=== PATIENT | male | born 1960 | race Caucasian/White ===

== ENCOUNTER → 2016-11-20 | Outpatient (CLI) | payer OTHER ==
[~2016-11-20] MED LIST: ALDA50TA2 PO; BALS750C PO; CHOL1CAP34 PO; CIPR250T2 PO; COLA750C2 PO; DEXAMETHASONE IV PUSH; EMPA1TAB7 PO; FENT50DI T-DERMAL; FENT75DI T-DERMAL; FERR325T20 PO; FLUT50SP EACH NARE; FURO40TA PO; FURO80 PO; FURO80TA PO; GABA300C3 PO; GABA600T PO; HYDR-3535 PO; LACT10SO PO; LACT10SO5 PO; LACT20SO4 PO; LANTUS2P SQ; LEVEMIR SQ; LEVO500T8 PO; LORA-373 PO; LORA0.5T PO; Lactulose Liq PO; NADO1TAB16 PO; NADO20TA PO; NOVOLOGP2 SQ; NOVOLOGSS SQ; NYSTPOW TOPICAL; OMEP20CA2 PO; ONDA1TAB16 PO; OXYC-392 PO; PARO1TAB73 PO; PARO30TA PO; PAXI30TA7 PO; PHEN12.5 PO; PRIL20CA PO; PROM12.54 PO; RIFA550 PO; SPIR50 PO; TRAM50TA PO; TYLE325T PO; ULTR50TA PO; VITA1CAP7 PO; VITA500T2 PO; XIFA550T4 PO; ZINC220C3 PO; [UNRECOGNIZED DRUG - CODE] PO
== END ==
LOC: CLAB 07:16
PROVIDERS: ATTEND Internal Medicine Gastroenterology
DX: K74.60 Unspecified cirrhosis of liver (principal)
CPT/HCPCS: 36415; 82140

== ENCOUNTER 2017-01-04 09:43 | Day surgery (SDC) | payer OTHER ==
[~2017-01-04 09:43] MED LIST changes: -ALDA50TA2 PO; -BALS750C PO; -CHOL1CAP34 PO; -CIPR250T2 PO; -DEXAMETHASONE IV PUSH; -FENT50DI T-DERMAL; -FERR325T20 PO; -FLUT50SP EACH NARE; -FURO40TA PO; -FURO80TA PO; -GABA600T PO; -LACT10SO PO; -LACT10SO5 PO; -LANTUS2P SQ; -LEVO500T8 PO; -LORA-373 PO; -Lactulose Liq PO; -NADO1TAB16 PO; -NADO20TA PO; -NOVOLOGSS SQ; -NYSTPOW TOPICAL; -OMEP20CA2 PO; -ONDA1TAB16 PO; -OXYC-392 PO; -PARO1TAB73 PO; -PAXI30TA7 PO; -PROM12.54 PO; -TRAM50TA PO; -TYLE325T PO; -VITA1CAP7 PO; -VITA500T2 PO; -XIFA550T4 PO; -ZINC220C3 PO
--- NOTE | 2017-01-04 12:04 | RADRPT ---
EXAM DATE/TIME: 01/04/2017 10:30 [place] COMPARISON: US ABDOMEN - LOWER LIMITED, August 06, 2014, 9:41. EXTERNAL COMPARISON : [facility] [place], CT ABDOMEN & PELVIS W CONTRAST, March 25, 2010[place], [place] ABDOMEN & PEL VIS W & W/O CONTRAST, June 24, 2010. INDICATIONS : Abdominal distention, ascites. MEDICAL HISTORY : Myocardial infarction. Hypercholesterolemia. Gastroesophageal reflux disease. Hepatic encephalopathy. Seizures. Anticoagulant therapy. Atrial fibrillation. Diabetes. Renal failure. IBS. Hypertension. C irrhosis. SURGICAL HISTORY : Gastric bypass. Liver biopsy. Hernia repair. Orthopedic surgery: left elbow, left knee and left rotat or cuff. ENCOUNTER: Subsequent ACUITY: > 1 year PAIN SCORE: 0/10 LOCATION: Abdomen. AREA EVALUATED: Abdomen. FINDINGS: Imaging of the abdomen and pelvis was performed to evaluate for ascites for possible paracentesis. Th ere is only a minimal amount of ascites which is inadequate for paracentesis at this time. CONCLUSION: Minimal amount of ascites which is inadequate for paracentesis at this time. Mike Toro MD on January 04, 2017 at 12:01 Board Certified Radiologist. This report was verified electronically.
[2017-02-09] MEDS ORDERED: EMPA1TAB7 PO (14:12)
[2017-02-09] MEDS ORDERED: BALS750C PO ×2 (14:12→15:10)
[2017-02-09] MEDS ORDERED: LACT10SO PO (14:12)
[2017-02-09] MEDS ORDERED: XIFA550T4 PO (14:12)
[2017-02-09] MEDS ORDERED: LORA-373 PO (14:12)
[2017-02-09] MEDS ORDERED: PROM12.54 PO (14:12)
[2017-02-09] MEDS ORDERED: CHOL1CAP34 PO ×2 (14:12→15:10)
[2017-02-09] MEDS ORDERED: TRAM50TA PO (14:12)
[2017-02-09] MEDS ORDERED: ALDA50TA2 PO (14:12)
[2017-02-09] MEDS ORDERED: FENT75DI T-DERMAL (14:12)
[2017-02-09] MEDS ORDERED: FURO80TA PO (14:12)
[2017-02-09] MEDS ORDERED: LEVEMIR SQ (14:12)
[2017-02-09] MEDS ORDERED: GABA600T PO (14:12)
[2017-02-09] MEDS ORDERED: HYDR-3535 PO (14:12)
[2017-02-09] MEDS ORDERED: OMEP20CA2 PO (14:12)
[2017-02-09] MEDS ORDERED: PARO1TAB73 PO (14:12)
[2017-02-09] MEDS ORDERED: NOVOLOGSS SQ (14:12)
[2017-02-09] MEDS ORDERED: FENT50DI T-DERMAL (15:10)
[2017-02-09] MEDS ORDERED: FLUT50SP EACH NARE (15:10)
[2017-02-09] MEDS ORDERED: VITA1CAP7 PO (15:10)
[2017-02-09] MEDS ORDERED: NADO20TA PO (15:10)
[2017-02-09] MEDS ORDERED: ONDA1TAB16 PO ×2 (15:10→16:13)
[2017-02-09] MEDS ORDERED: FURO40TA PO (15:10)
[2017-02-09] MEDS ORDERED: LANTUS2P SQ (15:10)
[2017-02-09] MEDS ORDERED: TYLE325T PO (15:10)
[2017-02-09] MEDS ORDERED: CIPR250T2 PO (15:10)
[2017-02-09] MEDS ORDERED: LEVO500T8 PO (15:10)
[2017-02-09] MEDS ORDERED: LACT10SO5 PO (15:10)
[2017-02-09] MEDS ORDERED: NYSTPOW TOPICAL (15:10)
[2017-02-09] MEDS ORDERED: ZINC220C3 PO (15:10)
[2017-02-09] MEDS ORDERED: NOVOLOGP2 SQ (15:10)
[2017-02-09] MEDS ORDERED: PAXI30TA7 PO (15:10)
[2017-02-20] MEDS ORDERED: LANTUS2P SQ (09:43)
[2017-02-20] MEDS ORDERED: DEXAMETHASONE IV PUSH (09:43)
[2017-02-20] MEDS ORDERED: XIFA550T4 PO (09:43)
[2017-02-20] MEDS ORDERED: VITA1CAP7 PO (09:43)
[2017-02-20] MEDS ORDERED: VITA500T2 PO (09:43)
[2017-02-20] MEDS ORDERED: FENT50DI T-DERMAL (09:43)
[2017-02-20] MEDS ORDERED: OMEP20CA2 PO (09:43)
[2017-02-20] MEDS ORDERED: ZINC220C3 PO (09:43)
[2017-02-20] MEDS ORDERED: CIPR250T2 PO (09:43)
[2017-02-20] MEDS ORDERED: FURO40TA PO (09:43)
[2017-02-20] MEDS ORDERED: FERR325T20 PO (09:43)
[2017-02-20] MEDS ORDERED: CHOL1CAP34 PO (09:43)
[2017-02-20] MEDS ORDERED: TYLE325T PO (09:43)
[2017-02-20] MEDS ORDERED: PAXI30TA7 PO (09:43)
[2017-02-20] MEDS ORDERED: BALS750C PO (09:43)
[2017-02-20] MEDS ORDERED: NOVOLOGP2 SQ (09:43)
[2017-02-20] MEDS ORDERED: ONDA1TAB16 PO (09:43)
[2017-02-20] MEDS ORDERED: NADO1TAB16 PO (09:44)
[2017-02-20] MEDS ORDERED: ALDA50TA2 PO (09:44)
[2017-02-20] MEDS ORDERED: Lactulose Liq PO (09:44)
== END 2017-01-04 11:00 | disposition home or self-care (01) ==
LOC: HRAD 09:43 → HRIP 09:44 → HRAD 11:00
PROVIDERS: ATTEND Internal Medicine Gastroenterology
DX: R18.8 Other ascites (principal)
CPT/HCPCS: 76705

== ENCOUNTER 2017-02-20 10:51 | Inpatient (IN) | payer OTHER, MEDICARE ==
[~2017-02-20] VITALS: Ht 190.5 cm; Wt 164.1 kg
[~2017-02-20 10:51] MED LIST changes: +ALDA50TA2 PO; +BALS750C PO; +CHOL1CAP34 PO; +CIPR250T2 PO; -COLA750C2 PO; +DEXAMETHASONE IV PUSH; -EMPA1TAB7 PO; +FENT50DI T-DERMAL; -FENT75DI T-DERMAL; +FERR325T20 PO; +FLUT50SP EACH NARE; +FURO40TA PO; -FURO80 PO; -GABA300C3 PO; -HYDR-3535 PO; +LACT10SO5 PO; -LACT20SO4 PO; +LANTUS2P SQ; -LEVEMIR SQ; +LEVO500T8 PO; -LORA0.5T PO; +Lactulose Liq PO; +NADO1TAB16 PO; +NADO20TA PO; +NYSTPOW TOPICAL; +OMEP20CA2 PO; +ONDA1TAB16 PO; -PARO30TA PO; +PAXI30TA7 PO; -PHEN12.5 PO; -PRIL20CA PO; -RIFA550 PO; -SPIR50 PO; +TYLE325T PO; -ULTR50TA PO; +VITA1CAP7 PO; +VITA500T2 PO; +XIFA550T4 PO; +ZINC220C3 PO; -[UNRECOGNIZED DRUG - CODE] PO
[2017-02-20 16:00] VITALS: BP 128/58; PULSE 89; RESP 16; TEMP 96.9; O2SAT 98
[2017-02-20] MEDS ORDERED: BISACODYL 10 MG SUPP RECTAL PRN (16:15)
[2017-02-20] MEDS ORDERED: ONDANSETRON HCL 4 MG/2 ML VIAL IVP PRN (16:15)
[2017-02-20] MEDS ORDERED: MAGNESIUM HYDROXIDE SUSP 30 ML CUP PO PRN (16:15)
[2017-02-20] MEDS ORDERED: LACTULOSE SYRUP 20 GM/30 ML CUP PO PRN (16:15)
[2017-02-20] MEDS ORDERED: SENNOSIDES 8.6 MG TAB PO PRN (16:15)
[2017-02-20] MEDS ORDERED: SODIUM CHLORIDE 0.9% FLUSH 10 ML FLUSH IV FLUSH PRN (16:15)
[2017-02-20] MEDS ORDERED: NALOXONE HCL 0.4 MG/ML AMP IV PRN (16:15)
[2017-02-20] MEDS ORDERED: INSULIN ASPART 1,000 UNITS/10 ML VIAL SQ ONE (16:30)
[2017-02-20] MEDS ORDERED: DEXTROSE 50% IN WATER 50 ML VIAL(D50) IV PRN (16:30)
[2017-02-20] MEDS ORDERED: GLUCAGON 1 MG/ML VIAL OTHER PRN (16:30)
--- NOTE | 2017-02-20 16:37 | HHI.HP ---
HPI Service [facility] Primary Care Physician Kylie Ramos MD Admission Diagnosis Diagnoses: Chief Complaint: Subdural hematoma versus hygroma Travel History International Travel<30 Days: No Contact w/Intl Traveler <30 Da: No Traveled to Known Affected Are: No History of Present Illness Mr. Mancilla is a 56-year-old male with a history of diabetes mellitus, CAD, morbid obesity, nonalcoholic steatohepatitis (MCKEON), SBP with E. Coli who was transferred from [facility] to the medical surgical floor on 2016 due to subdural hematoma/hygroma with mass effect and significant clinical symptoms. On 02/19/2017, patient complained of right sided weakness. Subsequently a CT head showed large hygroma with mass effect. Patient was started on dexamethasone and neurosurgery was consulted. Neurosurgery recommended surgical intervention as well as hematology consult due to patient's thrombocytopenia. At the time of this interview, patient is doing well. His right sided weakness is improved. Denies any chest pain, shortness of breath, fever, chills. Review of Systems Except as stated in HPI: all other systems reviewed are Neg Past Family Social History Past Medical History Mckeon cirrhosis Bacterial peritonitis with E. Coli. Spheno-megaly Trauma cytopenia Ascites History of esophageal varices present EGD in 2014 Hepatic cephalopathy Hyperlipidemia Diabetes mellitus type 2 uncontrolled Chronic kidney disease History of cellulitis With infection the foot Tinea corporis Diabetic neuropathy Diabetic nephropathy Past Surgical History Cholecystitis Excision of malignant lesion on the trunk Foot surgery Left knee surgery Right knee arthroscopy Nerve block paravertebral facet joint lumbar level Gastric bypass surgery in 2009 Left shoulder surgery Left elbow surgery Left great toe amputation 2 Reported Medications Current Medications Medications (Trade) Dose Ordered Sig/Vielka Route Start Time Stop Time Status Last Admin (NS Flush) 2 ml UNSCH PRN IV FLUSH 02/20/17 16:15 (NS Flush) 2 ml BID IV FLUSH 02/20/17 21:00 02/21/17 08:39 (Tylenol) 500 mg Q6H PRN PO 02/20/17 16:15 (Zofran Inj) 4 mg Q6H PRN IVP 02/20/17 16:15 02/21/17 10:54 (Narcan Inj) 0.4 mg UNSCH PRN IV 02/20/17 16:15 (Gale-Colace) 1 tab BID PO 02/20/17 21:00 02/21/17 08:39 (Milk Of Magnesia Liq) 30 ml Q12H PRN PO 02/20/17 16:15 (Senokot) 17.2 mg Q12H PRN PO 02/20/17 16:15 (Dulcolax Supp) 10 mg DAILY PRN RECTAL 02/20/17 16:15 (Lactulose Liq) 30 ml DAILY PRN PO 02/20/17 16:15 (D50w (Vial) Inj) 50 ml UNSCH PRN IV 02/20/17 16:30 (Glucagon Inj) 1 mg UNSCH PRN OTHER 02/20/17 16:30 (NovoLOG INJ) 10 units TIDAC SQ 02/20/17 17:00 02/21/17 12:26 (Levemir Inj) 25 units HS SQ 02/20/17 21:00 02/20/17 20:35 (Decadron Inj) 4 mg Q8HR IV PUSH 02/20/17 22:00 02/21/17 12:21 (Ferrous Sulfate) 325 mg BID PO 02/20/17 21:00 02/21/17 08:39 (Aldactone) 50 mg DAILY PO 02/21/17 09:00 02/21/17 08:39 (Lactulose Liq) 30 ml QID PRN PO 02/20/17 16:30 02/21/17 05:57 (Vitamin C) 500 mg BID PO 02/20/17 21:00 02/21/17 08:39 (Cipro) 250 mg DAILY PO 02/21/17 09:00 02/21/17 08:39 (Lasix) 40 mg DAILY PO 02/21/17 09:00 02/21/17 08:39 (Paxil) 30 mg DAILY PO 02/21/17 09:00 02/21/17 08:39 (Protonix) 40 mg DAILY PO 02/21/17 09:00 02/21/17 08:39 (Duragesic 50 Mcg Patch.72 Hr) 1 patch Q3D T-DERMAL 02/20/17 18:00 02/20/17 17:02 Miscellaneous Information 1 Q3D T-DERMAL 02/23/17 18:00 (Pill Splitter) 1 ea UNSCH PRN OTHER 02/20/17 17:15 (Roxicodone) 10 mg Q6H PRN PO 02/21/17 10:15 02/21/17 10:50 Allergies: Coded Allergies: Sulfa (Verified Allergy, Intermediate, Nausea/Vomiting, 02/09/17) *MDRO Multi-Drug Resistant Organism (Verified Adverse Reaction, Unknown, ) MRSA (left foot) 2007 MRSA PCR Screen NEGATIVE - 04/22/2015, 09/26/2015 CLEARED BY INFECTION CONTROL Family History Mother of cancer unknown Father of pancreatic and liver cancer One sister last year, unknown medical history Social History Denies alcohol use Denies tobacco use Denies illicit drug use Physical Exam Vital Signs Temperature 96.9F, pulse 89 respirations 16 blood pressure 128/58 pulse oximetry 98% on room air. Physical Exam GENERAL: This is a well-nourished, well-developed patient, in no apparent distress. SKIN: No rashes, ecchymoses or lesions. Warm and dry. HEAD: Atraumatic. Normocephalic. No temporal or scalp tenderness. EYES: Pupils equal round and reactive. No injection or drainage. ENT: Nose without bleeding, purulent drainage or septal hematoma. Airway patent. NECK: Trachea midline. No lymphadenopathy. Supple, nontender, no meningeal signs. CARDIOVASCULAR: Regular rate and rhythm without murmurs, gallops, or rubs. No JVD. RESPIRATORY: Clear to auscultation. Breath sounds equal bilaterally. No wheezes , rales, or rhonchi. GASTROINTESTINAL: Abdomen soft, non-tender, nondistended. No guarding. MUSCULOSKELETAL: Extremities without clubbing, cyanosis, or edema. NEUROLOGICAL: Awake and alert. Cranial nerves II through XII intact. No focal neurological deficits. Normal speech. Imaging Last Impressions Head CT 02/19/17 0000 Signed Impressions: Service Date/Time: Sunday, February 19, 2017 15:40 - CONCLUSION: Bilateral hygromas much worse on the left than the right. Significant mass effect is evident. Board Certified Radiologist. This report was verified electronically. Abdomen Ultrasound 02/18/17 0000 Signed Impressions: Service Date/Time: Saturday, February 18, 2017 12:57 - CONCLUSION: Small amount of ascites. Tate Koehler MD Lower Extremity Ultrasound 02/13/17 0000 Signed Impressions: Service Date/Time: Monday, February 13, 2017 15:33 - CONCLUSION: No evidence of DVT. Gwyn Durham MD Chest X-Ray 02/10/17 09 Signed Impressions: Service Date/Time: Friday, February 10, 2017 14:10 - CONCLUSION: Mild congestive failure. Garret Hardwick MD FACR Abdomen X-Ray 02/10/17899 Signed Impressions: Service Date/Time: Friday, February 10, 2017 14:12 - CONCLUSION: Nonspecific bowel gas pattern without significant dilatation. There is no free air or obstruction. Garret Hardwick MD FACR Assessment and Plan Problem List: (1) SDH (subdural hematoma) ICD Code: I62.00 Status: Acute (2) MCKEON (nonalcoholic steatohepatitis) ICD Code: K75.81 Status: Acute (3) Cirrhosis ICD Code: K74.60 Status: Chronic (4) DM type 2 (diabetes mellitus, type 2) ICD Code: E11.9 Status: Chronic (5) CKD (chronic kidney disease) stage 3, GFR 30-59 ml/min ICD Code: N18.3 Status: Chronic Assessment and Plan Mr. Mancilla is a 56-year-old male with a history of diabetes mellitus, MCKEON, bacterial peritonitis who was transferred from [facility] to the Med-Surg floor due to large hematoma versus hygroma with mass effect in the brain and possible need for surgical intervention. Bilateral hygroma/subdural hematoma L > R. - Dexamethasone 4mg Q8hrs. Dr. Traore is following and plans to do surgery on or 02/22/2017 - Platelet was 41,000 on 02/20/2017. Patient received 1 unit of platelets on . More platelets may be needed prior to surgery. MCKEON, nonalcoholic steatohepatitis Hepatic encephalopathy - resolved. - Continue Lasix 40 mg daily as well as spirolactone 50mg Qday. - Fentanyl patch, oxycodone for pain - continue Lactulose to achieve 2-3 loose bowel movements. History of SBP with E. Coli. - s/p paracentesis 02/02/17 - Continue Cipro for prophylaxis. DM type 2 - Requiring more insulin due to steroid. - Continue Levemir 25 units QHS, Aspart 10 units TIDAC, sliding scale insulin. Esophageal varices - Continue pantoprazole. states he was not taking Nadolol. - Will discuss again in future about the need for some form of Beta ary with regards to variceal bleed. Thrombocytopenia - Platelet counts 41K. hematology on board to help with gale-surgical management of thrombocytopenia cytopenia. - Hematology consult pending. Full code. Ambulation. Physician Certification 2 Midnight Certification Type: Admission for Inpatient Services Order for Inpatient Services The services are ordered in accordance with Medicare regulations or non- Medicare payer requirements, as applicable. In the case of services not specified as inpatient-only, they are appropriately provided as inpatient services in accordance with the 2-midnight benchmark. Estimated LOS (days): 2 days is the estimated time the patient will need to remain in the hospital, assuming treatment plan goals are met and no additional complications. Post-Hospital Plan: Not yet determined Parmjit Patterson DO Feb 20, 2017 4:37 pm
[2017-02-20] MEDS ORDERED: INSULIN ASPART 1,000 UNITS/10 ML VIAL SQ SCH (17:00)
[2017-02-20] MEDS: fentaNYL 50 MCG/HR PATCH T-DERMAL SCH (17:02)
[2017-02-20] MEDS ORDERED: PILL SPLITTER OTHER PRN (17:15)
[2017-02-20 17:35] VITALS: O2SAT 98
[2017-02-20] MEDS: INSULIN ASPART 1,000 UNITS/10 ML VIAL SQ SCH (18:44)
--- NOTE | 2017-02-20 18:54 | PD.CONS ---
History of Present Illness Service Neurosurgery Consult Requested By Medicine service Reason for Consult Subdural hygroma versus hematoma Primary Care Physician Kylie Ramos MD Diagnoses: History of Present Illness 56-year-old male with history of cirrhosis. Recent admission to [facility] approximately a month ago for week due to ascites-peritonitis. Transferred to [facility] after discharge from [facility]. 3-4 day history of decreased mental status, increased gait deficit with right hemiparesis. CT scan had 02/19/17 revealed moderate left greater than right primarily frontoparietal convexity subdural fluid collection, hygroma versus chronic hematoma. Patient's exam 02/19/17 revealed significant right hemiparesis. His examination today has improved. Past Family Social History Allergies: Coded Allergies: Sulfa (Verified Allergy, Intermediate, Nausea/Vomiting, 02/09/17) *MDRO Multi-Drug Resistant Organism (Verified Adverse Reaction, Unknown, ) MRSA (left foot) 2007 MRSA PCR Screen NEGATIVE - 04/22/2015, 09/26/2015 CLEARED BY INFECTION CONTROL Past Medical History Cirrhosis Past Surgical History Multiple joint surgeries Physical Exam Vital Signs Vital Signs Date Time Temp Pulse Resp B/P Pulse Ox O2 Delivery O2 Flow Rate FiO2 02/20/17 17:35 98 21 02/20/17 16:00 96.9 89 16 128/58 98 Physical Exam General: Mildly obese male, no apparent distress GI: Significant abdominal distention. Nontender NEUROLOGICAL: Awake and alert. Speech a little more fluent with improved thought processes versus 02/19/17. Facial motor movement symmetric Strength is improved to mostly 4-5 left and 4/5 right upper and lower extremity major flexion and extension groups Assessment and Plan Assessment and Plan Impression: 1. Bilateral parietal convexity subdural fluid collection, chronic/subacute subdural hematoma versus hygroma. Significant mass effect. 2. Right hemiparesis improved today compared to 02/19/2017 3. Thrombocytopenia. Plan: Discussed with medicine service today. He was initially anticipated the patient would need to proceed to surgery today on a rather urgent basis due to his right hemiparesis. However due to his improvement in neurologic function today, further platelet transfusion will be held and hematology consultation obtained for further recommendations regarding management of thrombocytopenia and coagulopathy in the perioperative period. Discussed at length with the patient and his today in regards to findings and treatment plan and questions answered. Jan Traore MD Feb 20, 2017 18:54
[2017-02-20] MEDS: DOCUSATE SODIUM 50 MG/SENNA 8.6 MG TAB PO SCH (20:29)
[2017-02-20] MEDS: SODIUM CHLORIDE 0.9% FLUSH 10 ML FLUSH IV FLUSH SCH (20:29)
[2017-02-20] MEDS: FERROUS SULFATE 325 MG (65 MG ELEMENTAL IRON) TAB PO SCH (20:29)
[2017-02-20] MEDS: ASCORBIC ACID 500 MG TAB PO SCH (20:29)
[2017-02-20] MEDS: INSULIN ASPART SUPPLEMENTAL SCALE SQ SCH (20:30)
[2017-02-20] MEDS: DEXAMETHASONE SOD PHOS 4 MG/ML VIAL IV PUSH SCH (20:30)
[2017-02-20 20:34] VITALS: BP 131/58; PULSE 83; RESP 18; TEMP 97.2; O2SAT 98
[2017-02-20] MEDS: INSULIN DETEMIR 100 UNITS/ML VIAL SQ SCH (20:35)
[2017-02-20] MEDS ORDERED: INSULIN DETEMIR 100 UNITS/ML VIAL SQ SCH (21:00)
[2017-02-20] MEDS: LACTULOSE SYRUP 20 GM/30 ML CUP PO PRN (23:12)
--- NOTE | 2017-02-20 23:15 | MB ---
cc: MO BECKER M.D. DATE OF CONSULTATION 02/20/17 ROOM 1506 REASON FOR CONSULTATION Patient with pancytopenia who may require surgery for evacuation of subdural hematoma. I am asked to make recommendations regarding limiting risk of bleeding. PATIENT PROFILE The patient is a 56-year-old white male. He is a poor historian as he has chronic hepatic encephalopathy. His is present and she is an excellent historian. He has been once. He was born in [facility] and has lived in [place] for approximately 43 years. He has two daughters. He is on disability. 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 He does not smoke. Alcohol intake in the past has been minimal. HISTORY OF PRESENT ILLNESS The patient is a 56-year-old male who has a history of morbid obesity. At one point he weighed in excess of 500 pounds and lost approximately 300 pounds. He had gastric bypass surgery in 2009. 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 He has had an elevated serum ammonia levels with encephalopathy. He has had esophageal varices requiring banding. He had a CT scan of the abdomen and pelvis on 11/17/2015. I have reviewed the images and he has a small shrunken liver with a markedly enlarged spleen and varicosities. His current CBC and platelet count on 02/20/2002 hemoglobin 7.9, white count 1800 and platelet count is 41,000, 83% neutrophils. When one looks back at his previous blood counts he has had thrombocytopenia dating back to June 2010 when the platelet count was 55,000. The thrombocytopenia is not new. He has had a low white cell count likewise dating back to 2009 when the white count was 2100. He was recently at the [facility] and had the removal of five liters of ascites. At some point he was found to have an E-coli infection. Following the visit to the [facility] he was transferred to the [facility]. He was found to have right sided weakness. He underwent a CAT scan of the brain without contrast on 02/19 revealing bilateral hygromas much worse on the left than the right with significant mass effect noted. Surgery was contemplated to remove the hygromas and I am asked to see him because of the thrombocytopenia and coagulopathy. On 02/20/2017 he had a PT of 15, PTT of 34. He has had several falls but his does not remember him striking his head PAST SURGICAL HISTORY 1. Gastric bypass surgery in 2010 for morbid obesity. 2. Abdominal hernia repair. 3. Shoulder surgery. 4. Esophageal banding. 5. Surgery left elbow. PAST MEDICAL HISTORY 1. Morbid obesity with weight exceeding 500 pounds. 2. 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 3. Hepatic encephalopathy secondary to cirrhosis. 4. Mild renal failure with estimated GFR of 49 ml. 5. Diabetes mellitus. ALLERGIES None. FAMILY HISTORY Mother of lung cancer. Father of pancreatic cancer. The patient has a sister who is living and a sister of ovarian cancer. PHYSICAL EXAMINATION GENERAL: Physical exam reveals a gentleman who is lying supine in bed. He appears comfortable. He is a poor historian and has mild encephalopathy. He is obese. HEENT: Head is normocephalic. Sclerae and conjunctivae are normal. Oropharynx unremarkable. No adenopathy. HEART: Regular rhythm. LUNGS: Lungs were clear. ABDOMEN: Obese, liver not palpable. I cannot feel the spleen, although, I know that it is enlarged and extends below the left costal margin. EXTREMITIES: +1 edema with significant stasis changes. NEUROLOGIC EXAMINATION: The patient has a mild flap. He has right arm weakness. He has a slight tremor. ASSESSMENT The patient is a 56-year-old male. He has advanced cirrhosis with hepatic encephalopathy, varices, splenomegaly and pancytopenia. The pancytopenia I believe is due to the enlarged spleen. RECOMMENDATIONS If the patient goes to surgery I would recommend the followin. Transfuse 2 single unit donor platelet packs before surgery. 2. Transfuse 3 units of fresh frozen plasma before surgery. 3. Subsequent to this CBC and platelet count daily and if the platelets are less than 100,000, I would give him a single unit donor platelet pack until there is no further risk of bleeding. The platelet transfusions may not necessarily correct the platelet count as his thrombocytopenia is primarily due to his hypersplenism and transfused platelets will be sequestered in the spleen. Following surgery I would also recommend a unit of fresh frozen plasma every 8 hours for several days. I discussed this with the patient's . There is no way that this gentleman can go to surgery without having risks. He is encephalopathic. He has severe cirrhosis and his platelet counts may not significantly rise following platelet transfusions due to the enlarged spleen. Will check fibrinogen level in am. MD KT Gómez /10:21 PM /10:47 PM BRENDA
[2017-02-21] VITALS (7 sets, daily range): BP systolic 131–165; BP diastolic 58–70; PULSE 52–69; RESP 16–18; TEMP 96.1–97.6; O2SAT 98–100
[2017-02-21] MEDS: LACTULOSE SYRUP 20 GM/30 ML CUP PO PRN ×3 (05:57→22:09)
[2017-02-21] MEDS: DEXAMETHASONE SOD PHOS 4 MG/ML VIAL IV PUSH SCH ×3 (05:58→22:12)
[2017-02-21] MEDS: INSULIN ASPART SUPPLEMENTAL SCALE SQ SCH ×3 (06:01→19:24)
[2017-02-21] MEDS: INSULIN ASPART 1,000 UNITS/10 ML VIAL SQ SCH ×3 (08:00→17:00)
[2017-02-21 08:23] LABS: AUTOMATED NEUTROPHIL # 3.5 TH/MM3 (1.8-7.7); BASOPHIL % 0.1 % (0.0-2.0); EOSINOPHIL % 0.1 % (0.0-4.0); LYMPH % 10.8 % (9.0-44.0); LYMPHOCYTE # 0.4 TH/MM3 (1.0-4.8); MEAN CELL VOLUME 98.4 FL (80.0-100.0); MEAN CORPUSCULAR HEMOGLOBIN 32.4 PG (27.0-34.0); MEAN CORPUSCULAR HGB CONC 32.9 % (32.0-36.0); MONO % 3.6 % (0.0-8.0); NEUT % 85.4 % (16.0-70.0); PLATELET COUNT 45 TH/MM3 (150-450); RED BLOOD COUNT 2.54 MIL/MM3 (4.50-5.90); RED CELL DISTRIBUTION WIDTH 16.7 % (11.6-17.2); WHITE BLOOD COUNT 4.1 TH/MM3 (4.0-11.0)
[2017-02-21 08:32] LABS: HEMO FLAGS AUTO DIFF
[2017-02-21 08:37] LABS: INTERNATIONAL NORMALIZED RATIO 1.4 RATIO
[2017-02-21 08:39] LABS: BICARBONATE 18.1 MEQ/L (21.0-32.0); POTASSIUM 4.4 MEQ/L (3.5-5.1)
[2017-02-21] MEDS: FUROSEMIDE 40 MG TAB PO SCH (08:39)
[2017-02-21] MEDS: PARoxetine HCL 20 MG TAB PO SCH (08:39)
[2017-02-21] MEDS: SODIUM CHLORIDE 0.9% FLUSH 10 ML FLUSH IV FLUSH SCH ×2 (08:39→22:46)
[2017-02-21] MEDS: PANTOPRAZOLE SOD 40 MG DELAYED RELEASE TAB PO SCH (08:39)
[2017-02-21] MEDS: DOCUSATE SODIUM 50 MG/SENNA 8.6 MG TAB PO SCH ×2 (08:39→22:09)
[2017-02-21] MEDS: CIPROFLOXACIN 250 MG TAB PO SCH (08:39)
[2017-02-21] MEDS: FERROUS SULFATE 325 MG (65 MG ELEMENTAL IRON) TAB PO SCH ×2 (08:39→22:09)
[2017-02-21] MEDS: ASCORBIC ACID 500 MG TAB PO SCH ×2 (08:39→22:10)
[2017-02-21] MEDS: SPIRONOLACTONE 50 MG TAB PO SCH (08:39)
[2017-02-21] MEDS: NADOLOL 20 MG TAB PO SCH ×2 (08:42→09:00)
--- NOTE | 2017-02-21 09:22 | PD.ONC.PN ---
Subjective Subjective Remarks no complaints Objective Data Date Time Temp Pulse Resp B/P Pulse Ox O2 Delivery O2 Flow Rate FiO2 02/21/17 08:00 96.1 52 16 140/60 99 02/21/17 05:35 97.4 58 18 142/63 98 02/21/17 00:08 97.6 69 18 131/58 98 02/20/17 20:34 97.2 83 18 131/58 98 02/20/17 17:35 98 21 02/20/17 16:00 96.9 89 16 128/58 98 Result Diagram: 02/21/17 0737 02/21/17 0737 Laboratory Results Laboratory Tests Test 02/21/17 07:37 White Blood Count 4.1 TH/MM3 Red Blood Count 2.54 MIL/MM3 Hemoglobin 8.2 GM/DL Hematocrit 25.0 % Mean Corpuscular Volume 98.4 FL Mean Corpuscular Hemoglobin 32.4 PG Mean Corpuscular Hemoglobin 32.9 % Concent Red Cell Distribution Width 16.7 % Platelet Count 45 TH/MM3 Mean Platelet Volume 9.3 FL Neutrophils (%) (Auto) 85.4 % Lymphocytes (%) (Auto) 10.8 % Monocytes (%) (Auto) 3.6 % Eosinophils (%) (Auto) 0.1 % Basophils (%) (Auto) 0.1 % Neutrophils # (Auto) 3.5 TH/MM3 Lymphocytes # (Auto) 0.4 TH/MM3 Monocytes # (Auto) 0.1 TH/MM3 Eosinophils # (Auto) 0.0 TH/MM3 Basophils # (Auto) 0.0 TH/MM3 CBC Comment AUTO DIFF Prothrombin Time 16.0 SEC Prothromb Time International 1.4 RATIO Ratio Fibrinogen 166 mg/dL Sodium Level 141 MEQ/L Potassium Level 4.4 MEQ/L Chloride Level 114 MEQ/L Carbon Dioxide Level 18.1 MEQ/L Anion Gap 9 MEQ/L Blood Urea Nitrogen 30 MG/DL Creatinine 1.54 MG/DL Estimat Glomerular Filtration 47 ML/MIN Rate Random Glucose 314 MG/DL Calcium Level 8.8 MG/DL Administered Medications Medications (Trade) Dose Ordered Sig/Vielka Route PRN Reason Start Time Stop Time Status Last Admin Dose Admin Sodium Chloride (NS Flush) 2 ml BID IV FLUSH 02/20/17 21:00 02/21/17 08:39 Senna/Docusate Sodium (Gale-Colace) 1 tab BID PO 02/20/17 21:00 02/21/17 08:39 Insulin Aspart (NovoLOG INJ) 10 units TIDAC SQ 02/20/17 17:00 02/20/17 18:44 Insulin Detemir (Levemir Inj) 25 units HS SQ 02/20/17 21:00 02/20/17 20:35 Dexamethasone Sodium Phosphate (Decadron Inj) 4 mg Q8HR IV PUSH 02/20/17 22:00 02/21/17 05:58 Nadolol (Corgard) 10 mg DAILY PO 02/21/17 09:00 02/21/17 08:42 Ferrous Sulfate (Ferrous Sulfate) 325 mg BID PO 02/20/17 21:00 02/21/17 08:39 Spironolactone (Aldactone) 50 mg DAILY PO 02/21/17 09:00 02/21/17 08:39 Lactulose (Lactulose Liq) 30 ml QID PRN PO Encephalopathy 02/20/17 16:30 02/21/17 05:57 Ascorbic Acid (Vitamin C) 500 mg BID PO 02/20/17 21:00 02/21/17 08:39 Ciprofloxacin (Cipro) 250 mg DAILY PO 02/21/17 09:00 02/21/17 08:39 Furosemide (Lasix) 40 mg DAILY PO 02/21/17 09:00 02/21/17 08:39 Paroxetine HCl (Paxil) 30 mg DAILY PO 02/21/17 09:00 02/21/17 08:39 Pantoprazole Sodium (Protonix) 40 mg DAILY PO 02/21/17 09:00 02/21/17 08:39 Fentanyl (Duragesic 50 Mcg Patch.72 Hr) 1 patch Q3D T-DERMAL 02/20/17 18:00 02/20/17 17:02 Objective Remarks GENERAL: comfortable and communicative but still with mild encephalopathy SKIN: Warm and dry. HEAD: Normocephalic. EYES: No scleral icterus. No injection or drainage. NECK: Supple, trachea midline. No JVD or lymphadenopathy. LYMPHATIC: No adenopathy. CARDIOVASCULAR: Regular rate and rhythm without murmurs. RESPIRATORY: Breath sounds equal bilaterally. No accessory muscle use. GASTROINTESTINAL: Abdomen obese EXTREMITIES: +1 edema with stasis changes. MUSCULOSKELETAL: poor muscle tone NEUROLOGICAL: mild right sided weakness Assessment/Plan Assessment 1: patient received a platelet transfusion and the counts did not improve due to continued sequestration. Fibrinogen low and PT prolonged due to liver disease. I spoke with Dr. Traore this am and if patient goes to surgery tomorrow I recommend the following - first give 3 units of FFP -following the FFP give 1 Single donor platelet pack and then send to OR and begin the second single donor platelet pack on the way to OR. -following surgery give 1 unit of FFP every 8 hours for 3 days then reevaluate -daily cbc plat, pt and pttt and fibrinogen -would give 1 single donor plat pack daily following surgery for 3 days and hold if platelets> 100,000 (unlikely to happen) -met with and family and reviewed the fact that we can not fully resolve bleeding risk due to liver disease and enlarged spleen. They understand. Corby Arce MD Feb 21, 2017 09:22
[2017-02-21 09:24] LABS: OVALOCYTES 1+ (NORMAL); PLATELET ESTIMATE SMEAR LOW (NORMAL); PLATELET MORPHOLOGY NORMAL (NORMAL); SCAN/DIFF AUTO DIFF CONFIRMED
--- NOTE | 2017-02-21 13:38 | HHI.NSPN ---
(Joe Maurer) History Chief Complaint: Headache (Slade Maureraudelia REYES) Interval History 02/19: 56-year-old gentleman who according to his family was diagnosed with liver disease approximately 8-9 years ago. She was admitted to [facility] for approximately 1 week, approximately 1 month ago for workup of ascites. He underwent a paracentesis on 02/02/2017. The fluid grew Escherichia coli. The patient's states that he was referred to [facility] where he remained for approximately a week. She states that he was in bed most of the time at [facility]. He was then discharged to rehabilitation. She states that he has had quite a bit more difficulty with ambulation since his hospitalization and [facility]. She states that he fell a few weeks ago and apparently again in the past week without loss of consciousness. The patient's seems a little uncertain whether or not he has had any mental status or speech changes, however his nurse this evening feels that he is not quite as alert or fluent in his speech over the past 2 or 3 days than he was last week. The patient states that he has noted headaches for 2 or 3 days. He apparently normally does not have headaches. Due to his difficulty with ambulation, a CT scan of the head was obtained today which has revealed subdural hematoma on the left greater than right. 02/20: Patient asleep but awakens to verbal stimuli. He has difficulty getting words out and has to think on what he says. He does state he has pain to the head although he said "No" previously when asked if he had any headache. He also has pain to the legs with some pain to the arm with the right the worse. 02/21: The patient is asleep initially when seen with Dr Traore this morning. He did complain of a headache. He intermittently would drift off and close his eyes then open them. He transferred to a regular med/surg med yesterday from [facility]. (Joe Maurer) System Review Comments Respiratory: The patient denies any shortness of breath. Cardiovascular: The patient denies any chest pain. Gastrointestinal: The patient denies any abdominal pain. Musculoskeletal: The patient complains of leg and arm pain. Neurologic: The patient complains of headache. (Joe Maurer) Exam Results Vital Signs Date Time Temp Pulse Resp B/P Pulse Ox O2 Delivery O2 Flow Rate FiO2 02/21/17 12:00 96.1 59 16 135/63 100 02/21/17 10:55 21 (Joe Maurer) Physical Examination General: Asleep, awakens to voice, morbidly obese, NAD. HEENT: Normocephalic, atraumatic. Integumentary: Scattered areas of ecchymosis to extremities, age indeterminate. Vascular skin changes to bilateral lower legs and feet. Respiratory: CTAB w/o W/R/R, equal excursion, nonlaboured, on RA. Cardiavascular: S1S2 w/RRR w/o M/G/R, radial & pedal pulses 2+ bilaterally, cap refill < 2 sec, pedal edema 2+ bilaterally. Gastrointestinal: Moderately distended, abdomen TTP, positive bowel sounds. Extremities: Multiple ecchymotic areas noted to all extremities. Left foot with healed toe amputations. Neurologic: Speech and thought processes slowly, patient has to search for words Answers simple questions with difficulty with 1 and 2 word responses Follows simple commands with difficulty Sensation decreased to light touch BLE R>L Motor strength to major flexion & extensions groups 4/5 LLE & 2/5 RLE (Joe Maurer) Lab, Micro, Other Results Allergies Coded Allergies Type Severity Reaction Last Updated Verified Sulfa Allergy Intermediate Nausea/Vomiting 02/09/17 Yes *MDRO Multi-Drug Resistant Organism Adverse Reaction Unknown 02/09/17 Yes ///// 05:59 17:59 05:59 17:59 05:59 17:59 Intake Total 240 ml Balance 240 ml Intake Oral Supplement 240 ml # Voids 2 # Bowel Movements 0 1 Laboratory Tests Test 02/21/17 07:37 White Blood Count 4.1 TH/MM3 Red Blood Count 2.54 MIL/MM3 Hemoglobin 8.2 GM/DL Hematocrit 25.0 % Mean Corpuscular Volume 98.4 FL Mean Corpuscular Hemoglobin 32.4 PG Mean Corpuscular Hemoglobin 32.9 % Concent Red Cell Distribution Width 16.7 % Platelet Count 45 TH/MM3 Mean Platelet Volume 9.3 FL Neutrophils (%) (Auto) 85.4 % Lymphocytes (%) (Auto) 10.8 % Monocytes (%) (Auto) 3.6 % Eosinophils (%) (Auto) 0.1 % Basophils (%) (Auto) 0.1 % Neutrophils # (Auto) 3.5 TH/MM3 Lymphocytes # (Auto) 0.4 TH/MM3 Monocytes # (Auto) 0.1 TH/MM3 Eosinophils # (Auto) 0.0 TH/MM3 Basophils # (Auto) 0.0 TH/MM3 CBC Comment AUTO DIFF Differential Comment AUTO DIFF CONFIRMED Platelet Estimate LOW Platelet Morphology Comment NORMAL Ovalocytes 1+ Prothrombin Time 16.0 SEC Prothromb Time International 1.4 RATIO Ratio Fibrinogen 166 mg/dL Sodium Level 141 MEQ/L Potassium Level 4.4 MEQ/L Chloride Level 114 MEQ/L Carbon Dioxide Level 18.1 MEQ/L Anion Gap 9 MEQ/L Blood Urea Nitrogen 30 MG/DL Creatinine 1.54 MG/DL Estimat Glomerular Filtration 47 ML/MIN Rate Random Glucose 314 MG/DL Calcium Level 8.8 MG/DL Vital Signs Date Time Temp Pulse Resp B/P Pulse Ox O2 Delivery O2 Flow Rate FiO2 02/21/17 12:00 96.1 59 16 135/63 100 02/21/17 10:55 98 21 02/21/17 08:00 96.1 52 16 140/60 99 02/21/17 05:35 97.4 58 18 142/63 98 02/21/17 00:08 97.6 69 18 131/58 98 02/20/17 20:34 97.2 83 18 131/58 98 02/20/17 17:35 98 21 02/20/17 16:00 96.9 89 16 128/58 98 (Joe Maurer) Medical Decision Making Impression and Plan Impression: 1. Left greater than right subdural hygroma versus chronic hematoma. Patient has associated right hemiparesis. 2. Cirrhosis 3. Thrombocytopenia 4. Anaemia 5. History of chronic encephalopathy 6. History of chronic kidney disease Stable neurological status Plan: Plan for surgery tomorrow Platelet transfusion Monitor platelets & haemoglobin (Joe Maurer) Attending Statement I have personally seen and examined the patient on the date of this note. Pertinent documentation and study results have been reviewed by the undersigned. I have personally developed the treatment plan and performed medical decision making. Agree with findings, exam, and treatment plan as noted above. Discussed at length with the patient and his this morning. Left lower extremity seems weaker again today, mostly 2/5 strength. Advised option of observation versus surgical intervention. There is standard he is at significant increased risk for surgical intervention. If there is a chronic subdural hematoma, there is likely membrane formation. Even with a bur hole drainage of the fluid, there is a chance of recurrent hemorrhage either into the subdural space or possible parenchymal hemorrhage. The patient may require further craniotomy for removal of chronic subdural membranes, which can result in further recurrent hematoma and further surgery. Understand that in the presence of his coagulopathy, that the subdural fluid collection represents a life-threatening abnormality. With conservative treatment, particularly in the presence of chronic subdural hematoma, there is a significant chance of progression of the fluid collection and deficit. The patient and his wish to proceed with surgical intervention on 02/22/17. Patient was discussed with hematology today in regards to recommendations for perioperative administration of blood products. (Jan Traore MD) Joe Maurer Feb 21, 2017 13:38 Jan Traore MD Feb 21, 2017 17:56
--- NOTE | 2017-02-21 14:45 | HHI.PR ---
Subjective Remarks Follow-up for bilateral hygroma versus hematoma left greater than right, symptomatic. Patient is currently somewhat drowsy but wakes up on verbal commands. is at bedside. She reports slight worsening of right-sided weakness especially right approximately. No fever or chills. Objective Vitals Vital Signs Date Time Temp Pulse Resp B/P Pulse Ox O2 Delivery O2 Flow Rate FiO2 02/21/17 12:00 96.1 59 16 135/63 100 02/21/17 10:55 98 21 02/21/17 08:00 96.1 52 16 140/60 99 02/21/17 05:35 97.4 58 18 142/63 98 02/21/17 00:08 97.6 69 18 131/58 98 02/20/17 20:34 97.2 83 18 131/58 98 02/20/17 17:35 98 21 02/20/17 16:00 96.9 89 16 128/58 98 I/O 02/20/17 02/20/17 02/20/17 02/21/17 02/21/17 02/21/17 06:59 14:59 22:59 06:59 14:59 22:59 # Voids 2 # Bowel Movements 1 Result Diagram: 02/21/17 0737 02/21/17 0737 Objective Remarks GENERAL: Somewhat drowsy, wakes up on verbal commands. Follows commands appropriately. SKIN: Warm and dry. HEAD: Normocephalic. EYES: No scleral icterus. No injection or drainage. NECK: Supple, trachea midline. No JVD or lymphadenopathy. CARDIOVASCULAR: Regular rate and rhythm without murmurs, gallops, or rubs. RESPIRATORY: Breath sounds equal bilaterally. No accessory muscle use. GASTROINTESTINAL: Abdomen distended, non-tender to palpation. No rigidity or guarding. MUSCULOSKELETAL: No cyanosis, or edema. Right upper extremity strength 3 over 5 , right lower extremity strength 4 over 5. BACK: Nontender without obvious deformity. No CVA tenderness. Procedures None. A/P Problem List: (1) SDH (subdural hematoma) ICD Code: I62.00 Status: Acute (2) HO (nonalcoholic steatohepatitis) ICD Code: K75.81 Status: Acute (3) Cirrhosis ICD Code: K74.60 Status: Chronic (4) DM type 2 (diabetes mellitus, type 2) ICD Code: E11.9 Status: Chronic (5) CKD (chronic kidney disease) stage 3, GFR 30-59 ml/min ICD Code: N18.3 Status: Chronic Assessment and Plan Mr. Mancilla is a 56-year-old male with a history of diabetes mellitus, HO, bacterial peritonitis who was transferred from [facility] to the Med-Surg floor due to large hematoma versus hygroma with mass effect in the brain and possible need for surgical intervention. Bilateral hygroma/subdural hematoma L > R. 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 Dr. Traore is following. Surgical intervention on 02/22/2017 - Platelet count 45K today despite one unit of Platelets yesterday. Normal expected increase in platelet count about 20-30K per unit of Platelets. However , due to hypersplenism, platelet count did not increase much in this patient. - Greatly appreciate Dr. Arce's input on dick-surgical management to reduce risk of bleeding/complications. HO, nonalcoholic steatohepatitis Hepatic encephalopathy - resolved. - Continue Lasix 40 mg daily as well as spirolactone 50mg Qday. - Fentanyl patch, oxycodone for pain - continue Lactulose to achieve 2-3 loose bowel movements. History of SBP with E. Coli. - s/p paracentesis 02/02/17 - Continue Cipro for prophylaxis. DM type 2 - Requiring more insulin due to steroid. - Continue Levemir 25 units QHS, Aspart 10 units TIDAC, sliding scale insulin. Esophageal varices - Continue pantoprazole. states he was not taking Nadolol. - Patient would benefit from beta ary to reduce risk of variceal bleed. Full code. Ambulation. Parmjit Patterson DO Feb 21, 2017 2:45 pm
[2017-02-21] MEDS: INSULIN DETEMIR 100 UNITS/ML VIAL SQ SCH (22:15)
[2017-02-21] MEDS ORDERED: INSULIN ASPART SUPPLEMENTAL SCALE SQ SCH (22:45)
[2017-02-21 23:57] LABS: BICARBONATE 20.2 MEQ/L (21.0-32.0); POTASSIUM 4.8 MEQ/L (3.5-5.1)
[2017-02-22] VITALS (12 sets, daily range): BP systolic 120–175; BP diastolic 46–74; PULSE 54–70; RESP 12–20; TEMP 96.1–98.1; O2SAT 96–99
[2017-02-22] MEDS ORDERED: INSULIN HUMAN REGULAR 1,000 UNITS/10 ML VIAL IV PUSH ONE (00:15)
[2017-02-22] MEDS: ACETAMINOPHEN 325 MG TAB PO PRN (00:46)
[2017-02-22] MEDS: LACTULOSE SYRUP 20 GM/30 ML CUP PO PRN ×3 (00:50→22:21)
[2017-02-22] MEDS ORDERED: ENALAPRILAT 1.25 MG/ML VIAL IV PUSH PRN (02:00)
[2017-02-22] MEDS: DEXAMETHASONE SOD PHOS 4 MG/ML VIAL IV PUSH SCH ×4 (06:00→22:21)
[2017-02-22] MEDS: INSULIN ASPART SUPPLEMENTAL SCALE SQ SCH ×3 (06:37→21:00)
[2017-02-22 07:43] LABS: AUTOMATED NEUTROPHIL # 2.3 TH/MM3 (1.8-7.7); EOSINOPHIL % 0.1 % (0.0-4.0); HEMATOCRIT 23.1 % (39.0-51.0); LYMPH % 10.7 % (9.0-44.0); LYMPHOCYTE # 0.3 TH/MM3 (1.0-4.8); MEAN CELL VOLUME 97.8 FL (80.0-100.0); MEAN CORPUSCULAR HEMOGLOBIN 32.5 PG (27.0-34.0); MEAN CORPUSCULAR HGB CONC 33.3 % (32.0-36.0); MONO % 3.5 % (0.0-8.0); NEUT % 85.7 % (16.0-70.0); PLATELET COUNT 42 TH/MM3 (150-450); RED BLOOD COUNT 2.37 MIL/MM3 (4.50-5.90); WHITE BLOOD COUNT 2.7 TH/MM3 (4.0-11.0)
[2017-02-22 08:04] LABS: HEMO FLAGS AUTO DIFF
[2017-02-22] MEDS: CIPROFLOXACIN 250 MG TAB PO SCH (08:28)
[2017-02-22] MEDS: ASCORBIC ACID 500 MG TAB PO SCH ×2 (08:28→22:20)
[2017-02-22] MEDS: SPIRONOLACTONE 50 MG TAB PO SCH (08:28)
[2017-02-22] MEDS: PARoxetine HCL 20 MG TAB PO SCH (08:28)
[2017-02-22] MEDS: FERROUS SULFATE 325 MG (65 MG ELEMENTAL IRON) TAB PO SCH ×2 (08:28→22:20)
[2017-02-22] MEDS: PANTOPRAZOLE SOD 40 MG DELAYED RELEASE TAB PO SCH (08:28)
[2017-02-22] MEDS: FUROSEMIDE 40 MG TAB PO SCH (08:28)
[2017-02-22] MEDS: DOCUSATE SODIUM 50 MG/SENNA 8.6 MG TAB PO SCH ×2 (08:40→22:20)
[2017-02-22] MEDS: INSULIN ASPART 1,000 UNITS/10 ML VIAL SQ SCH ×2 (08:44→17:00)
[2017-02-22 08:46] LABS: OVALOCYTES 1+ (NORMAL); PLATELET ESTIMATE SMEAR LOW (NORMAL); PLATELET MORPHOLOGY NORMAL (NORMAL); SCAN/DIFF AUTO DIFF CONFIRMED
[2017-02-22] MEDS ORDERED: ONDANSETRON HCL 4 MG/2 ML VIAL IV PUSH ONE (09:00)
--- NOTE | 2017-02-22 09:18 | HHI.NSPN ---
(Joe Maurer) History Chief Complaint: Right side weakness (Joe Maurer) Interval History 02/19: 56-year-old gentleman who according to his family was diagnosed with liver disease approximately 8-9 years ago. She was admitted to [facility] for approximately 1 week, approximately 1 month ago for workup of ascites. He underwent a paracentesis on 02/02/2017. The fluid grew Escherichia coli. The patient's states that he was referred to [facility] where he remained for approximately a week. She states that he was in bed most of the time at [facility]. He was then discharged to rehabilitation. She states that he has had quite a bit more difficulty with ambulation since his hospitalization and [facility]. She states that he fell a few weeks ago and apparently again in the past week without loss of consciousness. The patient's seems a little uncertain whether or not he has had any mental status or speech changes, however his nurse this evening feels that he is not quite as alert or fluent in his speech over the past 2 or 3 days than he was last week. The patient states that he has noted headaches for 2 or 3 days. He apparently normally does not have headaches. Due to his difficulty with ambulation, a CT scan of the head was obtained today which has revealed subdural hematoma on the left greater than right. 02/20: Patient asleep but awakens to verbal stimuli. He has difficulty getting words out and has to think on what he says. He does state he has pain to the head although he said "No" previously when asked if he had any headache. He also has pain to the legs with some pain to the arm with the right the worse. 02/21: The patient is asleep initially when seen with Dr Traore this morning. He did complain of a headache. He intermittently would drift off and close his eyes then open them. He transferred to a regular med/surg med yesterday from [facility]. 02/22: The patient is awake and alert when seen this morning. He still has to search for what he says and at times is not able to complete his thoughts. He has no complaints other than continues right-sided weakness. (Joe Maurer) System Review Comments Respiratory: The patient denies any shortness of breath. Cardiovascular: The patient denies any chest pain. Gastrointestinal: The patient denies any abdominal pain. Musculoskeletal: The patient denies any leg and arm pain. Neurologic: The patient states he still has weakness to the right leg. He denies any headache. (Joe Maurer) Exam Results Vital Signs Date Time Temp Pulse Resp B/P Pulse Ox O2 Delivery O2 Flow Rate FiO2 02/22/17 08:00 97.5 61 16 175/74 98 02/21/17 10:55 21 Intake and Output 02/21/17 02/21/17 02/22/17 08:00 16:00 00:00 Intake Total 480 ml Output Total 300 ml Balance 480 ml -300 ml (Joe Maurer) Physical Examination General: Awake & alert, morbidly obese, NAD. HEENT: Normocephalic, atraumatic. Integumentary: Scattered areas of ecchymosis to extremities, age indeterminate. Vascular skin changes to bilateral lower legs and feet. Respiratory: CTAB w/o W/R/R, equal excursion, nonlaboured, on RA. Cardiavascular: S1S2 w/RRR w/o M/G/R, radial & pedal pulses 2+ bilaterally, cap refill < 2 sec, pedal edema 2+ bilaterally. Gastrointestinal: Moderately distended, abdomen NTTP, positive bowel sounds. Extremities: Multiple ecchymotic areas noted to all extremities. Left foot with healed toe amputations. Neurologic: Speech and thought processes slowly, patient has to search for words, unable to complete thoughts Answers simple questions with difficulty with 1 and 2 word responses Follows simple commands with difficulty Sensation decreased to light touch BLE R>L Motor strength to major flexion & extensions groups 4/5 LLE & 2/5 RLE (Joe Maurer) Lab, Micro, Other Results Allergies Coded Allergies Type Severity Reaction Last Updated Verified Sulfa Allergy Intermediate Nausea/Vomiting 02/09/17 Yes *MDRO Multi-Drug Resistant Organism Adverse Reaction Unknown 02/09/17 Yes 02/20////// 06:00 18:00 06:00 18:00 06:00 18:00 Intake Total 480 ml Output Total 200 ml 100 ml Balance 280 ml -100 ml Intake Oral 480 ml Output Urine Total 200 ml 100 ml # Voids 2 2 # Bowel Movements 1 0 Laboratory Tests Test 02/21/17 02/21/17 02/22/17 02/22/17 07:37 22:45 06:49 06:57 White Blood Count 4.1 TH/MM3 2.7 TH/MM3 Red Blood Count 2.54 MIL/MM3 2.37 MIL/MM3 Hemoglobin 8.2 GM/DL 7.7 GM/DL Hematocrit 25.0 % 23.1 % Mean Corpuscular Volume 98.4 FL 97.8 FL Mean Corpuscular Hemoglobin 32.4 PG 32.5 PG Mean Corpuscular Hemoglobin 32.9 % 33.3 % Concent Red Cell Distribution Width 16.7 % 16.0 % Platelet Count 45 TH/MM3 42 TH/MM3 Mean Platelet Volume 9.3 FL 9.8 FL Neutrophils (%) (Auto) 85.4 % 85.7 % Lymphocytes (%) (Auto) 10.8 % 10.7 % Monocytes (%) (Auto) 3.6 % 3.5 % Eosinophils (%) (Auto) 0.1 % 0.1 % Basophils (%) (Auto) 0.1 % 0.0 % Neutrophils # (Auto) 3.5 TH/MM3 2.3 TH/MM3 Lymphocytes # (Auto) 0.4 TH/MM3 0.3 TH/MM3 Monocytes # (Auto) 0.1 TH/MM3 0.1 TH/MM3 Eosinophils # (Auto) 0.0 TH/MM3 0.0 TH/MM3 Basophils # (Auto) 0.0 TH/MM3 0.0 TH/MM3 CBC Comment AUTO DIFF AUTO DIFF Differential Comment AUTO DIFF AUTO DIFF CONFIRMED CONFIRMED Platelet Estimate LOW LOW Platelet Morphology Comment NORMAL NORMAL Ovalocytes 1+ 1+ Prothrombin Time 16.0 SEC Prothromb Time International 1.4 RATIO Ratio Fibrinogen 166 mg/dL Sodium Level 141 MEQ/L 142 MEQ/L Potassium Level 4.4 MEQ/L 4.8 MEQ/L Chloride Level 114 MEQ/L 110 MEQ/L Carbon Dioxide Level 18.1 MEQ/L 20.2 MEQ/L Anion Gap 9 MEQ/L 12 MEQ/L Blood Urea Nitrogen 30 MG/DL 34 MG/DL Creatinine 1.54 MG/DL 1.58 MG/DL Estimat Glomerular Filtration 47 ML/MIN 46 ML/MIN Rate Random Glucose 314 MG/DL 408 MG/DL Calcium Level 8.8 MG/DL 8.0 MG/DL Blood Bank Comment Vital Signs Date Time Temp Pulse Resp B/P Pulse Ox O2 Delivery O2 Flow Rate FiO2 02/22/17 08:00 97.5 61 16 175/74 98 02/22/17 04:00 97.2 63 18 161/70 98 02/22/17 02:04 18 02/22/17 00:00 96.1 70 20 173/71 96 02/21/17 20:00 97.1 69 16 165/70 98 02/21/17 16:00 97.5 68 16 151/66 98 02/21/17 12:00 96.1 59 16 135/63 100 02/21/17 10:55 98 21 02/21/17 08:00 96.1 52 16 140/60 99 02/21/17 05:35 97.4 58 18 142/63 98 02/21/17 00:08 97.6 69 18 131/58 98 02/20/17 20:34 97.2 83 18 131/58 98 02/20/17 17:35 98 21 02/20/17 16:00 96.9 89 16 128/58 98 (Joe Maurer) Medical Decision Making Impression and Plan Impression: 1. Left greater than right subdural hygroma versus chronic hematoma. Patient has associated right hemiparesis. 2. Cirrhosis 3. Thrombocytopenia 4. Anaemia 5. History of chronic encephalopathy 6. History of chronic kidney disease Stable neurological status Patient with continued sequestration following platelet transfusion Fibrinogen is low and PT prolonged due to liver disease Plan: Discussed plan of care with patient and family Discussed plan of care with job superintendent this afternoon, plan is for 2 alber holes and if necessary convert to craniotomy Daily CBC w/platelets, PT, PTT & fibrinogen Will give 3 units of FFP now Will give 1 single donor platelet pack after FFP Will give 2nd single donor platelet pack on way to OR Will give Ondansetron 4 mg IV x1 dose on way to OR Post-operatively will give 1 unit FFP q8h x3 days, Hem/Onc will re-evaluate after that Post-operatively will give 1 single donor platelet pack QD x3 days, will hold if platelets > 100,000 Will give Ondansetron 4 mg IV q6h x2 doses due to history of severe nausea after surgery (Joe Maurer) Attending Statement I have personally seen and examined the patient on the date of this note. Pertinent documentation and study results have been reviewed by the undersigned. I have personally developed the treatment plan and performed medical decision making. Agree with findings, exam, and treatment plan as noted above. Findings and treatment options thoroughly discussed with family today. Hematology regarding limitations reviewed Patient to surgery today for bur hole, evacuation of bilateral chronic subdural hematoma versus effusion. Risks of the patient requiring further surgical intervention thoroughly discussed with the family. (Jan Traore MD) oJe Maurer Feb 22, 2017 09:18 Jan Traore MD Feb 22, 2017 17:55
--- NOTE | 2017-02-22 10:43 | HHI.PR ---
Subjective Remarks Follow-up for bilateral hygroma versus hematoma left greater than right, symptomatic. Patient is drowsy but wakes up and says a few words. Follows commands in a drowsy state. No fever, chills. , sister,brother in law at bedside. Patient is waiting for surgery today. Objective Vitals Vital Signs Date Time Temp Pulse Resp B/P Pulse Ox O2 Delivery O2 Flow Rate FiO2 02/22/17 08:00 97.5 61 16 175/74 98 02/22/17 04:00 97.2 63 18 161/70 98 02/22/17 02:04 18 02/22/17 00:00 96.1 70 20 173/71 96 02/21/17 20:00 97.1 69 16 165/70 98 02/21/17 16:00 97.5 68 16 151/66 98 02/21/17 12:00 96.1 59 16 135/63 100 02/21/17 10:55 98 21 I/O 02/21/17 02/21/17 02/21/17 02/22/17 02/22/17 02/22/17 07:00 15:00 23:00 07:00 15:00 23:00 Intake Total 480 ml Output Total 300 ml Balance 480 ml -300 ml Intake Oral 480 ml Output Urine Total 300 ml # Voids 2 2 # Bowel Movements 1 0 Result Diagram: 02/22/17 0649 02/21/17 2245 Objective Remarks GENERAL: Somewhat drowsy, wakes up on verbal commands. Follows commands appropriately. SKIN: Warm and dry. HEAD: Normocephalic. EYES: No scleral icterus. No injection or drainage. NECK: Supple, trachea midline. No JVD or lymphadenopathy. CARDIOVASCULAR: Regular rate and rhythm without murmurs, gallops, or rubs. RESPIRATORY: Breath sounds equal bilaterally. No accessory muscle use. GASTROINTESTINAL: Abdomen distended, non-tender to palpation. No rigidity or guarding. MUSCULOSKELETAL: No cyanosis, or edema. Right upper extremity strength 3 over 5 , right lower extremity strength 3 over 5. BACK: Nontender without obvious deformity. No CVA tenderness. Procedures None. A/P Problem List: (1) SDH (subdural hematoma) ICD Code: I62.00 Status: Acute (2) HO (nonalcoholic steatohepatitis) ICD Code: K75.81 Status: Acute (3) Cirrhosis ICD Code: K74.60 Status: Chronic (4) DM type 2 (diabetes mellitus, type 2) ICD Code: E11.9 Status: Chronic (5) CKD (chronic kidney disease) stage 3, GFR 30-59 ml/min ICD Code: N18.3 Status: Chronic Assessment and Plan Mr. Mancilla is a 56-year-old male with a history of diabetes mellitus, HO, bacterial peritonitis who was transferred from [facility] to the Med-Surg floor due to large hematoma versus hygroma with mass effect in the brain and possible need for surgical intervention. Bilateral hygroma/subdural hematoma L > R. 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 Dr. Traore is following. Surgical intervention on 02/22/2017 - Platelet count 42K today 02/22/2017. - Greatly appreciate Dr. Arce's input on dick-surgical management to reduce risk of bleeding/complications. - Discussed with Neurosurgery PA - they are following Dr. Arce's recommendations with regards to FFP and Platelet transfusions. HO, nonalcoholic steatohepatitis Hepatic encephalopathy - resolved. - Continue Lasix 40 mg daily as well as spirolactone 50mg Qday. - Fentanyl patch, oxycodone for pain - continue Lactulose to achieve 2-3 loose bowel movements. - Discussed with about palliative care consultation. She agrees to get Palliative care team's input. History of SBP with E. Coli. - s/p paracentesis 02/02/17 - Continue Cipro for prophylaxis. DM type 2 - Requiring more insulin due to steroid. - Increase Levemir to 30 units QHS, Aspart 10 units TIDAC, sliding scale insulin. Esophageal varices - Continue pantoprazole. states he was not taking Nadolol. - Patient would benefit from beta ary to reduce risk of variceal bleed. Full code. Ambulation. Pharmacological DVT prophylaxis when okay with Neurosurgery/Hematology. Parmjit Patterson DO Feb 22, 2017 10:43 am
--- NOTE | 2017-02-22 12:04 | PD.CONS ---
Consult Service Palliative Care Consult Requested By Dr. Patterson Primary Care Physician Kylie Ramos MD Reason for Consultation a. To assist with evaluation and management of symptoms including: b. To assist medical decision maker(s) with: better understanding of current medical conditions; weighing benefits/burdens of medical treatment options; making medical treatment decisions. HPI History of Present Illness This 56-year-old patient was admitted to [facility] from [facility] inpatient rehabilitation on 02/20/17. He was transferred due to a subdural hematoma/ hygroma with mass effect in significant clinical symptoms. The day prior, 02/19, patient complained of right-sided weakness. CT imaging indicated large hygroma with mass effect. Patient was started on dexamethasone and neurosurgery was consulted. Neurosurgery recommended surgical intervention as well as hematology consult due to patient's thrombocytopenia. At time of arrival patient felt right-sided weakness improved was denying chest pain shortness of breath fever or chills. Apparently had a 3-4 day history of decreased mental status, gait deficit and right hemiparesis which led to acute transfer and additional consultations. * This patient was recently admitted to [facility] about 1 month ago for ascites, peritonitis, portal hypertension, hepatic encephalopathy.Prior to that admission had outpatient paracentesis, and which fluid was positive for Escherichia coli in paracentesis fluid. During that admission he had multiple paracentesis reported totaling nearly 17.5 L. He is noted to be waiting liver transplant. Blood cultures were negative during hospitalization. He had elevated BUN and creatinine. He was treated with IV Zosyn, oral Levaquin, and lactulose. He was transferred to [facility] 02/09/17 for inpatient rehabilitation following discharge from [facility]. * During [facility] rehabilitation course patient was some ammonia elevation, followed by GI. Treated with lactulose, rifaximin. Podiatry also consulted for chronic Pre-ulcerative area right great toe; patient apparently with prior debridements to that region per outpatient podiatry. Possible debridement during course otherwise may be done when DC'd from rehabilitation. Ordered for surgical shoe during rehabilitation. Rehabilitation progress notes patient requiring moderate to maximal assistance with bathing, grooming and toileting. Requires diet modification and minimal assistance for swallowing/eating. Ambulatory with walker and assistance with balance. Some short-term memory deficits, poor safety awareness. * Neurosurgery: 02/20 given improvement in neurologic function day of presentation ;neurosurgery recommended hold off on emergent surgery pending further management of thrombocytopenia per hematology recommendations. * Hematology: 02/20 hematology notes looking back at prior blood counts patient noted to have thrombocytopenia dating back to June 2010 platelets 55, not new thrombocytopenia. (per emr followed with dr French in 1150-1044, s/p bone marrow BX which was normal, thrombocytopenia felt secondary to hypersplenism) Also has had low WBC dating back to 2009, was then 2100. Fibrinogen low and prolonged PT secondary to liver disease. Patient status post platelet transfusion without improvement in counts. Recommendations made for perioperative management/transfusions. Hematology further notes discussed with patient and family "that we cannot fully resolved bleeding risk due to liver disease and enlarged spleen they understand ". * Planned for surgery 02/22/17; ongoing transfusions as per hematology recommendations. on 02/21 patient again noted with left lower extremity weakness. Neurosurgery notes further discussion with patient and regarding observation/conservative treatment versus surgical intervention and associated risks/benefits. Patient, agreed to proceed with surgical intervention 02/22. * 02/22 patient noted to have continued right-sided hemiparesis. He has some difficulty communicating thoughts and finding words. Ongoing transfusions preoperatively as per hematology recommendation. Plan for surgery later in the afternoon. * Palliative care was consulted to assist patient and family with discussion/ clarification regarding long-term goals of treatment. Currently WBC 2.7, hemoglobin 7.7, hematocrit 23.1. Platelet 42. BUN 34/creatinine 1.58.GFR 46 Glucose 408. Recent labs per [facility] 02/20: Total bilirubin 1.5, AST 57, ALT 39, alkaline phosphatase 223, ammonia 60 on 02/18, total protein 6.5, albumin 2.8 GOALS TBD. At time of my arrival to unit to evaluate patient , he is off the unit for OR procedure. Will attempt to see him later. Function/Cognitive Trajectory Prior to recent hospitalization and [facility] admission patient needed some assistance with bathing dressing medications and meals. would attend to his needs before she went to work and he would attend to his needs and some mobility within the home during the day. He utilized a cane and wheeled walker as needed. During most recent [facility] rehabilitation stay he has had some mild cognitive impairments, as well as ongoing intermittent confusion likely secondary to hepatic encephalopathy. Ring [facility] rehabilitation course ambulatory approximately 55 feet with a walker, with assistance with balance. Requiring moderate to maximum assist with grooming, bathing, some with toileting. Requiring minimal assist with eating/meals. Case management notes discussion with team, patient and regarding discharge planning and patient possibly needing SNF placement due to increased care needs. . Past Family Social History Coded Allergies: Sulfa (Verified Allergy, Intermediate, Nausea/Vomiting, 02/09/17) *MDRO Multi-Drug Resistant Organism (Verified Adverse Reaction, Unknown, ) MRSA (left foot) 2007 MRSA PCR Screen NEGATIVE - 04/22/2015, 09/26/2015 CLEARED BY INFECTION CONTROL Past Medical History HO cirrhosis dx 2009 (awaiting liver transplant) Bacterial peritonitis with E. Coli. Splenomegaly Thrombocytopenia Ascites History of esophageal varices ,s/p banding EGD in 2014 Hepatic encephalopathy Hyperlipidemia Diabetes mellitus type 2 uncontrolled Chronic kidney disease History of cellulitis infection the foot Tinea corporis Diabetic neuropathy Diabetic nephropathy History of morbid obesity, > 500#, s/p 300# weight loss . Past Surgical History Banding of esophageal varices via EGD 2014 Cholecystitis Excision of malignant lesion on the trunk Foot surgery Left knee surgery Right knee arthroscopy Nerve block paravertebral facet joint lumbar level Gastric bypass surgery in 2009 Left shoulder surgery Left elbow surgery Left great toe amputation 2 . Reported Medications (NS Flush) IV FLUSH (Tylenol) 500 mg Q6H PRN (Zofran Inj) 4 mg Q6H PRN IVP 02/20/17 16:15 (Narcan Inj) 0.4 mg UNSCH PRN IV (Gale-Colace) 1 tab BID PO (Milk Of Magnesia Liq) 30 ml Q12H PRN PO (Senokot) 17.2 mg Q12H PRN PO (Dulcolax Supp) 10 mg DAILY PRN RECTAL (Lactulose Liq) 30 ml DAILY PRN PO (D50w (Vial) Inj) 50 ml UNSCH PRN IV (Glucagon Inj) 1 mg UNSCH PRN OTHER (NovoLOG INJ) 10 units TIDAC SQ (Levemir Inj) 25 units HS SQ (Decadron Inj) 4 mg Q8HR IV PUSH (Ferrous Sulfate) 325 mg BID PO (Aldactone) 50 mg DAILY PO (Lactulose Liq) 30 ml QID PRN PO (Vitamin C) 500 mg BID PO (Cipro) 250 mg DAILY PO (Lasix) 40 mg DAILY PO (Paxil) 30 mg DAILY PO (Protonix) 40 mg DAILY PO (Duragesic 50 Mcg Patch.72 Hr) 1 patch Q3D T-DERMAL (Roxicodone) 10 mg Q6H PRN PO . Current Medications Medications (Trade) Dose Ordered Sig/Vielka Route Start Time Stop Time Status Last Admin (NS Flush) 2 ml UNSCH PRN IV FLUSH 02/20/17 16:15 (NS Flush) 2 ml BID IV FLUSH 02/20/17 21:00 02/21/17 22:46 (Tylenol) 500 mg Q6H PRN PO 02/20/17 16:15 02/22/17 00:46 (Zofran Inj) 4 mg Q6H PRN IVP 02/20/17 16:15 02/21/17 10:54 (Narcan Inj) 0.4 mg UNSCH PRN IV 02/20/17 16:15 (Gale-Colace) 1 tab BID PO 02/20/17 21:00 02/22/17 08:40 (Milk Of Magnesia Liq) 30 ml Q12H PRN PO 02/20/17 16:15 (Senokot) 17.2 mg Q12H PRN PO 02/20/17 16:15 (Dulcolax Supp) 10 mg DAILY PRN RECTAL 02/20/17 16:15 (Lactulose Liq) 30 ml DAILY PRN PO 02/20/17 16:15 (D50w (Vial) Inj) 50 ml UNSCH PRN IV 02/20/17 16:30 (Glucagon Inj) 1 mg UNSCH PRN OTHER 02/20/17 16:30 (NovoLOG INJ) 10 units TIDAC SQ 02/20/17 17:00 02/22/17 08:44 (Levemir Inj) 25 units HS SQ 02/20/17 21:00 02/21/17 22:15 (Decadron Inj) 4 mg Q8HR IV PUSH 02/20/17 22:00 02/21/17 22:12 (Ferrous Sulfate) 325 mg BID PO 02/20/17 21:00 02/22/17 08:28 (Aldactone) 50 mg DAILY PO 02/21/17 09:00 02/22/17 08:28 (Lactulose Liq) 30 ml QID PRN PO 02/20/17 16:30 02/22/17 08:28 (Vitamin C) 500 mg BID PO 02/20/17 21:00 02/22/17 08:28 (Cipro) 250 mg DAILY PO 02/21/17 09:00 02/22/17 08:28 (Lasix) 40 mg DAILY PO 02/21/17 09:00 02/22/17 08:28 (Paxil) 30 mg DAILY PO 02/21/17 09:00 02/22/17 08:28 (Protonix) 40 mg DAILY PO 02/21/17 09:00 02/22/17 08:28 (Duragesic 50 Mcg Patch.72 Hr) 1 patch Q3D T-DERMAL 02/20/17 18:00 02/20/17 17:02 Miscellaneous Information 1 Q3D T-DERMAL 02/23/17 18:00 (Pill Splitter) 1 ea UNSCH PRN OTHER 02/20/17 17:15 (Roxicodone) 10 mg Q6H PRN PO 02/21/17 10:15 02/21/17 10:50 Family History Mother of lung cancer, father of pancreatic cancer. One sister still living. Another sister of ovarian cancer. . Substance Use Tobacco: nonsmoker Alcohol: None currently, previously minimal alcohol intake Prescription med abuse: None reported Illicits: None reported . 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 . Originally from [place], has lived in [place] for approximately 43 years. Also has 2 daughters. Spiritual/Cultural Factors Hinduism ayush Living Will: Copy in medical record Health Care Surrogate: Copy in medical record Date completed: 01/20/14 Health Care Surrogate(s): Rosa Mancilla . Documented care wishes: Living will is standard verbiage document noting that in the presence of a terminal condition, end-stage condition or vegetative state directs life prolonging procedures be withheld or withdrawn with administration of comfort care only. Designates healthcare surrogate as . Ethical and Legal Issues Patient mental status fluctuates secondary to hepatic encephalopathy. He is able to participate in decision-making at times. If he becomes incapacitated his is designated HCS, would be appropriate legal decision maker. , Physical Exam Vital Signs Date Time Temp Pulse Resp B/P Pulse Ox O2 Delivery O2 Flow Rate FiO2 02/22/17 08:00 97.5 61 16 175/74 98 02/22/17 04:00 97.2 63 18 161/70 98 02/22/17 02:04 18 02/22/17 00:00 96.1 70 20 173/71 96 02/21/17 20:00 97.1 69 16 165/70 98 02/21/17 16:00 97.5 68 16 151/66 98 02/21/17 12:00 96.1 59 16 135/63 100 02/21/17 10:55 98 21 02/21/17 02/22/17 19:00 07:00 Intake Total 480 ml Output Total 200 ml 100 ml Balance 280 ml -100 ml Intake Oral 480 ml Output Urine Total 200 ml 100 ml # Voids 2 # Bowel Movements 0 Exam Draft/pending/templateCONSTITUTIONAL/GENERAL: This is an adequately nourished patient, in no apparent distress. TUBES/LINES/DRAINS: SKIN: No jaundice, rashes, or lesions. Ecchymoses on upper extremities. No wounds seen anteriorly. Skin temperature appropriate. Not diaphoretic. HEAD: Atraumatic. Normocephalic. EYES: Pupils equal and round and reactive. Extraocular motions intact. No scleral icterus. No injection or drainage. Fundi not examined. ENT: Hearing grossly normal. Nose without bleeding or purulent drainage. Throat without visible erythema, exudates, masses, or lesions. NECK: Trachea midline. Supple, nontender. No palpable thyroid enlargement or nodularity. CARDIOVASCULAR: Regular rate and rhythm without murmurs, gallops, or rubs. No JVD. Peripheral pulses symmetric. RESPIRATORY/CHEST: Symmetric, unlabored respirations. Clear to auscultation. Breath sounds equal bilaterally. No wheezes, rales, or rhonchi. GASTROINTESTINAL: Abdomen soft, non-tender, nondistended. No hepato-splenomegaly , or palpable masses. No guarding. Bowel sounds present. GENITOURINARY: Without palpable bladder distension. Lopez catheter in place. MUSCULOSKELETAL: Extremities without clubbing, cyanosis, or edema. No joint tenderness or effusion noted. No calf tenderness. No mottling or clubbing. LYMPHATICS: No palpable cervical or supraclavicular adenopathy. NEUROLOGICAL: Awake and alert. Motor and sensory grossly within normal limits. Follows commands. Cognitively sharp. Moves all extremities. PSYCHIATRIC: No obvious anxiety/depression. no apparent hallucinations or other psychotic thought process. Diagnostic Tests Laboratory Laboratory Tests Test 02/21/17 02/21/17 02/22/17 02/22/17 07:37 22:45 06:49 06:57 White Blood Count 4.1 TH/MM3 2.7 TH/MM3 (4.0-11.0) (4.0-11.0) Red Blood Count 2.54 MIL/MM3 2.37 MIL/MM3 (4.50-5.90) (4.50-5.90) Hemoglobin 8.2 GM/DL 7.7 GM/DL (13.0-17.0) (13.0-17.0) Hematocrit 25.0 % 23.1 % (39.0-51.0) (39.0-51.0) Mean Corpuscular Volume 98.4 FL 97.8 FL (80.0-100.0) (80.0-100.0) Mean Corpuscular Hemoglobin 32.4 PG 32.5 PG (27.0-34.0) (27.0-34.0) Mean Corpuscular Hemoglobin 32.9 % 33.3 % Concent (32.0-36.0) (32.0-36.0) Red Cell Distribution Width 16.7 % 16.0 % (11.6-17.2) (11.6-17.2) Platelet Count 45 TH/MM3 42 TH/MM3 (150-450) (150-450) Mean Platelet Volume 9.3 FL 9.8 FL (7.0-11.0) (7.0-11.0) Neutrophils (%) (Auto) 85.4 % 85.7 % (16.0-70.0) (16.0-70.0) Lymphocytes (%) (Auto) 10.8 % 10.7 % (9.0-44.0) (9.0-44.0) Monocytes (%) (Auto) 3.6 % (0.0-8.0) 3.5 % (0.0-8.0) Eosinophils (%) (Auto) 0.1 % (0.0-4.0) 0.1 % (0.0-4.0) Basophils (%) (Auto) 0.1 % (0.0-2.0) 0.0 % (0.0-2.0) Neutrophils # (Auto) 3.5 TH/MM3 2.3 TH/MM3 (1.8-7.7) (1.8-7.7) Lymphocytes # (Auto) 0.4 TH/MM3 0.3 TH/MM3 (1.0-4.8) (1.0-4.8) Monocytes # (Auto) 0.1 TH/MM3 0.1 TH/MM3 (0-0.9) (0-0.9) Eosinophils # (Auto) 0.0 TH/MM3 0.0 TH/MM3 (0-0.4) (0-0.4) Basophils # (Auto) 0.0 TH/MM3 0.0 TH/MM3 (0-0.2) (0-0.2) CBC Comment AUTO DIFF AUTO DIFF Differential Comment AUTO DIFF AUTO DIFF CONFIRMED CONFIRMED Platelet Estimate LOW (NORMAL) LOW (NORMAL) Platelet Morphology Comment NORMAL NORMAL (NORMAL) (NORMAL) Ovalocytes 1+ (NORMAL) 1+ (NORMAL) Prothrombin Time 16.0 SEC (9.8-11.6) Prothromb Time International 1.4 RATIO Ratio Fibrinogen 166 mg/dL (227-377) Sodium Level 141 MEQ/L 142 MEQ/L (136-145) (136-145) Potassium Level 4.4 MEQ/L 4.8 MEQ/L (3.5-5.1) (3.5-5.1) Chloride Level 114 MEQ/L 110 MEQ/L (98-107) (98-107) Carbon Dioxide Level 18.1 MEQ/L 20.2 MEQ/L (21.0-32.0) (21.0-32.0) Anion Gap 9 MEQ/L (5-15) 12 MEQ/L (5-15) Blood Urea Nitrogen 30 MG/DL (7-18) 34 MG/DL (7-18) Creatinine 1.54 MG/DL 1.58 MG/DL (0.60-1.30) (0.60-1.30) Estimat Glomerular Filtration 47 ML/MIN (>89) 46 ML/MIN (>89) Rate Random Glucose 314 MG/DL 408 MG/DL (74-106) (74-106) Calcium Level 8.8 MG/DL 8.0 MG/DL (8.5-10.1) (8.5-10.1) Blood Bank Comment Result Diagram: 02/22/17 0649 02/21/17 2245 Imaging (*From [facility]) 02/19/17brain CTbilateral hygromas much worse on the left than on the right significant mass effect evident. 02/18/17bdomen ultrasoundsmall amount of ascites 02/13/17lower extremity ultrasoundno evidence of DVT 02/10/17CXRmild congestive failure . Patient/Family Conference Issues Discussed: Draft/pending/template At time of my arrival to unit to evaluate patient he is off the unit for OR procedure. * Palliative care role, purpose, approach * Additional medical, psychosocial, and spiritual history * Patients general health, functional status, and cognitive changes in the months leading up to the current hospitalization * Patient/family understanding of the current medical problems * Patient/family understanding of prognosis * Patients goals of care as best understood from advance directives and/or conversations and/or values * Current medical treatment options and benefits/burdens of those options * Likely scenarios comparing ongoing aggressive care with a transition to comfort measures only * Questions answered to the best of my ability * Palliative care contact information provided Assessment and Plan Disease Oriented Problem List: (1) HO (nonalcoholic steatohepatitis) (2) SDH (subdural hematoma) Comment: Bilateral hygromas/subdural hematoma L > R (3) Thrombocytopenia (4) Diabetic foot ulcers (5) Escherichia coli infection Comment: Per paracentesis 02/02/17 (6) CKD (chronic kidney disease) stage 3, GFR 30-59 ml/min (7) Depression (8) HTN (hypertension) (9) DM type 2 (diabetes mellitus, type 2) (10) Esophageal varices (11) Moderate protein malnutrition Symptom Scale: Pertinent Non-Medical Issues Psychosocial: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 . Originally from [place], has lived in [place] for approximately 43 years. Also has 2 daughters. Spiritual: Hinduism ayush Legal:Patient mental status fluctuates secondary to hepatic encephalopathy. He is able to participate in decision-making at times. If he becomes incapacitated his is designated HCS, would be appropriate legal decision maker. Ethical issues impacting care: . Important Contacts Rosa Mancilla [phone] Prognosis This patient was admitted to the hospital for acute mental status changes and weakness from rehabilitation. CT Head with findings of large hygroma with mass effect. Patient also with chronic thrombocytopenia, hematology is following. Plan for neurosurgical intervention 02/22. Patient with multiple chronic medical conditions, most significantlyNASH, he has had ongoing hepatic encephalopathy , paracentesis, and associated conditions/complications/hospitalizations from underlying liver disease. He is apparently on the waiting list for liver transplant. Per neurosurgery remains at risk for ongoing/recurrent hemorrhage post surgical intervention however without surgical intervention subdural fluid collection could become life threatening. Remains at ongoing risk for further complications and setbacks related to underlying liver disease and new or surgical issues. . Plan Draft/pending/template * Legal decision maker: Patient mental status fluctuates secondary to hepatic encephalopathy. He is able to participate in decision-making at times. If he becomes incapacitated his is designated HCS, would be appropriate legal decision maker. * Goals: TBD. At time of my arrival to unit to evaluate patient he is off the unit for OR procedure. * CODE STATUS: * SYMPTOMS: --Encephalopathy- 2/2 hepatic dysfunction, fluctuates. On lactulose. Has been on rifaximin. Last ammonia level 60 on 02/18per [facility] rehabilitation labs. --Pain-reported with chronic neuropathic pain; on fentanyl patch 50 mics every 72 hour, as well as prn oxycodone. Last dose 10 mg on 02/21/17. * Palliative care will continue to follow during hospital course as condition evolves, to assist patient/decision-maker with understanding of medical conditions, weighing benefits/burdens of treatment options, for clarification of goals of treatment. Additionally will assist with any symptoms of palliative concern Thank you for the opportunity to participate in the care of Mr. Mancilla. Attestation To help prompt me to consider important information that might be impacting today's encounter and assessment, information from prior notes written by myself or my colleagues may have been "brought forward" into today's note. My signature on this note, however, is an attestation that I personally performed the exam, history, and/or decision-making noted today, and, unless otherwise indicated, the interactions with patient, family, and staff as well as the review of records all occurred today. I also attest that the listed assessment and stated plan reflect my best clinical judgment today based on the combination of historical information, prior notes, and today's exam/ interactions. When time spent is documented, it refers only to time spent today by the signer, or if indicated, combined time spent today by collaborating physician/nurse practitioner. Melissa Damon Feb 22, 2017 11:55
[2017-02-22] MEDS ORDERED: INSULIN ASPART SUPPLEMENTAL SCALE SQ ONE (12:07)
[2017-02-22 12:15] LABS: AUTOMATED NEUTROPHIL # 2.5 TH/MM3 (1.8-7.7); BASOPHIL % 0.1 % (0.0-2.0); EOSINOPHIL % 0.1 % (0.0-4.0); LYMPH % 12.1 % (9.0-44.0); LYMPHOCYTE # 0.4 TH/MM3 (1.0-4.8); MEAN CELL VOLUME 97.9 FL (80.0-100.0); MEAN CORPUSCULAR HEMOGLOBIN 32.4 PG (27.0-34.0); MEAN CORPUSCULAR HGB CONC 33.1 % (32.0-36.0); MONO % 5.4 % (0.0-8.0); NEUT % 82.3 % (16.0-70.0); PLATELET COUNT 42 TH/MM3 (150-450); RED BLOOD COUNT 2.34 MIL/MM3 (4.50-5.90); RED CELL DISTRIBUTION WIDTH 16.3 % (11.6-17.2)
[2017-02-22 12:17] LABS: HEMO FLAGS AUTO DIFF
[2017-02-22] MEDS ORDERED: GENTAMICIN SULFATE 80 MG/2 ML VIAL ONE (12:36)
[2017-02-22] MEDS ORDERED: GELFOAM SIZE 100 ONE (12:36)
[2017-02-22] MEDS ORDERED: LIDOCAINE 2%/EPINEPHrine 1:100,000 30ML MDV ONE (12:36)
[2017-02-22] MEDS ORDERED: THROMBIN (TOPICAL) 5,000 UNIT VIAL ONE (12:36)
[2017-02-22 12:42] LABS: BICARBONATE 18.7 MEQ/L (21.0-32.0); POTASSIUM 4.2 MEQ/L (3.5-5.1)
[2017-02-22 12:47] LABS: PLATELET ESTIMATE SMEAR LOW (NORMAL); PLATELET MORPHOLOGY NORMAL (NORMAL); SCAN/DIFF AUTO DIFF CONFIRMED
[2017-02-22] MEDS ORDERED: ceFAZolin 2 GM PREMIX 50 ML ONE (13:39)
[2017-02-22] MEDS ORDERED: PROPOFOL 200 MG/20 ML AMP IV ONE (14:46)
[2017-02-22] MEDS ORDERED: SODIUM CHLORID 0.9% 500 ML INJ 500 ML IV ONE (14:46)
[2017-02-22] MEDS ORDERED: VECURONIUM BROMIDE 10 MG VIAL IV ONE (14:46)
[2017-02-22] MEDS ORDERED: hydrALAZINE HCL 20 MG/ML VIAL IV ONE (14:46)
[2017-02-22] MEDS ORDERED: LACTATED RINGER'S 1000 ML INJ 1,000 ML IV ONE (14:46)
[2017-02-22] MEDS ORDERED: niCARdipine 25 MG/NS 250 ML Vial2Bag or IV room IV SCH ×2 (15:30)
[2017-02-22 15:36] LABS: AUTOMATED NEUTROPHIL # 9.3 TH/MM3 (1.8-7.7); BASOPHIL # 0.1 TH/MM3 (0-0.2); BASOPHIL % 0.5 % (0.0-2.0); EOSINOPHIL % 0.1 % (0.0-4.0); HEMATOCRIT 25.8 % (39.0-51.0); HEMO FLAGS DIFF FINAL; LYMPH % 10.6 % (9.0-44.0); LYMPHOCYTE # 1.2 TH/MM3 (1.0-4.8); MEAN CELL VOLUME 97.2 FL (80.0-100.0); MEAN CORPUSCULAR HEMOGLOBIN 32.4 PG (27.0-34.0); MEAN CORPUSCULAR HGB CONC 33.3 % (32.0-36.0); MONO % 6.7 % (0.0-8.0); NEUT % 82.1 % (16.0-70.0); PLATELET COUNT 118 TH/MM3 (150-450); RED BLOOD COUNT 2.65 MIL/MM3 (4.50-5.90); RED CELL DISTRIBUTION WIDTH 16.2 % (11.6-17.2); WHITE BLOOD COUNT 11.4 TH/MM3 (4.0-11.0)
[2017-02-22] MEDS ORDERED: SODIUM CHLORIDE 0.9% FLUSH 5 ML FLUSH IVF PRN (16:15)
[2017-02-22] MEDS ORDERED: DO NOT ADM ANY ANTICOAGULANT DRUGS PRN (16:18)
[2017-02-22] MEDS ORDERED: MIDAZOLAM HCL 2 MG/2 ML VIAL ONE (16:36)
--- NOTE | 2017-02-22 16:41 | PD.OP ---
Operative Report Date of Surgery: Feb 22, 2017 Preoperative Diagnosis: (1) SDH (subdural hematoma) Bilateral chronic subdural hematoma Chronic cirrhosis Thrombocytopenia Postoperative Diagnosis: (1) SDH (subdural hematoma) Bilateral chronic subdural hematoma Chronic cirrhosis Thrombocytopenia Procedure: Bilateral parietal bur hole evacuation of chronic subdural hematoma Anesthesia: Gen. Surgeon: Jan Traore Sheet Sorter(s): Opal Caballero Operation and Findings: Indications: Large left greater than right chronic appearing subdural hematoma with significant mass effect. Patient is developing right hemiparesis and mental status changes. Findings: Large amount of chronic appearing subdural hematoma at the bilateral frontoparietal convexity. Thin subdural membrane on each side Procedure in detail: The patient was brought into the operating room and general endotracheal anesthesia introduced without difficulty. The patient was placed in supine position on the 3080 table with the head and neck in neutral position on the horseshoe headrest. All extremities were appropriately padded. The head was shaved with clippers and sterilely prepped and draped. Appropriate timeout procedure was performed with all personnel present and in agreement. 1% Xylocaine with epinephrine was used for local infiltration over the incision site which was made near the convexity at the bilateral anterior parietal region and carried sharply down to the cranium. The self-retaining retractor was placed at each incision site The senior grant writer was used to place a single bur hole at each incision site and the dura was incised in a cruciate fashion and the edges coagulated with the bipolar forceps. A thin underlying subdural membrane was encountered. A significant amount of subacute appearing subdural hematoma was evacuated from the subdural space with gentle suction and irrigation until clear. The 10 [place] drain was left in place in the subdural space and guided into place with the [place] 3 dissector. The drain was brought out on each side through an incision in the posterior frontal parietal region and secured to the skin with nylon suture and attached to sterile suction. Bleeding was carefully controlled with the bipolar forceps prior to closure The incision was closed on each side with 3-0 Vicryl for the galea and 3-0 nylon running for the scalp closure. A dressing of sterile Primapore was placed. The patient was taken to recovery room in stable condition All counts were correct at the end of the case Estimated blood loss was 50 cc No specimen was sent to pathology Jan Traore MD Feb 22, 2017 16:41
[2017-02-22] MEDS ORDERED: *morphine SULFATE 8 MG/ML PERIprocedure ONLY ONE ×3 (16:48→17:57)
--- NOTE | 2017-02-22 17:17 | RADRPT ---
EXAM DATE/TIME: 02/22/2017 17:03 [facility] COMPARISON: No previous studies available for comparison. INDICATIONS : Central line placement. MEDICAL HISTORY : None. SURGICAL HISTORY : None. ENCOUNTER: Initial ACUITY: 1 day PAIN SCORE: 0/10 LOCATION: Bilateral chest FINDINGS: Right IJ central line with tip in the proximal SVC. Lungs are hypoaerated which accentuates the centr al markings. No pneumothorax. Cardiomediastinal contours are within normal limits given portable tech nique. Bony thorax is intact. CONCLUSION: 1. Right IJ central line in proximal SVC. 2. No pneumothorax. Dagoberto Bond MD on February 22, 2017 at 17:14 Board Certified Radiologist. This report was verified electronically.
[2017-02-22] MEDS: 1/2 NS + KCL 20 MEQ INJ 1,000 ML IV SCH (17:30)
[2017-02-22] MEDS: SODIUM CHLORIDE 0.9% FLUSH 10 ML FLUSH IV FLUSH SCH ×2 (19:48→22:19)
[2017-02-22] MEDS ORDERED: INSULIN DETEMIR 100 UNITS/ML VIAL SQ SCH ×2 (21:00→22:30)
--- NOTE | 2017-02-22 21:21 | PD.ONC.PN ---
Subjective Subjective Remarks patient awake post operation and able to communicate and lift both arms up Objective Data Date Time Temp Pulse Resp B/P Pulse Ox O2 Delivery O2 Flow Rate FiO2 02/22/17 18:45 75 20 134/63 97 Room Air 131/44 02/22/17 18:30 74 20 138/61 97 Room Air 131/44 02/22/17 17:30 79 20 143/65 97 Room Air 138/45 02/22/17 17:15 79 20 137/62 97 Room Air 139/44 02/22/17 17:00 79 20 131/60 97 Room Air 135/44 02/22/17 16:45 81 20 134/59 98 Room Air 135/45 02/22/17 16:30 83 20 155/68 99 Nasal Cannula 2 155/54 02/22/17 16:19 98.1 83 20 154/66 99 Nasal Cannula 2 166/46 02/22/17 12:30 98.0 54 20 163/69 98 02/22/17 12:00 97.2 57 16 151/67 99 02/22/17 09:25 65 17 160/70 96 02/22/17 09:07 61 18 150/66 98 02/22/17 08:40 96.8 58 18 167/70 97 02/22/17 08:00 97.5 61 16 175/74 98 02/22/17 04:00 97.2 63 18 161/70 98 02/22/17 02:04 18 02/22/17 00:00 96.1 70 20 173/71 96 02/22/17 02/22/17 02/22/17 06:59 14:59 22:59 Intake Total 1880 ml Output Total 300 ml 970 ml Balance -300 ml 910 ml Result Diagram: 02/22/17 1516 02/22/17 1159 Laboratory Results Laboratory Tests Test 02/21/17 02/22/17 02/22/17 02/22/17 22:45 06:49 06:57 11:59 Sodium Level 142 MEQ/L 141 MEQ/L Potassium Level 4.8 MEQ/L 4.2 MEQ/L Chloride Level 110 MEQ/L 110 MEQ/L Carbon Dioxide Level 20.2 MEQ/L 18.7 MEQ/L Anion Gap 12 MEQ/L 12 MEQ/L Blood Urea Nitrogen 34 MG/DL 30 MG/DL Creatinine 1.58 MG/DL 1.46 MG/DL Estimat Glomerular Filtration 46 ML/MIN 50 ML/MIN Rate Random Glucose 408 MG/DL 262 MG/DL Calcium Level 8.0 MG/DL 8.3 MG/DL White Blood Count 2.7 TH/MM3 3.0 TH/MM3 Red Blood Count 2.37 MIL/MM3 2.34 MIL/MM3 Hemoglobin 7.7 GM/DL 7.6 GM/DL Hematocrit 23.1 % 23.0 % Mean Corpuscular Volume 97.8 FL 97.9 FL Mean Corpuscular Hemoglobin 32.5 PG 32.4 PG Mean Corpuscular Hemoglobin 33.3 % 33.1 % Concent Red Cell Distribution Width 16.0 % 16.3 % Platelet Count 42 TH/MM3 42 TH/MM3 Mean Platelet Volume 9.8 FL 9.1 FL Neutrophils (%) (Auto) 85.7 % 82.3 % Lymphocytes (%) (Auto) 10.7 % 12.1 % Monocytes (%) (Auto) 3.5 % 5.4 % Eosinophils (%) (Auto) 0.1 % 0.1 % Basophils (%) (Auto) 0.0 % 0.1 % Neutrophils # (Auto) 2.3 TH/MM3 2.5 TH/MM3 Lymphocytes # (Auto) 0.3 TH/MM3 0.4 TH/MM3 Monocytes # (Auto) 0.1 TH/MM3 0.2 TH/MM3 Eosinophils # (Auto) 0.0 TH/MM3 0.0 TH/MM3 Basophils # (Auto) 0.0 TH/MM3 0.0 TH/MM3 CBC Comment AUTO DIFF AUTO DIFF Differential Comment AUTO DIFF AUTO DIFF CONFIRMED CONFIRMED Platelet Estimate LOW LOW Platelet Morphology Comment NORMAL NORMAL Ovalocytes 1+ Blood Bank Comment Test 02/22/17 02/22/17 15:15 15:16 Blood Type O POSITIVE Crossmatch Leukocyte-Reduced Red Blood Cells Blood Bank Comment White Blood Count 11.4 TH/MM3 Red Blood Count 2.65 MIL/MM3 Hemoglobin 8.6 GM/DL Hematocrit 25.8 % Mean Corpuscular Volume 97.2 FL Mean Corpuscular Hemoglobin 32.4 PG Mean Corpuscular Hemoglobin 33.3 % Concent Red Cell Distribution Width 16.2 % Platelet Count 118 TH/MM3 Mean Platelet Volume 8.8 FL Neutrophils (%) (Auto) 82.1 % Lymphocytes (%) (Auto) 10.6 % Monocytes (%) (Auto) 6.7 % Eosinophils (%) (Auto) 0.1 % Basophils (%) (Auto) 0.5 % Neutrophils # (Auto) 9.3 TH/MM3 Lymphocytes # (Auto) 1.2 TH/MM3 Monocytes # (Auto) 0.8 TH/MM3 Eosinophils # (Auto) 0.0 TH/MM3 Basophils # (Auto) 0.1 TH/MM3 CBC Comment DIFF FINAL Differential Comment Imaging Studies Last 24 hours Impressions Chest X-Ray 02/22/17 0000 Signed Impressions: Service Date/Time: February 17:03 - CONCLUSION: 1. Right IJ central line in proximal SVC. 2. No pneumothorax. Dagoberto Bond MD Administered Medications Medications (Trade) Dose Ordered Sig/Vielka Route PRN Reason Start Time Stop Time Status Last Admin Dose Admin Sodium Chloride (NS Flush) 2 ml BID IV FLUSH 02/20/17 21:00 02/21/17 22:46 Acetaminophen (Tylenol) 500 mg Q6H PRN PO Fever, headache, pain 1-4 02/20/17 16:15 02/22/17 00:46 Ondansetron HCl (Zofran Inj) 4 mg Q6H PRN IVP NAUSEA OR VOMITING 02/20/17 16:15 02/21/17 10:54 Senna/Docusate Sodium (Gale-Colace) 1 tab BID PO 02/20/17 21:00 02/22/17 08:40 Insulin Aspart (NovoLOG INJ) 10 units TIDAC SQ 02/20/17 17:00 02/22/17 08:44 Dexamethasone Sodium Phosphate (Decadron Inj) 4 mg Q8HR IV PUSH 02/20/17 22:00 02/21/17 22:12 Ferrous Sulfate (Ferrous Sulfate) 325 mg BID PO 02/20/17 21:00 02/22/17 08:28 Spironolactone (Aldactone) 50 mg DAILY PO 02/21/17 09:00 02/22/17 08:28 Ascorbic Acid (Vitamin C) 500 mg BID PO 02/20/17 21:00 02/22/17 08:28 Ciprofloxacin (Cipro) 250 mg DAILY PO 02/21/17 09:00 02/22/17 08:28 Furosemide (Lasix) 40 mg DAILY PO 02/21/17 09:00 02/22/17 08:28 Paroxetine HCl (Paxil) 30 mg DAILY PO 02/21/17 09:00 02/22/17 08:28 Pantoprazole Sodium (Protonix) 40 mg DAILY PO 02/21/17 09:00 02/22/17 08:28 Fentanyl (Duragesic 50 Mcg Patch.72 Hr) 1 patch Q3D T-DERMAL 02/20/17 18:00 02/20/17 17:02 Oxycodone HCl 10 mg 10 mg Q6H PRN PO PAIN SCALE 5 TO 10 02/21/17 10:15 02/21/17 10:50 Potassium Chloride/Sodium Chloride (1/2 NS + KCl 20 Meq Inj) 1,000 ml @ 100 mls/hr Q10H IV 02/22/17 16:07 02/22/17 17:30 Objective Remarks GENERAL: awake post op SKIN: Warm and dry. HEAD: bandaged. EYES: ? slight icterus NECK: Supple, trachea midline. No JVD or lymphadenopathy. LYMPHATIC: No adenopathy. CARDIOVASCULAR: Regular rate and rhythm without murmurs. RESPIRATORY: Breath sounds equal bilaterally. No accessory muscle use. GASTROINTESTINAL: Abdomen soft, non-tender, nondistended. EXTREMITIES: +1 edema a stasis changes. MUSCULOSKELETAL: poor muscle tone. NEUROLOGICAL: awake and can lift both arms up. PSYCHIATRIC: Appropriate mood and affect; insight and judgment normal. Assessment/Plan Assessment 1: PATIENT DID WELL WITH SURGERY AND PLATELET COUNT ABOVE 100,000 -following surgery give 1 unit of FFP every 8 hours for 3 days then reevaluate -daily cbc plat, pt, pttt and fibrinogen -would give 1 single donor plat pack daily following surgery for 3 days if platelets <100,000. - Corby Arce MD Feb 22, 2017 21:21
[2017-02-22] MEDS: SODIUM CHLORIDE 0.9% FLUSH 5 ML FLUSH IVF SCH (22:19)
--- NOTE | 2017-02-22 22:42 | HHI.PR ---
Blank section for building received call from RN and charge that patient is on clear liquid diet with minimal PO intake, blood glucose at this time is 213, patient on IV steroids also. Nurses uncomfortable giving Levemir 30 units as scheduled. Will Levemir 15 Units SubQ now and recheck at 0100- then call with results. High dose SSI placed on hold. Sherine Patten Feb 22, 2017 22:42
[2017-02-23] VITALS (15 sets, daily range): BP systolic 126–152; BP diastolic 46–61; PULSE 60–79; RESP 12–34; TEMP 98.1–98.7; O2SAT 97–98
[2017-02-23] MEDS: 1/2 NS + KCL 20 MEQ INJ 1,000 ML IV SCH ×3 (02:26→20:39)
[2017-02-23] MEDS: ACETAMINOPHEN 325 MG TAB PO PRN ×2 (02:41→14:52)
[2017-02-23] MEDS: niCARdipine INJ 25 MG in SODIUM CHLOR 0.9% 250 ML INJ 250 ML IV PRN ×4 (02:41→23:41)
[2017-02-23 04:57] LABS: AUTOMATED NEUTROPHIL # 1.8 TH/MM3 (1.8-7.7); BASOPHIL % 0.1 % (0.0-2.0); LYMPH % 11.8 % (9.0-44.0); LYMPHOCYTE # 0.3 TH/MM3 (1.0-4.8); MEAN CELL VOLUME 97.3 FL (80.0-100.0); MEAN CORPUSCULAR HEMOGLOBIN 33.8 PG (27.0-34.0); MEAN CORPUSCULAR HGB CONC 34.8 % (32.0-36.0); MONO % 4.9 % (0.0-8.0); NEUT % 83.2 % (16.0-70.0); PLATELET COUNT 55 TH/MM3 (150-450); RED BLOOD COUNT 2.12 MIL/MM3 (4.50-5.90); RED CELL DISTRIBUTION WIDTH 16.2 % (11.6-17.2); WHITE BLOOD COUNT 2.2 TH/MM3 (4.0-11.0)
[2017-02-23 05:02] LABS: APTT (PATIENT) 31.7 SEC (24.3-30.1); INTERNATIONAL NORMALIZED RATIO 1.5 RATIO; PROTHROMBIN TIME - PATIENT 16.5 SEC (9.8-11.6)
[2017-02-23 05:16] LABS: BICARBONATE 20.4 MEQ/L (21.0-32.0); POTASSIUM 4.8 MEQ/L (3.5-5.1)
[2017-02-23 05:17] LABS: HEMO FLAGS AUTO DIFF
[2017-02-23 05:19] LABS: HEMATOCRIT 20.6 % (39.0-51.0)
[2017-02-23] MEDS: DEXAMETHASONE SOD PHOS 4 MG/ML VIAL IV PUSH SCH (05:42)
--- NOTE | 2017-02-23 06:05 | RADRPT ---
EXAM DATE/TIME: 02/23/2017 04:58 [facility] COMPARISON: No previous studies available for comparison. INDICATIONS : Post op craniotomy. RADIATION DOSE: 67.26 CTDIvol (mGy) MEDICAL HISTORY : Cardiovascular disease. Hypertension. Diabetes mellitus type 2.Cirrhosis Renal failure SURGICAL HISTORY : Craniotomy. ENCOUNTER: Initial ACUITY: 1 day PAIN SCALE: 5/10 LOCATION: cranial TECHNIQUE: Multiple contiguous axial images were obtained of the head. Using automated exposure control and adj ustment of the mA and/or kV according to patient size, radiation dose was kept as low as reasonably a chievable to obtain optimal diagnostic quality images. FINDINGS: Bilateral subdural hematomas are present with subdural blood and air noted, measuring 21 mm in olivia l thickness on the left and 19 mm in maximal thickness on the right. There is approximately 5 mm of r ightward midline shift. No mass lesion. No evidence of an acute ischemic event. CONCLUSION: Bilateral subdural drains. Air and subacute appearing blood seen in the subdural spaces along both co nvexities, left slightly larger than right and with about 5 mm of rightward midline shift. Kostas Lua MD on February 23, 2017 at 6:01 Board Certified Radiologist. This report was verified electronically.
[2017-02-23 07:00] LABS: OVALOCYTES 1+ (NORMAL); PLATELET ESTIMATE SMEAR LOW (NORMAL); PLATELET MORPHOLOGY NORMAL (NORMAL); SCAN/DIFF AUTO DIFF CONFIRMED
[2017-02-23] MEDS: INSULIN ASPART SUPPLEMENTAL SCALE SQ SCH ×4 (07:00→20:47)
[2017-02-23] MEDS: SODIUM CHLORIDE 0.9% FLUSH 5 ML FLUSH IVF SCH ×2 (07:21→20:40)
[2017-02-23] MEDS: SODIUM CHLORIDE 0.9% FLUSH 10 ML FLUSH IV FLUSH SCH (07:21)
[2017-02-23] MEDS: INSULIN ASPART 1,000 UNITS/10 ML VIAL SQ SCH ×3 (08:00→16:41)
[2017-02-23] MEDS: PARoxetine HCL 20 MG TAB PO SCH (08:53)
[2017-02-23] MEDS: FUROSEMIDE 40 MG TAB PO SCH (08:53)
[2017-02-23] MEDS: SPIRONOLACTONE 50 MG TAB PO SCH (08:53)
[2017-02-23] MEDS: ASCORBIC ACID 500 MG TAB PO SCH ×2 (08:53→20:39)
[2017-02-23] MEDS: FERROUS SULFATE 325 MG (65 MG ELEMENTAL IRON) TAB PO SCH ×2 (08:53→20:39)
[2017-02-23] MEDS: DOCUSATE SODIUM 50 MG/SENNA 8.6 MG TAB PO SCH ×2 (08:53→20:39)
[2017-02-23] MEDS: PANTOPRAZOLE SOD 40 MG DELAYED RELEASE TAB PO SCH (08:53)
[2017-02-23] MEDS: CIPROFLOXACIN 250 MG TAB PO SCH (08:57)
[2017-02-23] MEDS ORDERED: SODIUM CHLOR 0.9% 250 ML INJ 250 ML IV ONE (10:00)
--- NOTE | 2017-02-23 10:22 | HHI.PR ---
Subjective Remarks Follow-up for bilateral hygroma versus hematoma left greater than right, symptomatic, s/p bur hole evacuation of chronic SDH. Patient is currently doing very well. He is alert and more conversant. He is able to move his right extremities well. Denies any chest pain, shortness of breath, fever or chills. His tolerating diet well. He has not had any bowel movement since 2016 Objective Vitals Vital Signs Date Time Temp Pulse Resp B/P Pulse Ox O2 Delivery O2 Flow Rate FiO2 02/23/17 09:07 98 21 02/23/17 08:00 98.2 68 15 150/60 98 02/23/17 08:00 68 02/23/17 07:00 98 Room Air 02/23/17 06:00 60 02/23/17 04:00 98.7 60 19 126/48 98 02/23/17 04:00 60 02/23/17 03:41 12 02/23/17 02:00 64 02/23/17 00:00 60 02/23/17 00:00 98.1 60 12 130/61 98 02/22/17 22:45 98.1 66 12 124/52 98 02/22/17 22:00 68 02/22/17 21:25 98 21 02/22/17 20:00 70 02/22/17 20:00 97.9 70 12 120/46 99 02/22/17 19:30 98 Room Air 02/22/17 18:45 75 20 134/63 97 Room Air 131/44 02/22/17 18:30 74 20 138/61 97 Room Air 131/44 02/22/17 17:30 79 20 143/65 97 Room Air 138/45 02/22/17 17:15 79 20 137/62 97 Room Air 139/44 02/22/17 17:00 79 20 131/60 97 Room Air 135/44 02/22/17 16:45 81 20 134/59 98 Room Air 135/45 02/22/17 16:30 83 20 155/68 99 Nasal Cannula 2 155/54 02/22/17 16:19 98.1 83 20 154/66 99 Nasal Cannula 2 166/46 02/22/17 12:30 98.0 54 20 163/69 98 02/22/17 12:00 97.2 57 16 151/67 99 I/O 02/22/17 02/22/17 02/22/17 02/23/17 02/23/17 02/23/17 07:00 15:00 23:00 07:00 15:00 23:00 Intake Total 2657 ml 828 ml Output Total 300 ml 1850 ml 625 ml Balance -300 ml 807 ml 203 ml Intake Oral 60 ml 120 ml IV Total 1097 ml 708 ml Other 1500 ml Output Urine Total 300 ml 1625 ml 600 ml Drainage Total 175 ml 25 ml Estimated Blood Loss 50 ml # Voids 2 # Bowel Movements 0 0 0 Result Diagram: 02/23/17 0430 02/23/17 0430 Imaging Last Impressions Head CT 02/23/17 0600 Signed Impressions: Service Date/Time: Thursday, February 23, 2017 04:58 - CONCLUSION: Bilateral subdural drains. Air and subacute appearing blood seen in the subdural spaces along both convexities, left slightly larger than right and with about 5 mm of rightward midline shift. Kostas Lua MD Chest X-Ray 02/22/17 0000 Signed Impressions: Service Date/Time: February 17:03 - CONCLUSION: 1. Right IJ central line in proximal SVC. 2. No pneumothorax. Dagoberto Bond MD Objective Remarks GENERAL: More alert, coherent conversation. SKIN: Warm and dry. HEAD: Normocephalic. EYES: No scleral icterus. No injection or drainage. NECK: Supple, trachea midline. No JVD or lymphadenopathy. CARDIOVASCULAR: Regular rate and rhythm without murmurs, gallops, or rubs. RESPIRATORY: Breath sounds equal bilaterally. No accessory muscle use. GASTROINTESTINAL: Abdomen distended, non-tender to palpation. No rigidity or guarding. MUSCULOSKELETAL: No cyanosis, or edema. Right upper and lower extremities strength pretty much equal to the left side. BACK: Nontender without obvious deformity. No CVA tenderness. Procedures 02/22/2017 Bilateral parietal bur hole evacuation of chronic subdural hematoma A/P Problem List: (1) SDH (subdural hematoma) ICD Code: I62.00 Status: Acute (2) HO (nonalcoholic steatohepatitis) ICD Code: K75.81 Status: Acute (3) Cirrhosis ICD Code: K74.60 Status: Chronic (4) DM type 2 (diabetes mellitus, type 2) ICD Code: E11.9 Status: Chronic (5) CKD (chronic kidney disease) stage 3, GFR 30-59 ml/min ICD Code: N18.3 Status: Chronic Assessment and Plan Mr. Mancilla is a 56-year-old male with a history of diabetes mellitus, HO, bacterial peritonitis who was transferred from [facility] to the Med-Surg floor due to large hematoma versus hygroma with mass effect in the brain and possible need for surgical intervention. Bilateral hygroma/subdural hematoma L > R. 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 Traore is following. Surgically subdural hematoma was evacuated on 2016 - Platelet count 55K on 02/23/2017 - Greatly appreciate Dr. Arce's input on dick-operative management to reduce risk of bleeding/complications. HO, nonalcoholic steatohepatitis Hepatic encephalopathy - resolved. - Continue Lasix 40 mg daily as well as spirolactone 50mg Qday. - Fentanyl patch, oxycodone for pain - continue Lactulose to achieve 2-3 loose bowel movements. History of SBP with E. Coli. - s/p paracentesis 02/02/17 - Continue Cipro for prophylaxis. DM type 2 - Requiring more insulin due to steroid. - Levemir reduced from 30 units to 15 units QHS, Aspart 10 units TIDAC, sliding scale insulin. Esophageal varices - Continue pantoprazole. states he was not taking Nadolol. - Patient would benefit from beta ary to reduce risk of variceal bleed. Full code. Ambulation. Pharmacological DVT prophylaxis when okay with Neurosurgery/Hematology. Parmjit Patterson DO Feb 23, 2017 10:22
--- NOTE | 2017-02-23 13:46 | PD.CONS ---
Consult Service Palliative Care Consult Requested By Dr. Patterson . Primary Care Physician Kylie Ramos MD Reason for Consultation a. To assist with evaluation and management of symptoms including: encephalopathy b. To assist medical decision maker(s) with: better understanding of current medical conditions; weighing benefits/burdens of medical treatment options; making medical treatment decisions. HPI History of Present Illness This 56-year-old patient was admitted to [facility] from [facility] inpatient rehabilitation on 02/20/17. He was transferred due to a subdural hematoma/ hygroma with mass effect in significant clinical symptoms. The day prior, 02/19, patient complained of right-sided weakness. CT imaging indicated large hygroma with mass effect. Patient was started on dexamethasone and neurosurgery was consulted. Neurosurgery recommended surgical intervention as well as hematology consult due to patient's thrombocytopenia. At time of arrival patient felt right-sided weakness improved was denying chest pain shortness of breath fever or chills. Apparently had a 3-4 day history of decreased mental status, gait deficit and right hemiparesis which led to acute transfer and additional consultations. * This patient was recently admitted to [facility] about 1 month ago for ascites, peritonitis, portal hypertension, hepatic encephalopathy.Prior to that admission had outpatient paracentesis, and which fluid was positive for Escherichia coli in paracentesis fluid. During that admission he had multiple paracentesis reported totaling nearly 17.5 L. He is noted to be waiting liver transplant. Blood cultures were negative during hospitalization. He had elevated BUN and creatinine. He was treated with IV Zosyn, oral Levaquin, and lactulose. He was transferred to [facility] 02/09/17 for inpatient rehabilitation following discharge from [facility]. * During [facility] rehabilitation course patient was some ammonia elevation, followed by GI. Treated with lactulose, rifaximin. Podiatry also consulted for chronic Pre-ulcerative area right great toe; patient apparently with prior debridements to that region per outpatient podiatry. Possible debridement during course otherwise may be done when DC'd from rehabilitation. Ordered for surgical shoe during rehabilitation. Rehabilitation progress notes patient requiring moderate to maximal assistance with bathing, grooming and toileting. Requires diet modification and minimal assistance for swallowing/eating. Ambulatory with walker and assistance with balance. Some short-term memory deficits, poor safety awareness. * Neurosurgery: 02/20 given improvement in neurologic function day of presentation ;neurosurgery recommended hold off on emergent surgery pending further management of thrombocytopenia per hematology recommendations. * Hematology: 02/20 hematology notes looking back at prior blood counts patient noted to have thrombocytopenia dating back to June 2010 platelets 55, not new thrombocytopenia. 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 Fibrinogen low and prolonged PT secondary to liver disease. Patient status post platelet transfusion without improvement in counts. Recommendations made for perioperative management/transfusions. Hematology further notes discussed with patient and family "that we cannot fully resolved bleeding risk due to liver disease and enlarged spleen they understand ". * Planned for surgery 02/22/17; ongoing transfusions as per hematology recommendations. on 02/21 patient again noted with left lower extremity weakness. Neurosurgery notes further discussion with patient and regarding observation/conservative treatment versus surgical intervention and associated risks/benefits. Patient, agreed to proceed with surgical intervention 02/22. * 02/22 patient noted to have continued right-sided hemiparesis. He has some difficulty communicating thoughts and finding words. Ongoing transfusions preoperatively as per hematology recommendation. Plan for surgery later in the afternoon. * Palliative care was consulted 02/22 to assist patient and family with discussion/clarification regarding long-term goals of treatment. Currently WBC 2.7, hemoglobin 7.7, hematocrit 23.1. Platelet 42. BUN 34/creatinine 1.58.GFR 46 Glucose 408. Recent labs per [facility] 02/20: Total bilirubin 1.5 , AST 57, ALT 39, alkaline phosphatase 223, ammonia 60 on 02/18, total protein 6.5 , albumin 2.8. Attempted to see pt 02/22 on day of consultation, at time of arrival on unit he has just left for OR procedure per neurosurgery. Patient seen on 02/23/17. Met with patient and at bedside. Patient is oriented and for the most part appropriate; though he does easily confuse details, at times is forgetful, and at times must search for words, or states the wrong words such as when he was trying to describe his neuropathy pain on his lower extremities he referring to it as is "Coello". Fairly reasonable insight into medical conditions overall though again often confuses details and does not necessarily have full insight into most recent rehabilitation course. He is pleasant, cooperative. He endorses a headache. He endorses chronic back pain which is no better or worse than he is used to. He endorses some neuropathic pain to LE which is also no better or worse than usual. No nausea, no GI complaints. + BM today. No visual changes. No dizziness. + GILL. Function/Cognitive Trajectory Prior to recent hospitalization and [facility] admission patient needed some assistance with bathing dressing medications and meals. would attend to his needs before she went to work and he would attend to his needs and some mobility within the home during the day. He utilized a cane and wheeled walker as needed. During most recent [facility] rehabilitation stay he has had some mild cognitive impairments, as well as ongoing intermittent confusion likely secondary to hepatic encephalopathy. Ring [facility] rehabilitation course ambulatory approximately 55 feet with a walker, with assistance with balance. Requiring moderate to maximum assist with grooming, bathing, some with toileting. Requiring minimal assist with eating/meals. Case management notes discussion with team, patient and regarding discharge planning and patient possibly needing SNF placement due to increased care needs. . Review of Systems ROS Limitations: Poor Historian (forgetful at times) Constitutional: COMPLAINS OF: Weight gain (some weight gain over past few mos) , Pain (GILL, back pain ), Generalized weakness, DENIES: Dizziness Eyes: DENIES: Vision loss, Double Vision Ears, nose, mouth, throat: DENIES: Oral lesions, Throat pain, Hoarseness Respiratory: DENIES: Cough, Wheezing, Sputum production, Shortness of breath Cardiovascular: DENIES: Chest pain Musculoskeletal: COMPLAINS OF: Back pain (chronic x years ) Neurologic: COMPLAINS OF: Headache (x few days ), Localized weakness ( report Lt side weakness pre-surgery x few days), Speech Problems (difficulty speaking x few days pre surgery ) Psychiatric: COMPLAINS OF: Confusion (more so that usual x few days pre surgery ), DENIES: Hallucinations, Agitation Past Family Social History Coded Allergies: Sulfa (Verified Allergy, Intermediate, Nausea/Vomiting, 02/09/17) *MDRO Multi-Drug Resistant Organism (Verified Adverse Reaction, Unknown, ) MRSA (left foot) 2007 MRSA PCR Screen NEGATIVE - 04/22/2015, 09/26/2015 CLEARED BY INFECTION CONTROL Past Medical History HO cirrhosis dx 2009 (awaiting liver transplant) Bacterial peritonitis with E. Coli. Splenomegaly Thrombocytopenia Ascites History of esophageal varices ,s/p banding EGD in 2014 Hepatic encephalopathy Hyperlipidemia Diabetes mellitus type 2 uncontrolled Chronic kidney disease History of cellulitis infection the foot Tinea corporis Diabetic neuropathy Diabetic nephropathy History of morbid obesity, > 500#, s/p 300# weight loss . Past Surgical History Banding of esophageal varices via EGD 2014 Cholecystitis Excision of malignant lesion on the trunk Foot surgery Left knee surgery Right knee arthroscopy Nerve block paravertebral facet joint lumbar level Gastric bypass surgery in 2009 Left shoulder surgery Left elbow surgery Left great toe amputation 2 . Reported Medications (NS Flush) IV FLUSH (Tylenol) 500 mg Q6H PRN (Zofran Inj) 4 mg Q6H PRN IVP 02/20/17 16:15 (Narcan Inj) 0.4 mg UNSCH PRN IV (Gale-Colace) 1 tab BID PO (Milk Of Magnesia Liq) 30 ml Q12H PRN PO (Senokot) 17.2 mg Q12H PRN PO (Dulcolax Supp) 10 mg DAILY PRN RECTAL (Lactulose Liq) 30 ml DAILY PRN PO (D50w (Vial) Inj) 50 ml UNSCH PRN IV (Glucagon Inj) 1 mg UNSCH PRN OTHER (NovoLOG INJ) 10 units TIDAC SQ (Levemir Inj) 25 units HS SQ (Decadron Inj) 4 mg Q8HR IV PUSH (Ferrous Sulfate) 325 mg BID PO (Aldactone) 50 mg DAILY PO (Lactulose Liq) 30 ml QID PRN PO (Vitamin C) 500 mg BID PO (Cipro) 250 mg DAILY PO (Lasix) 40 mg DAILY PO (Paxil) 30 mg DAILY PO (Protonix) 40 mg DAILY PO (Duragesic 50 Mcg Patch.72 Hr) 1 patch Q3D T-DERMAL (Roxicodone) 10 mg Q6H PRN PO . Current Medications Medications (Trade) Dose Ordered Sig/Vielka Route Start Time Stop Time Status Last Admin (Tylenol) 500 mg Q6H PRN PO 02/20/17 16:15 02/23/17 02:41 (Zofran Inj) 4 mg Q6H PRN IVP 02/20/17 16:15 02/21/17 10:54 (Narcan Inj) 0.4 mg UNSCH PRN IV 02/20/17 16:15 (Gale-Colace) 1 tab BID PO 02/20/17 21:00 02/23/17 08:53 (Milk Of Magnesia Liq) 30 ml Q12H PRN PO 02/20/17 16:15 (Senokot) 17.2 mg Q12H PRN PO 02/20/17 16:15 (Dulcolax Supp) 10 mg DAILY PRN RECTAL 02/20/17 16:15 (Lactulose Liq) 30 ml DAILY PRN PO 02/20/17 16:15 (D50w (Vial) Inj) 50 ml UNSCH PRN IV 02/20/17 16:30 (Glucagon Inj) 1 mg UNSCH PRN OTHER 02/20/17 16:30 (NovoLOG INJ) 10 units TIDAC SQ 02/20/17 17:00 02/22/17 08:44 (Ferrous Sulfate) 325 mg BID PO 02/20/17 21:00 02/23/17 08:53 (Aldactone) 50 mg DAILY PO 02/21/17 09:00 02/23/17 08:53 (Vitamin C) 500 mg BID PO 02/20/17 21:00 02/23/17 08:53 (Cipro) 250 mg DAILY PO 02/21/17 09:00 02/23/17 08:57 (Lasix) 40 mg DAILY PO 02/21/17 09:00 02/23/17 08:53 (Paxil) 30 mg DAILY PO 02/21/17 09:00 02/23/17 08:53 (Protonix) 40 mg DAILY PO 02/21/17 09:00 02/23/17 08:53 (Duragesic 50 Mcg Patch.72 Hr) 1 patch Q3D T-DERMAL 02/20/17 18:00 02/20/17 17:02 Miscellaneous Information 1 Q3D T-DERMAL 02/23/17 18:00 (Pill Splitter) 1 ea UNSCH PRN OTHER 02/20/17 17:15 (Roxicodone) 10 mg Q6H PRN PO 02/21/17 10:15 02/23/17 12:16 (Lactulose Liq) 30 ml Q4H PRN PO 02/22/17 17:00 02/22/17 22:21 (NS Flush) 2 ml UNSCH PRN IVF 02/22/17 16:15 IV Flush 2 ml 2 ml BID IVF 02/22/17 21:00 02/23/17 07:21 Potassium Chloride/Sodium Chloride 1,000 ml @ 100 mls/hr Q10H IV 02/22/17 16:07 02/23/17 12:16 (Cardene Inj/NS 250 ml Inj) 260 ml @ 0 mls/hr TITRATE PRN IV 02/22/17 16:30 02/23/17 02:41 Miscellaneous Information ALL NURSING DEPARTME... UNSCH PRN .XX 02/22/17 16:18 02/23/17 16:17 Insulin Detemir 15 units 15 units HS SQ 02/23/17 21:00 (NS 250 ml Inj) 250 ml @ 15 mls/hr ONCE ONCE IV 02/23/17 10:00 02/24/17 02:39 02/23/17 10:00 Family History Mother of lung cancer, father of pancreatic cancer. One sister still living. Another sister of ovarian cancer. . Substance Use Tobacco:nonsmoker Alcohol:None currently, previously minimal alcohol intake Prescription med abuse:None reported Illicits:None reported . 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 . Originally from [place], has lived in [place] for approximately 43 years. Also has 2 daughters. Spiritual/Cultural Factors Taoist ayush- no particular affiliation. open to plate conditioner visits. Living Will: Copy in medical record Health Care Surrogate: Copy in medical record Date completed: 01/20/14 Health Care Surrogate(s): Rosa Mancilla . Documented care wishes: Living will is standard verbiage document noting that in the presence of a terminal condition, end-stage condition or vegetative state directs life prolonging procedures be withheld or withdrawn with administration of comfort care only. Designates healthcare surrogate as . Ethical and Legal Issues Patient mental status fluctuates secondary to hepatic encephalopathy. He is able to participate in decision-making at times. If he becomes incapacitated his is designated HCS, would be appropriate legal decision maker. . Physical Exam Vital Signs Date Time Temp Pulse Resp B/P Pulse Ox O2 Delivery O2 Flow Rate FiO2 02/23/17 12:00 73 02/23/17 12:00 98.4 73 26 152/51 97 02/23/17 10:00 73 02/23/17 09:07 98 21 02/23/17 08:00 98.2 68 15 150/60 98 02/23/17 08:00 68 02/23/17 07:00 98 Room Air 02/23/17 06:00 60 02/23/17 04:00 98.7 60 19 126/48 98 02/23/17 04:00 60 02/23/17 03:41 12 02/23/17 02:00 64 02/23/17 00:00 60 02/23/17 00:00 98.1 60 12 130/61 98 02/22/17 22:45 98.1 66 12 124/52 98 02/22/17 22:00 68 02/22/17 21:25 98 21 02/22/17 20:00 70 02/22/17 20:00 97.9 70 12 120/46 99 02/22/17 19:30 98 Room Air 02/22/17 18:45 75 20 134/63 97 Room Air 131/44 02/22/17 18:30 74 20 138/61 97 Room Air 131/44 02/22/17 17:30 79 20 143/65 97 Room Air 138/45 02/22/17 17:15 79 20 137/62 97 Room Air 139/44 02/22/17 17:00 79 20 131/60 97 Room Air 135/44 02/22/17 16:45 81 20 134/59 98 Room Air 135/45 02/22/17 16:30 83 20 155/68 99 Nasal Cannula 2 155/54 02/22/17 16:19 98.1 83 20 154/66 99 Nasal Cannula 2 166/46 02/22/17 02/23/17 19:00 07:00 Intake Total 1880 ml 1605 ml Output Total 1270 ml 1505 ml Balance 610 ml 100 ml Intake Oral 180 ml IV Total 380 ml 1425 ml Other 1500 ml Output Urine Total 1100 ml 1425 ml Drainage Total 120 ml 80 ml Estimated Blood Loss 50 ml # Voids 2 # Bowel Movements 0 0 Exam CONSTITUTIONAL/GENERAL: This is an obese male, in no apparent distress. TUBES/LINES/DRAINS:left radial art line, rt IJ central line, SCDs, park catheter SKIN: No jaundice, rashes, or lesions. Several Ecchymoses on upper extremities. 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 Chronic vascular changes bilateral lower legs. Skin warm. HEAD: Atraumatic. + large stockingnette dressing clean/dry, +JASON exit from left, right. EYES: Pupils equal and round and reactive. Amblyopia -left eye outward. Extraocular motions intact. No scleral icterus. No injection or drainage. Fundi not examined. ENT: Hearing grossly normal. Nose without bleeding or purulent drainage. Throat without visible erythema, exudates, masses, or lesions. NECK: Trachea midline. Supple, nontender. No palpable thyroid enlargement or nodularity. CARDIOVASCULAR: Regular rate and rhythm no murmur. Peripheral pulses symmetric. RESPIRATORY/CHEST: Symmetric, unlabored respirations on room air. Clear to auscultation. Breath sounds equal bilaterally. GASTROINTESTINAL: Abdomen obese, soft, non-tender, nondistended. No palpable masses. No guarding. Bowel sounds present. GENITOURINARY: Without palpable bladder distension. Park catheter in place clear yellow urine present. MUSCULOSKELETAL: Extremities without clubbing, cyanosis, or edema. No joint tenderness or effusion noted. No mottling or clubbing. NEUROLOGICAL: Awake and alert. No facial droop. mostly oriented x2-3, forgetful at times. Searches for words at times. speech is clear. moves all 4 extremities- - covered button maker strong/equal bilaterally. LE strength equal. PSYCHIATRIC: No obvious anxiety/depression. . Diagnostic Tests Laboratory Laboratory Tests Test 02/21/17 02/21/17 02/22/17 02/22/17 07:37 22:45 06:49 06:57 White Blood Count 4.1 TH/MM3 2.7 TH/MM3 (4.0-11.0) (4.0-11.0) Red Blood Count 2.54 MIL/MM3 2.37 MIL/MM3 (4.50-5.90) (4.50-5.90) Hemoglobin 8.2 GM/DL 7.7 GM/DL (13.0-17.0) (13.0-17.0) Hematocrit 25.0 % 23.1 % (39.0-51.0) (39.0-51.0) Mean Corpuscular Volume 98.4 FL 97.8 FL (80.0-100.0) (80.0-100.0) Mean Corpuscular Hemoglobin 32.4 PG 32.5 PG (27.0-34.0) (27.0-34.0) Mean Corpuscular Hemoglobin 32.9 % 33.3 % Concent (32.0-36.0) (32.0-36.0) Red Cell Distribution Width 16.7 % 16.0 % (11.6-17.2) (11.6-17.2) Platelet Count 45 TH/MM3 42 TH/MM3 (150-450) (150-450) Mean Platelet Volume 9.3 FL 9.8 FL (7.0-11.0) (7.0-11.0) Neutrophils (%) (Auto) 85.4 % 85.7 % (16.0-70.0) (16.0-70.0) Lymphocytes (%) (Auto) 10.8 % 10.7 % (9.0-44.0) (9.0-44.0) Monocytes (%) (Auto) 3.6 % (0.0-8.0) 3.5 % (0.0-8.0) Eosinophils (%) (Auto) 0.1 % (0.0-4.0) 0.1 % (0.0-4.0) Basophils (%) (Auto) 0.1 % (0.0-2.0) 0.0 % (0.0-2.0) Neutrophils # (Auto) 3.5 TH/MM3 2.3 TH/MM3 (1.8-7.7) (1.8-7.7) Lymphocytes # (Auto) 0.4 TH/MM3 0.3 TH/MM3 (1.0-4.8) (1.0-4.8) Monocytes # (Auto) 0.1 TH/MM3 0.1 TH/MM3 (0-0.9) (0-0.9) Eosinophils # (Auto) 0.0 TH/MM3 0.0 TH/MM3 (0-0.4) (0-0.4) Basophils # (Auto) 0.0 TH/MM3 0.0 TH/MM3 (0-0.2) (0-0.2) CBC Comment AUTO DIFF AUTO DIFF Differential Comment AUTO DIFF AUTO DIFF CONFIRMED CONFIRMED Platelet Estimate LOW (NORMAL) LOW (NORMAL) Platelet Morphology Comment NORMAL NORMAL (NORMAL) (NORMAL) Ovalocytes 1+ (NORMAL) 1+ (NORMAL) Prothrombin Time 16.0 SEC (9.8-11.6) Prothromb Time International 1.4 RATIO Ratio Fibrinogen 166 mg/dL (227-377) Sodium Level 141 MEQ/L 142 MEQ/L (136-145) (136-145) Potassium Level 4.4 MEQ/L 4.8 MEQ/L (3.5-5.1) (3.5-5.1) Chloride Level 114 MEQ/L 110 MEQ/L (98-107) (98-107) Carbon Dioxide Level 18.1 MEQ/L 20.2 MEQ/L (21.0-32.0) (21.0-32.0) Anion Gap 9 MEQ/L (5-15) 12 MEQ/L (5-15) Blood Urea Nitrogen 30 MG/DL (7-18) 34 MG/DL (7-18) Creatinine 1.54 MG/DL 1.58 MG/DL (0.60-1.30) (0.60-1.30) Estimat Glomerular Filtration 47 ML/MIN (>89) 46 ML/MIN (>89) Rate Random Glucose 314 MG/DL 408 MG/DL (74-106) (74-106) Calcium Level 8.8 MG/DL 8.0 MG/DL (8.5-10.1) (8.5-10.1) Blood Bank Comment Test 02/22/17 02/22/17 02/22/17 02/23/17 11:59 15:15 15:16 02:49 White Blood Count 3.0 TH/MM3 11.4 TH/MM3 (4.0-11.0) (4.0-11.0) Red Blood Count 2.34 MIL/MM3 2.65 MIL/MM3 (4.50-5.90) (4.50-5.90) Hemoglobin 7.6 GM/DL 8.6 GM/DL (13.0-17.0) (13.0-17.0) Hematocrit 23.0 % 25.8 % (39.0-51.0) (39.0-51.0) Mean Corpuscular Volume 97.9 FL 97.2 FL (80.0-100.0) (80.0-100.0) Mean Corpuscular Hemoglobin 32.4 PG 32.4 PG (27.0-34.0) (27.0-34.0) Mean Corpuscular Hemoglobin 33.1 % 33.3 % Concent (32.0-36.0) (32.0-36.0) Red Cell Distribution Width 16.3 % 16.2 % (11.6-17.2) (11.6-17.2) Platelet Count 42 TH/MM3 118 TH/MM3 (150-450) (150-450) Mean Platelet Volume 9.1 FL 8.8 FL (7.0-11.0) (7.0-11.0) Neutrophils (%) (Auto) 82.3 % 82.1 % (16.0-70.0) (16.0-70.0) Lymphocytes (%) (Auto) 12.1 % 10.6 % (9.0-44.0) (9.0-44.0) Monocytes (%) (Auto) 5.4 % (0.0-8.0) 6.7 % (0.0-8.0) Eosinophils (%) (Auto) 0.1 % (0.0-4.0) 0.1 % (0.0-4.0) Basophils (%) (Auto) 0.1 % (0.0-2.0) 0.5 % (0.0-2.0) Neutrophils # (Auto) 2.5 TH/MM3 9.3 TH/MM3 (1.8-7.7) (1.8-7.7) Lymphocytes # (Auto) 0.4 TH/MM3 1.2 TH/MM3 (1.0-4.8) (1.0-4.8) Monocytes # (Auto) 0.2 TH/MM3 0.8 TH/MM3 (0-0.9) (0-0.9) Eosinophils # (Auto) 0.0 TH/MM3 0.0 TH/MM3 (0-0.4) (0-0.4) Basophils # (Auto) 0.0 TH/MM3 0.1 TH/MM3 (0-0.2) (0-0.2) CBC Comment AUTO DIFF DIFF FINAL Differential Comment AUTO DIFF CONFIRMED Platelet Estimate LOW (NORMAL) Platelet Morphology Comment NORMAL (NORMAL) Sodium Level 141 MEQ/L (136-145) Potassium Level 4.2 MEQ/L (3.5-5.1) Chloride Level 110 MEQ/L (98-107) Carbon Dioxide Level 18.7 MEQ/L (21.0-32.0) Anion Gap 12 MEQ/L (5-15) Blood Urea Nitrogen 30 MG/DL (7-18) Creatinine 1.46 MG/DL (0.60-1.30) Estimat Glomerular Filtration 50 ML/MIN (>89) Rate Random Glucose 262 MG/DL (74-106) Calcium Level 8.3 MG/DL (8.5-10.1) Blood Type O POSITIVE Crossmatch Leukocyte-Reduced Red Blood Cells Blood Bank Comment Test 02/23/17 02/23/17 02/23/17 04:30 09:52 10:24 White Blood Count 2.2 TH/MM3 (4.0-11.0) Red Blood Count 2.12 MIL/MM3 (4.50-5.90) Hemoglobin 7.2 GM/DL (13.0-17.0) Hematocrit 20.6 % (39.0-51.0) Mean Corpuscular Volume 97.3 FL (80.0-100.0) Mean Corpuscular Hemoglobin 33.8 PG (27.0-34.0) Mean Corpuscular Hemoglobin 34.8 % Concent (32.0-36.0) Red Cell Distribution Width 16.2 % (11.6-17.2) Platelet Count 55 TH/MM3 (150-450) Mean Platelet Volume 9.5 FL (7.0-11.0) Neutrophils (%) (Auto) 83.2 % (16.0-70.0) Lymphocytes (%) (Auto) 11.8 % (9.0-44.0) Monocytes (%) (Auto) 4.9 % (0.0-8.0) Eosinophils (%) (Auto) 0.0 % (0.0-4.0) Basophils (%) (Auto) 0.1 % (0.0-2.0) Neutrophils # (Auto) 1.8 TH/MM3 (1.8-7.7) Lymphocytes # (Auto) 0.3 TH/MM3 (1.0-4.8) Monocytes # (Auto) 0.1 TH/MM3 (0-0.9) Eosinophils # (Auto) 0.0 TH/MM3 (0-0.4) Basophils # (Auto) 0.0 TH/MM3 (0-0.2) CBC Comment AUTO DIFF Differential Comment AUTO DIFF CONFIRMED Platelet Estimate LOW (NORMAL) Platelet Morphology Comment NORMAL (NORMAL) Ovalocytes 1+ (NORMAL) Prothrombin Time 16.5 SEC (9.8-11.6) Prothromb Time International 1.5 RATIO Ratio Activated Partial 31.7 SEC Thromboplast Time (24.3-30.1) Fibrinogen 144 mg/dL (227-377) Sodium Level 142 MEQ/L (136-145) Potassium Level 4.8 MEQ/L (3.5-5.1) Chloride Level 111 MEQ/L (98-107) Carbon Dioxide Level 20.4 MEQ/L (21.0-32.0) Anion Gap 11 MEQ/L (5-15) Blood Urea Nitrogen 33 MG/DL (7-18) Creatinine 1.46 MG/DL (0.60-1.30) Estimat Glomerular Filtration 50 ML/MIN (>89) Rate Random Glucose 214 MG/DL (74-106) Calcium Level 7.8 MG/DL (8.5-10.1) Blood Bank Comment Nasal Screen MRSA (PCR) MRSA NOT DETECTED (NOT DETECT) Blood Type O POSITIVE Antibody Screen NEGATIVE Crossmatch Leukocyte-Reduced Red Blood Cells Result Diagram: 02/23/1742902/23/17 043 Imaging (*From [facility] course) 02/19/17brain CTbilateral hygromas much worse on the left than on the right significant mass effect evident. 02/18/17bdomen ultrasoundsmall amount of ascites 02/13/17lower extremity ultrasoundno evidence of DVT 02/10/17CXRmild congestive failure . Patient/Family Conference Present at Family Conference: , pt . Family Conference Time (mins): 40 Family Conference Location: Bedside Issues Discussed: Met with , patient length at bedside approximally 40 minutes. Discussion included the following: * Palliative care role, purpose, approach * Additional medical, psychosocial, and spiritual history * Patients general health, functional status, and cognitive changes in the months leading up to the current hospitalization * Patient/family understanding of the current medical problems; review of recent rehabilitation course as well as recent hospitalization at [facility] just before the rehab course. * Patient/family understanding of prognosis; much review of underlying disease processes specifically renal, diabetes, and liver disease--that they all effect one another, pt remains very high risk for complications and setbacks and decline despite maximized medical treatments, and that it is possible the patient may never become well enough to receive transplantation, and at some point his liver process may not be correctable, his liver condition can be life limiting. Additionally, the new neurological findings of SDH, s/p surgical intervention poses additional ongoing risks which may further complicate his condition and impact prognosis. * Patients goals of care as best understood from advance directives and/or conversations and/or values * Current medical treatment options and benefits/burdens of those options * Likely scenarios comparing ongoing aggressive care with a transition to comfort measures only- very briefly and gently explore that if maximized treatments fail, or patient continues to decline or experience ongoing complications he does have the option of comfort oriented treatments only; foregoing further aggressive or invasive measures that may not survive to cure his underlying conditions or improve his quality of life * Questions answered to the best of my ability * Palliative care contact information provided endorse that he has followed locally with Dr. Herrera for many years following his HO since around 2009, he was referred to [facility] as there was little else locally that Dr. Herrera could do additionally for patient. He was reviewed for transplantation at [facility] however did not meet criteria to be placed on list due to poorly controlled diabetes as well as some kidney dysfunction, and weight gain (this per the ) they indicated they could consider him for transplantation if those things were corrected. She understands that pt has complicated illness, and advanced liver disease, pt remains very high risk for complications and setbacks and decline despite maximized medical treatments, and that it is possible the patient may never become well enough to receive transplantation, and at some point his liver process may not be correctable, his liver condition can be life limiting without transplant. Goals currently aggressive, wish to cont to maximize available treatments for liver condition, SDH. They are hopeful pt medical conditions can improve enough that he can be put on liver transplant list. They understand he is high risk for ongoing complications/setbacks, and further decline. They are open to ongoing conversations as condition evolves. Assessment and Plan Disease Oriented Problem List: (1) HO (nonalcoholic steatohepatitis) (2) SDH (subdural hematoma) Comment: Bilateral hygromas/subdural hematoma L > R (3) Thrombocytopenia (4) Diabetic foot ulcers (5) Escherichia coli infection Comment: Per paracentesis 02/02/17 (6) CKD (chronic kidney disease) stage 3, GFR 30-59 ml/min (7) Depression (8) HTN (hypertension) (9) DM type 2 (diabetes mellitus, type 2) (10) Esophageal varices (11) Moderate protein malnutrition Symptom Scale: (1) Encephalopathy 0-10 Scale: Unable to quantify (2) Pain 0-10 Scale: Unable to quantify Pertinent Non-Medical Issues Psychosocial: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 . Originally from [place], has lived in [place] for approximately 43 years. Also has 2 daughters. Spiritual: Taoist ayush Legal:Patient mental status fluctuates secondary to hepatic encephalopathy. He is able to participate in decision-making at times. If he becomes incapacitated his is designated HCS, would be appropriate legal decision maker. Ethical issues impacting care: . Important Contacts Rosa Mancilla [phone] Prognosis This patient was admitted to the hospital for acute mental status changes and weakness from rehabilitation. CT Head with findings of large hygroma with mass effect. Patient also with chronic thrombocytopenia, hematology is following. Plan for neurosurgical intervention 02/22. Patient with multiple chronic medical conditions, most significantlyNASH, he has had ongoing hepatic encephalopathy , paracentesis, and associated conditions/complications/hospitalizations from underlying liver disease. He is apparently on the waiting list for liver transplant. Per neurosurgery remains at risk for ongoing/recurrent hemorrhage post surgical intervention however without surgical intervention subdural fluid collection could become life threatening. Remains at ongoing risk for further complications and setbacks related to underlying liver disease and new or surgical issues. . Code Status: Full Code Plan * Legal decision maker: Patient mental status fluctuates secondary to hepatic encephalopathy. He is able to participate in decision-making at times. If he becomes incapacitated his is designated HCS, would be appropriate legal decision maker. * Goals: met w pt, today. Goals currently aggressive, wish to cont to maximize available treatments for liver condition, SDH. They are hopeful pt medical conditions can improve enough that he can be put on liver transplant list. They understand he is high risk for ongoing complications/setbacks, and further decline. They are open to ongoing conversations as condition evolves. would like for treatments here to follow as closely as possible to what Fernandez recommended in order to improve his chances to get on transplantation list. She would like the providers here to review his treatment records/ recommendations from [facility]. ( *I d/w medical attending, it will provide some comfort knowing that his records from there have been reviewed, even if all of the treatments are not able to be implemented , recommend request records from [facility] 01/2017) * CODE STATUS: full by default at this time, pt & to continue to discuss * SYMPTOMS: --Encephalopathy- 2/2 hepatic dysfunction,+ new SDH, fluctuates. On lactulose. Has been on rifaximin. Last ammonia level 60 on 02/18per [facility] labs. +alber hole evacuation SDH yesterday 02/22; per and staff patient with significant improvement in neurological status today. We'll continue to evaluate. This may continue to wax and wane. --Pain-reported with chronic neuropathic pain; chronic long-standing back pain for many years, + new headache ?2/2 SDH. On fentanyl patch 50 mics every 72 hour, as well as prn oxycodone. Last dose oxy 10 mg on 02/21/17. Today during my consultation he complains of a headache 03/26 and requests PRN, other pain "the same", I did notify nurse, she will offer PRN. * Palliative care will continue to follow during hospital course as condition evolves, to assist patient/decision-maker with understanding of medical conditions, weighing benefits/burdens of treatment options, for clarification of goals of treatment. Additionally will assist with any symptoms of palliative concern Time Spent Total Floor Time (mins): 65 Face to Face Time (mins): 40 Thank you for the opportunity to participate in the care of Mr. Mancilla. Attestation To help prompt me to consider important information that might be impacting today's encounter and assessment, information from prior notes written by myself or my colleagues may have been "brought forward" into today's note. My signature on this note, however, is an attestation that I personally performed the exam, history, and/or decision-making noted today, and, unless otherwise indicated, the interactions with patient, family, and staff as well as the review of records all occurred today. I also attest that the listed assessment and stated plan reflect my best clinical judgment today based on the combination of historical information, prior notes, and today's exam/ interactions. When time spent is documented, it refers only to time spent today by the signer, or if indicated, combined time spent today by collaborating physician/nurse practitioner. Melissa Damon Feb 23, 2017 13:46
--- NOTE | 2017-02-23 14:11 | PD.ONC.PN ---
Subjective Subjective Remarks Afebrile overnight. Patient seen at 9AM this morning. 150cc sero-sanguinous output from JASON drains. Otherwise no bleeding per nurse. Objective Data Date Time Temp Pulse Resp B/P Pulse Ox O2 Delivery O2 Flow Rate FiO2 02/23/17 12:00 73 02/23/17 12:00 98.4 73 26 152/51 97 02/23/17 10:00 73 02/23/17 09:07 98 21 02/23/17 08:00 98.2 68 15 150/60 98 02/23/17 08:00 68 02/23/17 07:00 98 Room Air 02/23/17 06:00 60 02/23/17 04:00 98.7 60 19 126/48 98 02/23/17 04:00 60 02/23/17 03:41 12 02/23/17 02:00 64 02/23/17 00:00 60 02/23/17 00:00 98.1 60 12 130/61 98 02/22/17 22:45 98.1 66 12 124/52 98 02/22/17 22:00 68 02/22/17 21:25 98 21 02/22/17 20:00 70 02/22/17 20:00 97.9 70 12 120/46 99 02/22/17 19:30 98 Room Air 02/22/17 18:45 75 20 134/63 97 Room Air 131/44 02/22/17 18:30 74 20 138/61 97 Room Air 131/44 02/22/17 17:30 79 20 143/65 97 Room Air 138/45 02/22/17 17:15 79 20 137/62 97 Room Air 139/44 02/22/17 17:00 79 20 131/60 97 Room Air 135/44 02/22/17 16:45 81 20 134/59 98 Room Air 135/45 02/22/17 16:30 83 20 155/68 99 Nasal Cannula 2 155/54 02/22/17 16:19 98.1 83 20 154/66 99 Nasal Cannula 2 166/46 02/23/17 02/23/17 02/23/17 06:59 14:59 22:59 Intake Total 828 ml 760 ml Output Total 625 ml 1275 ml Balance 203 ml -515 ml Result Diagram: 02/23/17 0430 02/23/17 0430 Laboratory Results Laboratory Tests Test 02/22/17 02/22/17 02/23/17 02/23/17 15:15 15:16 02:49 04:30 Blood Type O POSITIVE Crossmatch Leukocyte-Reduced Red Blood Cells Blood Bank Comment White Blood Count 11.4 TH/MM3 2.2 TH/MM3 Red Blood Count 2.65 MIL/MM3 2.12 MIL/MM3 Hemoglobin 8.6 GM/DL 7.2 GM/DL Hematocrit 25.8 % 20.6 % Mean Corpuscular Volume 97.2 FL 97.3 FL Mean Corpuscular Hemoglobin 32.4 PG 33.8 PG Mean Corpuscular Hemoglobin 33.3 % 34.8 % Concent Red Cell Distribution Width 16.2 % 16.2 % Platelet Count 118 TH/MM3 55 TH/MM3 Mean Platelet Volume 8.8 FL 9.5 FL Neutrophils (%) (Auto) 82.1 % 83.2 % Lymphocytes (%) (Auto) 10.6 % 11.8 % Monocytes (%) (Auto) 6.7 % 4.9 % Eosinophils (%) (Auto) 0.1 % 0.0 % Basophils (%) (Auto) 0.5 % 0.1 % Neutrophils # (Auto) 9.3 TH/MM3 1.8 TH/MM3 Lymphocytes # (Auto) 1.2 TH/MM3 0.3 TH/MM3 Monocytes # (Auto) 0.8 TH/MM3 0.1 TH/MM3 Eosinophils # (Auto) 0.0 TH/MM3 0.0 TH/MM3 Basophils # (Auto) 0.1 TH/MM3 0.0 TH/MM3 CBC Comment DIFF FINAL AUTO DIFF Differential Comment AUTO DIFF CONFIRMED Platelet Estimate LOW Platelet Morphology Comment NORMAL Ovalocytes 1+ Prothrombin Time 16.5 SEC Prothromb Time International 1.5 RATIO Ratio Activated Partial 31.7 SEC Thromboplast Time Fibrinogen 144 mg/dL Sodium Level 142 MEQ/L Potassium Level 4.8 MEQ/L Chloride Level 111 MEQ/L Carbon Dioxide Level 20.4 MEQ/L Anion Gap 11 MEQ/L Blood Urea Nitrogen 33 MG/DL Creatinine 1.46 MG/DL Estimat Glomerular Filtration 50 ML/MIN Rate Random Glucose 214 MG/DL Calcium Level 7.8 MG/DL Test 02/23/17 02/23/17 09:52 10:24 Nasal Screen MRSA (PCR) MRSA NOT DETECTED Blood Type O POSITIVE Antibody Screen NEGATIVE Crossmatch Leukocyte-Reduced Red Blood Cells Blood Bank Comment Imaging Studies Last [address] 02/23/17 0600 Signed Impressions: Service Date/Time: Thursday, February 23, 2017 04:58 - CONCLUSION: Bilateral subdural drains. Air and subacute appearing blood seen in the subdural spaces along both convexities, left slightly larger than right and with about 5 mm of rightward midline shift. Kostas Lua MD Administered Medications Medications (Trade) Dose Ordered Sig/Vielka Route PRN Reason Start Time Stop Time Status Last Admin Dose Admin Acetaminophen (Tylenol) 500 mg Q6H PRN PO Fever, headache, pain 1-4 02/20/17 16:15 02/23/17 02:41 Ondansetron HCl (Zofran Inj) 4 mg Q6H PRN IVP NAUSEA OR VOMITING 02/20/17 16:15 02/21/17 10:54 Senna/Docusate Sodium (Gale-Colace) 1 tab BID PO 02/20/17 21:00 02/23/17 08:53 Insulin Aspart (NovoLOG INJ) 10 units TIDAC SQ 02/20/17 17:00 02/22/17 08:44 Ferrous Sulfate (Ferrous Sulfate) 325 mg BID PO 02/20/17 21:00 02/23/17 08:53 Spironolactone (Aldactone) 50 mg DAILY PO 02/21/17 09:00 02/23/17 08:53 Ascorbic Acid (Vitamin C) 500 mg BID PO 02/20/17 21:00 02/23/17 08:53 Ciprofloxacin (Cipro) 250 mg DAILY PO 02/21/17 09:00 02/23/17 08:57 Furosemide (Lasix) 40 mg DAILY PO 02/21/17 09:00 02/23/17 08:53 Paroxetine HCl (Paxil) 30 mg DAILY PO 02/21/17 09:00 02/23/17 08:53 Pantoprazole Sodium (Protonix) 40 mg DAILY PO 02/21/17 09:00 02/23/17 08:53 Fentanyl (Duragesic 50 Mcg Patch.72 Hr) 1 patch Q3D T-DERMAL 02/20/17 18:00 02/20/17 17:02 Oxycodone HCl (Roxicodone) 10 mg Q6H PRN PO PAIN SCALE 5 TO 10 02/21/17 10:15 02/23/17 12:16 Lactulose (Lactulose Liq) 30 ml Q4H PRN PO Encephalopathy, Constipation 02/22/17 17:00 02/22/17 22:21 IV Flush 2 ml 2 ml BID IVF 02/22/17 21:00 02/23/17 07:21 Potassium Chloride/Sodium Chloride 1,000 ml @ 100 mls/hr Q10H IV 02/22/17 16:07 02/23/17 12:16 Nicardipine HCl 25 mg/Sodium Chloride 260 ml @ 0 mls/hr TITRATE PRN IV SBP>150, DBP>90 02/22/17 16:30 02/23/17 02:41 Sodium Chloride (NS 250 ml Inj) 250 ml @ 15 mls/hr ONCE ONCE IV 02/23/17 10:00 02/24/17 02:39 02/23/17 10:00 Objective Remarks GENERAL: Middle aged male, sitting up in bed in nad. SKIN: Warm and dry. bandages along scalp are c/d/i HEAD: Normocephalic. EYES: No injection or drainage. NECK: Supple, trachea midline. CARDIOVASCULAR: +S1/S2 RESPIRATORY: Breath sounds equal bilaterally. No accessory muscle use. GASTROINTESTINAL: Abdomen soft, non-tender, nondistended. EXTREMITIES: No cyanosis NEUROLOGICAL: awake and alert, normal speech Assessment/Plan Assessment 56y/o male with bilateral SDH s/p evacuation complicated by liver cirrhosis induced coagulopathy and thrombocytopenia. Plan 1. continue FFP q 8 hours 2. give 1 unit platelets today, (platelets <100,000) 3. monitor CBC, coags and fibrinogen 4. if patient bleeding, will need to increase frequency of FFP and platelet transfusions. 5. give 1 unit pRBC today Attending Statement The exam, history, and the medical decision-making described in the above note were completed with the assistance of the mid-level provider. I reviewed and agree with the findings presented. I attest that I had a [id number] encounter with the patient on the same day, and personally performed and documented my assessment and findings in the medical record. patient doing well post op and bleeding decreasing from drains. will continue support for 3 days and beyond this if bleeding persistent. orders in place. Aysha Daugherty Feb 23, 2017 14:11 Corby Arce MD Feb 23, 2017 20:17
[2017-02-23] MEDS: REMOVE OLD DURAGESIC (FENTANYL) PATCH T-DERMAL SCH (16:41)
[2017-02-23] MEDS: fentaNYL 50 MCG/HR PATCH T-DERMAL SCH (16:41)
[2017-02-23] MEDS ORDERED: INSULIN DETEMIR 100 UNITS/ML VIAL SQ SCH (21:00)
[2017-02-24] VITALS (14 sets, daily range): BP systolic 135–152; BP diastolic 46–52; PULSE 60–104; RESP 10–24; TEMP 98.1–98.5; O2SAT 95–98
[2017-02-24 04:10] LABS: AUTOMATED NEUTROPHIL # 5.8 TH/MM3 (1.8-7.7); BASOPHIL % 0.2 % (0.0-2.0); EOSINOPHIL % 0.4 % (0.0-4.0); HEMATOCRIT 24.3 % (39.0-51.0); LYMPHOCYTE # 0.7 TH/MM3 (1.0-4.8); MEAN CELL VOLUME 95.8 FL (80.0-100.0); MEAN CORPUSCULAR HGB CONC 34.5 % (32.0-36.0); MONO % 8.4 % (0.0-8.0); PLATELET COUNT 76 TH/MM3 (150-450); RED BLOOD COUNT 2.53 MIL/MM3 (4.50-5.90); RED CELL DISTRIBUTION WIDTH 16.2 % (11.6-17.2); WHITE BLOOD COUNT 7.1 TH/MM3 (4.0-11.0)
[2017-02-24 04:19] LABS: HEMO FLAGS AUTO DIFF
[2017-02-24 04:31] LABS: APTT (PATIENT) 30.1 SEC (24.3-30.1); INTERNATIONAL NORMALIZED RATIO 1.4 RATIO; PROTHROMBIN TIME - PATIENT 15.3 SEC (9.8-11.6)
[2017-02-24] MEDS: niCARdipine INJ 25 MG in SODIUM CHLOR 0.9% 250 ML INJ 250 ML IV PRN ×4 (06:07→23:06)
[2017-02-24] MEDS: INSULIN ASPART SUPPLEMENTAL SCALE SQ SCH ×4 (06:55→20:31)
[2017-02-24] MEDS: SODIUM CHLORIDE 0.9% FLUSH 5 ML FLUSH IVF SCH ×2 (07:39→19:58)
[2017-02-24 07:57] LABS: OVALOCYTES 1+ (NORMAL); PLATELET ESTIMATE SMEAR LOW (NORMAL); PLATELET MORPHOLOGY NORMAL (NORMAL)
[2017-02-24 07:58] LABS: SCAN/DIFF AUTO DIFF CONFIRMED
[2017-02-24] MEDS: INSULIN ASPART 1,000 UNITS/10 ML VIAL SQ SCH ×3 (08:01→16:19)
[2017-02-24] MEDS: ASCORBIC ACID 500 MG TAB PO SCH ×2 (08:01→19:57)
[2017-02-24] MEDS: 1/2 NS + KCL 20 MEQ INJ 1,000 ML IV SCH ×2 (08:01→16:19)
[2017-02-24] MEDS: LACTULOSE SYRUP 20 GM/30 ML CUP PO PRN (08:01)
[2017-02-24] MEDS: CIPROFLOXACIN 250 MG TAB PO SCH (08:02)
[2017-02-24] MEDS: DOCUSATE SODIUM 50 MG/SENNA 8.6 MG TAB PO SCH ×2 (08:02→19:57)
[2017-02-24] MEDS: FUROSEMIDE 40 MG TAB PO SCH (08:02)
[2017-02-24] MEDS: PARoxetine HCL 20 MG TAB PO SCH (08:02)
[2017-02-24] MEDS: PANTOPRAZOLE SOD 40 MG DELAYED RELEASE TAB PO SCH (08:02)
--- NOTE | 2017-02-24 08:04 | HHI.NSPN ---
(Deny Alfaro) History Chief Complaint: subdural hemorrhage (Deny Alfaro) Interval History 02/19: 56-year-old gentleman who according to his family was diagnosed with liver disease approximately 8-9 years ago. She was admitted to [facility] for approximately 1 week, approximately 1 month ago for workup of ascites. He underwent a paracentesis on 02/02/2017. The fluid grew Escherichia coli. The patient's states that he was referred to [facility] where he remained for approximately a week. She states that he was in bed most of the time at [facility]. He was then discharged to rehabilitation. She states that he has had quite a bit more difficulty with ambulation since his hospitalization and [facility]. She states that he fell a few weeks ago and apparently again in the past week without loss of consciousness. The patient's seems a little uncertain whether or not he has had any mental status or speech changes, however his nurse this evening feels that he is not quite as alert or fluent in his speech over the past 2 or 3 days than he was last week. The patient states that he has noted headaches for 2 or 3 days. He apparently normally does not have headaches. Due to his difficulty with ambulation, a CT scan of the head was obtained today which has revealed subdural hematoma on the left greater than right. 02/20: Patient asleep but awakens to verbal stimuli. He has difficulty getting words out and has to think on what he says. He does state he has pain to the head although he said "No" previously when asked if he had any headache. He also has pain to the legs with some pain to the arm with the right the worse. 02/21: The patient is asleep initially when seen with Dr Traore this morning. He did complain of a headache. He intermittently would drift off and close his eyes then open them. He transferred to a regular med/surg med yesterday from [facility]. 02/22: The patient is awake and alert when seen this morning. He still has to search for what he says and at times is not able to complete his thoughts. He has no complaints other than continues right-sided weakness. 02/24: Patient awake and alert. Denies much headaches. Some periods of nausea. No paresthesias in face. No difficulty with speech. (Deny Alfaro) Review of Systems General: Negative for: fever, chills, insomnia Respiratory: Negative for: shortness of breath, cough, sputum Cardiovascular: Negative for: chest pain Gastrointestinal: Positive for: nausea (controled with medications.), Negative for: vomitting, diarrhea, constipation (Deny Alfaro) Exam Results Vital Signs Date Time Temp Pulse Resp B/P Pulse Ox O2 Delivery O2 Flow Rate FiO2 02/24/17 07:00 98 Room Air 02/24/17 06:00 62 02/24/17 04:00 98.2 13 138/47 02/23/17 09:07 21 02/22/17 16:30 2 Intake and Output 02/23/17 02/23/17 02/24/17 08:00 16:00 00:00 Intake Total 828 ml 1201 ml 725 ml Output Total 625 ml 120 ml 715 ml Balance 203 ml 1081 ml 10 ml (Deny Alfaro) Physical Examination General: Awake & alert, morbidly obese, NAD. HEENT: Bilateral alber hole incisions with JASON drains in place. Integumentary: Incisions clean and dry no signs of infection. JASON drains in place. Vascular skin changes to bilateral lower legs and feet. Respiratory: Clear to auscultation bilaterally. Cardiovascular: Normal sinus rhythm no murmurs. Gastrointestinal: Obese. Positive bowel sounds. Non-tenderness to palpation Extremities: Multiple ecchymotic areas noted to all extremities. Left foot with healed toe amputations. Neurologic: Patient awake and alert. Follows commands well. Answers questions appropriately. (Deny Alfaro) Lab, Micro, Other Results Last Impressions Head CT 02/23/17 0600 Signed Impressions: Service Date/Time: Thursday, February 23, 2017 04:58 - CONCLUSION: Bilateral subdural drains. Air and subacute appearing blood seen in the subdural spaces along both convexities, left slightly larger than right and with about 5 mm of rightward midline shift. Kostas Lua MD Chest X-Ray 02/22/17 0000 Signed Impressions: Service Date/Time: February 17:03 - CONCLUSION: 1. Right IJ central line in proximal SVC. 2. No pneumothorax. Dagoberto Bond MD Laboratory Tests Test 02/23/17 02/23/17 02/23/17 02/24/17 09:52 10:24 18:46 03:31 Nasal Screen MRSA (PCR) MRSA NOT DETECTED Blood Type O POSITIVE Antibody Screen NEGATIVE Crossmatch Leukocyte-Reduced Red Blood Cells Blood Bank Comment Test 02/24/17 03:50 White Blood Count 7.1 TH/MM3 Red Blood Count 2.53 MIL/MM3 Hemoglobin 8.4 GM/DL Hematocrit 24.3 % Mean Corpuscular Volume 95.8 FL Mean Corpuscular Hemoglobin 33.0 PG Mean Corpuscular Hemoglobin 34.5 % Concent Red Cell Distribution Width 16.2 % Platelet Count 76 TH/MM3 Mean Platelet Volume 9.3 FL Neutrophils (%) (Auto) 81.0 % Lymphocytes (%) (Auto) 10.0 % Monocytes (%) (Auto) 8.4 % Eosinophils (%) (Auto) 0.4 % Basophils (%) (Auto) 0.2 % Neutrophils # (Auto) 5.8 TH/MM3 Lymphocytes # (Auto) 0.7 TH/MM3 Monocytes # (Auto) 0.6 TH/MM3 Eosinophils # (Auto) 0.0 TH/MM3 Basophils # (Auto) 0.0 TH/MM3 CBC Comment AUTO DIFF Prothrombin Time 15.3 SEC Prothromb Time International 1.4 RATIO Ratio Activated Partial 30.1 SEC Thromboplast Time Fibrinogen 142 mg/dL 02/23/17 02/23/17 02/24/17 15:00 23:00 07:00 Intake Total 1201 ml 725 ml 2295 ml Output Total 120 ml 715 ml 265 ml Balance 1081 ml 10 ml 2030 ml Intake Oral 120 ml 360 ml IV Total 1317 ml Packed Cells 250 ml FFP 663 ml 605 ml 329 ml Platelets 288 ml 289 ml Output Urine Total 100 ml 700 ml 250 ml Drainage Total 20 ml 15 ml 15 ml # Bowel Movements 1 1 1 (Deny Alfaro) Medical Decision Making Impression and Plan Impression: 1. Left greater than right subdural hygroma versus chronic hematoma. s/p alber hole evacuation 2. Cirrhosis 3. Thrombocytopenia 4. Anaemia 5. History of chronic encephalopathy 6. History of chronic kidney disease Plan: Continue to monitor neuro exam Continue with medical care patient getting frequent transfusions (Deny Alfaro) Attending Statement The exam, history, and the medical decision-making described in the above note were completed with the assistance of the mid-level provider. I reviewed and agree with the findings presented. I attest that I had a [id number] encounter with the patient on the same day, and personally performed and documented my assessment and findings in the medical record. Sitting up in chair and interactive and follows commands. Follow-up CT scan with the bilateral extensive pneumocephalus and drains in place. Continue with the platelet and coagulopathy corrected measures as per hematology. Updated the sister and at bedside. (José Antonio Vanegas MD) Deny Alfaro Feb 24, 2017 08:04 José Antonio Vanegas MD Feb 24, 2017 11:08
[2017-02-24] MEDS: FERROUS SULFATE 325 MG (65 MG ELEMENTAL IRON) TAB PO SCH ×2 (08:06→19:57)
[2017-02-24] MEDS: SPIRONOLACTONE 50 MG TAB PO SCH (08:06)
--- NOTE | 2017-02-24 10:30 | PD.ONC.PN ---
Subjective Subjective Remarks Afebrile overnight. Patient resting in bed in nad. About to work with therapy. Per nursing, no overnight events. Received 1 unit platelets this morning. No obvious bleeding. Objective Data Date Time Temp Pulse Resp B/P Pulse Ox O2 Delivery O2 Flow Rate FiO2 02/24/17 09:09 97 21 02/24/17 07:00 98 Room Air 02/24/17 06:00 62 02/24/17 04:00 60 02/24/17 04:00 98.2 60 13 138/47 95 02/24/17 02:00 62 02/24/17 00:00 98.5 64 12 145/49 98 02/24/17 00:00 64 02/23/17 22:00 62 02/23/17 21:54 98.4 64 17 146/46 98 02/23/17 21:14 98 02/23/17 20:06 12 02/23/17 20:00 70 02/23/17 20:00 98.2 70 15 140/52 98 02/23/17 19:00 98 Room Air 02/23/17 18:00 72 02/23/17 17:41 22 02/23/17 16:00 98.1 79 34 141/47 97 02/23/17 16:00 79 02/23/17 14:00 78 02/23/17 12:00 73 02/23/17 12:00 98.4 73 26 152/51 97 02/24/17 02/24/17 02/24/17 07:00 15:00 23:00 Intake Total 2295 ml Output Total 265 ml Balance 2030 ml Result Diagram: 02/24/17 0350 02/23/17 0430 Laboratory Results Laboratory Tests Test 02/23/17 02/24/17 02/24/17 18:46 03:31 03:50 Blood Bank Comment White Blood Count 7.1 TH/MM3 Red Blood Count 2.53 MIL/MM3 Hemoglobin 8.4 GM/DL Hematocrit 24.3 % Mean Corpuscular Volume 95.8 FL Mean Corpuscular Hemoglobin 33.0 PG Mean Corpuscular Hemoglobin 34.5 % Concent Red Cell Distribution Width 16.2 % Platelet Count 76 TH/MM3 Mean Platelet Volume 9.3 FL Neutrophils (%) (Auto) 81.0 % Lymphocytes (%) (Auto) 10.0 % Monocytes (%) (Auto) 8.4 % Eosinophils (%) (Auto) 0.4 % Basophils (%) (Auto) 0.2 % Neutrophils # (Auto) 5.8 TH/MM3 Lymphocytes # (Auto) 0.7 TH/MM3 Monocytes # (Auto) 0.6 TH/MM3 Eosinophils # (Auto) 0.0 TH/MM3 Basophils # (Auto) 0.0 TH/MM3 CBC Comment AUTO DIFF Differential Comment AUTO DIFF CONFIRMED Platelet Estimate LOW Platelet Morphology Comment NORMAL Ovalocytes 1+ Prothrombin Time 15.3 SEC Prothromb Time International 1.4 RATIO Ratio Activated Partial 30.1 SEC Thromboplast Time Fibrinogen 142 mg/dL Administered Medications Medications (Trade) Dose Ordered Sig/Vielka Route PRN Reason Start Time Stop Time Status Last Admin Dose Admin Acetaminophen (Tylenol) 500 mg Q6H PRN PO Fever, headache, pain 1-4 02/20/17 16:15 02/23/17 14:52 Ondansetron HCl (Zofran Inj) 4 mg Q6H PRN IVP NAUSEA OR VOMITING 02/20/17 16:15 02/21/17 10:54 Senna/Docusate Sodium (Gale-Colace) 1 tab BID PO 02/20/17 21:00 02/24/17 08:02 Insulin Aspart (NovoLOG INJ) 10 units TIDAC SQ 02/20/17 17:00 02/24/17 08:01 Ferrous Sulfate (Ferrous Sulfate) 325 mg BID PO 02/20/17 21:00 02/24/17 08:06 Spironolactone (Aldactone) 50 mg DAILY PO 02/21/17 09:00 02/24/17 08:06 Ascorbic Acid (Vitamin C) 500 mg BID PO 02/20/17 21:00 02/24/17 08:01 Ciprofloxacin (Cipro) 250 mg DAILY PO 02/21/17 09:00 02/24/17 08:02 Furosemide (Lasix) 40 mg DAILY PO 02/21/17 09:00 02/24/17 08:02 Paroxetine HCl (Paxil) 30 mg DAILY PO 02/21/17 09:00 02/24/17 08:02 Pantoprazole Sodium (Protonix) 40 mg DAILY PO 02/21/17 09:00 02/24/17 08:02 Fentanyl (Duragesic 50 Mcg Patch.72 Hr) 1 patch Q3D T-DERMAL 02/20/17 18:00 02/23/17 16:41 Miscellaneous Information 1 Q3D T-DERMAL 02/23/17 18:00 02/23/17 16:41 Oxycodone HCl (Roxicodone) 10 mg Q6H PRN PO PAIN SCALE 5 TO 10 02/21/17 10:15 02/24/17 08:01 Lactulose (Lactulose Liq) 30 ml Q4H PRN PO Encephalopathy, Constipation 02/22/17 17:00 02/24/17 08:01 IV Flush 2 ml 2 ml BID IVF 02/22/17 21:00 02/24/17 07:39 Potassium Chloride/Sodium Chloride 1,000 ml @ 100 mls/hr Q10H IV 02/22/17 16:07 02/24/17 08:01 Nicardipine HCl/ Sodium Chloride (Cardene Inj/NS 250 ml Inj) 260 ml @ 0 mls/hr TITRATE PRN IV SBP>150, DBP>90 02/22/17 16:30 02/24/17 06:07 Objective Remarks GENERAL: Middle aged male, upright in bed. SKIN: Warm and dry. incision site on superior scalp with JASON drains with sero- sanguinous drainage but no oozing/bleeding from incision site. HEAD: Normocephalic. EYES: No injection or drainage. NECK: Supple, trachea midline. CARDIOVASCULAR: +S1/S2 RESPIRATORY: Breath sounds equal bilaterally. No accessory muscle use. GASTROINTESTINAL: Abdomen soft, non-tender, nondistended. EXTREMITIES: No cyanosis NEUROLOGICAL: awake and alert, normal speech Assessment/Plan Problem List: (1) SDH (subdural hematoma) Status: Acute Plan: 02/24/17: continue FFP q 8 hours. monitor CBC, coags and fibrinogen. monitor for bleeding. --FFP q 8 hours for three days post-surgery --platelets <100,000, give 1 unit platelets, for three days post-surgery --on 02/22 in the evening underwent bilateral parietal bur hole evacuation of chronic subdural hematoma Assessment 56y/o male with bilateral SDH s/p evacuation complicated by liver cirrhosis induced coagulopathy and thrombocytopenia. Attending Statement Patient denies any bleeding subdural drainage tube are in tact and draining serosanguineous fluid Continue FFP every eight hours Monitor coags. will follow The exam, history, and the medical decision-making described in the above note were completed with the assistance of the mid-level provider. I reviewed and agree with the findings presented. I attest that I had a [id number] encounter with the patient on the same day, and personally performed and documented my assessment and findings in the medical record. Aysha Daugherty Feb 24, 2017 10:30 Steph Tran MD Feb 25, 2017 01:53
--- NOTE | 2017-02-24 10:57 | HHI.PR ---
Subjective Remarks Follow-up for bilateral hygroma versus hematoma left greater than right, symptomatic, s/p bur hole evacuation of chronic SDH. Patient is doing well. No acute concerns. Had some nausea earlier but tolerable. No fever, chills. Objective Vitals Vital Signs Date Time Temp Pulse Resp B/P Pulse Ox O2 Delivery O2 Flow Rate FiO2 02/24/17 10:00 91 02/24/17 09:09 97 21 02/24/17 08:00 60 02/24/17 08:00 98.2 60 13 138/47 95 02/24/17 07:00 98 Room Air 02/24/17 06:00 62 02/24/17 04:00 60 02/24/17 04:00 98.2 60 13 138/47 95 02/24/17 02:00 62 02/24/17 00:00 98.5 64 12 145/49 98 02/24/17 00:00 64 02/23/17 22:00 62 02/23/17 21:54 98.4 64 17 146/46 98 02/23/17 21:14 98 02/23/17 20:06 12 02/23/17 20:00 70 02/23/17 20:00 98.2 70 15 140/52 98 02/23/17 19:00 98 Room Air 02/23/17 18:00 72 02/23/17 17:41 22 02/23/17 16:00 98.1 79 34 141/47 97 02/23/17 16:00 79 02/23/17 14:00 78 02/23/17 12:00 73 02/23/17 12:00 98.4 73 26 152/51 97 I/O 02/23/17 02/23/17 02/23/17 02/24/17 02/24/17 02/24/17 07:00 15:00 23:00 07:00 15:00 23:00 Intake Total 828 ml 1201 ml 725 ml 2295 ml Output Total 625 ml 120 ml 715 ml 265 ml Balance 203 ml 1081 ml 10 ml 2030 ml Intake Oral 120 ml 120 ml 360 ml IV Total 708 ml 1317 ml Packed Cells 250 ml FFP 663 ml 605 ml 329 ml Platelets 288 ml 289 ml Output Urine Total 600 ml 100 ml 700 ml 250 ml Drainage Total 25 ml 20 ml 15 ml 15 ml # Bowel Movements 0 1 1 1 Result Diagram: 02/24/17 0350 02/23/17 0430 Imaging Last Impressions Head CT 02/23/17 0600 Signed Impressions: Service Date/Time: Thursday, February 23, 2017 04:58 - CONCLUSION: Bilateral subdural drains. Air and subacute appearing blood seen in the subdural spaces along both convexities, left slightly larger than right and with about 5 mm of rightward midline shift. Kostas Lua MD Chest X-Ray 02/22/17 0000 Signed Impressions: Service Date/Time: February 17:03 - CONCLUSION: 1. Right IJ central line in proximal SVC. 2. No pneumothorax. Dagoberto Bond MD Objective Remarks GENERAL: Alert, oriented x 3, NAD. SKIN: Warm and dry. HEAD: Bilateral drain in place s/p evacuation of subdural hematoma. EYES: No scleral icterus. No injection or drainage. NECK: Supple, trachea midline. No JVD or lymphadenopathy. CARDIOVASCULAR: Regular rate and rhythm without murmurs, gallops, or rubs. RESPIRATORY: Breath sounds equal bilaterally. No accessory muscle use. GASTROINTESTINAL: Abdomen distended, non-tender to palpation. No rigidity or guarding. MUSCULOSKELETAL: No cyanosis, or edema. Right upper and lower extremities strength pretty much equal to the left side. BACK: Nontender without obvious deformity. No CVA tenderness. Procedures 02/22/2017 Bilateral parietal bur hole evacuation of chronic subdural hematoma A/P Problem List: (1) SDH (subdural hematoma) ICD Code: I62.00 Status: Acute (2) HO (nonalcoholic steatohepatitis) ICD Code: K75.81 Status: Acute (3) Cirrhosis ICD Code: K74.60 Status: Chronic (4) DM type 2 (diabetes mellitus, type 2) ICD Code: E11.9 Status: Chronic (5) CKD (chronic kidney disease) stage 3, GFR 30-59 ml/min ICD Code: N18.3 Status: Chronic Assessment and Plan Mr. Mancilla is a 56-year-old male with a history of diabetes mellitus, HO, bacterial peritonitis who was transferred from [facility] to the Med-Surg floor due to large hematoma versus hygroma with mass effect in the brain and possible need for surgical intervention. Bilateral hygroma/subdural hematoma L > R. 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 Traore is following. Surgically subdural hematoma was evacuated on 2016. Bilateral drains in place. - Platelet count 76K on 02/24/2017 - Greatly appreciate Dr. Arce's input on dick-operative management to reduce risk of bleeding/complications. - PT consulted. HO, nonalcoholic steatohepatitis Hepatic encephalopathy - resolved. - Continue Lasix 40 mg daily as well as spirolactone 50mg Qday. - Fentanyl patch, oxycodone for pain - continue Lactulose to achieve 2-3 loose bowel movements. History of SBP with E. Coli. - s/p paracentesis 02/02/17 - Continue Cipro for prophylaxis. DM type 2 - Requiring more insulin due to steroid. - Increase Levemir from 15 units to 20 units QHS, Aspart 10 units TIDAC, sliding scale insulin. Esophageal varices - Continue pantoprazole. states he was not taking Nadolol. - Patient would benefit from beta ary to reduce risk of variceal bleed. Full code. Ambulation. Pharmacological DVT prophylaxis when okay with Neurosurgery/Hematology. Parmjit Patterson DO Feb 24, 2017 10:57 am
[2017-02-24] MEDS: ACETAMINOPHEN 325 MG TAB PO PRN (19:58)
[2017-02-24] MEDS: INSULIN DETEMIR 100 UNITS/ML VIAL SQ SCH (20:31)
[2017-02-25] VITALS (17 sets, daily range): BP systolic 127–158; BP diastolic 44–67; PULSE 62–82; RESP 10–23; TEMP 98.2–98.7; O2SAT 91–99
[2017-02-25] MEDS: 1/2 NS + KCL 20 MEQ INJ 1,000 ML IV SCH ×3 (02:30→23:20)
[2017-02-25] MEDS: niCARdipine INJ 25 MG in SODIUM CHLOR 0.9% 250 ML INJ 250 ML IV PRN ×2 (02:31→10:22)
[2017-02-25 04:54] LABS: AUTOMATED NEUTROPHIL # 4.4 TH/MM3 (1.8-7.7); BASOPHIL % 0.2 % (0.0-2.0); EOSINOPHIL # 0.1 TH/MM3 (0-0.4); EOSINOPHIL % 1.7 % (0.0-4.0); HEMATOCRIT 23.4 % (39.0-51.0); LYMPH % 10.7 % (9.0-44.0); LYMPHOCYTE # 0.6 TH/MM3 (1.0-4.8); MEAN CELL VOLUME 96.1 FL (80.0-100.0); MEAN CORPUSCULAR HGB CONC 34.3 % (32.0-36.0); NEUT % 77.4 % (16.0-70.0); PLATELET COUNT 56 TH/MM3 (150-450); RED BLOOD COUNT 2.43 MIL/MM3 (4.50-5.90); WHITE BLOOD COUNT 5.7 TH/MM3 (4.0-11.0)
[2017-02-25 04:59] LABS: HEMO FLAGS AUTO DIFF
[2017-02-25 05:04] LABS: APTT (PATIENT) 31.9 SEC (24.3-30.1); INTERNATIONAL NORMALIZED RATIO 1.4 RATIO; PROTHROMBIN TIME - PATIENT 15.2 SEC (9.8-11.6)
[2017-02-25] MEDS: INSULIN ASPART SUPPLEMENTAL SCALE SQ SCH ×4 (06:16→20:44)
--- NOTE | 2017-02-25 06:26 | RADRPT ---
EXAM DATE/TIME: 02/25/2017 05:11 [place] COMPARISON: CT BRAIN W/O CONTRAST, February 23, 2017, 4:58. INDICATIONS : Follow up trauma; post craniotomy. RADIATION DOSE: 71.24 CTDIvol (mGy) MEDICAL HISTORY : Hypertension. Diabetes mellitus type 2. Cardiovascular disease Cirrhosis. Renal failure. SURGICAL HISTORY : Craniotomy. ENCOUNTER: Subsequent ACUITY: 2 days PAIN SCALE: Non-responsive LOCATION: cranial TECHNIQUE: Multiple contiguous axial images were obtained of the head. Using automated exposure control and adj ustment of the mA and/or kV according to patient size, radiation dose was kept as low as reasonably a chievable to obtain optimal diagnostic quality images. FINDINGS: Post surgical changes are again noted with bilateral subdural drainage catheters remaining in place. Gas and low-density fluid is again noted along the lateral convexities. This has decreased slightly i n size and now measures approximately 1.4 x 1.9 cm in greatest diameter on the right and left compare d to 1.9 and 2.1 cm on the prior study. There is no new hemorrhage or mass effect. The posterior khadar a and brainstem remain stable. The ventricular system remains within normal limits. Mild mass effect and midline shift to the right remain approximately 5 mm. CONCLUSION: Slight interval decrease in the bilateral subdural collections. No new hemorrhage. Juan David Hidalgo MD on February 25, 2017 at 6:20 Board Certified Radiologist. This report was verified electronically.
--- NOTE | 2017-02-25 08:27 | HHI.NSPN ---
(Deny Alfaro) History Chief Complaint: subdural hemorrhage (Deny Alfaro) Interval History 02/19: 56-year-old gentleman who according to his family was diagnosed with liver disease approximately 8-9 years ago. She was admitted to [facility] for approximately 1 week, approximately 1 month ago for workup of ascites. He underwent a paracentesis on 02/02/2017. The fluid grew Escherichia coli. The patient's states that he was referred to [facility] where he remained for approximately a week. She states that he was in bed most of the time at [facility]. He was then discharged to rehabilitation. She states that he has had quite a bit more difficulty with ambulation since his hospitalization and [facility]. She states that he fell a few weeks ago and apparently again in the past week without loss of consciousness. The patient's seems a little uncertain whether or not he has had any mental status or speech changes, however his nurse this evening feels that he is not quite as alert or fluent in his speech over the past 2 or 3 days than he was last week. The patient states that he has noted headaches for 2 or 3 days. He apparently normally does not have headaches. Due to his difficulty with ambulation, a CT scan of the head was obtained today which has revealed subdural hematoma on the left greater than right. 02/20: Patient asleep but awakens to verbal stimuli. He has difficulty getting words out and has to think on what he says. He does state he has pain to the head although he said "No" previously when asked if he had any headache. He also has pain to the legs with some pain to the arm with the right the worse. 02/21: The patient is asleep initially when seen with Dr Traore this morning. He did complain of a headache. He intermittently would drift off and close his eyes then open them. He transferred to a regular med/surg med yesterday from [facility]. 02/22: The patient is awake and alert when seen this morning. He still has to search for what he says and at times is not able to complete his thoughts. He has no complaints other than continues right-sided weakness. 02/24: Patient awake and alert. Denies much headaches. Some periods of nausea. No paresthesias in face. No difficulty with speech. 02/25: Patient awake and alert. Complains of headache. Some nausea. No new numbness or tingling. Speech is clear (Deny Alfaro) Review of Systems General: Negative for: fever, chills, insomnia Respiratory: Negative for: shortness of breath, cough, sputum Cardiovascular: Negative for: chest pain Gastrointestinal: Negative for: nausea, vomitting, diarrhea, constipation ( Deny Alfaro) Exam Results Vital Signs Date Time Temp Pulse Resp B/P Pulse Ox O2 Delivery O2 Flow Rate FiO2 02/25/17 07:22 98.5 65 14 142/63 92 138/52 02/25/17 02:00 Nasal Cannula 2.00 02/24/17 09:09 21 Intake and Output 02/24/17 02/24/17 02/25/17 08:00 16:00 00:00 Intake Total 2295 ml 1908 ml 1691 ml Output Total 265 ml 360 ml 350 ml Balance 2030 ml 1548 ml 1341 ml (Deny Alfaro) Physical Examination General: Awake & alert, morbidly obese, NAD. HEENT: Bilateral alber hole incisions with JASON drains in place. Integumentary: Incisions clean and dry no signs of infection. JASON drains in place. Vascular skin changes to bilateral lower legs and feet. Respiratory: Clear to auscultation bilaterally. Cardiovascular: Normal sinus rhythm no murmurs. Gastrointestinal: Obese. Positive bowel sounds. Non-tenderness to palpation Extremities: Multiple ecchymotic areas noted to all extremities. Left foot with healed toe amputations. Neurologic: Patient awake and alert. Follows commands well. Answers questions appropriately. (Deny Alfaro) Lab, Micro, Other Results Laboratory Tests Test 02/24/17 02/24/17 02/25/17 02/25/17 14:00 22:00 00:19 00:20 Blood Bank Comment Test 02/25/17 04:35 White Blood Count 5.7 TH/MM3 Red Blood Count 2.43 MIL/MM3 Hemoglobin 8.0 GM/DL Hematocrit 23.4 % Mean Corpuscular Volume 96.1 FL Mean Corpuscular Hemoglobin 33.0 PG Mean Corpuscular Hemoglobin 34.3 % Concent Red Cell Distribution Width 16.0 % Platelet Count 56 TH/MM3 Mean Platelet Volume 8.8 FL Neutrophils (%) (Auto) 77.4 % Lymphocytes (%) (Auto) 10.7 % Monocytes (%) (Auto) 10.0 % Eosinophils (%) (Auto) 1.7 % Basophils (%) (Auto) 0.2 % Neutrophils # (Auto) 4.4 TH/MM3 Lymphocytes # (Auto) 0.6 TH/MM3 Monocytes # (Auto) 0.6 TH/MM3 Eosinophils # (Auto) 0.1 TH/MM3 Basophils # (Auto) 0.0 TH/MM3 CBC Comment AUTO DIFF Prothrombin Time 15.2 SEC Prothromb Time International 1.4 RATIO Ratio Activated Partial 31.9 SEC Thromboplast Time Fibrinogen 175 mg/dL 02/24/17 02/24/17 02/25/17 15:00 23:00 07:00 Intake Total 1908 ml 1691 ml 1678 ml Output Total 360 ml 350 ml 279 ml Balance 1548 ml 1341 ml 1399 ml Intake Oral 720 ml 480 ml 360 ml IV Total 1188 ml 1211 ml 967 ml FFP 351 ml Output Urine Total 350 ml 350 ml 275 ml Drainage Total 10 ml 0 ml 4 ml # Bowel Movements 1 0 0 (Deny Alfaro) Medical Decision Making Impression and Plan Impression: 1. Left greater than right subdural hygroma versus chronic hematoma. s/p alber hole evacuation 2. Cirrhosis 3. Thrombocytopenia 4. Anaemia 5. History of chronic encephalopathy 6. History of chronic kidney disease Plan: Continue to monitor neuro exam Continue with medical care patient getting frequent transfusions (Deny Alfaro) Attending Statement The exam, history, and the medical decision-making described in the above note were completed with the assistance of the mid-level provider. I reviewed and agree with the findings presented. I attest that I had a [id number] encounter with the patient on the same day, and personally performed and documented my assessment and findings in the medical record. Stable neurologically with bilateral drains in place decreased output. Follow-up CT scan the head this morning with decrease subdural fluid collections although still has moderate pneumocephalus bilaterally. His platelet count also decreased in the 50s. We will continue with the subdural drains for another day and transfuse platelets. (José Antonio Vanegas MD) Deny Alfaro Feb 25, 2017 08:27 José Antonio Vanegas MD Feb 25, 2017 11:58
[2017-02-25] MEDS: SODIUM CHLORIDE 0.9% FLUSH 5 ML FLUSH IVF SCH ×2 (09:00→20:12)
[2017-02-25 09:59] LABS: OVALOCYTES 1+ (NORMAL); PLATELET ESTIMATE SMEAR LOW (NORMAL); PLATELET MORPHOLOGY NORMAL (NORMAL); SCAN/DIFF AUTO DIFF CONFIRMED
[2017-02-25] MEDS ORDERED: SODIUM CHLOR 0.9% 250 ML INJ 250 ML IV ONE (10:15)
--- NOTE | 2017-02-25 10:17 | PD.ONC.PN ---
Subjective Subjective Remarks Afebrile overnight. Slept well overnight. Last bag FFP scheduled for 2PM today. No obvious bleeding. patient eager to start walking. Objective Data Date Time Temp Pulse Resp B/P Pulse Ox O2 Delivery O2 Flow Rate FiO2 02/25/17 07:22 98.5 65 14 142/63 92 138/52 02/25/17 06:38 12 02/25/17 06:20 98.4 63 12 145/67 94 158/57 02/25/17 06:20 98.4 63 12 145/66 94 157/55 02/25/17 06:00 63 02/25/17 04:00 64 02/25/17 04:00 98.4 64 14 137/61 92 144/52 02/25/17 02:00 64 02/25/17 02:00 94 Nasal Cannula 2.00 02/25/17 00:00 72 02/25/17 00:00 98.4 72 10 142/52 94 02/25/17 00:00 98.4 72 10 142/52 94 02/24/17 22:55 98.3 76 17 152/51 96 02/24/17 22:00 66 02/24/17 20:58 14 02/24/17 20:00 98.1 70 10 144/50 95 02/24/17 20:00 65 02/24/17 19:00 98 Room Air 02/24/17 18:00 72 02/24/17 16:00 98.2 64 24 143/52 95 02/24/17 16:00 65 02/24/17 14:00 75 02/24/17 12:00 98.4 104 12 135/46 96 02/24/17 12:00 62 02/25/17 02/25/17 02/25/17 07:00 15:00 23:00 Intake Total 1678 ml Output Total 279 ml Balance 1399 ml Result Diagram: 02/25/17 0435 02/23/17 0430 Laboratory Results Laboratory Tests Test 02/24/17 02/24/17 02/25/17 02/25/17 14:00 22:00 00:19 00:20 Blood Bank Comment Test 02/25/17 04:35 White Blood Count 5.7 TH/MM3 Red Blood Count 2.43 MIL/MM3 Hemoglobin 8.0 GM/DL Hematocrit 23.4 % Mean Corpuscular Volume 96.1 FL Mean Corpuscular Hemoglobin 33.0 PG Mean Corpuscular Hemoglobin 34.3 % Concent Red Cell Distribution Width 16.0 % Platelet Count 56 TH/MM3 Mean Platelet Volume 8.8 FL Neutrophils (%) (Auto) 77.4 % Lymphocytes (%) (Auto) 10.7 % Monocytes (%) (Auto) 10.0 % Eosinophils (%) (Auto) 1.7 % Basophils (%) (Auto) 0.2 % Neutrophils # (Auto) 4.4 TH/MM3 Lymphocytes # (Auto) 0.6 TH/MM3 Monocytes # (Auto) 0.6 TH/MM3 Eosinophils # (Auto) 0.1 TH/MM3 Basophils # (Auto) 0.0 TH/MM3 CBC Comment AUTO DIFF Differential Comment AUTO DIFF CONFIRMED Platelet Estimate LOW Platelet Morphology Comment NORMAL Ovalocytes 1+ Prothrombin Time 15.2 SEC Prothromb Time International 1.4 RATIO Ratio Activated Partial 31.9 SEC Thromboplast Time Fibrinogen 175 mg/dL Imaging Studies Last [address] 02/25/17 0600 Signed Impressions: Service Date/Time: Saturday, February 25, 2017 05:11 - CONCLUSION: Slight interval decrease in the bilateral subdural collections. No new hemorrhage. Juan David Hidalgo MD Administered Medications Medications (Trade) Dose Ordered Sig/Vielka Route PRN Reason Start Time Stop Time Status Last Admin Dose Admin Acetaminophen (Tylenol) 500 mg Q6H PRN PO Fever, headache, pain 1-4 02/20/17 16:15 02/24/17 19:58 Ondansetron HCl (Zofran Inj) 4 mg Q6H PRN IVP NAUSEA OR VOMITING 02/20/17 16:15 02/21/17 10:54 Senna/Docusate Sodium (Gale-Colace) 1 tab BID PO 02/20/17 21:00 02/24/17 19:57 Insulin Aspart (NovoLOG INJ) 10 units TIDAC SQ 02/20/17 17:00 02/24/17 16:19 Ferrous Sulfate (Ferrous Sulfate) 325 mg BID PO 02/20/17 21:00 02/24/17 19:57 Spironolactone (Aldactone) 50 mg DAILY PO 02/21/17 09:00 02/24/17 08:06 Ascorbic Acid (Vitamin C) 500 mg BID PO 02/20/17 21:00 02/24/17 19:57 Ciprofloxacin (Cipro) 250 mg DAILY PO 02/21/17 09:00 02/24/17 08:02 Furosemide (Lasix) 40 mg DAILY PO 02/21/17 09:00 02/24/17 08:02 Paroxetine HCl (Paxil) 30 mg DAILY PO 02/21/17 09:00 02/24/17 08:02 Pantoprazole Sodium (Protonix) 40 mg DAILY PO 02/21/17 09:00 02/24/17 08:02 Fentanyl (Duragesic 50 Mcg Patch.72 Hr) 1 patch Q3D T-DERMAL 02/20/17 18:00 02/23/17 16:41 Miscellaneous Information 1 Q3D T-DERMAL 02/23/17 18:00 02/23/17 16:41 Oxycodone HCl (Roxicodone) 10 mg Q6H PRN PO PAIN SCALE 5 TO 10 02/21/17 10:15 02/25/17 05:38 Lactulose (Lactulose Liq) 30 ml Q4H PRN PO Encephalopathy, Constipation 02/22/17 17:00 02/24/17 08:01 IV Flush 2 ml 2 ml BID IVF 02/22/17 21:00 02/24/17 19:58 Potassium Chloride/Sodium Chloride 1,000 ml @ 100 mls/hr Q10H IV 02/22/17 16:07 02/25/17 02:30 Nicardipine HCl/ Sodium Chloride (Cardene Inj/NS 250 ml Inj) 260 ml @ 0 mls/hr TITRATE PRN IV SBP>150, DBP>90 02/22/17 16:30 02/25/17 02:31 Insulin Detemir (Levemir Inj) 20 units HS SQ 02/24/17 21:00 02/24/17 20:31 Objective Remarks GENERAL: Middle aged male, sitting up in bed in [facility]. SKIN: Warm and dry. incision site without bleeding. JASON drains with sero- sanguinous drainage HEAD: Normocephalic. EYES: No injection or drainage. NECK: Supple, trachea midline. CARDIOVASCULAR: +S1/S2 RESPIRATORY: Breath sounds equal bilaterally. No accessory muscle use. GASTROINTESTINAL: Abdomen soft, non-tender, nondistended. EXTREMITIES: No cyanosis NEUROLOGICAL: awake and alert, normal speech Assessment/Plan Problem List: (1) SDH (subdural hematoma) Status: Acute Plan: 02/25/17: last FFP scheduled for 2PM today. will order four additional units FFP (1unit FFP q 8 hours) and reassess tomorrow. monitor CBC, coags and fibrinogen. monitor for bleeding. --FFP q 8 hours for three days post-surgery --platelets <100,000, give 1 unit platelets, for three days post-surgery --on 02/22 in the evening underwent bilateral parietal bur hole evacuation of chronic subdural hematoma Assessment 56y/o male with bilateral SDH s/p evacuation complicated by liver cirrhosis induced coagulopathy and thrombocytopenia. Attending Statement No new complaints No bleeding noted Continue FFP every [address] Arce to follow in the morning The exam, history, and the medical decision-making described in the above note were completed with the assistance of the mid-level provider. I reviewed and agree with the findings presented. I attest that I had a [id number] encounter with the patient on the same day, and personally performed and documented my assessment and findings in the medical record. Aysha Daugherty Feb 25, 2017 10:17 Steph Tran MD Feb 26, 2017 00:44
[2017-02-25] MEDS: INSULIN ASPART 1,000 UNITS/10 ML VIAL SQ SCH ×3 (10:24→17:13)
[2017-02-25] MEDS: ASCORBIC ACID 500 MG TAB PO SCH ×2 (10:24→20:11)
[2017-02-25] MEDS: DOCUSATE SODIUM 50 MG/SENNA 8.6 MG TAB PO SCH ×2 (10:24→20:11)
[2017-02-25] MEDS: PARoxetine HCL 20 MG TAB PO SCH (10:24)
[2017-02-25] MEDS: FERROUS SULFATE 325 MG (65 MG ELEMENTAL IRON) TAB PO SCH ×2 (10:24→20:12)
[2017-02-25] MEDS: CIPROFLOXACIN 250 MG TAB PO SCH (10:25)
[2017-02-25] MEDS: PANTOPRAZOLE SOD 40 MG DELAYED RELEASE TAB PO SCH (10:25)
[2017-02-25] MEDS: FUROSEMIDE 40 MG TAB PO SCH (10:25)
[2017-02-25] MEDS: SPIRONOLACTONE 50 MG TAB PO SCH (10:25)
--- NOTE | 2017-02-25 12:57 | HHI.PR ---
Subjective Remarks Follow-up for bilateral hematoma left greater than right, symptomatic, s/p bur hole evacuation of chronic SDH. Mr. Mancilla is doing well. He is having his popsicle. Denies any acute concerns. No fever, chills. Objective Vitals Vital Signs Date Time Temp Pulse Resp B/P Pulse Ox O2 Delivery O2 Flow Rate FiO2 02/25/17 10:45 96 Nasal Cannula 2.00 02/25/17 07:22 98.5 65 14 142/63 92 138/52 02/25/17 06:38 12 02/25/17 06:20 98.4 63 12 145/67 94 158/57 02/25/17 06:20 98.4 63 12 145/66 94 157/55 02/25/17 06:00 63 02/25/17 04:00 64 02/25/17 04:00 98.4 64 14 137/61 92 144/52 02/25/17 02:00 64 02/25/17 02:00 94 Nasal Cannula 2.00 02/25/17 00:00 72 02/25/17 00:00 98.4 72 10 142/52 94 02/25/17 00:00 98.4 72 10 142/52 94 02/24/17 22:55 98.3 76 17 152/51 96 02/24/17 22:00 66 02/24/17 20:58 14 02/24/17 20:00 98.1 70 10 144/50 95 02/24/17 20:00 65 02/24/17 19:00 98 Room Air 02/24/17 18:00 72 02/24/17 16:00 98.2 64 24 143/52 95 02/24/17 16:00 65 02/24/17 14:00 75 I/O 02/24/17 02/24/17 02/24/17 02/25/17 02/25/17 02/25/17 07:00 15:00 23:00 07:00 15:00 23:00 Intake Total 2295 ml 1908 ml 1691 ml 1678 ml Output Total 265 ml 360 ml 350 ml 279 ml Balance 2030 ml 1548 ml 1341 ml 1399 ml Intake Oral 360 ml 720 ml 480 ml 360 ml IV Total 1317 ml 1188 ml 1211 ml 967 ml FFP 329 ml 351 ml Platelets 289 ml Output Urine Total 250 ml 350 ml 350 ml 275 ml Drainage Total 15 ml 10 ml 0 ml 4 ml # Bowel Movements 1 1 0 0 Result Diagram: 02/25/17 0435 02/23/17 0430 Imaging Last Impressions Head CT 02/25/17 0600 Signed Impressions: Service Date/Time: Saturday, February 25, 2017 05:11 - CONCLUSION: Slight interval decrease in the bilateral subdural collections. No new hemorrhage. Juan David Hidalgo MD Chest X-Ray 02/25/17 0000 Signed Impressions: Service Date/Time: Saturday, February 25, 2017 20:10 - CONCLUSION: Interval development of bilateral mid and lower lung consolidative infiltrates. Jorge Renteria MD Objective Remarks GENERAL: Alert, oriented x 3, NAD. SKIN: Warm and dry. HEAD: Bilateral drain in place s/p evacuation of subdural hematoma. EYES: No scleral icterus. No injection or drainage. NECK: Supple, trachea midline. No JVD or lymphadenopathy. CARDIOVASCULAR: Regular rate and rhythm without murmurs, gallops, or rubs. RESPIRATORY: Breath sounds equal bilaterally. No accessory muscle use. GASTROINTESTINAL: Abdomen distended, non-tender to palpation. No rigidity or guarding. MUSCULOSKELETAL: No cyanosis, or edema. Right upper and lower extremities strength pretty much equal to the left side. BACK: Nontender without obvious deformity. No CVA tenderness. Procedures 02/22/2017 Bilateral parietal bur hole evacuation of chronic subdural hematoma A/P Problem List: (1) SDH (subdural hematoma) ICD Code: I62.00 Status: Acute (2) HO (nonalcoholic steatohepatitis) ICD Code: K75.81 Status: Acute (3) Cirrhosis ICD Code: K74.60 Status: Chronic (4) DM type 2 (diabetes mellitus, type 2) ICD Code: E11.9 Status: Chronic (5) CKD (chronic kidney disease) stage 3, GFR 30-59 ml/min ICD Code: N18.3 Status: Chronic Assessment and Plan Mr. Mancilla is a 56-year-old male with a history of diabetes mellitus, HO, bacterial peritonitis who was transferred from [facility] to the Med-Surg floor due to large hematoma versus hygroma with mass effect in the brain and possible need for surgical intervention. Bilateral hygroma/subdural hematoma L > R. 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 Traore is following. Surgically subdural hematoma was evacuated on 2016. Bilateral drains in place. - Platelet count 66K on 02/25/2017 - Greatly appreciate Dr. Arce's input on dick-operative management to reduce risk of bleeding/complications. - CT head today shows no hemorrhage or acute worsening. - PT consulted. - Acute on Chronic kidney disease - Creatinine 1.46 --> 1.76. Possibly due to use of diuretics and volume depletion. - IF creatinine continues to rise, we may reduce diuretics and consider nephrology consult. HO, nonalcoholic steatohepatitis Hepatic encephalopathy - resolved. - Continue Lasix 40 mg daily as well as spirolactone 50mg Qday. - Fentanyl patch, oxycodone for pain - continue Lactulose to achieve 2-3 loose bowel movements. History of SBP with E. Coli. - s/p paracentesis 02/02/17 - Continue Cipro for prophylaxis. DM type 2 - Requiring more insulin due to steroid. - Continue Levemir 20 units QHS, sliding scale insulin. - Will increase Aspart from 10 units to 12 units TIDAC. Esophageal varices - Continue pantoprazole. states he was not taking Nadolol. - Patient would benefit from beta ary to reduce risk of variceal bleed. Full code. Ambulation. Pharmacological DVT prophylaxis when okay with Neurosurgery/Hematology. Parmjit Patterson DO Feb 25, 2017 12:57
[2017-02-25] MEDS ORDERED: FUROSEMIDE 40 MG/4 ML VIAL IV PUSH ONE (20:15)
--- NOTE | 2017-02-25 20:43 | RADRPT ---
EXAM DATE/TIME: 02/25/2017 20:10 [place] COMPARISON: CHEST SINGLE AP, February 22, 2017, 17:03. INDICATIONS : Shortness of breath. MEDICAL HISTORY : None. SURGICAL HISTORY : None. ENCOUNTER: Initial ACUITY: 1 day PAIN SCORE: 0/10 LOCATION: Bilateral chest FINDINGS: One consolidative infiltrates in the central and lower lungs bilaterally with loss of delineation the medial left hemidiaphragm and portions of right heart border. The heart is mildly enlarged. Right internal jugular catheter tip projects over the mid superior vena cava. CONCLUSION: Interval development of bilateral mid and lower lung consolidative infiltrates. Jorge Renteria MD on February 25, 2017 at 20:40 Board Certified Radiologist. This report was verified electronically.
[2017-02-25] MEDS: INSULIN DETEMIR 100 UNITS/ML VIAL SQ SCH (20:44)
[2017-02-25 21:16] LABS: BICARBONATE 17.3 MEQ/L (21.0-32.0)
[2017-02-26] VITALS (17 sets, daily range): BP systolic 125–178; BP diastolic 45–77; PULSE 63–80; RESP 10–22; TEMP 98.1–98.6; O2SAT 93–99
[2017-02-26 04:22] LABS: AUTOMATED NEUTROPHIL # 4.3 TH/MM3 (1.8-7.7); EOSINOPHIL # 0.1 TH/MM3 (0-0.4); EOSINOPHIL % 2.2 % (0.0-4.0); LYMPH % 7.5 % (9.0-44.0); LYMPHOCYTE # 0.4 TH/MM3 (1.0-4.8); MEAN CELL VOLUME 95.8 FL (80.0-100.0); MEAN CORPUSCULAR HEMOGLOBIN 33.2 PG (27.0-34.0); MEAN CORPUSCULAR HGB CONC 34.7 % (32.0-36.0); MONO % 8.1 % (0.0-8.0); NEUT % 82.2 % (16.0-70.0); PLATELET COUNT 45 TH/MM3 (150-450); RED CELL DISTRIBUTION WIDTH 16.3 % (11.6-17.2); WHITE BLOOD COUNT 5.3 TH/MM3 (4.0-11.0)
[2017-02-26 04:31] LABS: APTT (PATIENT) 35.2 SEC (24.3-30.1); INTERNATIONAL NORMALIZED RATIO 1.4 RATIO; PROTHROMBIN TIME - PATIENT 15.6 SEC (9.8-11.6)
[2017-02-26 04:34] LABS: HEMO FLAGS AUTO DIFF
[2017-02-26 04:46] LABS: BICARBONATE 19.2 MEQ/L (21.0-32.0); POTASSIUM 4.1 MEQ/L (3.5-5.1)
[2017-02-26 05:17] LABS: OVALOCYTES 1+ (NORMAL); PLATELET ESTIMATE SMEAR LOW (NORMAL); PLATELET MORPHOLOGY NORMAL (NORMAL); SCAN/DIFF AUTO DIFF CONFIRMED
[2017-02-26] MEDS: INSULIN ASPART SUPPLEMENTAL SCALE SQ SCH ×4 (06:36→19:59)
[2017-02-26] MEDS: PANTOPRAZOLE SOD 40 MG DELAYED RELEASE TAB PO SCH (08:38)
[2017-02-26] MEDS: FERROUS SULFATE 325 MG (65 MG ELEMENTAL IRON) TAB PO SCH ×2 (08:38→19:44)
[2017-02-26] MEDS: DOCUSATE SODIUM 50 MG/SENNA 8.6 MG TAB PO SCH ×2 (08:39→19:44)
[2017-02-26] MEDS: PARoxetine HCL 20 MG TAB PO SCH (08:39)
[2017-02-26] MEDS: SPIRONOLACTONE 50 MG TAB PO SCH (08:39)
[2017-02-26] MEDS: ASCORBIC ACID 500 MG TAB PO SCH ×2 (08:39→19:44)
[2017-02-26] MEDS: CIPROFLOXACIN 250 MG TAB PO SCH (08:39)
[2017-02-26] MEDS: SODIUM CHLORIDE 0.9% FLUSH 5 ML FLUSH IVF SCH ×2 (08:41→19:44)
[2017-02-26] MEDS: INSULIN ASPART 1,000 UNITS/10 ML VIAL SQ SCH ×3 (08:53→16:02)
[2017-02-26] MEDS: FUROSEMIDE 40 MG TAB PO SCH (08:54)
[2017-02-26] MEDS ORDERED: SODIUM CHLOR 0.9% 250 ML INJ 250 ML IV ONE ×2 (09:00→12:00)
--- NOTE | 2017-02-26 11:49 | PD.ONC.PN ---
Subjective Subjective Remarks Afebrile overnight. Patient with at bedside. No bleeding. JASON drains remain in place with minimal sero-sanguinous output. Objective Data Date Time Temp Pulse Resp B/P Pulse Ox O2 Delivery O2 Flow Rate FiO2 02/26/17 11:20 15 02/26/17 10:47 98.1 73 19 163/54 99 02/26/17 10:00 77 02/26/17 08:00 98.3 66 17 144/60 96 139/67 02/26/17 08:00 66 02/26/17 07:00 98 Nasal Cannula 3.00 02/26/17 06:49 98.6 63 20 142/65 97 142/45 02/26/17 06:00 63 02/26/17 04:00 98.4 72 10 125/60 93 140/46 02/26/17 04:00 72 02/26/17 02:00 66 02/26/17 00:00 66 02/26/17 00:00 98.3 66 20 133/63 95 148/45 02/25/17 23:26 98.3 72 19 127/60 94 149/44 02/25/17 22:25 98.3 82 23 144/66 97 147/46 02/25/17 22:00 82 02/25/17 20:00 98.6 76 17 133/61 99 136/48 02/25/17 20:00 65 02/25/17 19:00 98 Nasal Cannula 6.00 02/25/17 18:00 70 02/25/17 16:00 98.7 66 14 134/63 92 134/46 02/25/17 16:00 66 02/25/17 14:00 74 02/25/17 12:00 98.2 62 13 132/60 91 144/46 02/25/17 12:00 62 02/26/17 02/26/17 02/26/17 07:00 15:00 23:00 Intake Total 1105 ml Output Total 680 ml Balance 425 ml Result Diagram: 02/26/17 0345 02/26/17 0345 Laboratory Results Laboratory Tests Test 02/25/17 02/25/17 02/26/17 02/26/17 20:10 20:54 03:45 08:19 Sodium Level 136 MEQ/L 137 MEQ/L Potassium Level 4.0 MEQ/L 4.1 MEQ/L Chloride Level 106 MEQ/L 106 MEQ/L Carbon Dioxide Level 17.3 MEQ/L 19.2 MEQ/L Anion Gap 13 MEQ/L 12 MEQ/L Blood Urea Nitrogen 46 MG/DL 45 MG/DL Creatinine 1.75 MG/DL 1.69 MG/DL Estimat Glomerular Filtration 41 ML/MIN 42 ML/MIN Rate Random Glucose 178 MG/DL 139 MG/DL Calcium Level 8.2 MG/DL 8.2 MG/DL B-Type Natriuretic Peptide 228 PG/ML White Blood Count 5.3 TH/MM3 Red Blood Count 2.40 MIL/MM3 Hemoglobin 8.0 GM/DL Hematocrit 23.0 % Mean Corpuscular Volume 95.8 FL Mean Corpuscular Hemoglobin 33.2 PG Mean Corpuscular Hemoglobin 34.7 % Concent Red Cell Distribution Width 16.3 % Platelet Count 45 TH/MM3 Mean Platelet Volume 9.5 FL Neutrophils (%) (Auto) 82.2 % Lymphocytes (%) (Auto) 7.5 % Monocytes (%) (Auto) 8.1 % Eosinophils (%) (Auto) 2.2 % Basophils (%) (Auto) 0.0 % Neutrophils # (Auto) 4.3 TH/MM3 Lymphocytes # (Auto) 0.4 TH/MM3 Monocytes # (Auto) 0.4 TH/MM3 Eosinophils # (Auto) 0.1 TH/MM3 Basophils # (Auto) 0.0 TH/MM3 CBC Comment AUTO DIFF Differential Comment AUTO DIFF CONFIRMED Platelet Estimate LOW Platelet Morphology Comment NORMAL Ovalocytes 1+ Prothrombin Time 15.6 SEC Prothromb Time International 1.4 RATIO Ratio Activated Partial 35.2 SEC Thromboplast Time Fibrinogen 226 mg/dL Blood Bank Comment Administered Medications Medications (Trade) Dose Ordered Sig/Vielka Route PRN Reason Start Time Stop Time Status Last Admin Dose Admin Acetaminophen (Tylenol) 500 mg Q6H PRN PO Fever, headache, pain 1-4 02/20/17 16:15 02/24/17 19:58 Ondansetron HCl (Zofran Inj) 4 mg Q6H PRN IVP NAUSEA OR VOMITING 02/20/17 16:15 02/21/17 10:54 Senna/Docusate Sodium (Gale-Colace) 1 tab BID PO 02/20/17 21:00 02/26/17 08:39 Ferrous Sulfate (Ferrous Sulfate) 325 mg BID PO 02/20/17 21:00 02/26/17 08:38 Spironolactone (Aldactone) 50 mg DAILY PO 02/21/17 09:00 02/26/17 08:39 Ascorbic Acid (Vitamin C) 500 mg BID PO 02/20/17 21:00 02/26/17 08:39 Ciprofloxacin (Cipro) 250 mg DAILY PO 02/21/17 09:00 02/26/17 08:39 Furosemide (Lasix) 40 mg DAILY PO 02/21/17 09:00 02/26/17 08:54 Paroxetine HCl (Paxil) 30 mg DAILY PO 02/21/17 09:00 02/26/17 08:39 Pantoprazole Sodium (Protonix) 40 mg DAILY PO 02/21/17 09:00 02/26/17 08:38 Fentanyl (Duragesic 50 Mcg Patch.72 Hr) 1 patch Q3D T-DERMAL 02/20/17 18:00 02/23/17 16:41 Miscellaneous Information 1 Q3D T-DERMAL 02/23/17 18:00 02/23/17 16:41 Oxycodone HCl (Roxicodone) 10 mg Q6H PRN PO PAIN SCALE 5 TO 10 02/21/17 10:15 02/26/17 10:20 Lactulose (Lactulose Liq) 30 ml Q4H PRN PO Encephalopathy, Constipation 02/22/17 17:00 02/24/17 08:01 IV Flush 2 ml 2 ml BID IVF 02/22/17 21:00 02/26/17 08:41 Potassium Chloride/Sodium Chloride 1,000 ml @ 50 mls/hr Q20H IV 02/22/17 16:07 02/25/17 23:20 Nicardipine HCl/ Sodium Chloride (Cardene Inj/NS 250 ml Inj) 260 ml @ 0 mls/hr TITRATE PRN IV SBP>150, DBP>90 02/22/17 16:30 02/25/17 10:22 Insulin Detemir (Levemir Inj) 20 units HS SQ 02/24/17 21:00 02/25/17 20:44 Insulin Aspart 12 units 12 units TIDAC SQ 02/26/17 08:00 02/26/17 11:33 Sodium Chloride (NS 250 ml Inj) 250 ml @ 15 mls/hr ONCE ONCE IV 02/26/17 09:00 02/27/17 01:39 02/26/17 08:40 Objective Remarks GENERAL: Middle aged male, supine in bed with at bedside. SKIN: Warm and dry. JASON drains remain in place but are empty. incision site clean without bleeding. HEAD: Normocephalic. EYES: No injection or drainage. NECK: Supple, trachea midline. CARDIOVASCULAR: +S1/S2 RESPIRATORY: Breath sounds equal bilaterally. No accessory muscle use. GASTROINTESTINAL: Abdomen soft, non-tender, nondistended. EXTREMITIES: No cyanosis NEUROLOGICAL: awake and alert, normal speech Assessment/Plan Assessment 56y/o male with bilateral SDH s/p evacuation h/o liver cirrhosis coagulopathy thrombocytopenia. Plan 1. would continue 1 unit FFP every 8 hours until JASON drains are removed 2. continue 1 unit platelets daily as long as platelets less than 100K, until JASON drains removed 3. monitor CBC, coags, fibrinogen d/w nurse, patient, patient's and Dr. Arce. Aysha Daguherty Feb 26, 2017 11:48
--- NOTE | 2017-02-26 11:57 | HHI.PR ---
Subjective Remarks Follow-up for bilateral hematoma left greater than right, symptomatic, s/p bur hole evacuation of chronic SDH. Patient is currently doing well. Denies any acute concerns. No fever or chills. Objective Vitals Vital Signs Date Time Temp Pulse Resp B/P Pulse Ox O2 Delivery O2 Flow Rate FiO2 02/26/17 11:20 15 02/26/17 10:47 98.1 73 19 163/54 99 02/26/17 10:00 77 02/26/17 08:00 98.3 66 17 144/60 96 139/67 02/26/17 08:00 66 02/26/17 07:00 98 Nasal Cannula 3.00 02/26/17 06:49 98.6 63 20 142/65 97 142/45 02/26/17 06:00 63 02/26/17 04:00 98.4 72 10 125/60 93 140/46 02/26/17 04:00 72 02/26/17 02:00 66 02/26/17 00:00 66 02/26/17 00:00 98.3 66 20 133/63 95 148/45 02/25/17 23:26 98.3 72 19 127/60 94 149/44 02/25/17 22:25 98.3 82 23 144/66 97 147/46 02/25/17 22:00 82 02/25/17 20:00 98.6 76 17 133/61 99 136/48 02/25/17 20:00 65 02/25/17 19:00 98 Nasal Cannula 6.00 02/25/17 18:00 70 02/25/17 16:00 98.7 66 14 134/63 92 134/46 02/25/17 16:00 66 02/25/17 14:00 74 02/25/17 12:00 98.2 62 13 132/60 91 144/46 02/25/17 12:00 62 I/O 02/25/17 02/25/17 02/25/17 02/26/17 02/26/17 02/26/17 07:00 15:00 23:00 07:00 15:00 23:00 Intake Total 1678 ml 4026 ml 1255 ml 1105 ml Output Total 279 ml 405 ml 575 ml 680 ml Balance 1399 ml 3621 ml 680 ml 425 ml Intake Oral 360 ml 1370 ml 480 ml 360 ml IV Total 967 ml 1397 ml 775 ml 745 ml FFP 351 ml 559 ml Platelets 300 ml Other 400 ml Output Urine Total 275 ml 400 ml 575 ml 675 ml Drainage Total 4 ml 5 ml 0 ml 5 ml # Bowel Movements 0 0 0 Result Diagram: 02/26/17 0345 02/26/17 0345 Imaging Last Impressions Head CT 02/25/17 0600 Signed Impressions: Service Date/Time: Saturday, February 25, 2017 05:11 - CONCLUSION: Slight interval decrease in the bilateral subdural collections. No new hemorrhage. Juan David Hidalgo MD Chest X-Ray 02/25/17 0000 Signed Impressions: Service Date/Time: Saturday, February 25, 2017 20:10 - CONCLUSION: Interval development of bilateral mid and lower lung consolidative infiltrates. Jorge Renteria MD Objective Remarks GENERAL: Alert, oriented x 3, NAD. SKIN: Warm and dry. HEAD: Bilateral drain in place s/p evacuation of subdural hematoma. EYES: No scleral icterus. No injection or drainage. NECK: Supple, trachea midline. No JVD or lymphadenopathy. CARDIOVASCULAR: Regular rate and rhythm without murmurs, gallops, or rubs. RESPIRATORY: Breath sounds equal bilaterally. No accessory muscle use. GASTROINTESTINAL: Abdomen distended, non-tender to palpation. No rigidity or guarding. MUSCULOSKELETAL: No cyanosis, or edema. Upper and lower ext strength symmetric and equal. BACK: Nontender without obvious deformity. No CVA tenderness. Procedures 02/22/2017 Bilateral parietal bur hole evacuation of chronic subdural hematoma A/P Problem List: (1) SDH (subdural hematoma) ICD Code: I62.00 Status: Acute (2) HO (nonalcoholic steatohepatitis) ICD Code: K75.81 Status: Acute (3) Cirrhosis ICD Code: K74.60 Status: Chronic (4) DM type 2 (diabetes mellitus, type 2) ICD Code: E11.9 Status: Chronic (5) CKD (chronic kidney disease) stage 3, GFR 30-59 ml/min ICD Code: N18.3 Status: Chronic Assessment and Plan Mr. Mancilla is a 56-year-old male with a history of diabetes mellitus, HO, bacterial peritonitis who was transferred from [facility] to the Med-Surg floor due to large hematoma versus hygroma with mass effect in the brain and possible need for surgical intervention. Bilateral hygroma/subdural hematoma L > R. 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 Traore is following. Surgically subdural hematoma was evacuated on 2016. Bilateral drains in place. - Platelet count 45K on 02/26/2017. Hematolog is following. - CT head on 02/25/2017 shows no hemorrhage. Shows hematoma decrease. - Acute on Chronic kidney disease - Creatinine 1.46 --> 1.75 --> 1.69. Possibly due to use of diuretics and volume depletion. - Will continue to monitor periodically. HO, nonalcoholic steatohepatitis Hepatic encephalopathy - resolved. - Continue Lasix 40 mg daily as well as spirolactone 50mg Qday. - Fentanyl patch, oxycodone for pain - continue Lactulose to achieve 2-3 loose bowel movements. History of SBP with E. Coli. - s/p paracentesis 02/02/17 - Continue Cipro for prophylaxis. DM type 2 - Continue Levemir 20 units QHS, sliding scale insulin. - Continue Aspart 12 units TIDAC. Esophageal varices - Continue pantoprazole. states he was not taking Nadolol. - Patient would benefit from beta ary to reduce risk of variceal bleed. Full code. Pharmacological DVT prophylaxis when okay with Neurosurgery/ Hematology. Parmjit Patterson DO Feb 26, 2017 11:57 am
--- NOTE | 2017-02-26 14:43 | HHI.HCPN ---
Reason for visit a. To assist with evaluation and management of symptoms including: encephalopathy b. To assist medical decision maker(s) with: better understanding of current medical conditions; weighing benefits/burdens of medical treatment options; making medical treatment decisions. (Melissa Damon) Subjective/Interval History Patient seen today to follow-up on, goals. Status post alber holes 02/22. Remains in ICU. Vital signs have been stable, off of nicardipine drip since yesterday afternoon. H&H 8.0/23.0 stable. Platelets decreased again, 45 today. Hematology following. Patient completed last scheduled dose of every 8 hour platelet transfusion yesterday afternoon. Today hematology order to continue 1 unit FFP every 8 hours until JPs DC'd. Continue 1 unit of platelets daily for platelets less than 100. Possible JPs may be DC' d today. Patient seen in room no visitors present. He is initially sleeping though arouses easily to my verbal greeting. He is oriented to self and hospital. Easily confuses hospital details, forgetful. At times pauses to search for words. Remembers me from last week but does not remember my name. Follows commands, moves all 4 extremities strength seems equal bilaterally. Indicates he is feeling better overall. Still endorses an intermittent mild headache. He also endorses some mild back pain which she relates is chronic. Denies nausea currently says he had an episode earlier today. Discussed with nursing, neurosurgery [employer]. Following exam call to patient to provide an update. . Family/friend interactions Call to patient to provide update. Review of current conditions, recent diagnostics, treatments in place. She has questions regarding lactulose, she requests to be scheduled TID and not prn due to concerns about worsening hepatic encephalopathy. She indicates that regimen has worked best for him in the past. She requests medical update/communication from other providers/Kashif. Advise I will notify other providers. (d/w [facility] neuro, Dr Patterson) . She is tearful at times expresses frustration with patient's acute illnesses and potential for decline. Supportive listening provided. She would like ongoing updates regarding patient condition. . (Melissa Damon) Advance Directives Living Will: Copy in medical record Health Care Surrogate: Copy in medical record (Melissa Damon) Advance Directive Specifics Date completed: 01/20/14 Health Care Surrogate(s): Rosa Mancilla . Documented care wishes: Living will is standard verbiage document noting that in the presence of a terminal condition, end-stage condition or vegetative state directs life prolonging procedures be withheld or withdrawn with administration of comfort care only. Designates healthcare surrogate as . (MarisolMelissa ERIC) Objective Vital Signs Date Time Temp Pulse Resp B/P Pulse Ox O2 Delivery O2 Flow Rate FiO2 02/26/17 12:42 97 Nasal Cannula 3.00 02/26/17 12:00 98.2 71 18 148/54 98 153/52 02/26/17 12:00 71 02/26/17 11:20 15 02/26/17 10:47 98.1 73 19 163/54 99 02/26/17 10:00 77 02/26/17 08:00 98.3 66 17 144/60 96 139/67 02/26/17 08:00 66 02/26/17 07:00 98 Nasal Cannula 3.00 02/26/17 06:49 98.6 63 20 142/65 97 142/45 02/26/17 06:00 63 02/26/17 04:00 98.4 72 10 125/60 93 140/46 02/26/17 04:00 72 02/26/17 02:00 66 02/26/17 00:00 66 02/26/17 00:00 98.3 66 20 133/63 95 148/45 02/25/17 23:26 98.3 72 19 127/60 94 149/44 02/25/17 22:25 98.3 82 23 144/66 97 147/46 02/25/17 22:00 82 02/25/17 20:00 98.6 76 17 133/61 99 136/48 02/25/17 20:00 65 02/25/17 19:00 98 Nasal Cannula 6.00 02/25/17 18:00 70 02/25/17 16:00 98.7 66 14 134/63 92 134/46 02/25/17 16:00 66 Intake & Output 02/26/17 02/26/17 07:00 19:00 Intake Total 2360 ml Output Total 1255 ml Balance 1105 ml Intake Oral 840 ml IV Total 1520 ml Output Urine Total 1250 ml Drainage Total 5 ml # Bowel Movements 0 Physical Exam CONSTITUTIONAL/GENERAL: This is an obese male, in no apparent distress. TUBES/LINES/DRAINS:left radial art line, rt IJ central line, SCDs, park catheter SKIN: No jaundice, rashes, or lesions. Several Ecchymoses on upper extremities. 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 Chronic vascular changes bilateral lower legs. Skin warm. HEAD: Atraumatic. + large stockingnette dressing clean/dry, +JASON exit from left, right. EYES: Pupils equal and round and reactive. Amblyopia -left eye outward. Extraocular motions intact. No scleral icterus. No injection or drainage. Fundi not examined. ENT: Hearing grossly normal. Nose without bleeding or purulent drainage. Throat without visible erythema, exudates, masses, or lesions. NECK: Trachea midline. Supple, nontender. No palpable thyroid enlargement or nodularity. CARDIOVASCULAR: Regular rate and rhythm no murmur. Peripheral pulses symmetric. RESPIRATORY/CHEST: Symmetric, unlabored respirations on room air. Clear to auscultation. Breath sounds equal bilaterally. GASTROINTESTINAL: Abdomen obese, soft, non-tender, nondistended. No palpable masses. No guarding. Bowel sounds present. GENITOURINARY: Without palpable bladder distension. Park catheter in place clear yellow urine present. MUSCULOSKELETAL: Extremities without clubbing, cyanosis, or edema. No joint tenderness or effusion noted. No mottling or clubbing. NEUROLOGICAL: Awake and alert. No facial droop. mostly oriented x2-3, forgetful at times. Searches for words at times. speech is clear. 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 LE strength equal. PSYCHIATRIC: No obvious anxiety/depression. . (Melissa Damon) Diagnostic Tests Laboratory Laboratory Tests Test 02/23/17 02/24/17 02/24/17 02/24/17 18:46 03:31 03:50 14:00 Blood Bank Comment White Blood Count 7.1 TH/MM3 (4.0-11.0) Red Blood Count 2.53 MIL/MM3 (4.50-5.90) Hemoglobin 8.4 GM/DL (13.0-17.0) Hematocrit 24.3 % (39.0-51.0) Mean Corpuscular Volume 95.8 FL (80.0-100.0) Mean Corpuscular Hemoglobin 33.0 PG (27.0-34.0) Mean Corpuscular Hemoglobin 34.5 % Concent (32.0-36.0) Red Cell Distribution Width 16.2 % (11.6-17.2) Platelet Count 76 TH/MM3 (150-450) Mean Platelet Volume 9.3 FL (7.0-11.0) Neutrophils (%) (Auto) 81.0 % (16.0-70.0) Lymphocytes (%) (Auto) 10.0 % (9.0-44.0) Monocytes (%) (Auto) 8.4 % (0.0-8.0) Eosinophils (%) (Auto) 0.4 % (0.0-4.0) Basophils (%) (Auto) 0.2 % (0.0-2.0) Neutrophils # (Auto) 5.8 TH/MM3 (1.8-7.7) Lymphocytes # (Auto) 0.7 TH/MM3 (1.0-4.8) Monocytes # (Auto) 0.6 TH/MM3 (0-0.9) Eosinophils # (Auto) 0.0 TH/MM3 (0-0.4) Basophils # (Auto) 0.0 TH/MM3 (0-0.2) CBC Comment AUTO DIFF Differential Comment AUTO DIFF CONFIRMED Platelet Estimate LOW (NORMAL) Platelet Morphology Comment NORMAL (NORMAL) Ovalocytes 1+ (NORMAL) Prothrombin Time 15.3 SEC (9.8-11.6) Prothromb Time International 1.4 RATIO Ratio Activated Partial 30.1 SEC Thromboplast Time (24.3-30.1) Fibrinogen 142 mg/dL (227-377) Test 02/24/17 02/25/17 02/25/17 02/25/17 22:00 00:19 00:20 04:35 Blood Bank Comment White Blood Count 5.7 TH/MM3 (4.0-11.0) Red Blood Count 2.43 MIL/MM3 (4.50-5.90) Hemoglobin 8.0 GM/DL (13.0-17.0) Hematocrit 23.4 % (39.0-51.0) Mean Corpuscular Volume 96.1 FL (80.0-100.0) Mean Corpuscular Hemoglobin 33.0 PG (27.0-34.0) Mean Corpuscular Hemoglobin 34.3 % Concent (32.0-36.0) Red Cell Distribution Width 16.0 % (11.6-17.2) Platelet Count 56 TH/MM3 (150-450) Mean Platelet Volume 8.8 FL (7.0-11.0) Neutrophils (%) (Auto) 77.4 % (16.0-70.0) Lymphocytes (%) (Auto) 10.7 % (9.0-44.0) Monocytes (%) (Auto) 10.0 % (0.0-8.0) Eosinophils (%) (Auto) 1.7 % (0.0-4.0) Basophils (%) (Auto) 0.2 % (0.0-2.0) Neutrophils # (Auto) 4.4 TH/MM3 (1.8-7.7) Lymphocytes # (Auto) 0.6 TH/MM3 (1.0-4.8) Monocytes # (Auto) 0.6 TH/MM3 (0-0.9) Eosinophils # (Auto) 0.1 TH/MM3 (0-0.4) Basophils # (Auto) 0.0 TH/MM3 (0-0.2) CBC Comment AUTO DIFF Differential Comment AUTO DIFF CONFIRMED Platelet Estimate LOW (NORMAL) Platelet Morphology Comment NORMAL (NORMAL) Ovalocytes 1+ (NORMAL) Prothrombin Time 15.2 SEC (9.8-11.6) Prothromb Time International 1.4 RATIO Ratio Activated Partial 31.9 SEC Thromboplast Time (24.3-30.1) Fibrinogen 175 mg/dL (227-377) Test 02/25/17 02/25/17 02/25/17 02/26/17 10:51 20:10 20:54 03:45 Blood Bank Comment Sodium Level 136 MEQ/L 137 MEQ/L (136-145) (136-145) Potassium Level 4.0 MEQ/L 4.1 MEQ/L (3.5-5.1) (3.5-5.1) Chloride Level 106 MEQ/L 106 MEQ/L (98-107) (98-107) Carbon Dioxide Level 17.3 MEQ/L 19.2 MEQ/L (21.0-32.0) (21.0-32.0) Anion Gap 13 MEQ/L (5-15) 12 MEQ/L (5-15) Blood Urea Nitrogen 46 MG/DL (7-18) 45 MG/DL (7-18) Creatinine 1.75 MG/DL 1.69 MG/DL (0.60-1.30) (0.60-1.30) Estimat Glomerular Filtration 41 ML/MIN (>89) 42 ML/MIN (>89) Rate Random Glucose 178 MG/DL 139 MG/DL (74-106) (74-106) Calcium Level 8.2 MG/DL 8.2 MG/DL (8.5-10.1) (8.5-10.1) B-Type Natriuretic Peptide 228 PG/ML (0-100) White Blood Count 5.3 TH/MM3 (4.0-11.0) Red Blood Count 2.40 MIL/MM3 (4.50-5.90) Hemoglobin 8.0 GM/DL (13.0-17.0) Hematocrit 23.0 % (39.0-51.0) Mean Corpuscular Volume 95.8 FL (80.0-100.0) Mean Corpuscular Hemoglobin 33.2 PG (27.0-34.0) Mean Corpuscular Hemoglobin 34.7 % Concent (32.0-36.0) Red Cell Distribution Width 16.3 % (11.6-17.2) Platelet Count 45 TH/MM3 (150-450) Mean Platelet Volume 9.5 FL (7.0-11.0) Neutrophils (%) (Auto) 82.2 % (16.0-70.0) Lymphocytes (%) (Auto) 7.5 % (9.0-44.0) Monocytes (%) (Auto) 8.1 % (0.0-8.0) Eosinophils (%) (Auto) 2.2 % (0.0-4.0) Basophils (%) (Auto) 0.0 % (0.0-2.0) Neutrophils # (Auto) 4.3 TH/MM3 (1.8-7.7) Lymphocytes # (Auto) 0.4 TH/MM3 (1.0-4.8) Monocytes # (Auto) 0.4 TH/MM3 (0-0.9) Eosinophils # (Auto) 0.1 TH/MM3 (0-0.4) Basophils # (Auto) 0.0 TH/MM3 (0-0.2) CBC Comment AUTO DIFF Differential Comment AUTO DIFF CONFIRMED Platelet Estimate LOW (NORMAL) Platelet Morphology Comment NORMAL (NORMAL) Ovalocytes 1+ (NORMAL) Prothrombin Time 15.6 SEC (9.8-11.6) Prothromb Time International 1.4 RATIO Ratio Activated Partial 35.2 SEC Thromboplast Time (24.3-30.1) Fibrinogen 226 mg/dL (227-377) Test 02/26/17 08:19 Blood Bank Comment (Melissa Damon) Result Diagram: 02/26/17 0345 02/26/17 0345 Assessment and Plan Disease Oriented Problem List: (1) HO (nonalcoholic steatohepatitis) (2) SDH (subdural hematoma) Comment: Bilateral hygromas/subdural hematoma L > R (3) Thrombocytopenia (4) Diabetic foot ulcers (5) Escherichia coli infection Comment: Per paracentesis 02/02/17 (6) CKD (chronic kidney disease) stage 3, GFR 30-59 ml/min (7) Depression (8) HTN (hypertension) (9) DM type 2 (diabetes mellitus, type 2) (10) Esophageal varices (11) Moderate protein malnutrition Symptom Scale: (1) Encephalopathy 0-10 Scale: Unable to quantify (2) Pain 0-10 Scale: Unable to quantify Pertinent Non-Medical Issues Psychosocial: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 . Originally from [place], has lived in [place] for approximately 43 years. Also has 2 daughters. Spiritual: Pentecostal ayush Legal:Patient mental status fluctuates secondary to hepatic encephalopathy. He is able to participate in decision-making at times. If he becomes incapacitated his is designated HCS, would be appropriate legal decision maker. Ethical issues impacting care: . Important Contacts Rosa Mancilla [phone] Prognosis This patient was admitted to the hospital for acute mental status changes and weakness from rehabilitation. CT Head with findings of large hygroma with mass effect. Patient also with chronic thrombocytopenia, hematology is following. Plan for neurosurgical intervention 02/22. Patient with multiple chronic medical conditions, most significantlyNASH, he has had ongoing hepatic encephalopathy , paracentesis, and associated conditions/complications/hospitalizations from underlying liver disease. He is apparently on the waiting list for liver transplant. Per neurosurgery remains at risk for ongoing/recurrent hemorrhage post surgical intervention however without surgical intervention subdural fluid collection could become life threatening. Remains at ongoing risk for further complications and setbacks related to underlying liver disease and new or surgical issues. . Code Status: Full Code Plan * Legal decision maker: Patient mental status fluctuates secondary to hepatic encephalopathy. He is able to participate in decision-making at times. If he becomes incapacitated his is designated HCS, would be appropriate legal decision maker. * Goals: met w pt, upon initial consultation 02/23 goals currently aggressive , wish to cont to maximize available treatments for liver condition, SDH. They are hopeful pt medical conditions can improve enough that he can be put on liver transplant list. They understand he is high risk for ongoing complications /setbacks, and further decline. They are open to ongoing conversations as condition evolves. would like for treatments here to follow as closely as possible to what [facility] recommended in order to improve his chances to get on transplantation list. She would like the providers here to review his treatment records/recommendations from [facility]. ( *I d/w medical attending, it will provide some comfort knowing that his records from there have been reviewed, even if all of the treatments are not able to be implemented , recommend request records from [facility] 01/2017) 02/26/17-medical update provided to . She requests patient to receive lactulose scheduled versus prn, she is concerned about worsening hepatic encephalopathy. Goals remain aggressive. She would like updates from neuro and medical attending as well. * CODE STATUS: full by default at this time, pt & to continue to discuss * SYMPTOMS: --Encephalopathy- 2/2 hepatic dysfunction,+ new SDH, fluctuates. On lactulose PRN. Has been on rifaximin in the past. Last ammonia level 60 on 02/18 per [facility] labs. +alber hole evacuation SDH 02/22; probable chronic component, which could provide some ongoing residual deficit per neuro. This may continue to wax and wane. requests scheduled LACTULOSE daily ( TID), NOT PRN. --Pain-reported with chronic neuropathic pain; chronic long-standing back pain for many years, + new headache 2/2 SDH. On fentanyl patch 50 mics every 72 hour, as well as prn oxycodone. sparing prn oxycodone 10mg requirements--> 1 -2 doses per day; effective. We'll continue to evaluate. Cautious adjustments given risk for altered mental status * Palliative care will continue to follow during hospital course as condition evolves, to assist patient/decision-maker with understanding of medical conditions, weighing benefits/burdens of treatment options, for clarification of goals of treatment. Additionally will assist with any symptoms of palliative concern (Melissa Damon) Collaborating MD Comments Discussed with ERIC, agree with assessment and plan (Surjit Smith MD) Melissa Damon Feb 26, 2017 14:43 Surjit Smith MD Feb 28, 2017 13:49
--- NOTE | 2017-02-26 14:47 | HHI.NSPN ---
(Joe Maurer) History Chief Complaint: Body pain (Joe Maurer) Interval History 02/19: 56-year-old gentleman who according to his family was diagnosed with liver disease approximately 8-9 years ago. She was admitted to [facility] for approximately 1 week, approximately 1 month ago for workup of ascites. He underwent a paracentesis on 02/02/2017. The fluid grew Escherichia coli. The patient's states that he was referred to [facility] where he remained for approximately a week. She states that he was in bed most of the time at [facility]. He was then discharged to rehabilitation. She states that he has had quite a bit more difficulty with ambulation since his hospitalization and [facility]. She states that he fell a few weeks ago and apparently again in the past week without loss of consciousness. The patient's seems a little uncertain whether or not he has had any mental status or speech changes, however his nurse this evening feels that he is not quite as alert or fluent in his speech over the past 2 or 3 days than he was last week. The patient states that he has noted headaches for 2 or 3 days. He apparently normally does not have headaches. Due to his difficulty with ambulation, a CT scan of the head was obtained today which has revealed subdural hematoma on the left greater than right. 02/20: Patient asleep but awakens to verbal stimuli. He has difficulty getting words out and has to think on what he says. He does state he has pain to the head although he said "No" previously when asked if he had any headache. He also has pain to the legs with some pain to the arm with the right the worse. 02/21: The patient is asleep initially when seen with Dr Traore this morning. He did complain of a headache. He intermittently would drift off and close his eyes then open them. He transferred to a regular med/surg med yesterday from [facility]. 02/22: The patient is awake and alert when seen this morning. He still has to search for what he says and at times is not able to complete his thoughts. He has no complaints other than continues right-sided weakness. 02/24: Patient awake and alert. Denies much headaches. Some periods of nausea. No paresthesias in face. No difficulty with speech. 02/25: Patient awake and alert. Complains of headache. Some nausea. No new numbness or tingling. Speech is clear 02/26: The patient is awake and alert, taking in a clear liquid diet. He states that he feels the best that he has in years since the surgery. He does have a slight headache which is improving and some low back pain, which are related to a 6 inch drop yesterday when he went for CT. (Joe Maurer) System Review Comments Respiratory: The patient denies any shortness of breath or productive cough. Cardiovascular: The patient denies any chest pain, palpitation or irregular heartbeat. Gastrointestinal: The patient did have some nausea earlier but none at present. He denies any abdominal pain, vomiting or stool incontinence. Musculoskeletal: The patient denies any leg and arm pain. Neurologic: The patient states he still has numbness and weakness to the legs that is the same. He does have a slight headache that is better. He denies any dizziness. (Joe Maurer) Exam Results Vital Signs Date Time Temp Pulse Resp B/P Pulse Ox O2 Delivery O2 Flow Rate FiO2 02/26/17 12:42 97 Nasal Cannula 3.00 02/26/17 12:00 98.2 71 18 148/54 153/52 02/24/17 09:09 21 Intake and Output 02/25/17 02/25/17 02/26/17 08:00 16:00 00:00 Intake Total 1678 ml 4026 ml 1255 ml Output Total 279 ml 405 ml 575 ml Balance 1399 ml 3621 ml 680 ml (Joe Maurer) Physical Examination General: Awake & alert, morbidly obese, NAD. HEENT: Bilateral alber hole incisions well-approximated with musa and bilateral JASON drains to bulb suction w/scant serosanguinous drainage noted. Integumentary: Surgical incisions & JASON insertion sites w/o any evident drainage , erythema or streaking. Vascular skin changes to bilateral lower legs and feet. Respiratory: CTAB w/o W/R/R, equal excursion, nonlaboured, on 3L NC. Cardiovascular: S1S2 w/RRR w/o M/G/R, radial & pedal pulses 2+ bilaterally, cap refill < 2 sec. Monitor is sinus rhythm w/o any ectopy noted. Gastrointestinal: Obese, distended, non-tender, positive bowel sounds. Musculoskeletal: Multiple ecchymotic areas noted to all extremities. Left foot with healed toe amputations. Neurologic: AAOx3 Speech essentially clear & appropriate Though process slightly slow but improved Decreased sensation to BLE but grossly intact to BUE to light touch Motor strength 5/5 BUE & LLE and 4 to 4+/5 RLE to all major flexion & extension muscle groups (Joe Maurer) Lab, Micro, Other Results Allergies Coded Allergies Type Severity Reaction Last Updated Verified Sulfa Allergy Intermediate Nausea/Vomiting 02/09/17 Yes *MDRO Multi-Drug Resistant Organism Adverse Reaction Unknown 02/09/17 Yes Recent Impressions Head CT 02/25/17 0600 Signed Impressions: Service Date/Time: Saturday, February 25, 2017 05:11 - CONCLUSION: Slight interval decrease in the bilateral subdural collections. No new hemorrhage. Juan David Hidalgo MD Chest X-Ray 02/25/17 0000 Signed Impressions: Service Date/Time: Saturday, February 25, 2017 20:10 - CONCLUSION: Interval development of bilateral mid and lower lung consolidative infiltrates. Jorge Renteria MD ///// 06:00 18:00 06:00 18:00 06:00 18:00 Intake Total 3020 ml 1908 ml 3369 ml 4026 ml 2360 ml Output Total 980 ml 360 ml 629 ml 405 ml 1255 ml Balance 2040 ml 1548 ml 2740 ml 3621 ml 1105 ml Intake Oral 480 ml 720 ml 840 ml 1370 ml 840 ml IV Total 1317 ml 1188 ml 2178 ml 1397 ml 1520 ml FFP 934 ml 351 ml 559 ml Platelets 289 ml 300 ml Other 400 ml Output Urine Total 950 ml 350 ml 625 ml 400 ml 1250 ml Drainage Total 30 ml 10 ml 4 ml 5 ml 5 ml # Bowel Movements 2 1 0 0 Laboratory Tests Test 02/23/17 02/24/17 02/24/1702/24/17 18:46 03:31 03:50 14:00 Blood Bank Comment White Blood Count 7.1 TH/MM3 Red Blood Count 2.53 MIL/MM3 Hemoglobin 8.4 GM/DL Hematocrit 24.3 % Mean Corpuscular Volume 95.8 FL Mean Corpuscular Hemoglobin 33.0 PG Mean Corpuscular Hemoglobin 34.5 % Concent Red Cell Distribution Width 16.2 % Platelet Count 76 TH/MM3 Mean Platelet Volume 9.3 FL Neutrophils (%) (Auto) 81.0 % Lymphocytes (%) (Auto) 10.0 % Monocytes (%) (Auto) 8.4 % Eosinophils (%) (Auto) 0.4 % Basophils (%) (Auto) 0.2 % Neutrophils # (Auto) 5.8 TH/MM3 Lymphocytes # (Auto) 0.7 TH/MM3 Monocytes # (Auto) 0.6 TH/MM3 Eosinophils # (Auto) 0.0 TH/MM3 Basophils # (Auto) 0.0 TH/MM3 CBC Comment AUTO DIFF Differential Comment AUTO DIFF CONFIRMED Platelet Estimate LOW Platelet Morphology Comment NORMAL Ovalocytes 1+ Prothrombin Time 15.3 SEC Prothromb Time International 1.4 RATIO Ratio Activated Partial 30.1 SEC Thromboplast Time Fibrinogen 142 mg/dL Test 02/24/17 02/25/17 02/25/17 02/25/17 22:00 00:19 00:20 04:35 Blood Bank Comment White Blood Count 5.7 TH/MM3 Red Blood Count 2.43 MIL/MM3 Hemoglobin 8.0 GM/DL Hematocrit 23.4 % Mean Corpuscular Volume 96.1 FL Mean Corpuscular Hemoglobin 33.0 PG Mean Corpuscular Hemoglobin 34.3 % Concent Red Cell Distribution Width 16.0 % Platelet Count 56 TH/MM3 Mean Platelet Volume 8.8 FL Neutrophils (%) (Auto) 77.4 % Lymphocytes (%) (Auto) 10.7 % Monocytes (%) (Auto) 10.0 % Eosinophils (%) (Auto) 1.7 % Basophils (%) (Auto) 0.2 % Neutrophils # (Auto) 4.4 TH/MM3 Lymphocytes # (Auto) 0.6 TH/MM3 Monocytes # (Auto) 0.6 TH/MM3 Eosinophils # (Auto) 0.1 TH/MM3 Basophils # (Auto) 0.0 TH/MM3 CBC Comment AUTO DIFF Differential Comment AUTO DIFF CONFIRMED Platelet Estimate LOW Platelet Morphology Comment NORMAL Ovalocytes 1+ Prothrombin Time 15.2 SEC Prothromb Time International 1.4 RATIO Ratio Activated Partial 31.9 SEC Thromboplast Time Fibrinogen 175 mg/dL Test 02/25/17 02/25/17 02/25/17 02/26/17 10:51 20:10 20:54 03:45 Blood Bank Comment Sodium Level 136 MEQ/L 137 MEQ/L Potassium Level 4.0 MEQ/L 4.1 MEQ/L Chloride Level 106 MEQ/L 106 MEQ/L Carbon Dioxide Level 17.3 MEQ/L 19.2 MEQ/L Anion Gap 13 MEQ/L 12 MEQ/L Blood Urea Nitrogen 46 MG/DL 45 MG/DL Creatinine 1.75 MG/DL 1.69 MG/DL Estimat Glomerular Filtration 41 ML/MIN 42 ML/MIN Rate Random Glucose 178 MG/DL 139 MG/DL Calcium Level 8.2 MG/DL 8.2 MG/DL B-Type Natriuretic Peptide 228 PG/ML White Blood Count 5.3 TH/MM3 Red Blood Count 2.40 MIL/MM3 Hemoglobin 8.0 GM/DL Hematocrit 23.0 % Mean Corpuscular Volume 95.8 FL Mean Corpuscular Hemoglobin 33.2 PG Mean Corpuscular Hemoglobin 34.7 % Concent Red Cell Distribution Width 16.3 % Platelet Count 45 TH/MM3 Mean Platelet Volume 9.5 FL Neutrophils (%) (Auto) 82.2 % Lymphocytes (%) (Auto) 7.5 % Monocytes (%) (Auto) 8.1 % Eosinophils (%) (Auto) 2.2 % Basophils (%) (Auto) 0.0 % Neutrophils # (Auto) 4.3 TH/MM3 Lymphocytes # (Auto) 0.4 TH/MM3 Monocytes # (Auto) 0.4 TH/MM3 Eosinophils # (Auto) 0.1 TH/MM3 Basophils # (Auto) 0.0 TH/MM3 CBC Comment AUTO DIFF Differential Comment AUTO DIFF CONFIRMED Platelet Estimate LOW Platelet Morphology Comment NORMAL Ovalocytes 1+ Prothrombin Time 15.6 SEC Prothromb Time International 1.4 RATIO Ratio Activated Partial 35.2 SEC Thromboplast Time Fibrinogen 226 mg/dL Test 02/26/17 08:19 Blood Bank Comment Vital Signs Date Time Temp Pulse Resp B/P Pulse Ox O2 Delivery O2 Flow Rate FiO2 02/26/17 12:42 97 Nasal Cannula 3.00 02/26/17 12:00 98.2 71 18 148/54 98 153/52 02/26/17 12:00 71 02/26/17 11:20 15 02/26/17 10:47 98.1 73 19 163/54 99 02/26/17 10:00 77 02/26/17 08:00 98.3 66 17 144/60 96 139/67 02/26/17 08:00 66 02/26/17 07:00 98 Nasal Cannula 3.00 02/26/17 06:49 98.6 63 20 142/65 97 142/45 02/26/17 06:00 63 02/26/17 04:00 98.4 72 10 125/60 93 140/46 02/26/17 04:00 72 02/26/17 02:00 66 02/26/17 00:00 66 02/26/17 00:00 98.3 66 20 133/63 95 148/45 02/25/17 23:26 98.3 72 19 127/60 94 149/44 02/25/17 22:25 98.3 82 23 144/66 97 147/46 02/25/17 22:00 82 02/25/17 20:00 98.6 76 17 133/61 99 136/48 02/25/17 20:00 65 02/25/17 19:00 98 Nasal Cannula 6.00 02/25/17 18:00 70 02/25/17 16:00 98.7 66 14 134/63 92 134/46 02/25/17 16:00 66 02/25/17 14:00 74 02/25/17 12:00 98.2 62 13 132/60 91 144/46 02/25/17 12:00 62 02/25/17 10:45 96 Nasal Cannula 2.00 02/25/17 10:00 68 02/25/17 08:00 70 02/25/17 08:00 98.6 70 12 129/60 92 136/50 02/25/17 07:22 98.5 65 14 142/63 92 138/52 02/25/17 07:00 92 Nasal Cannula 2.00 02/25/17 06:20 98.4 63 12 145/67 94 158/57 02/25/17 06:20 98.4 63 12 145/66 94 157/55 02/25/17 06:00 63 02/25/17 04:00 64 02/25/17 04:00 98.4 64 14 137/61 92 144/52 02/25/17 02:00 64 02/25/17 02:00 94 Nasal Cannula 2.00 02/25/17 00:00 72 02/25/17 00:00 98.4 72 10 142/52 94 02/25/17 00:00 98.4 72 10 142/52 94 02/24/17 22:55 98.3 76 17 152/51 96 02/24/17 22:00 66 02/24/17 20:58 14 02/24/17 20:00 98.1 70 10 144/50 95 02/24/17 20:00 65 02/24/17 19:00 98 Room Air 02/24/17 18:00 72 02/24/17 16:00 98.2 64 24 143/52 95 02/24/17 16:00 65 02/24/17 14:00 75 02/24/17 12:00 98.4 104 12 135/46 96 02/24/17 12:00 62 02/24/17 10:00 91 02/24/17 09:09 97 21 02/24/17 08:00 60 02/24/17 08:00 98.2 60 13 138/47 95 02/24/17 07:00 98 Room Air 02/24/17 06:00 62 02/24/17 04:00 60 02/24/17 04:00 98.2 60 13 138/47 95 02/24/17 02:00 62 02/24/17 00:00 98.5 64 12 145/49 98 02/24/17 00:00 64 02/23/17 22:00 62 02/23/17 21:54 98.4 64 17 146/46 98 02/23/17 21:14 98 02/23/17 20:00 70 02/23/17 20:00 98.2 70 15 140/52 98 02/23/17 19:00 98 Room Air 02/23/17 18:00 72 02/23/17 17:41 22 02/23/17 16:00 98.1 79 34 141/47 97 02/23/17 16:00 79 (Joe Maurer) Medical Decision Making Impression and Plan Impression: 1. Left greater than right subdural hygroma versus chronic hematoma. Patient has associated right hemiparesis. 2. Cirrhosis 3. Thrombocytopenia 4. Anaemia 5. History of chronic encephalopathy 6. History of chronic kidney disease CT brain demonstrated interval decrease in bilateral subdural collections Improving neurological status Right JASON drain output: 8 mL Left JASON drain output: 2 mL Plan: Daily CBC w/platelets, PT, PTT & fibrinogen Continue 1 unit of FFP q8h & 1 single donor platelet pack QD till JASON drains removed Continue frequent neuro checks Stat CT brain for any neuro worsening Thrombocytopenia management per Hematology/Oncology Critical care management per [employer] Anticipate that JASON drains will come be able to come out today (Joe Maurer) Attending Statement I have personally seen and examined the patient on the date of this note. Pertinent documentation and study results have been reviewed by the undersigned. I have personally developed the treatment plan and performed medical decision making. Agree with findings, exam, and treatment plan as noted above. 02/25/17 CT scan head images reviewed. Persistent significant frontal pneumocephalus. Discussed with nursing staff. Continue to try to place in lateral or semi- prone position for the next day. Plan removal of drains on 02/27/17 (Jan Traore MD) Joe Maurer Feb 26, 2017 14:47 Jan Traore MD Feb 26, 2017 18:50
[2017-02-26] MEDS: ACETAMINOPHEN 325 MG TAB PO PRN (14:55)
[2017-02-26] MEDS: fentaNYL 50 MCG/HR PATCH T-DERMAL SCH (17:21)
[2017-02-26] MEDS: REMOVE OLD DURAGESIC (FENTANYL) PATCH T-DERMAL SCH (17:21)
[2017-02-26] MEDS: cloNIDine HCL 0.1 MG TAB PO PRN (18:20)
[2017-02-26] MEDS: INSULIN DETEMIR 100 UNITS/ML VIAL SQ SCH (19:59)
[2017-02-27] VITALS (18 sets, daily range): BP systolic 114–178; BP diastolic 49–84; PULSE 62–85; RESP 12–24; TEMP 97.8–98.2; O2SAT 93–99
[2017-02-27] MEDS: 1/2 NS + KCL 20 MEQ INJ 1,000 ML IV SCH (01:08)
[2017-02-27 04:57] LABS: AUTOMATED NEUTROPHIL # 2.5 TH/MM3 (1.8-7.7); EOSINOPHIL # 0.1 TH/MM3 (0-0.4); EOSINOPHIL % 3.7 % (0.0-4.0); HEMATOCRIT 21.8 % (39.0-51.0); LYMPH % 8.9 % (9.0-44.0); LYMPHOCYTE # 0.3 TH/MM3 (1.0-4.8); MEAN CELL VOLUME 97.2 FL (80.0-100.0); MEAN CORPUSCULAR HEMOGLOBIN 32.2 PG (27.0-34.0); MEAN CORPUSCULAR HGB CONC 33.1 % (32.0-36.0); MONO % 9.9 % (0.0-8.0); NEUT % 77.5 % (16.0-70.0); PLATELET COUNT 34 TH/MM3 (150-450); RED BLOOD COUNT 2.24 MIL/MM3 (4.50-5.90); RED CELL DISTRIBUTION WIDTH 16.4 % (11.6-17.2); WHITE BLOOD COUNT 3.2 TH/MM3 (4.0-11.0)
[2017-02-27] MEDS: cloNIDine HCL 0.1 MG TAB PO PRN (05:02)
[2017-02-27 05:04] LABS: HEMO FLAGS DIFF FINAL
[2017-02-27] MEDS: INSULIN ASPART SUPPLEMENTAL SCALE SQ SCH ×4 (07:00→21:50)
[2017-02-27] MEDS: CIPROFLOXACIN 250 MG TAB PO SCH (07:47)
[2017-02-27] MEDS: ASCORBIC ACID 500 MG TAB PO SCH ×2 (07:47→19:23)
[2017-02-27] MEDS: DOCUSATE SODIUM 50 MG/SENNA 8.6 MG TAB PO SCH ×2 (07:48→19:24)
[2017-02-27] MEDS: FUROSEMIDE 40 MG TAB PO SCH (07:48)
[2017-02-27] MEDS: PANTOPRAZOLE SOD 40 MG DELAYED RELEASE TAB PO SCH (07:48)
[2017-02-27] MEDS: SPIRONOLACTONE 50 MG TAB PO SCH (07:48)
[2017-02-27] MEDS: FERROUS SULFATE 325 MG (65 MG ELEMENTAL IRON) TAB PO SCH ×2 (07:48→19:23)
[2017-02-27] MEDS: PARoxetine HCL 20 MG TAB PO SCH (07:48)
[2017-02-27] MEDS: SODIUM CHLORIDE 0.9% FLUSH 5 ML FLUSH IVF SCH ×2 (07:49→19:23)
[2017-02-27] MEDS: INSULIN ASPART 1,000 UNITS/10 ML VIAL SQ SCH (08:00)
[2017-02-27] MEDS ORDERED: SODIUM CHLOR 0.9% 250 ML INJ 250 ML IV ONE (08:00)
[2017-02-27] MEDS: LACTULOSE SYRUP 20 GM/30 ML CUP PO SCH ×2 (12:19→18:00)
--- NOTE | 2017-02-27 12:34 | HHI.PR ---
Subjective Remarks Patient see with his at bedside and two RNs. His is concerned that he is not receiving enough Lactulose. He is still somewhat encephalopathic. Very sleepy. He wants diet advanced. Wants a tuna sandwich. He cannot tell if abdominal distention is worse. He reports some occasional nausea but no vomiting. Last bowel movement was yesterday. Objective Vitals Vital Signs Date Time Temp Pulse Resp B/P Pulse Ox O2 Delivery O2 Flow Rate FiO2 02/27/17 10:00 85 02/27/17 09:04 18 02/27/17 08:52 98.2 65 14 121/59 94 148/57 02/27/17 08:00 98.1 70 20 166/58 96 166/58 02/27/17 08:00 70 02/27/17 07:45 02/27/17 07:00 96 Nasal Cannula 3.00 02/27/17 06:22 98.0 62 12 114/55 93 149/49 02/27/17 06:00 62 02/27/17 04:00 98.0 62 18 127/59 93 150/50 02/27/17 04:00 62 02/27/17 02:00 66 02/27/17 00:13 17 02/27/17 00:00 98.0 68 20 130/58 94 160/54 02/27/17 00:00 98.0 68 20 130/58 94 162/54 02/27/17 00:00 68 02/26/17 22:00 98.4 72 14 137/63 96 178/60 02/26/17 22:00 70 02/26/17 21:08 99 Nasal Cannula 2.00 02/26/17 20:00 98.1 63 22 134/77 98 140/50 02/26/17 20:00 63 02/26/17 19:00 97 Nasal Cannula 3.00 02/26/17 18:20 18 02/26/17 18:00 67 02/26/17 16:00 98.1 76 21 146/55 97 144/56 02/26/17 16:00 76 02/26/17 15:55 17 02/26/17 14:46 98.2 78 18 142/62 99 02/26/17 14:00 80 02/26/17 12:42 97 Nasal Cannula 3.00 I/O 602/26/17 02/26/17 02/27/17 02/27/17 02/27/17 07:00 15:00 23:00 07:00 15:00 23:00 Intake Total 1105 ml 1950 ml 2089 ml 1217 ml Output Total 680 ml 1000 ml 755 ml 625 ml Balance 425 ml 950 ml 1334 ml 592 ml Intake Oral 360 ml 600 ml 480 ml 480 ml IV Total 745 ml 800 ml 1609 ml 737 ml FFP 300 ml Platelets 250 ml Output Urine Total 675 ml 1000 ml 750 ml 625 ml Drainage Total 5 ml 0 ml 5 ml 0 ml # Bowel Movements 0 0 0 0 Result Diagram: 02/27/17 0425 02/26/17 0345 Imaging Last Impressions Head CT 02/25/17 0600 Signed Impressions: Service Date/Time: Saturday, February 25, 2017 05:11 - CONCLUSION: Slight interval decrease in the bilateral subdural collections. No new hemorrhage. Juan David Hidalgo MD Chest X-Ray 02/25/17 0000 Signed Impressions: Service Date/Time: Saturday, February 25, 2017 20:10 - CONCLUSION: Interval development of bilateral mid and lower lung consolidative infiltrates. Jorge Renteria MD Objective Remarks GENERAL: Obese male in the ICU. HEENT: Patient has bilateral JASON drains. minimal serous sanguinous fluid. CARDIOVASCULAR: Normal rate and regular rhythm without murmurs, gallops, or rubs. RESPIRATORY: Respiratory effort is fair. Clear to auscultation bilaterally anteriorly. GASTROINTESTINAL: Abdomen is markedly distended. There is evidence of anasarca and ascites. Normal active bowel sounds. Nontender to palpation. MUSCULOSKELETAL: 2+ bilateral lower extremity edema NEURO: Alert & Oriented. Normal speech. Falls asleep mid conversation. PSYCH: Calm Procedures 02/22/2017 Bilateral parietal bur hole evacuation of chronic subdural hematoma A/P Problem List: (1) SDH (subdural hematoma) ICD Code: I62.00 Status: Acute (2) HO (nonalcoholic steatohepatitis) ICD Code: K75.81 Status: Acute (3) Cirrhosis ICD Code: K74.60 Status: Chronic (4) DM type 2 (diabetes mellitus, type 2) ICD Code: E11.9 Status: Chronic (5) CKD (chronic kidney disease) stage 3, GFR 30-59 ml/min ICD Code: N18.3 Status: Chronic Assessment and Plan 56-year-old male with a history of diabetes mellitus, HO, bacterial peritonitis who was transferred from [facility] to the Med-Surg floor due to large hematoma versus hygroma with mass effect in the brain and possible need for surgical intervention. Patient is status post bilateral bur hole and subdural hematoma evacuation. Bilateral hygroma/subdural hematoma L > R. 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 Traore is following. Surgically subdural hematoma was evacuated on 2016. Bilateral drains in place. - Platelets still trending down to 34k today. Hematology is following. Continue to transfuse FFP every 8 hours until drain is discontinued. - CT head on 02/25/2017 shows no hemorrhage. Shows hematoma decrease. HO, nonalcoholic steatohepatitis Liver cirrhosis with ascites Hepatic encephalopathy: Still encephalopathic. Not as baseline yet per his . - Continue Lasix 40 mg daily as well as spirolactone 50mg Qday. - Fentanyl patch, oxycodone for pain - Schedule Lactulose TID for 1-2 soft BM daily - Resume Rifaximin - Consult Nephrology to optimize diuresis. Otherwise he will need paracentesis soon. Would not be ideal given his persistent thrombocytopenia and anemia. -Chronic kidney disease: - Creatinine 1.46 --> 1.75 --> 1.69. Possibly due to use of diuretics and volume depletion. - Has been positive fluid balance - Nephrology consulted as above to assist with optimizing diuretics. History of SBP with E. Coli. - s/p paracentesis 02/02/17 - Continue Cipro for prophylaxis. DM type 2: Oral intake is marginal - Continue Levemir 20 units QHS, sliding scale insulin. -Discontinue scheduled NovoLog Esophageal varices - Continue pantoprazole. states he was not taking Nadolol. - Patient would benefit from beta ary to reduce risk of variceal bleed. Full code. Pharmacological DVT prophylaxis when okay with Neurosurgery/ Hematology. Kameron Roberson MD Feb 27, 2017 12:34
--- NOTE | 2017-02-27 13:23 | HHI.NSPN ---
(Joe Maurer) History Chief Complaint: Head and back pain (Joe Maurer) Interval History 02/19: 56-year-old gentleman who according to his family was diagnosed with liver disease approximately 8-9 years ago. She was admitted to [facility] for approximately 1 week, approximately 1 month ago for workup of ascites. He underwent a paracentesis on 02/02/2017. The fluid grew Escherichia coli. The patient's states that he was referred to [facility] where he remained for approximately a week. She states that he was in bed most of the time at [facility]. He was then discharged to rehabilitation. She states that he has had quite a bit more difficulty with ambulation since his hospitalization and [facility]. She states that he fell a few weeks ago and apparently again in the past week without loss of consciousness. The patient's seems a little uncertain whether or not he has had any mental status or speech changes, however his nurse this evening feels that he is not quite as alert or fluent in his speech over the past 2 or 3 days than he was last week. The patient states that he has noted headaches for 2 or 3 days. He apparently normally does not have headaches. Due to his difficulty with ambulation, a CT scan of the head was obtained today which has revealed subdural hematoma on the left greater than right. 02/20: Patient asleep but awakens to verbal stimuli. He has difficulty getting words out and has to think on what he says. He does state he has pain to the head although he said "No" previously when asked if he had any headache. He also has pain to the legs with some pain to the arm with the right the worse. 02/21: The patient is asleep initially when seen with Dr Traore this morning. He did complain of a headache. He intermittently would drift off and close his eyes then open them. He transferred to a regular med/surg med yesterday from [facility]. 02/22: The patient is awake and alert when seen this morning. He still has to search for what he says and at times is not able to complete his thoughts. He has no complaints other than continues right-sided weakness. 02/24: Patient awake and alert. Denies much headaches. Some periods of nausea. No paresthesias in face. No difficulty with speech. 02/25: Patient awake and alert. Complains of headache. Some nausea. No new numbness or tingling. Speech is clear 02/26: The patient is awake and alert, taking in a clear liquid diet. He states that he feels the best that he has in years since the surgery. He does have a slight headache which is improving and some low back pain, which are related to a 6 inch drop yesterday when he went for CT. 02/27: The patient is awake & alert. He does state he has some pain to the head and the back which is better now than before surgery. He reports having sat up on the side of the bed for 15 to 20 minutes. He did endorse some shortness of breath which is improved when he puts his arms down and "chills out." (Joe Maurer) System Review Comments Respiratory: The patient states he has some shortness of breath but denies any productive cough. Cardiovascular: The patient denies any chest pain, palpitation or irregular heartbeat. Gastrointestinal: The patient has had intermittent nausea. He denies any abdominal pain, vomiting or stool incontinence. Musculoskeletal: The patient states that he has back pain but denies any leg and arm pain. Neurologic: The patient states he still has numbness and weakness to the legs that is the same. He does have some pain to the head. He denies any dizziness. Psychiatric: The patient states he has some anxiety. (Joe Maurer) Exam Results Vital Signs Date Time Temp Pulse Resp B/P Pulse Ox O2 Delivery O2 Flow Rate FiO2 02/27/17 10:00 85 02/27/17 09:04 18 02/27/17 08:52 98.2 121/59 94 148/57 02/27/17 07:00 Nasal Cannula 3.00 02/24/17 09:09 21 Intake and Output 02/26/17 02/26/17 02/27/17 08:00 16:00 00:00 Intake Total 1105 ml 1950 ml 2089 ml Output Total 680 ml 1000 ml 755 ml Balance 425 ml 950 ml 1334 ml (Joe Maurer) Physical Examination General: Awake & alert, morbidly obese, NAD. HEENT: Bilateral alber hole incisions well-approximated with umsa and bilateral JASON drains to bulb suction w/scant serosanguinous drainage noted. Integumentary: Surgical incisions & JASON insertion sites w/o any evident drainage , erythema or streaking. Vascular skin changes to bilateral lower legs and feet. Respiratory: CTAB w/o W/R/R, equal excursion, nonlaboured, on 3L NC. Cardiovascular: S1S2 w/RRR w/o M/G/R, radial & pedal pulses 2+ bilaterally, cap refill < 2 sec. Monitor is sinus rhythm w/o any ectopy noted. Gastrointestinal: Obese, distended, non-tender, positive bowel sounds. Musculoskeletal: Multiple ecchymotic areas noted to all extremities. Left foot with healed toe amputations. Neurologic: AAOx3 Speech essentially clear & appropriate Though process slightly slow but improved Decreased sensation to BLE but grossly intact to BUE to light touch Motor strength 5/5 BUE & LLE and 4 to 4+/5 RLE to all major flexion & extension muscle groups (Joe Maurer) Lab, Micro, Other Results Allergies Coded Allergies Type Severity Reaction Last Updated Verified Sulfa Allergy Intermediate Nausea/Vomiting 02/09/17 Yes *MDRO Multi-Drug Resistant Organism Adverse Reaction Unknown 02/09/17 Yes Recent Impressions Head CT 02/25/17 0600 Signed Impressions: Service Date/Time: Saturday, February 25, 2017 05:11 - CONCLUSION: Slight interval decrease in the bilateral subdural collections. No new hemorrhage. Juan David Hidalgo MD Chest X-Ray 02/25/17 0000 Signed Impressions: Service Date/Time: Saturday, February 25, 2017 20:10 - CONCLUSION: Interval development of bilateral mid and lower lung consolidative infiltrates. Jorge Renteria MD ///// 06:00 18:00 06:00 18:00 06:00 18:00 Intake Total 3369 ml 4026 ml 2360 ml 1950 ml 3306 ml Output Total 629 ml 405 ml 1255 ml 1000 ml 1380 ml Balance 2740 ml 3621 ml 1105 ml 950 ml 1926 ml Intake Oral 840 ml 1370 ml 840 ml 600 ml 960 ml IV Total 2178 ml 1397 ml 1520 ml 800 ml 2346 ml FFP 351 ml 559 ml 300 ml Platelets 300 ml 250 ml Other 400 ml Output Urine Total 625 ml 400 ml 1250 ml 1000 ml 1375 ml Drainage Total 4 ml 5 ml 5 ml 0 ml 5 ml # Bowel Movements 0 0 0 0 Laboratory Tests Test 02/24/17 02/24/17 02/25/17 02/25/17 14:00 22:00 00:19 00:20 Blood Bank Comment Test 02/25/17 02/25/17 02/25/17 02/25/17 04:35 10:51 20:10 20:54 White Blood Count 5.7 TH/MM3 Red Blood Count 2.43 MIL/MM3 Hemoglobin 8.0 GM/DL Hematocrit 23.4 % Mean Corpuscular Volume 96.1 FL Mean Corpuscular Hemoglobin 33.0 PG Mean Corpuscular Hemoglobin 34.3 % Concent Red Cell Distribution Width 16.0 % Platelet Count 56 TH/MM3 Mean Platelet Volume 8.8 FL Neutrophils (%) (Auto) 77.4 % Lymphocytes (%) (Auto) 10.7 % Monocytes (%) (Auto) 10.0 % Eosinophils (%) (Auto) 1.7 % Basophils (%) (Auto) 0.2 % Neutrophils # (Auto) 4.4 TH/MM3 Lymphocytes # (Auto) 0.6 TH/MM3 Monocytes # (Auto) 0.6 TH/MM3 Eosinophils # (Auto) 0.1 TH/MM3 Basophils # (Auto) 0.0 TH/MM3 CBC Comment AUTO DIFF Differential Comment AUTO DIFF CONFIRMED Platelet Estimate LOW Platelet Morphology Comment NORMAL Ovalocytes 1+ Prothrombin Time 15.2 SEC Prothromb Time International 1.4 RATIO Ratio Activated Partial 31.9 SEC Thromboplast Time Fibrinogen 175 mg/dL Blood Bank Comment Sodium Level 136 MEQ/L Potassium Level 4.0 MEQ/L Chloride Level 106 MEQ/L Carbon Dioxide Level 17.3 MEQ/L Anion Gap 13 MEQ/L Blood Urea Nitrogen 46 MG/DL Creatinine 1.75 MG/DL Estimat Glomerular Filtration 41 ML/MIN Rate Random Glucose 178 MG/DL Calcium Level 8.2 MG/DL B-Type Natriuretic Peptide 228 PG/ML Test 6/12/17 02/26/17 02/27/17 02/27/17 03:45 08:19 04:25 07:31 White Blood Count 5.3 TH/MM3 3.2 TH/MM3 Red Blood Count 2.40 MIL/MM3 2.24 MIL/MM3 Hemoglobin 8.0 GM/DL 7.2 GM/DL Hematocrit 23.0 % 21.8 % Mean Corpuscular Volume 95.8 FL 97.2 FL Mean Corpuscular Hemoglobin 33.2 PG 32.2 PG Mean Corpuscular Hemoglobin 34.7 % 33.1 % Concent Red Cell Distribution Width 16.3 % 16.4 % Platelet Count 45 TH/MM3 34 TH/MM3 Mean Platelet Volume 9.5 FL 9.5 FL Neutrophils (%) (Auto) 82.2 % 77.5 % Lymphocytes (%) (Auto) 7.5 % 8.9 % Monocytes (%) (Auto) 8.1 % 9.9 % Eosinophils (%) (Auto) 2.2 % 3.7 % Basophils (%) (Auto) 0.0 % 0.0 % Neutrophils # (Auto) 4.3 TH/MM3 2.5 TH/MM3 Lymphocytes # (Auto) 0.4 TH/MM3 0.3 TH/MM3 Monocytes # (Auto) 0.4 TH/MM3 0.3 TH/MM3 Eosinophils # (Auto) 0.1 TH/MM3 0.1 TH/MM3 Basophils # (Auto) 0.0 TH/MM3 0.0 TH/MM3 CBC Comment AUTO DIFF DIFF FINAL Differential Comment AUTO DIFF CONFIRMED Platelet Estimate LOW Platelet Morphology Comment NORMAL Ovalocytes 1+ Prothrombin Time 15.6 SEC Prothromb Time International 1.4 RATIO Ratio Activated Partial 35.2 SEC Thromboplast Time Fibrinogen 226 mg/dL Sodium Level 137 MEQ/L Potassium Level 4.1 MEQ/L Chloride Level 106 MEQ/L Carbon Dioxide Level 19.2 MEQ/L Anion Gap 12 MEQ/L Blood Urea Nitrogen 45 MG/DL Creatinine 1.69 MG/DL Estimat Glomerular Filtration 42 ML/MIN Rate Random Glucose 139 MG/DL Calcium Level 8.2 MG/DL Blood Bank Comment Vital Signs Date Time Temp Pulse Resp B/P Pulse Ox O2 Delivery O2 Flow Rate FiO2 02/27/17 10:00 85 02/27/17 09:04 18 02/27/17 08:52 98.2 65 14 121/59 94 148/57 02/27/17 08:00 98.1 70 20 166/58 96 166/58 02/27/17 08:00 70 02/27/17 07:45 02/27/17 07:00 96 Nasal Cannula 3.00 02/27/17 06:22 98.0 62 12 114/55 93 149/49 02/27/17 06:00 62 02/27/17 04:00 98.0 62 18 127/59 93 150/50 02/27/17 04:00 62 02/27/17 02:00 66 02/27/17 00:13 17 02/27/17 00:00 98.0 68 20 130/58 94 160/54 02/27/17 00:00 98.0 68 20 130/58 94 162/54 02/27/17 00:00 68 02/26/17 22:00 98.4 72 14 137/63 96 178/60 02/26/17 22:00 70 02/26/17 21:08 99 Nasal Cannula 2.00 02/26/17 20:00 98.1 63 22 134/77 98 140/50 02/26/17 20:00 63 02/26/17 19:00 97 Nasal Cannula 3.00 02/26/17 18:20 18 02/26/17 18:00 67 02/26/17 16:00 98.1 76 21 146/55 97 144/56 02/26/17 16:00 76 02/26/17 15:55 17 02/26/17 14:46 98.2 78 18 142/62 99 02/26/17 14:00 80 02/26/17 12:42 97 Nasal Cannula 3.00 02/26/17 12:00 98.2 71 18 148/54 98 153/52 02/26/17 12:00 71 02/26/17 10:47 98.1 73 19 163/54 99 02/26/17 10:00 77 02/26/17 08:00 98.3 66 17 144/60 96 139/67 02/26/17 08:00 66 02/26/17 07:00 98 Nasal Cannula 3.00 02/26/17 06:49 98.6 63 20 142/65 97 142/45 02/26/17 06:00 63 02/26/17 04:00 98.4 72 10 125/60 93 140/46 02/26/17 04:00 72 02/26/17 02:00 66 02/26/17 00:00 66 02/26/17 00:00 98.3 66 20 133/63 95 148/45 02/25/17 23:26 98.3 72 19 127/60 94 149/44 02/25/17 22:25 98.3 82 23 144/66 97 147/46 02/25/17 22:00 82 02/25/17 20:00 98.6 76 17 133/61 99 136/48 02/25/17 20:00 65 02/25/17 19:00 98 Nasal Cannula 6.00 02/25/17 18:00 70 02/25/17 16:00 98.7 66 14 134/63 92 134/46 02/25/17 16:00 66 02/25/17 14:00 74 02/25/17 12:00 98.2 62 13 132/60 91 144/46 02/25/17 12:00 62 02/25/17 10:45 96 Nasal Cannula 2.00 02/25/17 10:00 68 02/25/17 08:00 70 02/25/17 08:00 98.6 70 12 129/60 92 136/50 02/25/17 07:22 98.5 65 14 142/63 92 138/52 02/25/17 07:00 92 Nasal Cannula 2.00 02/25/17 06:20 98.4 63 12 145/67 94 158/57 02/25/17 06:20 98.4 63 12 145/66 94 157/55 02/25/17 06:00 63 02/25/17 04:00 64 02/25/17 04:00 98.4 64 14 137/61 92 144/52 02/25/17 02:00 64 02/25/17 02:00 94 Nasal Cannula 2.00 02/25/17 00:00 72 02/25/17 00:00 98.4 72 10 142/52 94 02/25/17 00:00 98.4 72 10 142/52 94 02/24/17 22:55 98.3 76 17 152/51 96 02/24/17 22:00 66 02/24/17 20:00 98.1 70 10 144/50 95 02/24/17 20:00 65 02/24/17 19:00 98 Room Air 02/24/17 18:00 72 02/24/17 16:00 98.2 64 24 143/52 95 02/24/17 16:00 65 02/24/17 14:00 75 (Joe Maurer) Medical Decision Making Impression and Plan Impression: 1. Left greater than right subdural hygroma versus chronic hematoma. Patient has associated right hemiparesis. 2. Cirrhosis 3. Thrombocytopenia 4. Anaemia 5. History of chronic encephalopathy 6. History of chronic kidney disease CT brain demonstrated interval decrease in bilateral subdural collections Improving neurological status Right JASON drain output: 3 mL Left JASON drain output: 2 mL Plan: Turn patient to lateral decubitus/semi prone to aid in resolution of pneumocephalus Daily CBC w/platelets, PT, PTT & fibrinogen Continue 1 unit of FFP q8h & 1 single donor platelet pack QD till JASON drains removed Continue frequent neuro checks Stat CT brain for any neuro worsening Thrombocytopenia management per Hematology/Oncology Critical care management per [place] Possible JASON drain removal today (Joe Maurer) Attending Statement I have personally seen and examined the patient on 02/27/17. Pertinent documentation and study results have been reviewed by the undersigned. I have personally developed the treatment plan and performed medical decision making. Agree with findings, exam, and treatment plan as noted above. Plan discontinue drains 02/28/17 (Jan Traore MD) Joe Maurer Feb 27, 2017 13:23 Jan Traore MD Feb 28, 2017 23:08
--- NOTE | 2017-02-27 14:05 | PD.CONS ---
HPI Service Nephrology Consult Requested By Dr. Roberson Reason for Consult Renal insufficiency Primary Care Physician Kylie Ramos MD History of Present Illness 56-year-old male with history of diabetes, obesity, cirrhosis of the liver due to fatty infiltration, who was in rehabilitation when he developed right sided weakness , he was discovered to have subdural hematomas and he was transferred in the intensive care unit he underwent evacuation of the hematoma he has 2 drains placed he is stable he is placed on Lasix and Aldactone and making more than 2 L of urine, I was consulted due to his creatinine varying between 1.4- 1.7 range, this has been baseline for the past 2 years. Review of Systems Constitutional: COMPLAINS OF: Fatigue Neurologic: COMPLAINS OF: Abnormal gait Past Family Social History Allergies: Coded Allergies: Sulfa (Verified Allergy, Intermediate, Nausea/Vomiting, 02/09/17) *MDRO Multi-Drug Resistant Organism (Verified Adverse Reaction, Unknown, ) MRSA (left foot) 2007 MRSA PCR Screen NEGATIVE - 04/22/2015, 09/26/2015 CLEARED BY INFECTION CONTROL Past Medical History Mckeon cirrhosis Bacterial peritonitis with E. Coli. Spheno-megaly Trauma cytopenia Ascites History of esophageal varices present EGD in 2014 Hepatic cephalopathy Hyperlipidemia Diabetes mellitus type 2 uncontrolled Chronic kidney disease History of cellulitis With infection the foot Tinea corporis Diabetic neuropathy Diabetic nephropathy Past Surgical History Cholecystitis Excision of malignant lesion on the trunk Foot surgery Left knee surgery Right knee arthroscopy Nerve block paravertebral facet joint lumbar level Gastric bypass surgery in 2009 Left shoulder surgery Left elbow surgery Left great toe amputation 2 Reported Medications Reported Meds & Active Scripts Active Aldactone (Spironolactone) 50 Mg Tab 50 Mg PO DAILY 1 Days Corgard (Nadolol) 20 Mg Tab 10 Mg PO DAILY 1 Days [Lactulose Liq] 30 ML Syrp 30 Ml PO QID PRN 1 Days Novolog Inj (Insulin Aspart) 1,000 Unit/10 Ml Vial 5 Units SQ TIDPC 1 Days Ferosul (Ferrous Sulfate) 325 Mg Tablet 325 Mg PO BID 1 Days [Dexamethasone Inj] 4 MG/ML Inj 4 Mg IV PUSH Q6HR 1 Days C 500/Keyla Hips (Ascorbic Acid) 500 Mg Tab 500 Mg PO BID 1 Days Ondansetron (Ondansetron HCl) 4 Mg Tab 4 Mg PO Q6HR PRN 1 Days Zinc Sulfate 220 Mg Cap 220 Mg PO DAILY 1 Days Vitamin A (Vitamin A Palmitate) 10,000 Unit Capsule 1 Cap PO DAILY 1 Days Lantus Inj (Insulin Glargine) 1,000 Unit/10 Ml Vial 15 Units SQ HS 1 Days Furosemide 40 Mg Tab 40 Mg PO DAILY 1 Days Fentanyl Patch 72 HR (Fentanyl) 50 Mcg/Hr Patch 50 Mcg T-DERMAL Q72H 1 Days Remove old patch when new one placed. Ciprofloxacin (Ciprofloxacin HCl) 250 Mg Tab 250 Mg PO DAILY 1 Days Vitamin D3 (Cholecalciferol) 50,000 Unit Cap 50,000 Units PO 2XWEEK Balsalazide 750 Mg Cap 750 Mg PO DAILY 1 Days Tylenol (Acetaminophen) 325 Mg Tab 650 Mg PO Q4H PRN 1 Days Paxil (Paroxetine HCl) 30 Mg Tab 30 Mg PO DAILY 1 Days Xifaxan (Rifaximin) 550 Mg Tab 550 Mg PO Q12HR 1 Days Omeprazole 20 Mg Cap 20 Mg PO DAILY 1 Days Reported Nystatin Topical (Nystatin) 1 Powd 1 Appl TOPICAL BID Novolog Inj (Insulin Aspart) 1,000 Unit/10 Ml Vial 0 SQ DIRECTED Sliding Scale as directed. Fluticasone Nasal Tyler 50 Mcg/Act Naspr 1 Tyler EACH NARE BID 50 mcg/spray Active Ordered Medications Current Medications Medications (Trade) Dose Ordered Sig/Vielka Route Start Time Stop Time Status Last Admin (Tylenol) 500 mg Q6H PRN PO 02/20/17 16:15 02/26/17 14:55 (Zofran Inj) 4 mg Q6H PRN IVP 02/20/17 16:15 02/21/17 10:54 (Narcan Inj) 0.4 mg UNSCH PRN IV 02/20/17 16:15 (Gale-Colace) 1 tab BID PO 02/20/17 21:00 02/27/17 07:48 (Milk Of Magnesia Liq) 30 ml Q12H PRN PO 02/20/17 16:15 (Senokot) 17.2 mg Q12H PRN PO 02/20/17 16:15 (Dulcolax Supp) 10 mg DAILY PRN RECTAL 02/20/17 16:15 (Lactulose Liq) 30 ml DAILY PRN PO 02/20/17 16:15 (D50w (Vial) Inj) 50 ml UNSCH PRN IV 02/20/17 16:30 (Glucagon Inj) 1 mg UNSCH PRN OTHER 02/20/17 16:30 (Ferrous Sulfate) 325 mg BID PO 02/20/17 21:00 02/27/17 07:48 (Aldactone) 50 mg DAILY PO 02/21/17 09:00 02/27/17 07:48 (Vitamin C) 500 mg BID PO 02/20/17 21:00 02/27/17 07:47 (Cipro) 250 mg DAILY PO 02/21/17 09:00 02/27/17 07:47 (Lasix) 40 mg DAILY PO 02/21/17 09:00 02/27/17 07:48 (Paxil) 30 mg DAILY PO 02/21/17 09:00 02/27/17 07:48 (Protonix) 40 mg DAILY PO 02/21/17 09:00 02/27/17 07:48 (Duragesic 50 Mcg Patch.72 Hr) 1 patch Q3D T-DERMAL 02/20/17 18:00 02/26/17 17:21 Miscellaneous Information 1 Q3D T-DERMAL 02/23/17 18:00 02/26/17 17:21 (Pill Splitter) 1 ea UNSCH PRN OTHER 02/20/17 17:15 (NS Flush) 2 ml UNSCH PRN IVF 02/22/17 16:15 IV Flush 2 ml 2 ml BID IVF 02/22/17 21:00 02/27/17 07:49 (Cardene Inj/NS 250 ml Inj) 260 ml @ 0 mls/hr TITRATE PRN IV 02/22/17 16:30 02/25/17 10:22 (Levemir Inj) 20 units HS SQ 02/24/17 21:00 02/26/17 19:59 (Catapres) 0.1 mg Q6H PRN PO 02/26/17 12:00 02/27/17 05:02 Oxycodone HCl 10 mg 10 mg Q4HR PRN PO 02/27/17 08:00 02/27/17 12:19 (NS 250 ml Inj) 250 ml @ 15 mls/hr ONCE ONCE IV 02/27/17 08:00 02/28/17 00:39 02/27/17 08:00 (Lactulose Liq) 30 ml TID PO 02/27/17 13:00 02/27/17 12:19 (Xifaxan) 550 mg Q12HR PO 02/27/17 21:00 Family History Noncontributory Social History Denies alcohol use or smoking Physical Exam Vital Signs Vital Signs Date Time Temp Pulse Resp B/P Pulse Ox O2 Delivery O2 Flow Rate FiO2 02/27/17 13:19 14 02/27/17 12:00 97.9 73 22 97 156/55 02/27/17 12:00 73 02/27/17 10:00 85 02/27/17 08:52 98.2 65 14 121/59 94 148/57 02/27/17 08:00 98.1 70 20 166/58 96 166/58 02/27/17 08:00 70 02/27/17 07:45 02/27/17 07:00 96 Nasal Cannula 3.00 02/27/17 06:22 98.0 62 12 114/55 93 149/49 02/27/17 06:00 62 02/27/17 04:00 98.0 62 18 127/59 93 150/50 02/27/17 04:00 62 02/27/17 02:00 66 02/27/17 00:13 17 02/27/17 00:00 98.0 68 20 130/58 94 160/54 02/27/17 00:00 98.0 68 20 130/58 94 162/54 02/27/17 00:00 68 02/26/17 22:00 98.4 72 14 137/63 96 178/60 02/26/17 22:00 70 02/26/17 21:08 99 Nasal Cannula 2.00 02/26/17 20:00 98.1 63 22 134/77 98 140/50 02/26/17 20:00 63 02/26/17 19:00 97 Nasal Cannula 3.00 02/26/17 18:20 18 02/26/17 18:00 67 02/26/17 16:00 98.1 76 21 146/55 97 144/56 02/26/17 16:00 76 02/26/17 15:55 17 02/26/17 14:46 98.2 78 18 142/62 99 Physical Exam GENERAL: Well-nourished, well-developed patient. SKIN: Warm and dry. HEAD: For surgical and has drain EYES: No scleral icterus. No injection or drainage. NECK: Supple, trachea midline. No JVD or lymphadenopathy. CARDIOVASCULAR: Regular rate and rhythm without murmurs, gallops, or rubs. RESPIRATORY: Breath sounds equal bilaterally. No accessory muscle use. GASTROINTESTINAL: Abdomen soft, non-tender, distended. EXTREMITIES: No cyanosis, or edema. NEUROLOGICAL: Awake, alert, and drain in place Laboratory Laboratory Tests Test 02/27/17 02/27/17 04:25 07:31 White Blood Count 3.2 Red Blood Count 2.24 Hemoglobin 7.2 Hematocrit 21.8 Mean Corpuscular Volume 97.2 Mean Corpuscular Hemoglobin 32.2 Mean Corpuscular Hemoglobin 33.1 Concent Red Cell Distribution Width 16.4 Platelet Count 34 Mean Platelet Volume 9.5 Neutrophils (%) (Auto) 77.5 Lymphocytes (%) (Auto) 8.9 Monocytes (%) (Auto) 9.9 Eosinophils (%) (Auto) 3.7 Basophils (%) (Auto) 0.0 Neutrophils # (Auto) 2.5 Lymphocytes # (Auto) 0.3 Monocytes # (Auto) 0.3 Eosinophils # (Auto) 0.1 Basophils # (Auto) 0.0 CBC Comment DIFF FINAL Differential Comment Blood Bank Comment Result Diagram: 02/27/17 0425 02/26/17 0345 Imaging Last Impressions Head CT 02/25/17 0600 Signed Impressions: Service Date/Time: Saturday, February 25, 2017 05:11 - CONCLUSION: Slight interval decrease in the bilateral subdural collections. No new hemorrhage. Juan David Hidalgo MD Chest X-Ray 02/25/17 0000 Signed Impressions: Service Date/Time: Saturday, February 25, 2017 20:10 - CONCLUSION: Interval development of bilateral mid and lower lung consolidative infiltrates. Jorge Renteria MD Assessment and Plan Problem List: (1) Acute renal failure superimposed on stage 3 chronic kidney disease Plan: Patient is on diuretic and responding well and he is in positive fluid balance, however his urine output has picked up on Lasix 40 mg and Aldactone 50 mg and he is passing more than 2 L of urine His electrolytes are stable at this point the I will continue with her current diuretic regimen Observed during this hospitalization I discussed with Dr. Roberson to be re consult Nephrology if need further assistance however I feel that he is on adequate diuretics with stable renal functions although the creatinine does fluctuate but that is expected With the use of diuretics He states that he follows with his primary care as an outpatient I will follow him as needed and once he recovers, he can be followed as outpatient by his primary care and if needed further evaluation can be made as outpatient on his kidney disease (2) Cirrhosis Plan: Patient is treated with diuretics, Xifaxan and lactulose (3) DM type 2 (diabetes mellitus, type 2) Plan: Continue to monitor (4) Encephalopathy Plan: Improved (5) SDH (subdural hematoma) Plan: Neurosurgery following (6) MCKEON (nonalcoholic steatohepatitis) Plan: Continue to follow with Ramona Chinchilla MD Feb 27, 2017 14:05
--- NOTE | 2017-02-27 18:52 | PD.ONC.PN ---
Subjective Subjective Remarks voices no complaints. Objective Data Date Time Temp Pulse Resp B/P Pulse Ox O2 Delivery O2 Flow Rate FiO2 02/27/17 18:00 74 02/27/17 16:00 68 02/27/17 16:00 98.2 68 13 123/60 98 02/27/17 15:15 98.1 62 22 99 150/54 02/27/17 14:00 67 02/27/17 13:19 14 02/27/17 12:00 97.9 73 22 97 156/55 02/27/17 12:00 73 02/27/17 10:00 85 02/27/17 08:52 98.2 65 14 121/59 94 148/57 02/27/17 08:00 98.1 70 20 166/58 96 166/58 02/27/17 08:00 70 02/27/17 07:45 02/27/17 07:00 96 Nasal Cannula 3.00 02/27/17 06:22 98.0 62 12 114/55 93 149/49 02/27/17 06:00 62 02/27/17 04:00 98.0 62 18 127/59 93 150/50 02/27/17 04:00 62 02/27/17 02:00 66 02/27/17 00:13 17 02/27/17 00:00 98.0 68 20 130/58 94 160/54 02/27/17 00:00 98.0 68 20 130/58 94 162/54 02/27/17 00:00 68 02/26/17 22:00 98.4 72 14 137/63 96 178/60 02/26/17 22:00 70 02/26/17 21:08 99 Nasal Cannula 2.00 02/26/17 20:00 98.1 63 22 134/77 98 140/50 02/26/17 20:00 63 02/26/17 19:00 97 Nasal Cannula 3.00 02/27/17 02/27/17 02/27/17 07:00 15:00 23:00 Intake Total 1217 ml 1836 ml Output Total 625 ml 1100 ml Balance 592 ml 736 ml Result Diagram: 02/27/17 0425 02/26/17 0345 Laboratory Results Laboratory Tests Test 02/27/17 02/27/17 04:25 07:31 White Blood Count 3.2 TH/MM3 Red Blood Count 2.24 MIL/MM3 Hemoglobin 7.2 GM/DL Hematocrit 21.8 % Mean Corpuscular Volume 97.2 FL Mean Corpuscular Hemoglobin 32.2 PG Mean Corpuscular Hemoglobin 33.1 % Concent Red Cell Distribution Width 16.4 % Platelet Count 34 TH/MM3 Mean Platelet Volume 9.5 FL Neutrophils (%) (Auto) 77.5 % Lymphocytes (%) (Auto) 8.9 % Monocytes (%) (Auto) 9.9 % Eosinophils (%) (Auto) 3.7 % Basophils (%) (Auto) 0.0 % Neutrophils # (Auto) 2.5 TH/MM3 Lymphocytes # (Auto) 0.3 TH/MM3 Monocytes # (Auto) 0.3 TH/MM3 Eosinophils # (Auto) 0.1 TH/MM3 Basophils # (Auto) 0.0 TH/MM3 CBC Comment DIFF FINAL Differential Comment Blood Bank Comment Administered Medications Medications (Trade) Dose Ordered Sig/Vielka Route PRN Reason Start Time Stop Time Status Last Admin Dose Admin Acetaminophen (Tylenol) 500 mg Q6H PRN PO Fever, headache, pain 1-4 02/20/17 16:15 02/26/17 14:55 Ondansetron HCl (Zofran Inj) 4 mg Q6H PRN IVP NAUSEA OR VOMITING 02/20/17 16:15 02/21/17 10:54 Senna/Docusate Sodium (Gale-Colace) 1 tab BID PO 02/20/17 21:00 02/27/17 07:48 Ferrous Sulfate (Ferrous Sulfate) 325 mg BID PO 02/20/17 21:00 02/27/17 07:48 Spironolactone (Aldactone) 50 mg DAILY PO 02/21/17 09:00 02/27/17 07:48 Ascorbic Acid (Vitamin C) 500 mg BID PO 02/20/17 21:00 02/27/17 07:47 Ciprofloxacin (Cipro) 250 mg DAILY PO 02/21/17 09:00 02/27/17 07:47 Furosemide (Lasix) 40 mg DAILY PO 02/21/17 09:00 02/27/17 07:48 Paroxetine HCl (Paxil) 30 mg DAILY PO 02/21/17 09:00 02/27/17 07:48 Pantoprazole Sodium (Protonix) 40 mg DAILY PO 02/21/17 09:00 02/27/17 07:48 Fentanyl (Duragesic 50 Mcg Patch.72 Hr) 1 patch Q3D T-DERMAL 02/20/17 18:00 02/26/17 17:21 Miscellaneous Information 1 Q3D T-DERMAL 02/23/17 18:00 02/26/17 17:21 IV Flush 2 ml 2 ml BID IVF 02/22/17 21:00 02/27/17 07:49 Nicardipine HCl/ Sodium Chloride (Cardene Inj/NS 250 ml Inj) 260 ml @ 0 mls/hr TITRATE PRN IV SBP>150, DBP>90 02/22/17 16:30 02/25/17 10:22 Insulin Detemir (Levemir Inj) 20 units HS SQ 02/24/17 21:00 02/26/17 19:59 Clonidine (Catapres) 0.1 mg Q6H PRN PO SBP>160, DBP>90 02/26/17 12:00 02/27/17 05:02 Oxycodone HCl 10 mg 10 mg Q4HR PRN PO PAIN SCALE 5 TO 10 02/27/17 08:00 02/27/17 12:19 Sodium Chloride (NS 250 ml Inj) 250 ml @ 15 mls/hr ONCE ONCE IV 02/27/17 08:00 02/28/17 00:39 02/27/17 08:00 Lactulose (Lactulose Liq) 30 ml TID PO 02/27/17 13:00 02/27/17 12:19 Objective Remarks GENERAL: overweight and appears chronically ill SKIN: Warm and dry. HEAD: Normocephalic. EYES: dysconjugate gaze which is old. NECK: Supple, trachea midline. No JVD or lymphadenopathy. LYMPHATIC: No adenopathy. CARDIOVASCULAR: Regular rate and rhythm without murmurs. RESPIRATORY: Breath sounds equal bilaterally. No accessory muscle use. GASTROINTESTINAL: Abdomen soft, mild distention EXTREMITIES: No cyanosis, or edema. MUSCULOSKELETAL: poor muscle tone. NEUROLOGICAL: generalized weakness. Awake, alert, and oriented x3. Assessment/Plan Plan 1. continue 1 unit FFP every 8 hours until JASON drains are removed 2. continue 1 unit platelets daily as long as platelets less than 100K and JASON drains remain in place 3. monitor CBC PLATELETS, coags, fibrinogen . Corby Arce MD Feb 27, 2017 18:52
[2017-02-27] MEDS: RIFAXIMIN 550 MG TAB PO SCH (19:25)
[2017-02-27] MEDS: INSULIN DETEMIR 100 UNITS/ML VIAL SQ SCH (21:51)
[2017-02-27] MEDS: RESP: ALBUTEROL 2.5 MG/IPRATROPIUM 0.5 MG NEB (PRN) NEB (23:25)
[2017-02-28] VITALS (15 sets, daily range): BP systolic 116–164; BP diastolic 52–69; PULSE 60–82; RESP 12–22; TEMP 98–98.6; O2SAT 95–99
[2017-02-28] MEDS: cloNIDine HCL 0.1 MG TAB PO PRN (00:16)
[2017-02-28 05:21] LABS: HEMATOCRIT 22.7 % (39.0-51.0); MEAN CELL VOLUME 97.4 FL (80.0-100.0); MEAN CORPUSCULAR HEMOGLOBIN 31.9 PG (27.0-34.0); MEAN CORPUSCULAR HGB CONC 32.7 % (32.0-36.0); PLATELET COUNT 39 TH/MM3 (150-450); RED BLOOD COUNT 2.33 MIL/MM3 (4.50-5.90); RED CELL DISTRIBUTION WIDTH 16.7 % (11.6-17.2)
[2017-02-28 05:24] LABS: REVIEW FLAG FINAL
[2017-02-28 05:35] LABS: BICARBONATE 23.4 MEQ/L (21.0-32.0); POTASSIUM 4.3 MEQ/L (3.5-5.1)
[2017-02-28 05:57] LABS: INTERNATIONAL NORMALIZED RATIO 1.3 RATIO; PROTHROMBIN TIME - PATIENT 14.4 SEC (9.8-11.6)
[2017-02-28] MEDS: INSULIN ASPART SUPPLEMENTAL SCALE SQ SCH ×4 (07:07→21:00)
[2017-02-28] MEDS: SODIUM CHLORIDE 0.9% FLUSH 5 ML FLUSH IVF SCH ×2 (09:00→21:00)
[2017-02-28] MEDS ORDERED: SODIUM CHLOR 0.9% 250 ML INJ 250 ML IV ONE ×2 (09:15)
[2017-02-28] MEDS ORDERED: diphenhydrAMINE HCL 25 MG CAP PO PRN ×2 (09:15→14:00)
[2017-02-28] MEDS ORDERED: ACETAMINOPHEN 325 MG TAB PO PRN (09:15)
[2017-02-28] MEDS: DOCUSATE SODIUM 50 MG/SENNA 8.6 MG TAB PO SCH ×2 (09:21→21:00)
[2017-02-28] MEDS: ASCORBIC ACID 500 MG TAB PO SCH ×2 (09:21→21:35)
[2017-02-28] MEDS: FERROUS SULFATE 325 MG (65 MG ELEMENTAL IRON) TAB PO SCH ×2 (09:21→21:35)
[2017-02-28] MEDS: FUROSEMIDE 40 MG TAB PO SCH (09:21)
[2017-02-28] MEDS: RIFAXIMIN 550 MG TAB PO SCH ×2 (09:21→21:35)
[2017-02-28] MEDS: PANTOPRAZOLE SOD 40 MG DELAYED RELEASE TAB PO SCH (09:21)
[2017-02-28] MEDS: CIPROFLOXACIN 250 MG TAB PO SCH (09:21)
[2017-02-28] MEDS: PARoxetine HCL 20 MG TAB PO SCH (09:21)
--- NOTE | 2017-02-28 09:21 | PD.ONC.PN ---
Subjective Subjective Remarks Afebrile overnight. Patient still has headache, which is unchanged he states. JASON drains remain in place. No overnight events. Objective Data Date Time Temp Pulse Resp B/P Pulse Ox O2 Delivery O2 Flow Rate FiO2 02/28/17 08:00 65 16 155/64 98 02/28/17 07:37 98.4 60 12 145/54 99 152/53 02/28/17 06:36 14 02/28/17 06:00 60 02/28/17 05:59 98.4 61 12 150/69 99 151/55 02/28/17 04:00 60 02/28/17 04:00 98.3 60 16 127/60 96 142/52 02/28/17 02:00 68 02/28/17 00:00 82 02/28/17 00:00 98.2 82 12 116/53 96 151/56 02/27/17 23:29 98.2 81 24 151/84 95 178/58 02/27/17 23:28 98.1 72 20 139/64 96 176/56 02/27/17 23:27 95 Nasal Cannula 3.00 02/27/17 22:00 70 02/27/17 20:00 97.8 71 16 139/53 99 152/56 02/27/17 20:00 71 02/27/17 19:00 99 Nasal Cannula 3.00 02/27/17 18:00 74 02/27/17 16:00 68 02/27/17 16:00 98.2 68 13 123/60 98 02/27/17 15:15 98.1 62 22 99 150/54 02/27/17 14:00 67 02/27/17 12:00 97.9 73 22 97 156/55 02/27/17 12:00 73 02/27/17 10:00 85 02/28/17 02/28/17 02/28/17 07:00 15:00 23:00 Intake Total 552 ml Output Total 1000 ml Balance -448 ml Result Diagram: 02/28/17 0505 02/28/17 0505 Laboratory Results Laboratory Tests Test 02/28/17 05:05 White Blood Count 3.0 TH/MM3 Red Blood Count 2.33 MIL/MM3 Hemoglobin 7.4 GM/DL Hematocrit 22.7 % Mean Corpuscular Volume 97.4 FL Mean Corpuscular Hemoglobin 31.9 PG Mean Corpuscular Hemoglobin 32.7 % Concent Red Cell Distribution Width 16.7 % Platelet Count 39 TH/MM3 Mean Platelet Volume 9.5 FL Prothrombin Time 14.4 SEC Prothromb Time International 1.3 RATIO Ratio Fibrinogen 284 mg/dL Sodium Level 140 MEQ/L Potassium Level 4.3 MEQ/L Chloride Level 109 MEQ/L Carbon Dioxide Level 23.4 MEQ/L Anion Gap 8 MEQ/L Blood Urea Nitrogen 42 MG/DL Creatinine 1.54 MG/DL Estimat Glomerular Filtration 47 ML/MIN Rate Random Glucose 144 MG/DL Calcium Level 8.2 MG/DL Administered Medications Medications (Trade) Dose Ordered Sig/Vielka Route PRN Reason Start Time Stop Time Status Last Admin Dose Admin Acetaminophen (Tylenol) 500 mg Q6H PRN PO Fever, headache, pain 1-4 02/20/17 16:15 02/26/17 14:55 Ondansetron HCl (Zofran Inj) 4 mg Q6H PRN IVP NAUSEA OR VOMITING 02/20/17 16:15 02/21/17 10:54 Senna/Docusate Sodium (Gale-Colace) 1 tab BID PO 02/20/17 21:00 02/27/17 19:24 Ferrous Sulfate (Ferrous Sulfate) 325 mg BID PO 02/20/17 21:00 02/27/17 19:23 Spironolactone (Aldactone) 50 mg DAILY PO 02/21/17 09:00 02/27/17 07:48 Ascorbic Acid (Vitamin C) 500 mg BID PO 02/20/17 21:00 02/27/17 19:23 Ciprofloxacin (Cipro) 250 mg DAILY PO 02/21/17 09:00 02/27/17 07:47 Furosemide (Lasix) 40 mg DAILY PO 02/21/17 09:00 02/27/17 07:48 Paroxetine HCl (Paxil) 30 mg DAILY PO 02/21/17 09:00 02/27/17 07:48 Pantoprazole Sodium (Protonix) 40 mg DAILY PO 02/21/17 09:00 02/27/17 07:48 Fentanyl (Duragesic 50 Mcg Patch.72 Hr) 1 patch Q3D T-DERMAL 02/20/17 18:00 02/26/17 17:21 Miscellaneous Information 1 Q3D T-DERMAL 02/23/17 18:00 02/26/17 17:21 IV Flush 2 ml 2 ml BID IVF 02/22/17 21:00 02/27/17 19:23 Nicardipine HCl/ Sodium Chloride (Cardene Inj/NS 250 ml Inj) 260 ml @ 0 mls/hr TITRATE PRN IV SBP>150, DBP>90 02/22/17 16:30 02/25/17 10:22 Insulin Detemir (Levemir Inj) 20 units HS SQ 02/24/17 21:00 02/27/17 21:51 Clonidine (Catapres) 0.1 mg Q6H PRN PO SBP>160, DBP>90 02/26/17 12:00 02/28/17 00:16 Oxycodone HCl (Roxicodone) 10 mg Q4HR PRN PO PAIN SCALE 5 TO 10 02/27/17 08:00 02/28/17 05:36 Lactulose (Lactulose Liq) 30 ml TID PO 02/27/17 13:00 02/27/17 18:00 Rifaximin (Xifaxan) 550 mg Q12HR PO 02/27/17 21:00 02/27/17 19:25 Objective Remarks GENERAL: Pleasant male, lying supine in bed in nad. JASON drains in place. SKIN: Warm and dry. HEAD: Normocephalic. EYES: No injection or drainage. NECK: Supple, trachea midline. CARDIOVASCULAR: +S1/S2 RESPIRATORY: Breath sounds equal bilaterally. No accessory muscle use. GASTROINTESTINAL: Abdomen soft, non-tender, nondistended. EXTREMITIES: No cyanosis NEUROLOGICAL: awake and alert, normal speech. able to move extremities. Assessment/Plan Assessment 56y/o male with liver cirrhosis induced coagulopathy and thrombocytopenia. s/p alber drainage of SDH Plan 1. give 1 units pRBC and 1 unit platelets today 2. continue 1 unit FFP every 8 hours (6a, 2p, 10p) until JASON drains removed + [address] Arce d/w Dr. Traore, JASON drains to be removed today. so last day of FFP should be tomorrow. 4. monitor daily CBC, coags, fibrinogen Attending Statement The exam, history, and the medical decision-making described in the above note were completed with the assistance of the mid-level provider. I reviewed and agree with the findings presented. I attest that I had a [id number] encounter with the patient on the same day, and personally performed and documented my assessment and findings in the medical record. no bleeding but with persist and explained thrombocytopenia. I spoke with Dr. Traore and drains will be removed today and will plan on stopping platelet and FFP infusions in the next 48 hours if no bleeding. Clinically patient unchanged with mild confusion. Aysha Daugherty Feb 28, 2017 09:21 Corby Arce MD Feb 28, 2017 18:34
[2017-02-28] MEDS: LACTULOSE SYRUP 20 GM/30 ML CUP PO SCH ×3 (09:22→17:30)
[2017-02-28] MEDS: SPIRONOLACTONE 50 MG TAB PO SCH (09:26)
[2017-02-28] MEDS: RESP: ALBUTEROL 2.5 MG/IPRATROPIUM 0.5 MG NEB (PRN) NEB (09:29)
--- NOTE | 2017-02-28 13:30 | HHI.NSPN ---
(Joe Maurer) History Chief Complaint: Head and back pain (Joe Maurer) Interval History 02/19: 56-year-old gentleman who according to his family was diagnosed with liver disease approximately 8-9 years ago. She was admitted to [facility] for approximately 1 week, approximately 1 month ago for workup of ascites. He underwent a paracentesis on 02/02/2017. The fluid grew Escherichia coli. The patient's states that he was referred to [facility] where he remained for approximately a week. She states that he was in bed most of the time at [facility]. He was then discharged to rehabilitation. She states that he has had quite a bit more difficulty with ambulation since his hospitalization and [facility]. She states that he fell a few weeks ago and apparently again in the past week without loss of consciousness. The patient's seems a little uncertain whether or not he has had any mental status or speech changes, however his nurse this evening feels that he is not quite as alert or fluent in his speech over the past 2 or 3 days than he was last week. The patient states that he has noted headaches for 2 or 3 days. He apparently normally does not have headaches. Due to his difficulty with ambulation, a CT scan of the head was obtained today which has revealed subdural hematoma on the left greater than right. 02/20: Patient asleep but awakens to verbal stimuli. He has difficulty getting words out and has to think on what he says. He does state he has pain to the head although he said "No" previously when asked if he had any headache. He also has pain to the legs with some pain to the arm with the right the worse. 02/21: The patient is asleep initially when seen with Dr Traore this morning. He did complain of a headache. He intermittently would drift off and close his eyes then open them. He transferred to a regular med/surg med yesterday from [facility]. 02/22: The patient is awake and alert when seen this morning. He still has to search for what he says and at times is not able to complete his thoughts. He has no complaints other than continues right-sided weakness. 02/24: Patient awake and alert. Denies much headaches. Some periods of nausea. No paresthesias in face. No difficulty with speech. 02/25: Patient awake and alert. Complains of headache. Some nausea. No new numbness or tingling. Speech is clear 02/26: The patient is awake and alert, taking in a clear liquid diet. He states that he feels the best that he has in years since the surgery. He does have a slight headache which is improving and some low back pain, which are related to a 6 inch drop yesterday when he went for CT. 02/27: The patient is awake & alert. He does state he has some pain to the head and the back which is better now than before surgery. He reports having sat up on the side of the bed for 15 to 20 minutes. He did endorse some shortness of breath which is improved when he puts his arms down and "chills out." 02/28: The patient states that he is doing good this afternoon when seen. He has some shortness of breath and anxiety today. (Joe Maurer) System Review Comments Respiratory: The patient does have some shortness of breath but denies any productive cough. Cardiovascular: The patient denies any chest pain, palpitation or irregular heartbeat. Gastrointestinal: The patient denies any abdominal pain, nausea, vomiting or stool incontinence. Musculoskeletal: The patient states that he has back pain but denies any leg and arm pain. Neurologic: The patient states he still has numbness and weakness to the legs that is the same. He denies any headache or dizziness. Psychiatric: The patient has intermittent anxiety. (Joe Maurer) Exam Results Vital Signs Date Time Temp Pulse Resp B/P Pulse Ox O2 Delivery O2 Flow Rate FiO2 02/28/17 12:21 98.0 74 18 139/61 95 02/28/17 11:11 Nasal Cannula 3.00 02/24/17 09:09 21 Intake and Output 02/27/17 02/27/17 02/28/17 08:00 16:00 00:00 Intake Total 1217 ml 1836 ml 935 ml Output Total 625 ml 1100 ml 1040 ml Balance 592 ml 736 ml -105 ml (Joe Maurer) Physical Examination General: Awake & alert, NAD. HEENT: Bilateral alber hole incisions well-approximated with musa and bilateral JASON drains to bulb suction w/scant serosanguinous drainage noted. Integumentary: Surgical incisions & JASON insertion sites w/o any evident drainage , erythema or streaking. Vascular skin changes to bilateral lower legs and feet. Respiratory: CTAB w/o W/R/R, equal excursion, nonlaboured, on RA at present, NC on side of face hanging from ear. Cardiovascular: S1S2 w/RRR w/o M/G/R, radial & pedal pulses 2+ bilaterally, cap refill < 2 sec. Monitor is sinus rhythm w/o any ectopy noted. Gastrointestinal: Obese, distended, non-tender, positive high pitched bowel sounds. Musculoskeletal: Multiple ecchymotic areas noted to all extremities. Left foot with healed toe amputations. Neurologic: AAOx3 Speech essentially clear & appropriate Though process slightly slow but improved Decreased sensation to BLE but grossly intact to BUE to light touch Motor strength 5/5 BUE & LLE and 4+/5 RLE to all major flexion & extension muscle groups except for right great toe 3+/5 (Joe Maurer) Lab, Micro, Other Results Allergies Coded Allergies Type Severity Reaction Last Updated Verified Sulfa Allergy Intermediate Nausea/Vomiting 02/09/17 Yes *MDRO Multi-Drug Resistant Organism Adverse Reaction Unknown 02/09/17 Yes 02/26//12/176/13/176/13/176/14/176/14/17 06:00 18:00 06:00 18:00 06:00 18:00 Intake Total 2360 ml 1950 ml 3306 ml 1836 ml 1487 ml Output Total 1255 ml 1000 ml 1380 ml 1100 ml 2040 ml 2400 ml Balance 1105 ml 950 ml 1926 ml 736 ml -553 ml -2400 ml Intake Oral 840 ml 600 ml 960 ml 600 ml 860 ml IV Total 1520 ml 800 ml 2346 ml 656 ml FFP 300 ml 292 ml 627 ml Platelets 250 ml 288 ml Output Urine Total 1250 ml 1000 ml 1375 ml 1100 ml 2025 ml 2400 ml Drainage Total 5 ml 0 ml 5 ml 0 ml 15 ml # Bowel Movements 0 0 0 0 2 Laboratory Tests Test 6/11/17 6/11/17 6/12/17 6/12/17 20:10 20:54 03:45 08:19 Sodium Level 136 MEQ/L 137 MEQ/L Potassium Level 4.0 MEQ/L 4.1 MEQ/L Chloride Level 106 MEQ/L 106 MEQ/L Carbon Dioxide Level 17.3 MEQ/L 19.2 MEQ/L Anion Gap 13 MEQ/L 12 MEQ/L Blood Urea Nitrogen 46 MG/DL 45 MG/DL Creatinine 1.75 MG/DL 1.69 MG/DL Estimat Glomerular Filtration 41 ML/MIN 42 ML/MIN Rate Random Glucose 178 MG/DL 139 MG/DL Calcium Level 8.2 MG/DL 8.2 MG/DL B-Type Natriuretic Peptide 228 PG/ML White Blood Count 5.3 TH/MM3 Red Blood Count 2.40 MIL/MM3 Hemoglobin 8.0 GM/DL Hematocrit 23.0 % Mean Corpuscular Volume 95.8 FL Mean Corpuscular Hemoglobin 33.2 PG Mean Corpuscular Hemoglobin 34.7 % Concent Red Cell Distribution Width 16.3 % Platelet Count 45 TH/MM3 Mean Platelet Volume 9.5 FL Neutrophils (%) (Auto) 82.2 % Lymphocytes (%) (Auto) 7.5 % Monocytes (%) (Auto) 8.1 % Eosinophils (%) (Auto) 2.2 % Basophils (%) (Auto) 0.0 % Neutrophils # (Auto) 4.3 TH/MM3 Lymphocytes # (Auto) 0.4 TH/MM3 Monocytes # (Auto) 0.4 TH/MM3 Eosinophils # (Auto) 0.1 TH/MM3 Basophils # (Auto) 0.0 TH/MM3 CBC Comment AUTO DIFF Differential Comment AUTO DIFF CONFIRMED Platelet Estimate LOW Platelet Morphology Comment NORMAL Ovalocytes 1+ Prothrombin Time 15.6 SEC Prothromb Time International 1.4 RATIO Ratio Activated Partial 35.2 SEC Thromboplast Time Fibrinogen 226 mg/dL Blood Bank Comment Test 02/26/17 02/27/17 02/27/17 02/28/17 12:41 04:25 07:31 05:05 Blood Bank Comment White Blood Count 3.2 TH/MM3 3.0 TH/MM3 Red Blood Count 2.24 MIL/MM3 2.33 MIL/MM3 Hemoglobin 7.2 GM/DL 7.4 GM/DL Hematocrit 21.8 % 22.7 % Mean Corpuscular Volume 97.2 FL 97.4 FL Mean Corpuscular Hemoglobin 32.2 PG 31.9 PG Mean Corpuscular Hemoglobin 33.1 % 32.7 % Concent Red Cell Distribution Width 16.4 % 16.7 % Platelet Count 34 TH/MM3 39 TH/MM3 Mean Platelet Volume 9.5 FL 9.5 FL Neutrophils (%) (Auto) 77.5 % Lymphocytes (%) (Auto) 8.9 % Monocytes (%) (Auto) 9.9 % Eosinophils (%) (Auto) 3.7 % Basophils (%) (Auto) 0.0 % Neutrophils # (Auto) 2.5 TH/MM3 Lymphocytes # (Auto) 0.3 TH/MM3 Monocytes # (Auto) 0.3 TH/MM3 Eosinophils # (Auto) 0.1 TH/MM3 Basophils # (Auto) 0.0 TH/MM3 CBC Comment DIFF FINAL Differential Comment Prothrombin Time 14.4 SEC Prothromb Time International 1.3 RATIO Ratio Fibrinogen 284 mg/dL Sodium Level 140 MEQ/L Potassium Level 4.3 MEQ/L Chloride Level 109 MEQ/L Carbon Dioxide Level 23.4 MEQ/L Anion Gap 8 MEQ/L Blood Urea Nitrogen 42 MG/DL Creatinine 1.54 MG/DL Estimat Glomerular Filtration 47 ML/MIN Rate Random Glucose 144 MG/DL Calcium Level 8.2 MG/DL Test 02/28/17 02/28/17 09:04 11:20 Blood Bank Comment Blood Type O POSITIVE Antibody Screen NEGATIVE Crossmatch Leukocyte-Reduced Red Blood Cells Vital Signs Date Time Temp Pulse Resp B/P Pulse Ox O2 Delivery O2 Flow Rate FiO2 02/28/17 14:10 18 02/28/17 12:21 98.0 74 18 139/61 95 02/28/17 12:00 60 02/28/17 11:11 98 Nasal Cannula 3.00 02/28/17 10:00 60 02/28/17 09:30 98 Nasal Cannula 3.00 02/28/17 08:00 65 16 155/64 98 02/28/17 07:37 98.4 60 12 145/54 99 152/53 02/28/17 06:00 60 02/28/17 05:59 98.4 61 12 150/69 99 151/55 02/28/17 04:00 60 02/28/17 04:00 98.3 60 16 127/60 96 142/52 02/28/17 02:00 68 02/28/17 00:00 82 02/28/17 00:00 98.2 82 12 116/53 96 151/56 02/27/17 23:29 98.2 81 24 151/84 95 178/58 02/27/17 23:28 98.1 72 20 139/64 96 176/56 02/27/17 23:27 95 Nasal Cannula 3.00 02/27/17 22:00 70 02/27/17 20:00 97.8 71 16 139/53 99 152/56 02/27/17 20:00 71 02/27/17 19:00 99 Nasal Cannula 3.00 02/27/17 18:00 74 02/27/17 16:00 68 02/27/17 16:00 98.2 68 13 123/60 98 02/27/17 15:15 98.1 62 22 99 150/54 02/27/17 14:00 67 02/27/17 12:00 97.9 73 22 97 156/55 02/27/17 12:00 73 02/27/17 10:00 85 02/27/17 08:52 98.2 65 14 121/59 94 148/57 02/27/17 08:00 98.1 70 20 166/58 96 166/58 02/27/17 08:00 70 02/27/17 07:45 02/27/17 07:00 96 Nasal Cannula 3.00 02/27/17 06:22 98.0 62 12 114/55 93 149/49 02/27/17 06:00 62 02/27/17 04:00 98.0 62 18 127/59 93 150/50 02/27/17 04:00 62 02/27/17 02:00 66 02/27/17 00:13 17 02/27/17 00:00 98.0 68 20 130/58 94 160/54 02/27/17 00:00 98.0 68 20 130/58 94 162/54 02/27/17 00:00 68 02/26/17 22:00 98.4 72 14 137/63 96 178/60 02/26/17 22:00 70 02/26/17 21:08 99 Nasal Cannula 2.00 02/26/17 20:00 98.1 63 22 134/77 98 140/50 6/12/17 20:00 63 02/26/17 19:00 97 Nasal Cannula 3.00 02/26/17 18:20 18 02/26/17 18:00 67 02/26/17 16:00 98.1 76 21 146/55 97 144/56 02/26/17 16:00 76 02/26/17 15:55 17 02/26/17 14:46 98.2 78 18 142/62 99 02/26/17 14:00 80 02/26/17 12:42 97 Nasal Cannula 3.00 02/26/17 12:00 98.2 71 18 148/54 98 153/52 02/26/17 12:00 71 02/26/17 10:47 98.1 73 19 163/54 99 02/26/17 10:00 77 02/26/17 08:00 98.3 66 17 144/60 96 139/67 02/26/17 08:00 66 02/26/17 07:00 98 Nasal Cannula 3.00 02/26/17 06:49 98.6 63 20 142/65 97 142/45 02/26/17 06:00 63 02/26/17 04:00 98.4 72 10 125/60 93 140/46 02/26/17 04:00 72 02/26/17 02:00 66 02/26/17 00:00 66 02/26/17 00:00 98.3 66 20 133/63 95 148/45 02/25/17 23:26 98.3 72 19 127/60 94 149/44 02/25/17 22:25 98.3 82 23 144/66 97 147/46 02/25/17 22:00 82 02/25/17 20:00 98.6 76 17 133/61 99 136/48 02/25/17 20:00 65 02/25/17 19:00 98 Nasal Cannula 6.00 02/25/17 18:00 70 02/25/17 16:00 98.7 66 14 134/63 92 134/46 02/25/17 16:00 66 (Joe Maurer) Medical Decision Making Impression and Plan Impression: 1. Left greater than right subdural hygroma versus chronic hematoma. Patient has associated right hemiparesis. 2. Cirrhosis 3. Thrombocytopenia 4. Anaemia 5. History of chronic encephalopathy 6. History of chronic kidney disease CT brain demonstrated interval decrease in bilateral subdural collections Improved neurological status Right JASON drain output: 5 mL Left JASON drain output: 10 mL POD #6 () s/p: Bilateral parietal bur hole evacuation of chronic subdural hematoma Plan: Turn patient to lateral decubitus/semi prone to aid in resolution of pneumocephalus Blood products per Hematology/Oncology Continue frequent neuro checks Stat CT brain for any neuro worsening Critical care management per Action Fin[facility] Consider JASON drain removal today (Joe Maurer) Attending Statement I have personally seen and examined the patient on the date of this note. Pertinent documentation and study results have been reviewed by the undersigned. I have personally developed the treatment plan and performed medical decision making. Agree with findings, exam, and treatment plan as noted above. Discussed with hematology this a.m. Stable clinical exam. Discontinue drains (Jan Traore MD) Joe Maurer Feb 28, 2017 13:30 Jan Traore MD Feb 28, 2017 23:09
--- NOTE | 2017-02-28 13:52 | HHI.PR ---
Subjective Remarks Patient reports is feeling okay. Still having a headache. Pain is controlled with medication. He denies increasing shortness of breath. No nausea or vomiting. He is eating some. Objective Vitals Vital Signs Date Time Temp Pulse Resp B/P Pulse Ox O2 Delivery O2 Flow Rate FiO2 02/28/17 12:21 98.0 74 18 139/61 95 02/28/17 11:11 98 Nasal Cannula 3.00 02/28/17 10:30 16 02/28/17 10:00 60 02/28/17 09:30 98 Nasal Cannula 3.00 02/28/17 08:00 65 16 155/64 98 02/28/17 07:37 98.4 60 12 145/54 99 152/53 02/28/17 06:00 60 02/28/17 05:59 98.4 61 12 150/69 99 151/55 02/28/17 04:00 60 02/28/17 04:00 98.3 60 16 127/60 96 142/52 02/28/17 02:00 68 02/28/17 00:00 82 02/28/17 00:00 98.2 82 12 116/53 96 151/56 02/27/17 23:29 98.2 81 24 151/84 95 178/58 02/27/17 23:28 98.1 72 20 139/64 96 176/56 02/27/17 23:27 95 Nasal Cannula 3.00 02/27/17 22:00 70 02/27/17 20:00 97.8 71 16 139/53 99 152/56 02/27/17 20:00 71 02/27/17 19:00 99 Nasal Cannula 3.00 02/27/17 18:00 74 02/27/17 16:00 68 02/27/17 16:00 98.2 68 13 123/60 98 02/27/17 15:15 98.1 62 22 99 150/54 02/27/17 14:00 67 I/O 02/27/17 02/27/17 02/27/17 02/28/17 02/28/17 02/28/17 07:00 15:00 23:00 07:00 15:00 23:00 Intake Total 1217 ml 1836 ml 935 ml 552 ml Output Total 625 ml 1100 ml 1040 ml 1000 ml Balance 592 ml 736 ml -105 ml -448 ml Intake Oral 480 ml 600 ml 620 ml 240 ml IV Total 737 ml 656 ml FFP 292 ml 315 ml 312 ml Platelets 288 ml Output Urine Total 625 ml 1100 ml 1025 ml 1000 ml Drainage Total 0 ml 0 ml 15 ml 0 ml # Bowel Movements 0 0 1 1 Result Diagram: 02/28/17 0505 02/28/17 0505 Objective Remarks GENERAL: Obese male in the ICU. HEENT: Patient has bilateral JASON drains. minimal serous sanguinous fluid. CARDIOVASCULAR: Normal rate and regular rhythm without murmurs, gallops, or rubs. RESPIRATORY: Respiratory effort is fair. Clear to auscultation bilaterally anteriorly. GASTROINTESTINAL: Abdomen is markedly distended. There is evidence of anasarca and ascites. Normal active bowel sounds. Nontender to palpation. MUSCULOSKELETAL: 2+ bilateral lower extremity edema NEURO: Alert & Oriented. Normal speech. Falls asleep mid conversation. PSYCH: Calm Procedures 02/22/2017 Bilateral parietal bur hole evacuation of chronic subdural hematoma A/P Problem List: (1) SDH (subdural hematoma) ICD Code: I62.00 Status: Acute (2) HO (nonalcoholic steatohepatitis) ICD Code: K75.81 Status: Acute (3) Cirrhosis ICD Code: K74.60 Status: Chronic (4) DM type 2 (diabetes mellitus, type 2) ICD Code: E11.9 Status: Chronic (5) CKD (chronic kidney disease) stage 3, GFR 30-59 ml/min ICD Code: N18.3 Status: Chronic Assessment and Plan 56-year-old male with a history of diabetes mellitus, HO, bacterial peritonitis who was transferred from [facility] to the Med-Surg floor due to large hematoma versus hygroma with mass effect in the brain and possible need for surgical intervention. Patient is status post bilateral bur hole and subdural hematoma evacuation. Bilateral hygroma/subdural hematoma L > R. 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 Traore is following. Surgically subdural hematoma was evacuated on 2016. Bilateral drains in place. - Platelets stable at 39K today. Hematology is following. Continue to transfuse FFP every 8 hours until drain is discontinued. - CT head on 02/25/2017 shows no hemorrhage. Shows hematoma decrease. HO, nonalcoholic steatohepatitis Liver cirrhosis with ascites Hepatic encephalopathy: Still encephalopathic. Not as baseline yet per his . - Continue Lasix 40 mg daily as well as spirolactone 50mg Qday. - Fentanyl patch, oxycodone for pain - Schedule Lactulose TID for 1-2 soft BM daily - Resume Rifaximin -Appreciate nephrology consult. Discussed with Dr. Park. Urine output is improving on current dose of Lasix and Aldactone. Continue the same and monitor. Fluctuation of renal functions expected. -Chronic kidney disease: -Stable. Monitor with diuretics. Good urine output. Patient was seen by nephrology, Dr. Park. Recommendation is to continue Lasix and Aldactone. History of SBP with E. Coli. - s/p paracentesis 02/02/17 - Continue Cipro for prophylaxis. DM type 2: Oral intake is marginal - Continue Levemir 20 units QHS, sliding scale insulin. -Discontinue scheduled NovoLog Esophageal varices - Continue pantoprazole. states he was not taking Nadolol. - Patient would benefit from beta ary to reduce risk of variceal bleed. Full code. Pharmacological DVT prophylaxis contraindicated Kameron Roberson MD Feb 28, 2017 13:52
[2017-02-28] MEDS: INSULIN DETEMIR 100 UNITS/ML VIAL SQ SCH (21:38)
[2017-03-01] VITALS (12 sets, daily range): BP systolic 135–180; BP diastolic 50–75; PULSE 66–82; RESP 16–22; TEMP 97.6–98.7; O2SAT 95–99
[2017-03-01 06:13] LABS: AUTOMATED NEUTROPHIL # 1.7 TH/MM3 (1.8-7.7); BASOPHIL % 0.3 % (0.0-2.0); EOSINOPHIL # 0.1 TH/MM3 (0-0.4); EOSINOPHIL % 3.8 % (0.0-4.0); HEMATOCRIT 21.9 % (39.0-51.0); LYMPHOCYTE # 0.3 TH/MM3 (1.0-4.8); MEAN CELL VOLUME 96.2 FL (80.0-100.0); MEAN CORPUSCULAR HEMOGLOBIN 32.3 PG (27.0-34.0); MEAN CORPUSCULAR HGB CONC 33.6 % (32.0-36.0); MONO % 12.2 % (0.0-8.0); NEUT % 72.7 % (16.0-70.0); PLATELET COUNT 46 TH/MM3 (150-450); RED BLOOD COUNT 2.28 MIL/MM3 (4.50-5.90); RED CELL DISTRIBUTION WIDTH 16.1 % (11.6-17.2); WHITE BLOOD COUNT 2.3 TH/MM3 (4.0-11.0)
[2017-03-01 06:17] LABS: APTT (PATIENT) 34.5 SEC (24.3-30.1); INTERNATIONAL NORMALIZED RATIO 1.3 RATIO; PROTHROMBIN TIME - PATIENT 14.5 SEC (9.8-11.6)
[2017-03-01 06:32] LABS: BICARBONATE 22.2 MEQ/L (21.0-32.0); POTASSIUM 4.5 MEQ/L (3.5-5.1)
[2017-03-01 06:40] LABS: HEMO FLAGS AUTO DIFF
[2017-03-01] MEDS: INSULIN ASPART SUPPLEMENTAL SCALE SQ SCH ×4 (07:00→21:30)
[2017-03-01 08:32] LABS: OVALOCYTES 1+ (NORMAL); SCAN/DIFF AUTO DIFF CONFIRMED
[2017-03-01] MEDS: DOCUSATE SODIUM 50 MG/SENNA 8.6 MG TAB PO SCH ×2 (09:00→21:00)
[2017-03-01] MEDS ORDERED: SODIUM CHLOR 0.9% 250 ML INJ 250 ML IV ONE (09:00)
[2017-03-01] MEDS: LACTULOSE SYRUP 20 GM/30 ML CUP PO SCH ×3 (09:00→18:00)
[2017-03-01] MEDS: FUROSEMIDE 40 MG TAB PO SCH (09:03)
[2017-03-01] MEDS: PANTOPRAZOLE SOD 40 MG DELAYED RELEASE TAB PO SCH (09:03)
[2017-03-01] MEDS: ASCORBIC ACID 500 MG TAB PO SCH ×2 (09:03→21:35)
[2017-03-01] MEDS: SPIRONOLACTONE 50 MG TAB PO SCH (09:03)
[2017-03-01] MEDS: RIFAXIMIN 550 MG TAB PO SCH ×2 (09:03→21:26)
[2017-03-01] MEDS: CIPROFLOXACIN 250 MG TAB PO SCH (09:03)
[2017-03-01] MEDS: FERROUS SULFATE 325 MG (65 MG ELEMENTAL IRON) TAB PO SCH ×2 (09:03→21:25)
[2017-03-01] MEDS: PARoxetine HCL 20 MG TAB PO SCH (09:03)
[2017-03-01 09:51] LABS: REVIEW FLAG FINAL
[2017-03-01 11:23] LABS: INDIRECT BILIRUBIN 1.9 MG/DL (0.0-0.8); TOTAL BILIRUBIN ADULT 3.8 MG/DL (0.2-1.0)
--- NOTE | 2017-03-01 11:40 | PD.ONC.PN ---
Subjective Subjective Remarks Afebrile overnight. patient resting in bed in nad. JASON drains removed yesterday. Objective Data Date Time Temp Pulse Resp B/P Pulse Ox O2 Delivery O2 Flow Rate FiO2 03/01/17 11:00 18 03/01/17 09:14 95 Nasal Cannula 3.00 03/01/17 08:45 97 Nasal Cannula 3.00 03/01/17 08:00 66 03/01/17 08:00 98.4 80 20 155/67 97 03/01/17 06:00 66 03/01/17 04:00 98.1 72 22 154/50 99 03/01/17 04:00 72 03/01/17 02:00 78 03/01/17 00:00 82 03/01/17 00:00 98.2 82 22 180/58 96 02/28/17 22:00 68 02/28/17 20:00 98.0 72 22 164/69 98 02/28/17 20:00 97 Nasal Cannula 3.00 02/28/17 20:00 72 02/28/17 16:14 98.6 71 16 145/65 97 02/28/17 16:10 71 02/28/17 12:21 98.0 74 18 139/61 95 02/28/17 12:00 60 03/01/17 03/01/17 03/01/17 07:00 15:00 23:00 Intake Total 240 ml Output Total 750 ml Balance -510 ml Result Diagram: 03/01/17 0555 03/01/17 0555 Laboratory Results Laboratory Tests Test 02/28/17 03/01/17 03/01/17 03/01/17 23:05 00:02 05:55 08:54 B-Type Natriuretic Peptide 167 PG/ML Total Creatine Kinase 38 U/L Troponin I 0.02 NG/ML Blood Bank Comment White Blood Count 2.3 TH/MM3 Red Blood Count 2.28 MIL/MM3 Hemoglobin 7.4 GM/DL Hematocrit 21.9 % Mean Corpuscular Volume 96.2 FL Mean Corpuscular Hemoglobin 32.3 PG Mean Corpuscular Hemoglobin 33.6 % Concent Red Cell Distribution Width 16.1 % Platelet Count 46 TH/MM3 Mean Platelet Volume 10.0 FL Neutrophils (%) (Auto) 72.7 % Lymphocytes (%) (Auto) 11.0 % Monocytes (%) (Auto) 12.2 % Eosinophils (%) (Auto) 3.8 % Basophils (%) (Auto) 0.3 % Neutrophils # (Auto) 1.7 TH/MM3 Lymphocytes # (Auto) 0.3 TH/MM3 Monocytes # (Auto) 0.3 TH/MM3 Eosinophils # (Auto) 0.1 TH/MM3 Basophils # (Auto) 0.0 TH/MM3 CBC Comment AUTO DIFF Differential Comment AUTO DIFF CONFIRMED Ovalocytes 1+ Reticulocyte Count 3.0 % Absolute Reticulocyte Count 68.3 MIL/L Haptoglobin 83 MG/DL Prothrombin Time 14.5 SEC Prothromb Time International 1.3 RATIO Ratio Activated Partial 34.5 SEC Thromboplast Time Sodium Level 140 MEQ/L Potassium Level 4.5 MEQ/L Chloride Level 110 MEQ/L Carbon Dioxide Level 22.2 MEQ/L Anion Gap 8 MEQ/L Blood Urea Nitrogen 40 MG/DL Creatinine 1.57 MG/DL Estimat Glomerular Filtration 46 ML/MIN Rate Random Glucose 177 MG/DL Calcium Level 8.5 MG/DL Total Bilirubin 3.8 MG/DL Direct Bilirubin 1.9 MG/DL Indirect Bilirubin 1.9 MG/DL Aspartate Amino Transf 44 U/L (AST/SGOT) Alanine Aminotransferase 36 U/L (ALT/SGPT) Alkaline Phosphatase 189 U/L Lactate Dehydrogenase 199 U/L Total Protein 6.1 GM/DL Albumin 2.9 GM/DL Blood Type O POSITIVE Direct Antiglobulin Test NEGATIVE (Gustavo) Administered Medications Medications (Trade) Dose Ordered Sig/Vielka Route PRN Reason Start Time Stop Time Status Last Admin Dose Admin Acetaminophen (Tylenol) 500 mg Q6H PRN PO Fever, headache, pain 1-4 02/20/17 16:15 02/26/17 14:55 Ondansetron HCl (Zofran Inj) 4 mg Q6H PRN IVP NAUSEA OR VOMITING 02/20/17 16:15 02/21/17 10:54 Senna/Docusate Sodium (Gale-Colace) 1 tab BID PO 02/20/17 21:00 02/28/17 09:21 Ferrous Sulfate (Ferrous Sulfate) 325 mg BID PO 02/20/17 21:00 03/01/17 09:03 Spironolactone (Aldactone) 50 mg DAILY PO 02/21/17 09:00 03/01/17 09:03 Ascorbic Acid (Vitamin C) 500 mg BID PO 02/20/17 21:00 03/01/17 09:03 Ciprofloxacin (Cipro) 250 mg DAILY PO 02/21/17 09:00 03/01/17 09:03 Furosemide (Lasix) 40 mg DAILY PO 02/21/17 09:00 03/01/17 09:03 Paroxetine HCl (Paxil) 30 mg DAILY PO 02/21/17 09:00 03/01/17 09:03 Pantoprazole Sodium (Protonix) 40 mg DAILY PO 02/21/17 09:00 03/01/17 09:03 Fentanyl (Duragesic 50 Mcg Patch.72 Hr) 1 patch Q3D T-DERMAL 02/20/17 18:00 02/26/17 17:21 Miscellaneous Information 1 Q3D T-DERMAL 02/23/17 18:00 02/26/17 17:21 IV Flush 2 ml 2 ml BID IVF 02/22/17 21:00 02/27/17 19:23 Nicardipine HCl/ Sodium Chloride (Cardene Inj/NS 250 ml Inj) 260 ml @ 0 mls/hr TITRATE PRN IV SBP>150, DBP>90 02/22/17 16:30 02/25/17 10:22 Insulin Detemir (Levemir Inj) 20 units HS SQ 02/24/17 21:00 02/28/17 21:38 Clonidine (Catapres) 0.1 mg Q6H PRN PO SBP>160, DBP>90 02/26/17 12:00 02/28/17 00:16 Oxycodone HCl (Roxicodone) 10 mg Q4HR PRN PO PAIN SCALE 5 TO 10 02/27/17 08:00 03/01/17 09:04 Lactulose (Lactulose Liq) 30 ml TID PO 02/27/17 13:00 02/28/17 17:30 Rifaximin 550 mg 550 mg Q12HR PO 02/27/17 21:00 03/01/17 09:03 Sodium Chloride (NS 250 ml Inj) 250 ml @ 15 mls/hr ONCE ONCE IV 03/01/17 09:00 03/02/17 01:39 03/01/17 09:00 Objective Remarks GENERAL: Middle aged male, supine in bed SKIN: Warm and dry. HEAD: Normocephalic. bandage to scalp with dried blood. no active bleeding. EYES: No injection or drainage. NECK: Supple, trachea midline. CARDIOVASCULAR: +S1/S2 RESPIRATORY: Breath sounds equal bilaterally. No accessory muscle use. GASTROINTESTINAL: Abdomen soft, non-tender, nondistended. EXTREMITIES: No cyanosis NEUROLOGICAL: normal speech. able to move extremities. awake and alert. Assessment/Plan Assessment 56y/o male s/p alber drainage of SDH, JASON drains removed yesterday. Hematology following for coagulopathy, pancytopenia d/t liver cirrhosis and splenomegaly. Plan 1. give last unit platelets today 2. continue FFP q 8 hours for today then d/c 3. pancytopenia likely due to splenic sequestration. would not give another unit of blood as patient has no signs of active bleeding at this time. 4. no signs of hemolysis. LDH, haptoglobin WNL, gustavo negative. Attending Statement The exam, history, and the medical decision-making described in the above note were completed with the assistance of the mid-level provider. I reviewed and agree with the findings presented. I attest that I had a [id number] encounter with the patient on the same day, and personally performed and documented my assessment and findings in the medical record. At this point there is no further reason to continue FFP and platelet transfusions. He remains ill but neurologically improved since surgery with increased bilateral arm strength. He is very edematous and has joaquin anasarca. will give an additional 40 mg of lasix IV. At this point nothing further to add and will see PRN. Situation discussed with in room. Aysha Daugherty Mar 01, 2017 11:40 Corby Arce MD Mar 01, 2017 19:39
--- NOTE | 2017-03-01 11:59 | HHI.NSPN ---
(oJe Maurer) History Chief Complaint: Wheezing (Joe Maurer) Interval History 02/19: 56-year-old gentleman who according to his family was diagnosed with liver disease approximately 8-9 years ago. She was admitted to [facility] for approximately 1 week, approximately 1 month ago for workup of ascites. He underwent a paracentesis on 02/02/2017. The fluid grew Escherichia coli. The patient's states that he was referred to [facility] where he remained for approximately a week. She states that he was in bed most of the time at [facility]. He was then discharged to rehabilitation. She states that he has had quite a bit more difficulty with ambulation since his hospitalization and [facility]. She states that he fell a few weeks ago and apparently again in the past week without loss of consciousness. The patient's seems a little uncertain whether or not he has had any mental status or speech changes, however his nurse this evening feels that he is not quite as alert or fluent in his speech over the past 2 or 3 days than he was last week. The patient states that he has noted headaches for 2 or 3 days. He apparently normally does not have headaches. Due to his difficulty with ambulation, a CT scan of the head was obtained today which has revealed subdural hematoma on the left greater than right. 02/20: Patient asleep but awakens to verbal stimuli. He has difficulty getting words out and has to think on what he says. He does state he has pain to the head although he said "No" previously when asked if he had any headache. He also has pain to the legs with some pain to the arm with the right the worse. 02/21: The patient is asleep initially when seen with Dr Traore this morning. He did complain of a headache. He intermittently would drift off and close his eyes then open them. He transferred to a regular med/surg med yesterday from [facility]. 02/22: The patient is awake and alert when seen this morning. He still has to search for what he says and at times is not able to complete his thoughts. He has no complaints other than continues right-sided weakness. 02/24: Patient awake and alert. Denies much headaches. Some periods of nausea. No paresthesias in face. No difficulty with speech. 02/25: Patient awake and alert. Complains of headache. Some nausea. No new numbness or tingling. Speech is clear 02/26: The patient is awake and alert, taking in a clear liquid diet. He states that he feels the best that he has in years since the surgery. He does have a slight headache which is improving and some low back pain, which are related to a 6 inch drop yesterday when he went for CT. 02/27: The patient is awake & alert. He does state he has some pain to the head and the back which is better now than before surgery. He reports having sat up on the side of the bed for 15 to 20 minutes. He did endorse some shortness of breath which is improved when he puts his arms down and "chills out." 02/28: The patient states that he is doing good this afternoon when seen. He has some shortness of breath and anxiety today. 03/01: The patient was initially seen with Dr Traore this morning. He continues to do well when seen later this morning. He does have some shortness of breath and wheezing. The JASON drains were removed yesterday evening. (Joe Maurer) System Review Comments Respiratory: The patient does have some shortness of breath and wheezing but denies any productive cough. Cardiovascular: The patient denies any chest pain, palpitation or irregular heartbeat. Gastrointestinal: The patient denies any abdominal pain, nausea, vomiting or stool incontinence. Musculoskeletal: The patient states that he has back pain that is better and denies any leg and arm pain. Neurologic: The patient still has numbness and weakness to the legs without any change. He denies any headache or dizziness. Psychiatric: The patient's anxiety is better today. (Joe Maurer) Exam Results Vital Signs Date Time Temp Pulse Resp B/P Pulse Ox O2 Delivery O2 Flow Rate FiO2 03/01/17 11:00 18 03/01/17 09:14 95 Nasal Cannula 3.00 03/01/17 08:00 66 03/01/17 08:00 98.4 155/67 Intake and Output 02/28/17 02/28/17 02/28/17 07:59 15:59 23:59 Intake Total 552 ml 552 ml 1398 ml Output Total 2000 ml 2420 ml 1000 ml Balance -1448 ml -1868 ml 398 ml (Joe Maurer) Physical Examination General: Awake & alert, NAD. HEENT: Bilateral alber hole incisions well-approximated with musa and bilateral JASON drains insertion sites w/intact dressing, dried sanguinous drainage noted. Integumentary: Surgical incisions & JASON insertion sites w/o any evident drainage , erythema or streaking. Vascular skin changes to bilateral lower legs and feet. Respiratory: Clear on left but right coarse with some wheezing, equal excursion , nonlaboured, on NC. Cardiovascular: S1S2 w/RRR w/o M/G/R, radial & pedal pulses 2+ bilaterally, cap refill < 2 sec. Monitor is sinus rhythm w/o any ectopy noted. Gastrointestinal: Obese, distended, non-tender, bowel sounds not appreciated. Musculoskeletal: Multiple ecchymotic areas noted to all extremities. Left foot with healed toe amputations. Neurologic: AAOx3 Speech essentially clear & appropriate Though process slightly slow but improved Decreased sensation to BLE but grossly intact to BUE to light touch Motor strength 5/5 BUE & LLE and 4+/5 RLE to all major flexion & extension muscle groups except for right great toe 3+/5 (Joe Maurer) Lab, Micro, Other Results Allergies Coded Allergies Type Severity Reaction Last Updated Verified Sulfa Allergy Intermediate Nausea/Vomiting 02/09/17 Yes *MDRO Multi-Drug Resistant Organism Adverse Reaction Unknown 02/09/17 Yes 02/27//////// 05:59 17:59 05:59 17:59 05:59 17:59 Intake Total 2089 ml 3053 ml 935 ml 1772 ml 730 ml 240 ml Output Total 755 ml 1725 ml 1040 ml 4420 ml 1000 ml 750 ml Balance 1334 ml 1328 ml -105 ml -2648 ml -270 ml -510 ml Intake Oral 480 ml 1080 ml 620 ml 480 ml 480 ml 240 ml IV Total 1609 ml 1393 ml 65 ml Packed Cells 250 ml FFP 292 ml 315 ml 939 ml Platelets 288 ml 288 ml Output Urine Total 750 ml 1725 ml 1025 ml 4400 ml 1000 ml 750 ml Drainage Total 5 ml 0 ml 15 ml 20 ml # Bowel Movements 0 0 1 2 2 1 Laboratory Tests Test 02/26/17 02/27/17 02/27/17 02/28/17 12:41 04:25 07:31 05:05 Blood Bank Comment White Blood Count 3.2 TH/MM3 3.0 TH/MM3 Red Blood Count 2.24 MIL/MM3 2.33 MIL/MM3 Hemoglobin 7.2 GM/DL 7.4 GM/DL Hematocrit 21.8 % 22.7 % Mean Corpuscular Volume 97.2 FL 97.4 FL Mean Corpuscular Hemoglobin 32.2 PG 31.9 PG Mean Corpuscular Hemoglobin 33.1 % 32.7 % Concent Red Cell Distribution Width 16.4 % 16.7 % Platelet Count 34 TH/MM3 39 TH/MM3 Mean Platelet Volume 9.5 FL 9.5 FL Neutrophils (%) (Auto) 77.5 % Lymphocytes (%) (Auto) 8.9 % Monocytes (%) (Auto) 9.9 % Eosinophils (%) (Auto) 3.7 % Basophils (%) (Auto) 0.0 % Neutrophils # (Auto) 2.5 TH/MM3 Lymphocytes # (Auto) 0.3 TH/MM3 Monocytes # (Auto) 0.3 TH/MM3 Eosinophils # (Auto) 0.1 TH/MM3 Basophils # (Auto) 0.0 TH/MM3 CBC Comment DIFF FINAL Differential Comment Prothrombin Time 14.4 SEC Prothromb Time International 1.3 RATIO Ratio Fibrinogen 284 mg/dL Sodium Level 140 MEQ/L Potassium Level 4.3 MEQ/L Chloride Level 109 MEQ/L Carbon Dioxide Level 23.4 MEQ/L Anion Gap 8 MEQ/L Blood Urea Nitrogen 42 MG/DL Creatinine 1.54 MG/DL Estimat Glomerular Filtration 47 ML/MIN Rate Random Glucose 144 MG/DL Calcium Level 8.2 MG/DL Test 02/28/17 02/28/17 02/28/17 03/01/17 09:04 11:20 23:05 00:02 Blood Bank Comment Blood Type O POSITIVE Antibody Screen NEGATIVE Crossmatch Leukocyte-Reduced Red Blood Cells B-Type Natriuretic Peptide 167 PG/ML Total Creatine Kinase 38 U/L Troponin I 0.02 NG/ML Test 03/01/17 03/01/17 05:55 08:54 White Blood Count 2.3 TH/MM3 Red Blood Count 2.28 MIL/MM3 Hemoglobin 7.4 GM/DL Hematocrit 21.9 % Mean Corpuscular Volume 96.2 FL Mean Corpuscular Hemoglobin 32.3 PG Mean Corpuscular Hemoglobin 33.6 % Concent Red Cell Distribution Width 16.1 % Platelet Count 46 TH/MM3 Mean Platelet Volume 10.0 FL Neutrophils (%) (Auto) 72.7 % Lymphocytes (%) (Auto) 11.0 % Monocytes (%) (Auto) 12.2 % Eosinophils (%) (Auto) 3.8 % Basophils (%) (Auto) 0.3 % Neutrophils # (Auto) 1.7 TH/MM3 Lymphocytes # (Auto) 0.3 TH/MM3 Monocytes # (Auto) 0.3 TH/MM3 Eosinophils # (Auto) 0.1 TH/MM3 Basophils # (Auto) 0.0 TH/MM3 CBC Comment AUTO DIFF Differential Comment AUTO DIFF CONFIRMED Ovalocytes 1+ Reticulocyte Count 3.0 % Absolute Reticulocyte Count 68.3 MIL/L Haptoglobin 83 MG/DL Prothrombin Time 14.5 SEC Prothromb Time International 1.3 RATIO Ratio Activated Partial 34.5 SEC Thromboplast Time Sodium Level 140 MEQ/L Potassium Level 4.5 MEQ/L Chloride Level 110 MEQ/L Carbon Dioxide Level 22.2 MEQ/L Anion Gap 8 MEQ/L Blood Urea Nitrogen 40 MG/DL Creatinine 1.57 MG/DL Estimat Glomerular Filtration 46 ML/MIN Rate Random Glucose 177 MG/DL Calcium Level 8.5 MG/DL Total Bilirubin 3.8 MG/DL Direct Bilirubin 1.9 MG/DL Indirect Bilirubin 1.9 MG/DL Aspartate Amino Transf 44 U/L (AST/SGOT) Alanine Aminotransferase 36 U/L (ALT/SGPT) Alkaline Phosphatase 189 U/L Lactate Dehydrogenase 199 U/L Total Protein 6.1 GM/DL Albumin 2.9 GM/DL Blood Type O POSITIVE Direct Antiglobulin Test NEGATIVE (Aubrie) Blood Bank Comment Vital Signs Date Time Temp Pulse Resp B/P Pulse Ox O2 Delivery O2 Flow Rate FiO2 03/01/17 11:00 18 03/01/17 09:14 95 Nasal Cannula 3.00 03/01/17 08:45 97 Nasal Cannula 3.00 03/01/17 08:00 66 03/01/17 08:00 98.4 80 20 155/67 97 03/01/17 06:00 66 03/01/17 04:00 98.1 72 22 154/50 99 03/01/17 04:00 72 03/01/17 02:00 78 03/01/17 00:00 82 03/01/17 00:00 98.2 82 22 180/58 96 02/28/17 22:00 68 02/28/17 20:00 98.0 72 22 164/69 98 02/28/17 20:00 97 Nasal Cannula 3.00 02/28/17 20:00 72 02/28/17 16:14 98.6 71 16 145/65 97 02/28/17 16:10 71 02/28/17 12:21 98.0 74 18 139/61 95 02/28/17 12:00 60 02/28/17 11:11 98 Nasal Cannula 3.00 02/28/17 10:00 60 02/28/17 09:30 98 Nasal Cannula 3.00 02/28/17 08:00 65 16 155/64 98 02/28/17 07:37 98.4 60 12 145/54 99 152/53 02/28/17 06:00 60 02/28/17 05:59 98.4 61 12 150/69 99 151/55 02/28/17 04:00 60 02/28/17 04:00 98.3 60 16 127/60 96 142/52 02/28/17 02:00 68 02/28/17 00:00 82 02/28/17 00:00 98.2 82 12 116/53 96 151/56 02/27/17 23:29 98.2 81 24 151/84 95 178/58 02/27/17 23:28 98.1 72 20 139/64 96 176/56 02/27/17 23:27 95 Nasal Cannula 3.00 02/27/17 22:00 70 02/27/17 20:00 97.8 71 16 139/53 99 152/56 02/27/17 20:00 71 02/27/17 19:00 99 Nasal Cannula 3.00 02/27/17 18:00 74 02/27/17 16:00 68 02/27/17 16:00 98.2 68 13 123/60 98 02/27/17 15:15 98.1 62 22 99 150/54 02/27/17 14:00 67 02/27/17 12:00 97.9 73 22 97 156/55 02/27/17 12:00 73 02/27/17 10:00 85 02/27/17 08:52 98.2 65 14 121/59 94 148/57 02/27/17 08:00 98.1 70 20 166/58 96 166/58 02/27/17 08:00 70 02/27/17 07:45 02/27/17 07:00 96 Nasal Cannula 3.00 02/27/17 06:22 98.0 62 12 114/55 93 149/49 02/27/17 06:00 62 02/27/17 04:00 98.0 62 18 127/59 93 150/50 02/27/17 04:00 62 02/27/17 02:00 66 02/27/17 00:13 17 02/27/17 00:00 98.0 68 20 130/58 94 160/54 02/27/17 00:00 98.0 68 20 130/58 94 162/54 02/27/17 00:00 68 02/26/17 22:00 98.4 72 14 137/63 96 178/60 02/26/17 22:00 70 02/26/17 21:08 99 Nasal Cannula 2.00 02/26/17 20:00 98.1 63 22 134/77 98 140/50 02/26/17 20:00 63 02/26/17 19:00 97 Nasal Cannula 3.00 02/26/17 18:20 18 02/26/17 18:00 67 02/26/17 16:00 98.1 76 21 146/55 97 144/56 02/26/17 16:00 76 02/26/17 15:55 17 02/26/17 14:46 98.2 78 18 142/62 99 02/26/17 14:00 80 02/26/17 12:42 97 Nasal Cannula 3.00 02/26/17 12:00 98.2 71 18 148/54 98 153/52 02/26/17 12:00 71 (Joe Maurer) Medical Decision Making Impression and Plan Impression: 1. Left greater than right subdural hygroma versus chronic hematoma. Patient has associated right hemiparesis. 2. Cirrhosis 3. Thrombocytopenia 4. Anaemia 5. History of chronic encephalopathy 6. History of chronic kidney disease CT brain demonstrated interval decrease in bilateral subdural collections Improved neurological status POD #7 () s/p: Bilateral parietal bur hole evacuation of chronic subdural hematoma Plan: Blood products per Hematology/Oncology Continue frequent neuro checks Stat CT brain for any neuro worsening Critical care management per [employer] patient w/assistance PT eval & tx Patient able to be transferred to a regular med/surg floor from NSGY's perspective (Joe Maurer) Attending Statement I have personally seen and examined the patient on the date of this note. Pertinent documentation and study results have been reviewed by the undersigned. I have personally developed the treatment plan and performed medical decision making. Agree with findings, exam, and treatment plan as noted above. Discussed and telephone with the patient's today Stable neurologic exam Plan follow-up CT scan in 2 days if no neurologic changes (Jan Traore MD) Joe Maurer Mar 01, 2017 11:59 Jan Traore MD Mar 01, 2017 13:20
--- NOTE | 2017-03-01 13:06 | HHI.PR ---
Subjective Remarks Patient reports he is feeling better. Appetite is fair. No nausea or vomiting. Drain removed. Objective Vitals Vital Signs Date Time Temp Pulse Resp B/P Pulse Ox O2 Delivery O2 Flow Rate FiO2 03/01/17 11:00 18 03/01/17 09:14 95 Nasal Cannula 3.00 03/01/17 08:45 97 Nasal Cannula 3.00 03/01/17 08:00 66 03/01/17 08:00 98.4 80 20 155/67 97 03/01/17 06:00 66 03/01/17 04:00 98.1 72 22 154/50 99 03/01/17 04:00 72 03/01/17 02:00 78 03/01/17 00:00 82 03/01/17 00:00 98.2 82 22 180/58 96 02/28/17 22:00 68 02/28/17 20:00 98.0 72 22 164/69 98 02/28/17 20:00 97 Nasal Cannula 3.00 02/28/17 20:00 72 02/28/17 16:14 98.6 71 16 145/65 97 02/28/17 16:10 71 I/O 02/28/17 02/28/17 02/28/17 03/01/17 03/01/17 03/01/17 07:00 15:00 23:00 07:00 15:00 23:00 Intake Total 552 ml 552 ml 1398 ml 240 ml Output Total 2000 ml 2420 ml 1000 ml 750 ml Balance -1448 ml -1868 ml 398 ml -510 ml Intake Oral 240 ml 240 ml 480 ml 240 ml IV Total 65 ml Packed Cells 250 ml FFP 312 ml 312 ml 315 ml Platelets 288 ml Output Urine Total 2000 ml 2400 ml 1000 ml 750 ml Drainage Total 0 ml 20 ml # Bowel Movements 1 1 2 1 Result Diagram: 03/01/17 0555 03/01/17 0555 Objective Remarks GENERAL: Obese male in no acute distress. More awake today. CARDIOVASCULAR: Normal rate and regular rhythm without murmurs, gallops, or rubs. RESPIRATORY: Respiratory effort is fair. Clear to auscultation bilaterally anteriorly. GASTROINTESTINAL: Abdomen is markedly distended. There is evidence of anasarca and ascites. Normal active bowel sounds. Nontender to palpation. MUSCULOSKELETAL: 1+ bilateral lower extremity edema NEURO: Alert & Oriented. Normal speech. More awake today. PSYCH: Calm Procedures 02/22/2017 Bilateral parietal bur hole evacuation of chronic subdural hematoma A/P Problem List: (1) SDH (subdural hematoma) ICD Code: I62.00 Status: Acute (2) HO (nonalcoholic steatohepatitis) ICD Code: K75.81 Status: Acute (3) Cirrhosis ICD Code: K74.60 Status: Chronic (4) DM type 2 (diabetes mellitus, type 2) ICD Code: E11.9 Status: Chronic (5) CKD (chronic kidney disease) stage 3, GFR 30-59 ml/min ICD Code: N18.3 Status: Chronic Assessment and Plan 56-year-old male with a history of diabetes mellitus, HO, bacterial peritonitis who was transferred from [facility] to the Med-Surg floor due to large hematoma versus hygroma with mass effect in the brain and possible need for surgical intervention. Patient is status post bilateral bur hole and subdural hematoma evacuation. Bilateral hygroma/subdural hematoma L > R. 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 Traore is following. Surgically subdural hematoma was evacuated on 2016. Bilateral drains removed. - Platelets improving at 46K today. Hematology is following. FFP transfusions per hematology. - CT head on 02/25/2017 shows no hemorrhage. Shows hematoma decrease. - Anemia is stable today. HO, nonalcoholic steatohepatitis Liver cirrhosis with ascites Hepatic encephalopathy: Still encephalopathic. Not as baseline yet per his . - Continue Lasix 40 mg daily as well as spirolactone 50mg Qday. - Fentanyl patch, oxycodone for pain - Schedule Lactulose TID for 1-2 soft BM daily - Resume Rifaximin - Appreciate nephrology consult. Previously discussed with Dr. Park. Urine output is good on current dose of Lasix and Aldactone. Continue the same and monitor. Fluctuation of renal functions expected. -Chronic kidney disease: -Stable. Monitor with diuretics. Good urine output. Patient was seen by nephrology, Dr. Park. Recommendation is to continue Lasix and Aldactone. History of SBP with E. Coli. - s/p paracentesis 02/02/17 - Continue Cipro for prophylaxis. DM type 2: Oral intake still not great - Continue Levemir 20 units QHS, sliding scale insulin. - Discontinue scheduled NovoLog Esophageal varices - Continue pantoprazole. states he was not taking Nadolol. - Patient would benefit from beta ary to reduce risk of variceal bleed when he is more stable. Full code. Pharmacological DVT prophylaxis contraindicated Discharge Planning Okay to transfer to floor today. Kameron Roberson MD Mar 01, 2017 13:06
--- NOTE | 2017-03-01 15:18 | HHI.HCPN ---
Reason for visit a. To assist with evaluation and management of symptoms including: encephalopathy b. To assist medical decision maker(s) with: better understanding of current medical conditions; weighing benefits/burdens of medical treatment options; making medical treatment decisions. Subjective/Interval History Patient seen today to follow-up on comfort, goals. Status post alber holes 02/22. Remains in ICU-- transfer to regular medical unit pending. Hematology cont to follow, transfused 1 pk platelet today, ordered for FFP this evening. No further xfusions per hematology. JPs d/c yesterday. On lactulose, rifaximin per medical attending. + mult loose BMs. Working w PT, PT assisted out of bed. +eating clear liq. Patient seen in room no visitors present. He is initially sleeping though arouses easily to my verbal greeting. He is oriented to self and hospital, some insight to hospital course. Jokes about having brain surgery. Is forgetful at times, pauses to search for words. Easily loses focus when discussing ROS. Remembers me but does not remember my name. Follows commands, moves all 4 extremities strength seems equal bilaterally. Indicates he is feeling Ok overall. Still endorses an intermittent mild headache, "sharper" today. Mild intermittent nausea and heartburn. He also endorses some mild back pain which she relates is chronic. Following exam call to patient to provide an update. . Family/friend interactions Following exam, call to , Provide update, review current assessment / diagnostics , treatments. All questions answered. She informs that they are hoping pt will not require rehab placement after acute hospitalization, and can return home with her assistance as he was prior to most recent [facility] admission, possible may need home health. Advise he is working w PT currently, not quite clear yet how much help he will need at time of d/c, possible pending his progress. . Advance Directives Living Will: Copy in medical record Health Care Surrogate: Copy in medical record Advance Directive Specifics Date completed: 01/20/14 Health Care Surrogate(s): Rosa Mancilla . Documented care wishes: Living will is standard verbiage document noting that in the presence of a terminal condition, end-stage condition or vegetative state directs life prolonging procedures be withheld or withdrawn with administration of comfort care only. Designates healthcare surrogate as . Objective Vital Signs Date Time Temp Pulse Resp B/P Pulse Ox O2 Delivery O2 Flow Rate FiO2 03/01/17 13:51 72 03/01/17 12:00 98.7 72 16 135/64 98 03/01/17 11:00 18 03/01/17 09:14 95 Nasal Cannula 3.00 03/01/17 08:45 97 Nasal Cannula 3.00 03/01/17 08:00 66 03/01/17 08:00 98.4 80 20 155/67 97 03/01/17 06:00 66 03/01/17 04:00 98.1 72 22 154/50 99 03/01/17 04:00 72 03/01/17 02:00 78 03/01/17 00:00 82 03/01/17 00:00 98.2 82 22 180/58 96 02/28/17 22:00 68 02/28/17 20:00 98.0 72 22 164/69 98 02/28/17 20:00 97 Nasal Cannula 3.00 02/28/17 20:00 72 02/28/17 16:14 98.6 71 16 145/65 97 02/28/17 16:10 71 Intake & Output 03/01/17 03/01/17 06:59 18:59 Intake Total 720 ml Output Total 1750 ml Balance -1030 ml Intake Oral 720 ml Output Urine Total 1750 ml # Bowel Movements 3 Physical Exam CONSTITUTIONAL/GENERAL: This is an obese male, in no apparent distress. TUBES/LINES/DRAINS:left radial art line, rt IJ central line, SCDs, park catheter SKIN: No jaundice, rashes, or lesions. Several Ecchymoses on upper extremities. 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 Chronic vascular changes bilateral lower legs. Skin warm. HEAD: Atraumatic. + healing JASON exit wounds- Jps d/cd EYES: Pupils equal and round and reactive. Amblyopia -left eye outward. Extraocular motions intact. CARDIOVASCULAR: Regular rate and rhythm no murmur. Peripheral pulses symmetric. RESPIRATORY/CHEST: Symmetric, unlabored respirations on room air. Clear to auscultation. Breath sounds equal bilaterally. GASTROINTESTINAL: Abdomen obese, soft, non-tender, nondistended. No palpable masses. No guarding. Bowel sounds present. MUSCULOSKELETAL: Extremities without clubbing, cyanosis, or edema. No joint tenderness or effusion noted. No mottling or clubbing. NEUROLOGICAL: Awake and alert. No facial droop. mostly oriented x2-3, forgetful at times. Searches for words at times. speech is clear. moves all 4 extremities- - meter changes records clerk strong/equal bilaterally. LE strength equal. PSYCHIATRIC: No obvious anxiety/depression. . Diagnostic Tests Laboratory Laboratory Tests Test 02/27/17 02/27/17 02/28/17 02/28/17 04:25 07:31 05:05 09:04 White Blood Count 3.2 TH/MM3 3.0 TH/MM3 (4.0-11.0) (4.0-11.0) Red Blood Count 2.24 MIL/MM3 2.33 MIL/MM3 (4.50-5.90) (4.50-5.90) Hemoglobin 7.2 GM/DL 7.4 GM/DL (13.0-17.0) (13.0-17.0) Hematocrit 21.8 % 22.7 % (39.0-51.0) (39.0-51.0) Mean Corpuscular Volume 97.2 FL 97.4 FL (80.0-100.0) (80.0-100.0) Mean Corpuscular Hemoglobin 32.2 PG 31.9 PG (27.0-34.0) (27.0-34.0) Mean Corpuscular Hemoglobin 33.1 % 32.7 % Concent (32.0-36.0) (32.0-36.0) Red Cell Distribution Width 16.4 % 16.7 % (11.6-17.2) (11.6-17.2) Platelet Count 34 TH/MM3 39 TH/MM3 (150-450) (150-450) Mean Platelet Volume 9.5 FL 9.5 FL (7.0-11.0) (7.0-11.0) Neutrophils (%) (Auto) 77.5 % (16.0-70.0) Lymphocytes (%) (Auto) 8.9 % (9.0-44.0) Monocytes (%) (Auto) 9.9 % (0.0-8.0) Eosinophils (%) (Auto) 3.7 % (0.0-4.0) Basophils (%) (Auto) 0.0 % (0.0-2.0) Neutrophils # (Auto) 2.5 TH/MM3 (1.8-7.7) Lymphocytes # (Auto) 0.3 TH/MM3 (1.0-4.8) Monocytes # (Auto) 0.3 TH/MM3 (0-0.9) Eosinophils # (Auto) 0.1 TH/MM3 (0-0.4) Basophils # (Auto) 0.0 TH/MM3 (0-0.2) CBC Comment DIFF FINAL Differential Comment Blood Bank Comment Prothrombin Time 14.4 SEC (9.8-11.6) Prothromb Time International 1.3 RATIO Ratio Fibrinogen 284 mg/dL (227-377) Sodium Level 140 MEQ/L (136-145) Potassium Level 4.3 MEQ/L (3.5-5.1) Chloride Level 109 MEQ/L (98-107) Carbon Dioxide Level 23.4 MEQ/L (21.0-32.0) Anion Gap 8 MEQ/L (5-15) Blood Urea Nitrogen 42 MG/DL (7-18) Creatinine 1.54 MG/DL (0.60-1.30) Estimat Glomerular Filtration 47 ML/MIN (>89) Rate Random Glucose 144 MG/DL (74-106) Calcium Level 8.2 MG/DL (8.5-10.1) Test 02/28/17 02/28/17 03/01/17 03/01/17 11:20 23:05 00:02 05:55 Blood Type O POSITIVE Antibody Screen NEGATIVE Crossmatch Leukocyte-Reduced Red Blood Cells Blood Bank Comment B-Type Natriuretic Peptide 167 PG/ML (0-100) Total Creatine Kinase 38 U/L (39-308) Troponin I 0.02 NG/ML (0.02-0.05) White Blood Count 2.3 TH/MM3 (4.0-11.0) Red Blood Count 2.28 MIL/MM3 (4.50-5.90) Hemoglobin 7.4 GM/DL (13.0-17.0) Hematocrit 21.9 % (39.0-51.0) Mean Corpuscular Volume 96.2 FL (80.0-100.0) Mean Corpuscular Hemoglobin 32.3 PG (27.0-34.0) Mean Corpuscular Hemoglobin 33.6 % Concent (32.0-36.0) Red Cell Distribution Width 16.1 % (11.6-17.2) Platelet Count 46 TH/MM3 (150-450) Mean Platelet Volume 10.0 FL (7.0-11.0) Neutrophils (%) (Auto) 72.7 % (16.0-70.0) Lymphocytes (%) (Auto) 11.0 % (9.0-44.0) Monocytes (%) (Auto) 12.2 % (0.0-8.0) Eosinophils (%) (Auto) 3.8 % (0.0-4.0) Basophils (%) (Auto) 0.3 % (0.0-2.0) Neutrophils # (Auto) 1.7 TH/MM3 (1.8-7.7) Lymphocytes # (Auto) 0.3 TH/MM3 (1.0-4.8) Monocytes # (Auto) 0.3 TH/MM3 (0-0.9) Eosinophils # (Auto) 0.1 TH/MM3 (0-0.4) Basophils # (Auto) 0.0 TH/MM3 (0-0.2) CBC Comment AUTO DIFF Differential Comment AUTO DIFF CONFIRMED Ovalocytes 1+ (NORMAL) Reticulocyte Count 3.0 % (0.4-3.0) Absolute Reticulocyte Count 68.3 MIL/L (20.0-150.0) Haptoglobin 83 MG/DL (30-200) Prothrombin Time 14.5 SEC (9.8-11.6) Prothromb Time International 1.3 RATIO Ratio Activated Partial 34.5 SEC Thromboplast Time (24.3-30.1) Sodium Level 140 MEQ/L (136-145) Potassium Level 4.5 MEQ/L (3.5-5.1) Chloride Level 110 MEQ/L (98-107) Carbon Dioxide Level 22.2 MEQ/L (21.0-32.0) Anion Gap 8 MEQ/L (5-15) Blood Urea Nitrogen 40 MG/DL (7-18) Creatinine 1.57 MG/DL (0.60-1.30) Estimat Glomerular Filtration 46 ML/MIN (>89) Rate Random Glucose 177 MG/DL (74-106) Calcium Level 8.5 MG/DL (8.5-10.1) Total Bilirubin 3.8 MG/DL (0.2-1.0) Direct Bilirubin 1.9 MG/DL (0.0-0.2) Indirect Bilirubin 1.9 MG/DL (0.0-0.8) Aspartate Amino Transf 44 U/L (15-37) (AST/SGOT) Alanine Aminotransferase 36 U/L (12-78) (ALT/SGPT) Alkaline Phosphatase 189 U/L (45-117) Lactate Dehydrogenase 199 U/L (87-241) Total Protein 6.1 GM/DL (6.4-8.2) Albumin 2.9 GM/DL (3.4-5.0) Test 03/01/17 08:54 Blood Type O POSITIVE Direct Antiglobulin Test NEGATIVE ([place]) (NEGATIVE) Blood Bank Comment Result Diagram: 03/01/17 0555 03/01/17 0555 Imaging Last Impressions Head CT 02/25/17 0600 Signed Impressions: Service Date/Time: Saturday, February 25, 2017 05:11 - CONCLUSION: Slight interval decrease in the bilateral subdural collections. No new hemorrhage. Juan David Hidalgo MD Chest X-Ray 02/25/17 0000 Signed Impressions: Service Date/Time: Saturday, February 25, 2017 20:10 - CONCLUSION: Interval development of bilateral mid and lower lung consolidative infiltrates. Jorge Renteria MD Assessment and Plan Disease Oriented Problem List: (1) HO (nonalcoholic steatohepatitis) (2) SDH (subdural hematoma) Comment: Bilateral hygromas/subdural hematoma L > R (3) Thrombocytopenia (4) Diabetic foot ulcers (5) Escherichia coli infection Comment: Per paracentesis 02/02/17 (6) CKD (chronic kidney disease) stage 3, GFR 30-59 ml/min (7) Depression (8) HTN (hypertension) (9) DM type 2 (diabetes mellitus, type 2) (10) Esophageal varices (11) Moderate protein malnutrition Symptom Scale: (1) Encephalopathy 0-10 Scale: Unable to quantify (2) Pain 0-10 Scale: Unable to quantify Pertinent Non-Medical Issues Psychosocial: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 . Originally from [place], has lived in [place] for approximately 43 years. Also has 2 daughters. Spiritual: Jainism ayush Legal:Patient mental status fluctuates secondary to hepatic encephalopathy. He is able to participate in decision-making at times. If he becomes incapacitated his is designated HCS, would be appropriate legal decision maker. Ethical issues impacting care: . Important Contacts Rosa Mancilla [phone] Prognosis This patient was admitted to the hospital for acute mental status changes and weakness from rehabilitation. CT Head with findings of large hygroma with mass effect. Patient also with chronic thrombocytopenia, hematology is following. Plan for neurosurgical intervention 02/22. Patient with multiple chronic medical conditions, most significantlyNASH, he has had ongoing hepatic encephalopathy , paracentesis, and associated conditions/complications/hospitalizations from underlying liver disease. He is apparently on the waiting list for liver transplant. Per neurosurgery remains at risk for ongoing/recurrent hemorrhage post surgical intervention however without surgical intervention subdural fluid collection could become life threatening. Remains at ongoing risk for further complications and setbacks related to underlying liver disease and new or surgical issues. . Code Status: Full Code Plan * Legal decision maker: Patient mental status fluctuates secondary to hepatic encephalopathy. He is able to participate in decision-making at times. If he becomes incapacitated his is designated HCS, would be appropriate legal decision maker. * Goals: met w pt, upon initial consultation 02/23 goals currently aggressive , wish to cont to maximize available treatments for liver condition, SDH. They are hopeful pt medical conditions can improve enough that he can be put on liver transplant list. They understand he is high risk for ongoing complications /setbacks, and further decline. They are open to ongoing conversations as condition evolves. would like for treatments here to follow as closely as possible to what [facility] recommended in order to improve his chances to get on transplantation list. She would like the providers here to review his treatment records/recommendations from [facility]. ( *I d/w medical attending, it will provide some comfort knowing that his records from there have been reviewed, even if all of the treatments are not able to be implemented , recommend request records from [facility] 01/2017) 03/01/17-. Goals remain aggressive.Pt + hoping he will NOT require acute rehab placement after acute hospitalization, and can return home with her assistance as he was prior to most recent [facility] admission, possible may need home health. * CODE STATUS: full by default at this time, pt & to continue to discuss * SYMPTOMS: --Encephalopathy- 2/2 hepatic dysfunction,+ new SDH, fluctuates. On lactulose PRN. Has been on rifaximin in the past. Last ammonia level 60 on 02/18 per [facility] labs. +alber hole evacuation SDH 02/22; probable chronic component, which could provide some ongoing residual deficit per neuro. scheduled lactulose, rifaximin added per med attending --Pain-reported with chronic neuropathic pain; chronic long-standing back pain for many years, + new headache 2/2 SDH. On fentanyl patch 50 mics every 72 hour, as well as prn oxycodone. Req. oxycodone 10mg x3 today, x5 yesterday, prev w sparing requirements--> 1-2 doses per day; effective. We'll continue to evaluate. Cautious adjustments given risk for altered mental status * Palliative care will continue to follow during hospital course as condition evolves, to assist patient/decision-maker with understanding of medical conditions, weighing benefits/burdens of treatment options, for clarification of goals of treatment. Additionally will assist with any symptoms of palliative concern Attestation To help prompt me to consider important information that might be impacting today's encounter and assessment, information from prior notes written by myself or my colleagues may have been "brought forward" into today's note. My signature on this note, however, is an attestation that I personally performed the exam, history, and/or decision-making noted today, and, unless otherwise indicated, the interactions with patient, family, and staff as well as the review of records all occurred today. I also attest that the listed assessment and stated plan reflect my best clinical judgment today based on the combination of historical information, prior notes, and today's exam/ interactions. When time spent is documented, it refers only to time spent today by the signer, or if indicated, combined time spent today by collaborating physician/nurse practitioner. Melissa Damon Mar 01, 2017 15:18
[2017-03-01] MEDS: REMOVE OLD DURAGESIC (FENTANYL) PATCH T-DERMAL SCH (17:19)
[2017-03-01] MEDS: fentaNYL 50 MCG/HR PATCH T-DERMAL SCH (17:19)
--- NOTE | 2017-03-01 17:19 | EKG ---
Date Performed: 02/28/2017 Time Performed: 22:28:38 PTAGE: 56 years EKG: Normal Sinus rhythm Incomplete left bundle branch block. Abnormal ECG PREVIOUS TRACING : 07/22/2015 22.11.10 DOCTOR: Hesham Green Interpretating Date/Time 03/01/2017 17:17:38
[2017-03-01] MEDS ORDERED: FUROSEMIDE 40 MG/4 ML VIAL IV PUSH ONE (19:45)
[2017-03-01] MEDS: SODIUM CHLORIDE 0.9% FLUSH 5 ML FLUSH IVF SCH (21:00)
[2017-03-01] MEDS: ACETAMINOPHEN 325 MG TAB PO PRN (21:25)
[2017-03-01] MEDS: INSULIN DETEMIR 100 UNITS/ML VIAL SQ SCH (21:30)
[2017-03-02] VITALS (7 sets, daily range): BP systolic 134–159; BP diastolic 63–70; PULSE 68–90; RESP 16–20; TEMP 97.2–98; O2SAT 95–98
[2017-03-02] MEDS: INSULIN ASPART SUPPLEMENTAL SCALE SQ SCH ×4 (06:28→20:26)
[2017-03-02] MEDS: RIFAXIMIN 550 MG TAB PO SCH ×2 (08:37→20:15)
[2017-03-02] MEDS: LACTULOSE SYRUP 20 GM/30 ML CUP PO SCH ×3 (08:37→17:36)
[2017-03-02] MEDS: CIPROFLOXACIN 250 MG TAB PO SCH (08:37)
[2017-03-02] MEDS: PANTOPRAZOLE SOD 40 MG DELAYED RELEASE TAB PO SCH (08:37)
[2017-03-02] MEDS: FERROUS SULFATE 325 MG (65 MG ELEMENTAL IRON) TAB PO SCH ×2 (08:37→20:15)
[2017-03-02] MEDS: SPIRONOLACTONE 50 MG TAB PO SCH (08:38)
[2017-03-02] MEDS: SODIUM CHLORIDE 0.9% FLUSH 5 ML FLUSH IVF SCH ×2 (08:38→20:16)
[2017-03-02] MEDS: PARoxetine HCL 20 MG TAB PO SCH (08:38)
[2017-03-02] MEDS: FUROSEMIDE 40 MG TAB PO SCH (08:38)
[2017-03-02] MEDS: DOCUSATE SODIUM 50 MG/SENNA 8.6 MG TAB PO SCH ×2 (08:38→20:16)
[2017-03-02] MEDS: ASCORBIC ACID 500 MG TAB PO SCH ×2 (08:39→20:15)
--- NOTE | 2017-03-02 10:30 | HHI.PR ---
Subjective Remarks Patient reports is feeling better. He wants to get out of bed. Still with mild headache. His is concerned about his right foot. Believes the toe lesions are worst. Objective Vitals Vital Signs Date Time Temp Pulse Resp B/P Pulse Ox O2 Delivery O2 Flow Rate FiO2 03/02/17 09:59 Nasal Cannula 3.00 21 03/02/17 09:23 97 Nasal Cannula 3.00 03/02/17 04:25 97.6 76 16 154/63 97 Automatic Cuff 03/01/17 23:12 97.9 69 16 136/75 98 03/01/17 22:45 Nasal Cannula 3.00 03/01/17 19:50 97.6 76 16 146/65 96 03/01/17 18:12 82 03/01/17 16:00 97.8 75 20 97 03/01/17 15:00 18 03/01/17 13:51 72 03/01/17 12:00 98.7 72 16 135/64 98 I/O 03/01/17 03/01/17 03/01/17 03/02/17 03/02/17 03/02/17 07:00 15:00 23:00 07:00 15:00 23:00 Intake Total 240 ml 1155 ml 240 ml 720 ml Output Total 750 ml 1000 ml 775 ml 1700 ml Balance -510 ml 155 ml -535 ml -980 ml Intake Oral 240 ml 480 ml 240 ml 720 ml IV Total 100 ml FFP 315 ml Platelets 260 ml Output Urine Total 750 ml 1000 ml 775 ml 1700 ml # Bowel Movements 1 0 0 Result Diagram: 03/01/17 0555 03/01/17 0555 Objective Remarks GENERAL: Obese male in no acute distress. More awake today. CARDIOVASCULAR: Normal rate and regular rhythm without murmurs, gallops, or rubs. RESPIRATORY: Respiratory effort is fair. Clear to auscultation bilaterally anteriorly. GASTROINTESTINAL: Abdomen is markedly distended. There is evidence of anasarca and ascites. Normal active bowel sounds. Nontender to palpation. MUSCULOSKELETAL: 1+ bilateral lower extremity edema. Right great toe and second toe with some areas of eschar. NEURO: Alert & Oriented. Normal speech. More awake today. PSYCH: Calm Procedures 02/22/2017 Bilateral parietal bur hole evacuation of chronic subdural hematoma A/P Problem List: (1) SDH (subdural hematoma) ICD Code: I62.00 Status: Acute (2) HO (nonalcoholic steatohepatitis) ICD Code: K75.81 Status: Acute (3) Cirrhosis ICD Code: K74.60 Status: Chronic (4) DM type 2 (diabetes mellitus, type 2) ICD Code: E11.9 Status: Chronic (5) CKD (chronic kidney disease) stage 3, GFR 30-59 ml/min ICD Code: N18.3 Status: Chronic Assessment and Plan 56-year-old male with a history of diabetes mellitus, HO, bacterial peritonitis who was transferred from [facility] to the Med-Surg floor due to large hematoma versus hygroma with mass effect in the brain and possible need for surgical intervention. Patient is status post bilateral bur hole and subdural hematoma evacuation. Bilateral hygroma/subdural hematoma L > R. 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 Traore is following. Surgically subdural hematoma was evacuated on 2016. Bilateral drains removed. - Platelets improving at 46K today. Hematology is following. FFP transfusions per hematology. - CT head on 02/25/2017 shows no hemorrhage. Shows hematoma decrease. - Anemia is stable today. HO, nonalcoholic steatohepatitis Liver cirrhosis with ascites Hepatic encephalopathy: Still encephalopathic. Not as baseline yet per his . - Continue Lasix 40 mg daily as well as spirolactone 50mg Qday. - Fentanyl patch, oxycodone for pain - Schedule Lactulose TID for 1-2 soft BM daily - Resume Rifaximin - Appreciate nephrology consult. Previously discussed with Dr. Park. Urine output is good on current dose of Lasix and Aldactone. Continue the same and monitor. Fluctuation of renal functions expected. -Chronic kidney disease: -Stable. Monitor with diuretics. Good urine output. Patient was seen by nephrology, Dr. Park. Recommendation is to continue Lasix and Aldactone. History of SBP with E. Coli. - s/p paracentesis 02/02/17 - Continue Cipro for prophylaxis. DM type 2: Oral intake still not great - Continue Levemir 20 units QHS, sliding scale insulin. - Discontinue scheduled NovoLog Esophageal varices - Continue pantoprazole. states he was not taking Nadolol. - Patient would benefit from beta ary to reduce risk of variceal bleed when he is more stable. Right toe eschar: Consult the patient's clinical nursing instructor Dr. Lambert. Full code. Pharmacological DVT prophylaxis contraindicated Discharge Planning Consult PT. Continue inpatient care. Kameron Roberson MD Mar 02, 2017 10:30
[2017-03-02 12:03] LABS: AUTOMATED NEUTROPHIL # 1.4 TH/MM3 (1.8-7.7); BASOPHIL % 0.8 % (0.0-2.0); EOSINOPHIL # 0.1 TH/MM3 (0-0.4); EOSINOPHIL % 4.2 % (0.0-4.0); HEMATOCRIT 21.9 % (39.0-51.0); LYMPH % 15.1 % (9.0-44.0); LYMPHOCYTE # 0.3 TH/MM3 (1.0-4.8); MEAN CELL VOLUME 97.2 FL (80.0-100.0); MEAN CORPUSCULAR HEMOGLOBIN 31.7 PG (27.0-34.0); MEAN CORPUSCULAR HGB CONC 32.6 % (32.0-36.0); MONO % 13.3 % (0.0-8.0); NEUT % 66.6 % (16.0-70.0); PLATELET COUNT 40 TH/MM3 (150-450); RED BLOOD COUNT 2.25 MIL/MM3 (4.50-5.90); RED CELL DISTRIBUTION WIDTH 15.9 % (11.6-17.2); WHITE BLOOD COUNT 2.1 TH/MM3 (4.0-11.0)
[2017-03-02 12:07] LABS: HEMO FLAGS AUTO DIFF
[2017-03-02 12:26] LABS: ALT (GPT) 36 U/L (12-78); ANION GAP 10 MEQ/L (5-15); AST (GOT) 40 U/L (15-37); BICARBONATE 23.1 MEQ/L (21.0-32.0); BLOOD UREA NITROGEN 36 MG/DL (7-18); CHLORIDE 108 MEQ/L (98-107); GLOMERULAR FILTRATION RATE 47 ML/MIN (>89); POTASSIUM 4.1 MEQ/L (3.5-5.1); SODIUM (NA) 141 MEQ/L (136-145)
[2017-03-02 12:29] LABS: ALKALINE PHOSPHATASE 177 U/L (45-117); TOTAL BILIRUBIN ADULT 3.1 MG/DL (0.2-1.0)
[2017-03-02 12:34] LABS: OVALOCYTES 1+ (NORMAL); PLATELET ESTIMATE SMEAR LOW (NORMAL); PLATELET MORPHOLOGY NORMAL (NORMAL); SCAN/DIFF AUTO DIFF CONFIRMED
--- NOTE | 2017-03-02 12:49 | HHI.NSPN ---
(Joe Maurer) History Chief Complaint: Headache (Joe Maurer) Interval History 02/19: 56-year-old gentleman who according to his family was diagnosed with liver disease approximately 8-9 years ago. She was admitted to [facility] for approximately 1 week, approximately 1 month ago for workup of ascites. He underwent a paracentesis on 02/02/2017. The fluid grew Escherichia coli. The patient's states that he was referred to [facility] where he remained for approximately a week. She states that he was in bed most of the time at [facility]. He was then discharged to rehabilitation. She states that he has had quite a bit more difficulty with ambulation since his hospitalization and [facility]. She states that he fell a few weeks ago and apparently again in the past week without loss of consciousness. The patient's seems a little uncertain whether or not he has had any mental status or speech changes, however his nurse this evening feels that he is not quite as alert or fluent in his speech over the past 2 or 3 days than he was last week. The patient states that he has noted headaches for 2 or 3 days. He apparently normally does not have headaches. Due to his difficulty with ambulation, a CT scan of the head was obtained today which has revealed subdural hematoma on the left greater than right. 02/20: Patient asleep but awakens to verbal stimuli. He has difficulty getting words out and has to think on what he says. He does state he has pain to the head although he said "No" previously when asked if he had any headache. He also has pain to the legs with some pain to the arm with the right the worse. 02/21: The patient is asleep initially when seen with Dr Traore this morning. He did complain of a headache. He intermittently would drift off and close his eyes then open them. He transferred to a regular med/surg med yesterday from [facility]. 02/22: The patient is awake and alert when seen this morning. He still has to search for what he says and at times is not able to complete his thoughts. He has no complaints other than continues right-sided weakness. 02/24: Patient awake and alert. Denies much headaches. Some periods of nausea. No paresthesias in face. No difficulty with speech. 02/25: Patient awake and alert. Complains of headache. Some nausea. No new numbness or tingling. Speech is clear 02/26: The patient is awake and alert, taking in a clear liquid diet. He states that he feels the best that he has in years since the surgery. He does have a slight headache which is improving and some low back pain, which are related to a 6 inch drop yesterday when he went for CT. 02/27: The patient is awake & alert. He does state he has some pain to the head and the back which is better now than before surgery. He reports having sat up on the side of the bed for 15 to 20 minutes. He did endorse some shortness of breath which is improved when he puts his arms down and "chills out." 02/28: The patient states that he is doing good this afternoon when seen. He has some shortness of breath and anxiety today. 03/01: The patient was initially seen with Dr Traore this morning. He continues to do well when seen later this morning. He does have some shortness of breath and wheezing. The JASON drains were removed yesterday evening. 03/02: The patient was asleep when seen this afternoon but awoke to verbal stimuli. He states he does have a headache. Since he was doing well in [facility] he was transferred to a regular med/surg floor yesterday. (Joe Maurer) System Review Comments Respiratory: The patient does have some shortness of breath but denies any wheezing or productive cough. Cardiovascular: The patient denies any chest pain, palpitation or irregular heartbeat. Gastrointestinal: The patient denies any abdominal pain, nausea, vomiting or stool incontinence. Musculoskeletal: The patient states denies any pain to the back or extremities. Neurologic: The patient has a headache. He is still with numbness to the legs without any change. He states the arms feel different but not numb. He denies dizziness. Psychiatric: The patient does not feel anxious today. (Joe Maurer) Exam Results Vital Signs Date Time Temp Pulse Resp B/P Pulse Ox O2 Delivery O2 Flow Rate FiO2 03/02/17 09:59 Nasal Cannula 3.00 21 03/02/17 09:23 97 03/02/17 08:30 97.2 80 20 134/63 Intake and Output 03/01/17 03/01/17 03/02/17 08:00 16:00 00:00 Intake Total 240 ml 1155 ml 240 ml Output Total 750 ml 1000 ml 775 ml Balance -510 ml 155 ml -535 ml (Joe Maurer) Physical Examination General: Asleep but awakens to verbal stimuli, NAD. HEENT: Bilateral alber hole incisions well-approximated with musa and bilateral JASON drains insertion sites approximated w/intact dressing, dried sanguinous drainage noted. Integumentary: Surgical incisions & JASON insertion sites w/o any evident drainage , erythema or streaking. Vascular skin changes to bilateral lower legs and feet. Respiratory: CTAB w/o W/R/R, equal excursion, nonlaboured, on NC. Cardiovascular: S1S2 w/RRR w/o M/G/R, radial & pedal pulses 2+ bilaterally, cap refill < 2 sec. Gastrointestinal: Obese, distended, non-tender, bowel sounds not appreciated. Musculoskeletal: Multiple ecchymotic areas noted to all extremities. Left foot with healed toe amputations. Neurologic: Asleep but awakens to verbal stimuli, alert after, oriented x3 Speech essentially clear & appropriate Though process slightly slow but improved Decreased sensation to all extremities, more so to BLE Motor strength 5/5 BUE & LLE and 4+/5 RLE to all major flexion & extension muscle groups except for right great toe 3+/5 (Joe Maurer) Lab, Micro, Other Results Allergies Coded Allergies Type Severity Reaction Last Updated Verified Sulfa Allergy Intermediate Nausea/Vomiting 02/09/17 Yes *MDRO Multi-Drug Resistant Organism Adverse Reaction Unknown 02/09/17 Yes 02/28//14//////// 06:00 18:00 06:00 18:00 06:00 18:00 Intake Total 1487 ml 1220 ml 970 ml 1155 ml 960 ml Output Total 2040 ml 3420 ml 1750 ml 1000 ml 2475 ml Balance -553 ml -2200 ml -780 ml 155 ml -1515 ml Intake Oral 860 ml 240 ml 720 ml 480 ml 960 ml IV Total 65 ml 100 ml Packed Cells 250 ml FFP 627 ml 627 ml 315 ml Platelets 288 ml 260 ml Output Urine Total 2025 ml 3400 ml 1750 ml 1000 ml 2475 ml Drainage Total 15 ml 20 ml # Bowel Movements 2 1 3 0 Laboratory Tests Test 02/28/17 02/28/17 02/28/17 02/28/17 05:05 09:04 11:20 23:05 White Blood Count 3.0 TH/MM3 Red Blood Count 2.33 MIL/MM3 Hemoglobin 7.4 GM/DL Hematocrit 22.7 % Mean Corpuscular Volume 97.4 FL Mean Corpuscular Hemoglobin 31.9 PG Mean Corpuscular Hemoglobin 32.7 % Concent Red Cell Distribution Width 16.7 % Platelet Count 39 TH/MM3 Mean Platelet Volume 9.5 FL Prothrombin Time 14.4 SEC Prothromb Time International 1.3 RATIO Ratio Fibrinogen 284 mg/dL Sodium Level 140 MEQ/L Potassium Level 4.3 MEQ/L Chloride Level 109 MEQ/L Carbon Dioxide Level 23.4 MEQ/L Anion Gap 8 MEQ/L Blood Urea Nitrogen 42 MG/DL Creatinine 1.54 MG/DL Estimat Glomerular Filtration 47 ML/MIN Rate Random Glucose 144 MG/DL Calcium Level 8.2 MG/DL Blood Bank Comment Blood Type O POSITIVE Antibody Screen NEGATIVE Crossmatch Leukocyte-Reduced Red Blood Cells B-Type Natriuretic Peptide 167 PG/ML Total Creatine Kinase 38 U/L Troponin I 0.02 NG/ML Test 03/01/17 03/01/17 03/01/17 03/02/17 00:02 05:55 08:54 11:42 Blood Bank Comment White Blood Count 2.3 TH/MM3 2.1 TH/MM3 Red Blood Count 2.28 MIL/MM3 2.25 MIL/MM3 Hemoglobin 7.4 GM/DL 7.1 GM/DL Hematocrit 21.9 % 21.9 % Mean Corpuscular Volume 96.2 FL 97.2 FL Mean Corpuscular Hemoglobin 32.3 PG 31.7 PG Mean Corpuscular Hemoglobin 33.6 % 32.6 % Concent Red Cell Distribution Width 16.1 % 15.9 % Platelet Count 46 TH/MM3 40 TH/MM3 Mean Platelet Volume 10.0 FL 8.9 FL Neutrophils (%) (Auto) 72.7 % 66.6 % Lymphocytes (%) (Auto) 11.0 % 15.1 % Monocytes (%) (Auto) 12.2 % 13.3 % Eosinophils (%) (Auto) 3.8 % 4.2 % Basophils (%) (Auto) 0.3 % 0.8 % Neutrophils # (Auto) 1.7 TH/MM3 1.4 TH/MM3 Lymphocytes # (Auto) 0.3 TH/MM3 0.3 TH/MM3 Monocytes # (Auto) 0.3 TH/MM3 0.3 TH/MM3 Eosinophils # (Auto) 0.1 TH/MM3 0.1 TH/MM3 Basophils # (Auto) 0.0 TH/MM3 0.0 TH/MM3 CBC Comment AUTO DIFF AUTO DIFF Differential Comment AUTO DIFF AUTO DIFF CONFIRMED CONFIRMED Ovalocytes 1+ 1+ Reticulocyte Count 3.0 % Absolute Reticulocyte Count 68.3 MIL/L Haptoglobin 83 MG/DL Prothrombin Time 14.5 SEC Prothromb Time International 1.3 RATIO Ratio Activated Partial 34.5 SEC Thromboplast Time Sodium Level 140 MEQ/L 141 MEQ/L Potassium Level 4.5 MEQ/L 4.1 MEQ/L Chloride Level 110 MEQ/L 108 MEQ/L Carbon Dioxide Level 22.2 MEQ/L 23.1 MEQ/L Anion Gap 8 MEQ/L 10 MEQ/L Blood Urea Nitrogen 40 MG/DL 36 MG/DL Creatinine 1.57 MG/DL 1.55 MG/DL Estimat Glomerular Filtration 46 ML/MIN 47 ML/MIN Rate Random Glucose 177 MG/DL 172 MG/DL Calcium Level 8.5 MG/DL 8.4 MG/DL Total Bilirubin 3.8 MG/DL 3.1 MG/DL Direct Bilirubin 1.9 MG/DL Indirect Bilirubin 1.9 MG/DL Aspartate Amino Transf 44 U/L 40 U/L (AST/SGOT) Alanine Aminotransferase 36 U/L 36 U/L (ALT/SGPT) Alkaline Phosphatase 189 U/L 177 U/L Lactate Dehydrogenase 199 U/L Total Protein 6.1 GM/DL 6.1 GM/DL Albumin 2.9 GM/DL 2.9 GM/DL Blood Type O POSITIVE Direct Antiglobulin Test NEGATIVE (Aubrie) Platelet Estimate LOW Platelet Morphology Comment NORMAL Vital Signs Date Time Temp Pulse Resp B/P Pulse Ox O2 Delivery O2 Flow Rate FiO2 03/02/17 09:59 Nasal Cannula 3.00 21 03/02/17 09:23 97 Nasal Cannula 3.00 03/02/17 08:30 97.2 80 20 134/63 98 03/02/17 04:25 97.6 76 16 154/63 97 Automatic Cuff 03/01/17 23:12 97.9 69 16 136/75 98 03/01/17 22:45 Nasal Cannula 3.00 03/01/17 19:50 97.6 76 16 146/65 96 03/01/17 18:12 82 03/01/17 16:00 97.8 75 20 97 03/01/17 15:00 18 03/01/17 13:51 72 03/01/17 12:00 98.7 72 16 135/64 98 03/01/17 09:14 95 Nasal Cannula 3.00 03/01/17 08:45 97 Nasal Cannula 3.00 03/01/17 08:00 66 03/01/17 08:00 98.4 80 20 155/67 97 03/01/17 06:00 66 03/01/17 04:00 98.1 72 22 154/50 99 03/01/17 04:00 72 03/01/17 02:00 78 03/01/17 00:00 82 03/01/17 00:00 98.2 82 22 180/58 96 02/28/17 22:00 68 02/28/17 20:00 98.0 72 22 164/69 98 02/28/17 20:00 97 Nasal Cannula 3.00 02/28/17 20:00 72 02/28/17 16:14 98.6 71 16 145/65 97 02/28/17 16:10 71 02/28/17 12:21 98.0 74 18 139/61 95 02/28/17 12:00 60 02/28/17 11:11 98 Nasal Cannula 3.00 02/28/17 10:00 60 02/28/17 09:30 98 Nasal Cannula 3.00 02/28/17 08:00 65 16 155/64 98 02/28/17 07:37 98.4 60 12 145/54 99 152/53 02/28/17 06:00 60 02/28/17 05:59 98.4 61 12 150/69 99 151/55 02/28/17 04:00 60 02/28/17 04:00 98.3 60 16 127/60 96 142/52 02/28/17 02:00 68 02/28/17 00:00 82 02/28/17 00:00 98.2 82 12 116/53 96 151/56 02/27/17 23:29 98.2 81 24 151/84 95 178/58 02/27/17 23:28 98.1 72 20 139/64 96 176/56 02/27/17 23:27 95 Nasal Cannula 3.00 02/27/17 22:00 70 02/27/17 20:00 97.8 71 16 139/53 99 152/56 02/27/17 20:00 71 02/27/17 19:00 99 Nasal Cannula 3.00 02/27/17 18:00 74 02/27/17 16:00 68 02/27/17 16:00 98.2 68 13 123/60 98 02/27/17 15:15 98.1 62 22 99 150/54 02/27/17 14:00 67 (Joe Maurer) Medical Decision Making Impression and Plan Impression: 1. Left greater than right subdural hygroma versus chronic hematoma. Patient has associated right hemiparesis. 2. Cirrhosis 3. Thrombocytopenia 4. Anaemia 5. History of chronic encephalopathy 6. History of chronic kidney disease CT brain demonstrated interval decrease in bilateral subdural collections Stable neurological status POD #7 () s/p: Bilateral parietal bur hole evacuation of chronic subdural hematoma Plan: Blood products per Hematology/Oncology Continue neuro checks Stat CT brain for any neuro worsening Mobilise patient w/assistance PT eval & tx Daily dressing changes to JASON drain insertion sites (Joe Maurer) Attending Statement I have personally seen and examined the patient on the date of this note. Pertinent documentation and study results have been reviewed by the undersigned. I have personally developed the treatment plan and performed medical decision making. Agree with findings, exam, and treatment plan as noted above. Incisions remain dry and intact Neurologic exam stable Plan to obtain follow-up CT scan head over weekend Discharge plans discussed with the patient and his in his room today (Jan Traore MD) Joe Maurer Mar 02, 2017 12:49 Jan Traore MD Mar 02, 2017 17:58
[2017-03-02] MEDS: INSULIN DETEMIR 100 UNITS/ML VIAL SQ SCH (20:25)
[2017-03-03] VITALS (8 sets, daily range): BP systolic 66–167; BP diastolic 58–78; PULSE 71–92; RESP 16–20; TEMP 97.1–97.7; O2SAT 97–99
[2017-03-03] MEDS: cloNIDine HCL 0.1 MG TAB PO PRN (00:56)
[2017-03-03] MEDS: INSULIN ASPART SUPPLEMENTAL SCALE SQ SCH ×4 (06:20→21:43)
[2017-03-03 06:52] LABS: HEMATOCRIT 22.5 % (39.0-51.0); MEAN CELL VOLUME 96.3 FL (80.0-100.0); MEAN CORPUSCULAR HEMOGLOBIN 32.3 PG (27.0-34.0); MEAN CORPUSCULAR HGB CONC 33.5 % (32.0-36.0); PLATELET COUNT 45 TH/MM3 (150-450); RED BLOOD COUNT 2.34 MIL/MM3 (4.50-5.90); WHITE BLOOD COUNT 2.2 TH/MM3 (4.0-11.0)
[2017-03-03 07:01] LABS: BICARBONATE 24.9 MEQ/L (21.0-32.0); POTASSIUM 4.2 MEQ/L (3.5-5.1)
[2017-03-03 07:03] LABS: TOTAL BILIRUBIN ADULT 2.4 MG/DL (0.2-1.0)
[2017-03-03 07:08] LABS: REVIEW FLAG FINAL
[2017-03-03] MEDS: LACTULOSE SYRUP 20 GM/30 ML CUP PO SCH ×3 (08:28→17:43)
[2017-03-03] MEDS: DOCUSATE SODIUM 50 MG/SENNA 8.6 MG TAB PO SCH ×2 (08:28→21:00)
[2017-03-03] MEDS: CIPROFLOXACIN 250 MG TAB PO SCH (08:28)
[2017-03-03] MEDS: FERROUS SULFATE 325 MG (65 MG ELEMENTAL IRON) TAB PO SCH ×2 (08:28→21:35)
[2017-03-03] MEDS: FUROSEMIDE 40 MG TAB PO SCH (08:29)
[2017-03-03] MEDS: PANTOPRAZOLE SOD 40 MG DELAYED RELEASE TAB PO SCH (08:29)
[2017-03-03] MEDS: SPIRONOLACTONE 50 MG TAB PO SCH (08:29)
[2017-03-03] MEDS: PARoxetine HCL 20 MG TAB PO SCH (08:29)
[2017-03-03] MEDS: RIFAXIMIN 550 MG TAB PO SCH ×2 (08:29→21:35)
[2017-03-03] MEDS: SODIUM CHLORIDE 0.9% FLUSH 5 ML FLUSH IVF SCH ×2 (08:29→21:47)
[2017-03-03] MEDS: ASCORBIC ACID 500 MG TAB PO SCH ×2 (08:29→21:35)
--- NOTE | 2017-03-03 11:22 | HHI.PR ---
Subjective Remarks Patient reports he is feeling ok except for mild headache. Looking forward to working with PT. Objective Vitals Vital Signs Date Time Temp Pulse Resp B/P Pulse Ox O2 Delivery O2 Flow Rate FiO2 03/03/17 10:55 Nasal Cannula 3.00 21 03/03/17 08:00 97.6 86 20 145/63 97 03/03/17 07:47 97 Nasal Cannula 2.00 03/03/17 04:00 97.1 82 16 66/ 98 03/03/17 00:00 97.7 92 18 167/78 98 03/02/17 21:11 95 Nasal Cannula 2.00 03/02/17 20:45 Nasal Cannula 3.00 03/02/17 20:00 98.0 90 16 150/63 95 03/02/17 16:00 97.8 81 20 159/70 97 03/02/17 12:30 97.4 68 20 159/69 98 I/O 03/02/17 03/02/17 03/02/17 03/03/17 03/03/17 03/03/17 07:00 15:00 23:00 07:00 15:00 23:00 Intake Total 720 ml 1500 ml 0 ml 240 ml Output Total 1700 ml 1100 ml 1175 ml 375 ml Balance -980 ml 400 ml -1175 ml -135 ml Intake Oral 720 ml 1500 ml 0 ml 240 ml Output Urine Total 1700 ml 1100 ml 1175 ml 375 ml # Bowel Movements 0 1 0 Result Diagram: 03/03/17 0615 03/03/17 0615 Objective Remarks GENERAL: Obese male in no acute distress. More awake today. CARDIOVASCULAR: Normal rate and regular rhythm without murmurs, gallops, or rubs. RESPIRATORY: Respiratory effort is fair. Clear to auscultation bilaterally anteriorly. GASTROINTESTINAL: Abdomen is markedly distended. There is evidence of anasarca and ascites. Normal active bowel sounds. Nontender to palpation. MUSCULOSKELETAL: 1+ bilateral lower extremity edema. Right great toe and second toe with some areas of eschar. NEURO: Alert & Oriented. Normal speech. More awake today. PSYCH: Calm Procedures 02/22/2017 Bilateral parietal bur hole evacuation of chronic subdural hematoma A/P Problem List: (1) SDH (subdural hematoma) ICD Code: I62.00 Status: Acute (2) HO (nonalcoholic steatohepatitis) ICD Code: K75.81 Status: Acute (3) Cirrhosis ICD Code: K74.60 Status: Chronic (4) DM type 2 (diabetes mellitus, type 2) ICD Code: E11.9 Status: Chronic (5) CKD (chronic kidney disease) stage 3, GFR 30-59 ml/min ICD Code: N18.3 Status: Chronic Assessment and Plan 56-year-old male with a history of diabetes mellitus, HO, bacterial peritonitis who was transferred from [facility] to the Med-Surg floor due to large hematoma versus hygroma with mass effect in the brain and possible need for surgical intervention. Patient is status post bilateral bur hole and subdural hematoma evacuation. Bilateral hygroma/subdural hematoma L > R. 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 Traore is following. Surgically subdural hematoma was evacuated on 2016. Bilateral drains removed. - Platelets stable at 45K today. Hematology is following. FFP transfusions per hematology. - CT head on 02/25/2017 shows no hemorrhage. Shows hematoma decrease. - Anemia is stable today. HO, nonalcoholic steatohepatitis Liver cirrhosis with ascites Hepatic encephalopathy: Still encephalopathic. Not as baseline yet per his . - Continue Lasix 40 mg daily as well as spirolactone 50mg Qday. - Fentanyl patch, oxycodone for pain - Schedule Lactulose TID for 1-2 soft BM daily - Resume Rifaximin - Appreciate nephrology consult. Previously discussed with Dr. Park. Urine output is good on current dose of Lasix and Aldactone. Continue the same and monitor. Fluctuation of renal functions expected. -Chronic kidney disease: -Stable. Monitor with diuretics. Good urine output. Patient was seen by nephrology, Dr. Park. Recommendation is to continue Lasix and Aldactone. History of SBP with E. Coli. - s/p paracentesis 02/02/17 - Continue Cipro for prophylaxis. DM type 2: Oral intake still not great - Continue Levemir 20 units QHS, sliding scale insulin. - Discontinue scheduled NovoLog Esophageal varices - Continue pantoprazole. states he was not taking Nadolol. - Patient would benefit from beta ary to reduce risk of variceal bleed when he is more stable. Right toe eschar: Consult the patient's drying machine tender Dr. Lambert. Full code. Pharmacological DVT prophylaxis contraindicated Discharge Planning Consult PT. Continue inpatient care. inpatient rehab soon. Kameron Roberson MD Mar 03, 2017 11:22
--- NOTE | 2017-03-03 11:38 | HHI.NSPN ---
(Joe Maurer) History Chief Complaint: Headache (Joe Maurer) Interval History 02/19: 56-year-old gentleman who according to his family was diagnosed with liver disease approximately 8-9 years ago. She was admitted to [facility] for approximately 1 week, approximately 1 month ago for workup of ascites. He underwent a paracentesis on 02/02/2017. The fluid grew Escherichia coli. The patient's states that he was referred to [facility] where he remained for approximately a week. She states that he was in bed most of the time at [facility]. He was then discharged to rehabilitation. She states that he has had quite a bit more difficulty with ambulation since his hospitalization and [facility]. She states that he fell a few weeks ago and apparently again in the past week without loss of consciousness. The patient's seems a little uncertain whether or not he has had any mental status or speech changes, however his nurse this evening feels that he is not quite as alert or fluent in his speech over the past 2 or 3 days than he was last week. The patient states that he has noted headaches for 2 or 3 days. He apparently normally does not have headaches. Due to his difficulty with ambulation, a CT scan of the head was obtained today which has revealed subdural hematoma on the left greater than right. 02/20: Patient asleep but awakens to verbal stimuli. He has difficulty getting words out and has to think on what he says. He does state he has pain to the head although he said "No" previously when asked if he had any headache. He also has pain to the legs with some pain to the arm with the right the worse. 02/21: The patient is asleep initially when seen with Dr Traore this morning. He did complain of a headache. He intermittently would drift off and close his eyes then open them. He transferred to a regular med/surg med yesterday from [facility]. 02/22: The patient is awake and alert when seen this morning. He still has to search for what he says and at times is not able to complete his thoughts. He has no complaints other than continues right-sided weakness. 02/24: Patient awake and alert. Denies much headaches. Some periods of nausea. No paresthesias in face. No difficulty with speech. 02/25: Patient awake and alert. Complains of headache. Some nausea. No new numbness or tingling. Speech is clear 02/26: The patient is awake and alert, taking in a clear liquid diet. He states that he feels the best that he has in years since the surgery. He does have a slight headache which is improving and some low back pain, which are related to a 6 inch drop yesterday when he went for CT. 02/27: The patient is awake & alert. He does state he has some pain to the head and the back which is better now than before surgery. He reports having sat up on the side of the bed for 15 to 20 minutes. He did endorse some shortness of breath which is improved when he puts his arms down and "chills out." 02/28: The patient states that he is doing good this afternoon when seen. He has some shortness of breath and anxiety today. 03/01: The patient was initially seen with Dr Traore this morning. He continues to do well when seen later this morning. He does have some shortness of breath and wheezing. The JASON drains were removed yesterday evening. 03/02: The patient was asleep when seen this afternoon but awoke to verbal stimuli. He states he does have a headache. Since he was doing well in [facility] he was transferred to a regular med/surg floor yesterday. 03/03: The patient is asleep but awakens to verbal stimuli. He does endorse a headache when asked. (Joe MaurerP) System Review Comments Respiratory: The patient does have some shortness of breath but denies any wheezing or productive cough. Cardiovascular: The patient denies any chest pain, palpitation or irregular heartbeat. Gastrointestinal: The patient denies any abdominal pain, nausea, vomiting or stool incontinence. Musculoskeletal: The patient states denies any pain to the back or extremities. Neurologic: The patient does have a headache when seen. The numbness persists to the legs without any change. His arms feel different but not numb. He denies dizziness. Psychiatric: The patient denies any anxiety. (Joe Maurer) Exam Results Vital Signs Date Time Temp Pulse Resp B/P Pulse Ox O2 Delivery O2 Flow Rate FiO2 03/03/17 10:55 Nasal Cannula 3.00 21 03/03/17 08:00 97.6 86 20 145/63 97 Intake and Output 03/02/17 03/02/17 03/03/17 08:00 16:00 00:00 Intake Total 720 ml 1500 ml 0 ml Output Total 1700 ml 1100 ml 1175 ml Balance -980 ml 400 ml -1175 ml (Joe Maurer) Physical Examination General: Asleep but awakens to verbal stimuli, NAD. HEENT: Bilateral alber hole incisions well-approximated with musa and bilateral JASON drains insertion sites approximated w/intact dressing, dried sanguinous drainage noted. Integumentary: Surgical incisions & JASON insertion sites w/o any evident drainage , erythema or streaking. Vascular skin changes to bilateral lower legs and feet. Respiratory: CTAB w/o W/R/R, equal excursion, nonlaboured, on NC. Cardiovascular: S1S2 w/RRR w/o M/G/R, radial & pedal pulses 2+ bilaterally, cap refill < 2 sec. Gastrointestinal: Obese, distended, non-tender, bowel sounds not appreciated. Musculoskeletal: Multiple ecchymotic areas noted to all extremities. Left foot with healed toe amputations. Neurologic: Asleep but awakens to verbal stimuli, alert after, oriented x3 Speech clear & appropriate Though process slightly slow Decreased sensation to all extremities, more so to BLE Motor strength 5/5 BUE & LLE and 4+/5 RLE to all major flexion & extension muscle groups except for right great toe 3+/5 (Joe Maurer) Lab, Micro, Other Results Allergies Coded Allergies Type Severity Reaction Last Updated Verified Sulfa Allergy Intermediate Nausea/Vomiting 02/09/17 Yes *MDRO Multi-Drug Resistant Organism Adverse Reaction Unknown 02/09/17 Yes /////// 06:00 18:00 06:00 18:00 06:00 18:00 Intake Total 970 ml 1155 ml 960 ml 1500 ml 240 ml Output Total 1750 ml 1000 ml 2475 ml 1100 ml 1550 ml Balance -780 ml 155 ml -1515 ml 400 ml -1310 ml Intake Oral 720 ml 480 ml 960 ml 1500 ml 240 ml IV Total 100 ml Packed Cells 250 ml FFP 315 ml Platelets 260 ml Output Urine Total 1750 ml 1000 ml 2475 ml 1100 ml 1550 ml # Bowel Movements 3 0 1 Laboratory Tests Test 02/28/17 03/01/17 03/01/17 03/01/17 23:05 00:02 05:55 08:54 B-Type Natriuretic Peptide 167 PG/ML Total Creatine Kinase 38 U/L Troponin I 0.02 NG/ML Blood Bank Comment White Blood Count 2.3 TH/MM3 Red Blood Count 2.28 MIL/MM3 Hemoglobin 7.4 GM/DL Hematocrit 21.9 % Mean Corpuscular Volume 96.2 FL Mean Corpuscular Hemoglobin 32.3 PG Mean Corpuscular Hemoglobin 33.6 % Concent Red Cell Distribution Width 16.1 % Platelet Count 46 TH/MM3 Mean Platelet Volume 10.0 FL Neutrophils (%) (Auto) 72.7 % Lymphocytes (%) (Auto) 11.0 % Monocytes (%) (Auto) 12.2 % Eosinophils (%) (Auto) 3.8 % Basophils (%) (Auto) 0.3 % Neutrophils # (Auto) 1.7 TH/MM3 Lymphocytes # (Auto) 0.3 TH/MM3 Monocytes # (Auto) 0.3 TH/MM3 Eosinophils # (Auto) 0.1 TH/MM3 Basophils # (Auto) 0.0 TH/MM3 CBC Comment AUTO DIFF Differential Comment AUTO DIFF CONFIRMED Ovalocytes 1+ Reticulocyte Count 3.0 % Absolute Reticulocyte Count 68.3 MIL/L Haptoglobin 83 MG/DL Prothrombin Time 14.5 SEC Prothromb Time International 1.3 RATIO Ratio Activated Partial 34.5 SEC Thromboplast Time Sodium Level 140 MEQ/L Potassium Level 4.5 MEQ/L Chloride Level 110 MEQ/L Carbon Dioxide Level 22.2 MEQ/L Anion Gap 8 MEQ/L Blood Urea Nitrogen 40 MG/DL Creatinine 1.57 MG/DL Estimat Glomerular Filtration 46 ML/MIN Rate Random Glucose 177 MG/DL Calcium Level 8.5 MG/DL Total Bilirubin 3.8 MG/DL Direct Bilirubin 1.9 MG/DL Indirect Bilirubin 1.9 MG/DL Aspartate Amino Transf 44 U/L (AST/SGOT) Alanine Aminotransferase 36 U/L (ALT/SGPT) Alkaline Phosphatase 189 U/L Lactate Dehydrogenase 199 U/L Total Protein 6.1 GM/DL Albumin 2.9 GM/DL Blood Type O POSITIVE Direct Antiglobulin Test NEGATIVE (Aubrie) Test 03/02/17 03/03/17 11:42 06:15 White Blood Count 2.1 TH/MM3 2.2 TH/MM3 Red Blood Count 2.25 MIL/MM3 2.34 MIL/MM3 Hemoglobin 7.1 GM/DL 7.6 GM/DL Hematocrit 21.9 % 22.5 % Mean Corpuscular Volume 97.2 FL 96.3 FL Mean Corpuscular Hemoglobin 31.7 PG 32.3 PG Mean Corpuscular Hemoglobin 32.6 % 33.5 % Concent Red Cell Distribution Width 15.9 % 16.0 % Platelet Count 40 TH/MM3 45 TH/MM3 Mean Platelet Volume 8.9 FL 9.5 FL Neutrophils (%) (Auto) 66.6 % Lymphocytes (%) (Auto) 15.1 % Monocytes (%) (Auto) 13.3 % Eosinophils (%) (Auto) 4.2 % Basophils (%) (Auto) 0.8 % Neutrophils # (Auto) 1.4 TH/MM3 Lymphocytes # (Auto) 0.3 TH/MM3 Monocytes # (Auto) 0.3 TH/MM3 Eosinophils # (Auto) 0.1 TH/MM3 Basophils # (Auto) 0.0 TH/MM3 CBC Comment AUTO DIFF Differential Comment AUTO DIFF CONFIRMED Platelet Estimate LOW Platelet Morphology Comment NORMAL Ovalocytes 1+ Sodium Level 141 MEQ/L 141 MEQ/L Potassium Level 4.1 MEQ/L 4.2 MEQ/L Chloride Level 108 MEQ/L 109 MEQ/L Carbon Dioxide Level 23.1 MEQ/L 24.9 MEQ/L Anion Gap 10 MEQ/L 7 MEQ/L Blood Urea Nitrogen 36 MG/DL 37 MG/DL Creatinine 1.55 MG/DL 1.56 MG/DL Estimat Glomerular Filtration 47 ML/MIN 46 ML/MIN Rate Random Glucose 172 MG/DL 258 MG/DL Calcium Level 8.4 MG/DL 8.6 MG/DL Total Bilirubin 3.1 MG/DL 2.4 MG/DL Aspartate Amino Transf 40 U/L 50 U/L (AST/SGOT) Alanine Aminotransferase 36 U/L 37 U/L (ALT/SGPT) Alkaline Phosphatase 177 U/L 189 U/L Total Protein 6.1 GM/DL 6.1 GM/DL Albumin 2.9 GM/DL 2.8 GM/DL Direct Bilirubin 1.4 MG/DL Indirect Bilirubin 1.0 MG/DL Vital Signs Date Time Temp Pulse Resp B/P Pulse Ox O2 Delivery O2 Flow Rate FiO2 03/03/17 10:55 Nasal Cannula 3.00 21 03/03/17 08:00 97.6 86 20 145/63 97 03/03/17 07:47 97 Nasal Cannula 2.00 03/03/17 04:00 97.1 82 16 66/ 98 03/03/17 00:00 97.7 92 18 167/78 98 03/02/17 21:11 95 Nasal Cannula 2.00 03/02/17 20:45 Nasal Cannula 3.00 03/02/17 20:00 98.0 90 16 150/63 95 03/02/17 16:00 97.8 81 20 159/70 97 03/02/17 12:30 97.4 68 20 159/69 98 03/02/17 09:59 Nasal Cannula 3.00 21 03/02/17 09:23 97 Nasal Cannula 3.00 03/02/17 08:30 97.2 80 20 134/63 98 03/02/17 04:25 97.6 76 16 154/63 97 Automatic Cuff 03/01/17 23:12 97.9 69 16 136/75 98 03/01/17 22:45 Nasal Cannula 3.00 03/01/17 19:50 97.6 76 16 146/65 96 03/01/17 18:12 82 03/01/17 16:00 97.8 75 20 97 03/01/17 15:00 18 03/01/17 13:51 72 03/01/17 12:00 98.7 72 16 135/64 98 03/01/17 09:14 95 Nasal Cannula 3.00 03/01/17 08:45 97 Nasal Cannula 3.00 03/01/17 08:00 66 03/01/17 08:00 98.4 80 20 155/67 97 03/01/17 06:00 66 03/01/17 04:00 98.1 72 22 154/50 99 03/01/17 04:00 72 03/01/17 02:00 78 03/01/17 00:00 82 03/01/17 00:00 98.2 82 22 180/58 96 02/28/17 22:00 68 02/28/17 20:00 98.0 72 22 164/69 98 02/28/17 20:00 97 Nasal Cannula 3.00 02/28/17 20:00 72 02/28/17 16:14 98.6 71 16 145/65 97 02/28/17 16:10 71 02/28/17 12:21 98.0 74 18 139/61 95 02/28/17 12:00 60 (Joe Maurer) Medical Decision Making Impression and Plan Impression: 1. Left greater than right subdural hygroma versus chronic hematoma. Patient has associated right hemiparesis. 2. Cirrhosis 3. Thrombocytopenia 4. Anaemia 5. History of chronic encephalopathy 6. History of chronic kidney disease CT brain demonstrated interval decrease in bilateral subdural collections Stable neurological status POD #9 () s/p: Bilateral parietal bur hole evacuation of chronic subdural hematoma Plan: CT brain w/o contrast for follow up Blood products per Hematology/Oncology Continue neuro checks Stat CT brain for any neuro worsening Mobilise patient w/assistance PT eval & tx Daily dressing changes to JASON drain insertion sites (Joe Maurer) Attending Statement I have personally seen and examined the patient on the date of this note. Pertinent documentation and study results have been reviewed by the undersigned. I have personally developed the treatment plan and performed medical decision making. Agree with findings, exam, and treatment plan as noted above. Incisions remained dry and intact. No new neurologic changes. Continue monitoring coagulation profile per hematology. Mobilize out of bed as tolerated from neurosurgical standpoint. Stable for discharge back to inpatient rehabilitation as indicated. (Jan Traore MD) Joe Maurer Mar 03, 2017 11:38 Jan Traore MD Mar 03, 2017 15:14
--- NOTE | 2017-03-03 13:57 | RADRPT ---
EXAM DATE/TIME: 03/03/2017 13:21 [place] COMPARISON: CT BRAIN W/O CONTRAST, February 23, 2017, 4:58. CT BRAIN W/O CONTRAST, February 25, 2017, 5:11. INDICATIONS : Status post craniotomy. RADIATION DOSE: 68.66 CTDIvol (mGy) MEDICAL HISTORY : hepatic encephalopathy, cirrhosis SURGICAL HISTORY : Gastric bypass. Craniotomy. ENCOUNTER: Initial ACUITY: 1 day PAIN SCALE: 0/10 LOCATION: Bilateral head TECHNIQUE: Multiple contiguous axial images were obtained of the head. Using automated exposure control and adj ustment of the mA and/or kV according to patient size, radiation dose was kept as low as reasonably a chievable to obtain optimal diagnostic quality images. FINDINGS: There has been interval removal of bilateral subdural drainage catheters decreased gas and primarily low density subdural collections bilaterally now measuring approximately 1.8 cm on the left compared to 1.9 cm on prior exam and 1.2 cm on the right compared to 1.4 cm on prior exam. Trace amount of inc reased density in the left collection corresponds to the course of drainage catheter. Otherwise, no n ew intercurrent hemorrhage. There is also slight interval improved subfalcine rightward herniation no w measuring 3 mm in comparison to 5 mm on prior exam. Ventricles are otherwise normal in size. There is grossly normal severino-white matter differentiation. Brainstem and cerebellum are grossly unremarkabl e. Cisterns are maintained. Remainder of exam is stable. CONCLUSION: 1. Interval removal of bilateral subdural drainage catheters with continued improving bilateral subdu ral collections. Trace amount of blood products in the left subdural collection corresponds to the pr evious subdural catheter course. Otherwise, no intercurrent hemorrhage or significant interval change . Dagoberto Bond MD on March 03, 2017 at 13: 2. 46 Board Certified Radiologist. This report was verified electronically.
[2017-03-03] MEDS: INSULIN DETEMIR 100 UNITS/ML VIAL SQ SCH (21:44)
--- NOTE | 2017-03-03 22:16 | PD.CONS ---
History of Present Illness Service Ulcers R plantar hallux, R dorsal 2nd toe Consult Requested By Primary Care Physician Kylie Ramos MD Diagnoses: History of Present Illness 56-year-old male with long history of recurring ulcers to R plantar hallux. Has new wound area dorsal 2nd toe. No purulence noted. concerned. Past Family Social History Allergies: Coded Allergies: Sulfa (Verified Allergy, Intermediate, Nausea/Vomiting, 02/09/17) *MDRO Multi-Drug Resistant Organism (Verified Adverse Reaction, Unknown, ) MRSA (left foot) 2007 MRSA PCR Screen NEGATIVE - 04/22/2015, 09/26/2015 CLEARED BY INFECTION CONTROL Past Medical History Mckeon cirrhosis Bacterial peritonitis with E. Coli. Spheno-megaly Trauma cytopenia Ascites History of esophageal varices present EGD in 2014 Hepatic cephalopathy Hyperlipidemia Diabetes mellitus type 2 uncontrolled Chronic kidney disease History of cellulitis With infection the foot Tinea corporis Diabetic neuropathy Diabetic nephropathy Past Surgical History Cholecystitis Excision of malignant lesion on the trunk Foot surgery Left knee surgery Right knee arthroscopy Nerve block paravertebral facet joint lumbar level Gastric bypass surgery in 2009 Left shoulder surgery Left elbow surgery Left great toe amputation 2 Active Ordered Medications Current Medications Medications (Trade) Dose Ordered Sig/Vielka Route Start Time Stop Time Status Last Admin (Tylenol) 500 mg Q6H PRN PO 02/20/17 16:15 03/01/17 21:25 (Zofran Inj) 4 mg Q6H PRN IVP 02/20/17 16:15 02/21/17 10:54 (Narcan Inj) 0.4 mg UNSCH PRN IV 02/20/17 16:15 (Gale-Colace) 1 tab BID PO 02/20/17 21:00 03/03/17 08:28 (Milk Of Magnesia Liq) 30 ml Q12H PRN PO 02/20/17 16:15 (Senokot) 17.2 mg Q12H PRN PO 02/20/17 16:15 (Dulcolax Supp) 10 mg DAILY PRN RECTAL 02/20/17 16:15 (Lactulose Liq) 30 ml DAILY PRN PO 02/20/17 16:15 (D50w (Vial) Inj) 50 ml UNSCH PRN IV 02/20/17 16:30 (Glucagon Inj) 1 mg UNSCH PRN OTHER 02/20/17 16:30 (Ferrous Sulfate) 325 mg BID PO 02/20/17 21:00 03/03/17 21:35 (Aldactone) 50 mg DAILY PO 02/21/17 09:00 03/03/17 08:29 (Vitamin C) 500 mg BID PO 02/20/17 21:00 03/03/17 21:35 (Cipro) 250 mg DAILY PO 02/21/17 09:00 03/03/17 08:28 (Lasix) 40 mg DAILY PO 02/21/17 09:00 03/03/17 08:29 (Paxil) 30 mg DAILY PO 02/21/17 09:00 03/03/17 08:29 (Protonix) 40 mg DAILY PO 02/21/17 09:00 03/03/17 08:29 (Duragesic 50 Mcg Patch.72 Hr) 1 patch Q3D T-DERMAL 02/20/17 18:00 03/01/17 17:19 Miscellaneous Information 1 Q3D T-DERMAL 02/23/17 18:00 03/01/17 17:19 (Pill Splitter) 1 ea UNSCH PRN OTHER 02/20/17 17:15 (NS Flush) 2 ml UNSCH PRN IVF 02/22/17 16:15 IV Flush 2 ml 2 ml BID IVF 02/22/17 21:00 03/03/17 21:47 (Cardene Inj/NS 250 ml Inj) 260 ml @ 0 mls/hr TITRATE PRN IV 02/22/17 16:30 02/25/17 10:22 (Levemir Inj) 20 units HS SQ 02/24/17 21:00 03/03/17 21:44 (Catapres) 0.1 mg Q6H PRN PO 02/26/17 12:00 03/03/17 00:56 (Roxicodone) 10 mg Q4HR PRN PO 02/27/17 08:00 03/03/17 17:43 (Lactulose Liq) 30 ml TID PO 02/27/17 13:00 03/03/17 17:43 (Xifaxan) 550 mg Q12HR PO 02/27/17 21:00 03/03/17 21:35 Family History Mother of cancer unknown Father of pancreatic and liver cancer One sister last year, unknown medical history Social History Denies alcohol use Denies tobacco use Denies illicit drug use Physical Exam Vital Signs Vital Signs Date Time Temp Pulse Resp B/P Pulse Ox O2 Delivery O2 Flow Rate FiO2 03/03/17 20:19 98 Nasal Cannula 2.00 03/03/17 20:00 97.5 81 16 143/61 97 03/03/17 16:00 97.6 71 20 129/58 99 03/03/17 12:00 97.7 77 20 166/71 97 03/03/17 10:55 Nasal Cannula 3.00 21 03/03/17 08:00 97.6 86 20 145/63 97 03/03/17 07:47 97 Nasal Cannula 2.00 03/03/17 04:00 97.1 82 16 66/ 98 03/03/17 00:00 97.7 92 18 167/78 98 Physical Exam R plantar hallux with hyperkeratotic buildup noted with central open full thickness ulceration 0.2cm x 0.3cm x 0.2cm depth. 50/50 fibrogranular base. No purulence, no erythema, no edema, no sign of infection present at this time. R dorsal 2nd digit DIPJ area with full thickness ulceration 0.1cm x 0.1cm x 0.1cm depth. 50/50 fibrogranular base. No purulence, no erythema, no edema, no sign of infection present at this time. Laboratory Laboratory Tests Test 03/03/17 06:15 White Blood Count 2.2 Red Blood Count 2.34 Hemoglobin 7.6 Hematocrit 22.5 Mean Corpuscular Volume 96.3 Mean Corpuscular Hemoglobin 32.3 Mean Corpuscular Hemoglobin 33.5 Concent Red Cell Distribution Width 16.0 Platelet Count 45 Mean Platelet Volume 9.5 Sodium Level 141 Potassium Level 4.2 Chloride Level 109 Carbon Dioxide Level 24.9 Anion Gap 7 Blood Urea Nitrogen 37 Creatinine 1.56 Estimat Glomerular Filtration 46 Rate Random Glucose 258 Calcium Level 8.6 Total Bilirubin 2.4 Direct Bilirubin 1.4 Indirect Bilirubin 1.0 Aspartate Amino Transf 50 (AST/SGOT) Alanine Aminotransferase 37 (ALT/SGPT) Alkaline Phosphatase 189 Total Protein 6.1 Albumin 2.8 Result Diagram: 03/03/17 0615 03/03/17 0615 Imaging Last Impressions Head CT 03/03/17 0000 Signed Impressions: Service Date/Time: Friday, March 03, 2017 13:21 - CONCLUSION: 1. Interval removal of bilateral subdural drainage catheters with continued improving bilateral subdural collections. Trace amount of blood products in the left subdural collection corresponds to the previous subdural catheter course. Otherwise, no intercurrent hemorrhage or significant interval change. Dagoberto Bond MD Chest X-Ray 02/25/17 0000 Signed Impressions: Service Date/Time: Saturday, February 25, 2017 20:10 - CONCLUSION: Interval development of bilateral mid and lower lung consolidative infiltrates. Jorge Renteria MD Assessment and Plan Assessment and Plan Stable ulcers R plantar hallux, R dorsal 2nd toe Excisional debridement performed with #15 blade of hyperkeratotic and fibrotic tissue down to healthy bleeding subcutaneous tissue to both areas Dressing daily with gentamicin cream, dry sterile adhesive bandage to both areas. Follow up with Dr Lambert in 1 week after discharge Wear surgical shoe when ambulating to R foot. Kenney Jaramillo DPM Mar 03, 2017 22:16
[2017-03-04] VITALS (8 sets, daily range): BP systolic 148–158; BP diastolic 66–71; PULSE 71–85; RESP 14–22; TEMP 97.4–98.3; O2SAT 96–99
[2017-03-04] MEDS: GENTAMICIN SULFATE 0.1% CREAM 15 GM TOPICAL SCH ×2 (00:56→09:00)
[2017-03-04] MEDS: INSULIN ASPART SUPPLEMENTAL SCALE SQ SCH ×4 (05:19→21:47)
[2017-03-04 06:47] LABS: HEMATOCRIT 21.9 % (39.0-51.0); MEAN CELL VOLUME 96.5 FL (80.0-100.0); MEAN CORPUSCULAR HEMOGLOBIN 31.4 PG (27.0-34.0); MEAN CORPUSCULAR HGB CONC 32.6 % (32.0-36.0); PLATELET COUNT 40 TH/MM3 (150-450); RED BLOOD COUNT 2.27 MIL/MM3 (4.50-5.90); RED CELL DISTRIBUTION WIDTH 15.9 % (11.6-17.2); WHITE BLOOD COUNT 2.4 TH/MM3 (4.0-11.0)
[2017-03-04 06:55] LABS: REVIEW FLAG FINAL
[2017-03-04 07:08] LABS: BICARBONATE 25.2 MEQ/L (21.0-32.0); POTASSIUM 3.8 MEQ/L (3.5-5.1)
[2017-03-04] MEDS: SODIUM CHLORIDE 0.9% FLUSH 5 ML FLUSH IVF SCH ×2 (09:00→21:21)
--- NOTE | 2017-03-04 09:04 | HHI.PR ---
Subjective Remarks Patient reports is feeling okay. Denies increasing shortness of breath. His is concerned about ascites and his pain medications. She believes he is receiving too much pain medication. She would like him to be back on his home regimen of oxycodone. Objective Vitals Vital Signs Date Time Temp Pulse Resp B/P Pulse Ox O2 Delivery O2 Flow Rate FiO2 03/04/17 08:00 97.4 71 22 151/67 99 03/04/17 04:00 97.6 74 14 150/67 99 03/04/17 00:00 98.3 75 14 158/71 99 03/03/17 21:45 Nasal Cannula 2.00 03/03/17 20:19 98 Nasal Cannula 2.00 03/03/17 20:00 97.5 81 16 143/61 97 03/03/17 16:00 97.6 71 20 129/58 99 03/03/17 12:00 97.7 77 20 166/71 97 03/03/17 10:55 Nasal Cannula 3.00 21 I/O 03/03/17 03/03/17 03/03/17 03/04/17 03/04/17 03/04/17 07:00 15:00 23:00 07:00 15:00 23:00 Intake Total 240 ml 1050 ml Output Total 375 ml 950 ml 750 ml 550 ml Balance -135 ml 100 ml -750 ml -550 ml Intake Oral 240 ml 1050 ml Output Urine Total 375 ml 950 ml 750 ml 550 ml # Bowel Movements 0 0 1 Result Diagram: 03/04/1762103/04/17621 Objective Remarks GENERAL: Obese male in no acute distress. More awake today. CARDIOVASCULAR: Normal rate and regular rhythm without murmurs, gallops, or rubs. RESPIRATORY: Respiratory effort is fair. Clear to auscultation bilaterally anteriorly. GASTROINTESTINAL: Abdomen is markedly distended. There is evidence of anasarca and ascites. Normal active bowel sounds. Nontender to palpation. MUSCULOSKELETAL: 1+ bilateral lower extremity edema. NEURO: Alert & Oriented. Normal speech. More awake today. PSYCH: Calm Procedures 02/22/2017 Bilateral parietal bur hole evacuation of chronic subdural hematoma A/P Problem List: (1) SDH (subdural hematoma) ICD Code: I62.00 Status: Acute (2) HO (nonalcoholic steatohepatitis) ICD Code: K75.81 Status: Acute (3) Cirrhosis ICD Code: K74.60 Status: Chronic (4) DM type 2 (diabetes mellitus, type 2) ICD Code: E11.9 Status: Chronic (5) CKD (chronic kidney disease) stage 3, GFR 30-59 ml/min ICD Code: N18.3 Status: Chronic Assessment and Plan 56-year-old male with a history of diabetes mellitus, HO, bacterial peritonitis who was transferred from [facility] to the Med-Surg floor due to large hematoma versus hygroma with mass effect in the brain and possible need for surgical intervention. Patient is status post bilateral bur hole and subdural hematoma evacuation. Bilateral hygroma/subdural hematoma L > R. 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 Traore is following. Surgically subdural hematoma was evacuated on 2016. Bilateral drains removed. - Platelets stable at 40K today. Hematology is following. FFP transfusions per hematology. - CT head on 02/25/2017 shows no hemorrhage. Shows hematoma decrease. - Anemia is stable today. HO, nonalcoholic steatohepatitis Liver cirrhosis with ascites Hepatic encephalopathy: Still encephalopathic. Not as baseline yet per his . - Continue Lasix 40 mg daily as well as spirolactone 50mg Qday. - Fentanyl patch, oxycodone for pain - Schedule Lactulose TID for 1-2 soft BM daily - Resume Rifaximin - Appreciate nephrology consult. Previously discussed with Dr. Park. Urine output is good on current dose of Lasix and Aldactone. Continue the same and monitor. Fluctuation of renal functions expected. - Discussed with his that he does not appear to be stable enough for paracentesis currently. Will certainly entertained paracentesis once his platelets and anemia improved. - Change fentanyl patches 75 g and decrease oxycodone to 5 mg. -Chronic kidney disease: -Stable. Monitor with diuretics. Good urine output. Patient was seen by nephrology, Dr. Park. Recommendation is to continue Lasix and Aldactone. History of SBP with E. Coli. - s/p paracentesis 02/02/17 - Continue Cipro for prophylaxis. DM type 2: Oral intake still not great - Continue Levemir 20 units QHS, sliding scale insulin. - Discontinue scheduled NovoLog Esophageal varices - Continue pantoprazole. states he was not taking Nadolol. - Patient would benefit from beta ary to reduce risk of variceal bleed when he is more stable. Right toe eschar: Podiatry following. Status post bedside debridement. Full code. Pharmacological DVT prophylaxis contraindicated Discharge Planning Consult PT. Continue inpatient care. Will need inpatient rehab soon. Kameron Roberson MD Mar 04, 2017 09:03
[2017-03-04] MEDS: PANTOPRAZOLE SOD 40 MG DELAYED RELEASE TAB PO SCH (09:47)
[2017-03-04] MEDS: DOCUSATE SODIUM 50 MG/SENNA 8.6 MG TAB PO SCH ×2 (09:47→21:00)
[2017-03-04] MEDS: LACTULOSE SYRUP 20 GM/30 ML CUP PO SCH ×3 (09:47→17:33)
[2017-03-04] MEDS: ASCORBIC ACID 500 MG TAB PO SCH ×2 (09:47→21:21)
[2017-03-04] MEDS: SPIRONOLACTONE 50 MG TAB PO SCH (09:48)
[2017-03-04] MEDS: CIPROFLOXACIN 250 MG TAB PO SCH (09:48)
[2017-03-04] MEDS: FUROSEMIDE 40 MG TAB PO SCH (09:48)
[2017-03-04] MEDS: RIFAXIMIN 550 MG TAB PO SCH ×2 (09:48→21:20)
[2017-03-04] MEDS: FERROUS SULFATE 325 MG (65 MG ELEMENTAL IRON) TAB PO SCH ×2 (09:48→21:21)
[2017-03-04] MEDS: PARoxetine HCL 20 MG TAB PO SCH (09:48)
--- NOTE | 2017-03-04 11:22 | HHI.NSPN ---
(Joe Maurer) History Chief Complaint: Head pain (Joe Maurer) Interval History 02/19: 56-year-old gentleman who according to his family was diagnosed with liver disease approximately 8-9 years ago. She was admitted to [facility] for approximately 1 week, approximately 1 month ago for workup of ascites. He underwent a paracentesis on 02/02/2017. The fluid grew Escherichia coli. The patient's states that he was referred to [facility] where he remained for approximately a week. She states that he was in bed most of the time at [facility]. He was then discharged to rehabilitation. She states that he has had quite a bit more difficulty with ambulation since his hospitalization and [facility]. She states that he fell a few weeks ago and apparently again in the past week without loss of consciousness. The patient's seems a little uncertain whether or not he has had any mental status or speech changes, however his nurse this evening feels that he is not quite as alert or fluent in his speech over the past 2 or 3 days than he was last week. The patient states that he has noted headaches for 2 or 3 days. He apparently normally does not have headaches. Due to his difficulty with ambulation, a CT scan of the head was obtained today which has revealed subdural hematoma on the left greater than right. 02/20: Patient asleep but awakens to verbal stimuli. He has difficulty getting words out and has to think on what he says. He does state he has pain to the head although he said "No" previously when asked if he had any headache. He also has pain to the legs with some pain to the arm with the right the worse. 02/21: The patient is asleep initially when seen with Dr Traore this morning. He did complain of a headache. He intermittently would drift off and close his eyes then open them. He transferred to a regular med/surg med yesterday from [facility]. 02/22: The patient is awake and alert when seen this morning. He still has to search for what he says and at times is not able to complete his thoughts. He has no complaints other than continues right-sided weakness. 02/24: Patient awake and alert. Denies much headaches. Some periods of nausea. No paresthesias in face. No difficulty with speech. 02/25: Patient awake and alert. Complains of headache. Some nausea. No new numbness or tingling. Speech is clear 02/26: The patient is awake and alert, taking in a clear liquid diet. He states that he feels the best that he has in years since the surgery. He does have a slight headache which is improving and some low back pain, which are related to a 6 inch drop yesterday when he went for CT. 02/27: The patient is awake & alert. He does state he has some pain to the head and the back which is better now than before surgery. He reports having sat up on the side of the bed for 15 to 20 minutes. He did endorse some shortness of breath which is improved when he puts his arms down and "chills out." 02/28: The patient states that he is doing good this afternoon when seen. He has some shortness of breath and anxiety today. 03/01: The patient was initially seen with Dr Traore this morning. He continues to do well when seen later this morning. He does have some shortness of breath and wheezing. The JASON drains were removed yesterday evening. 03/02: The patient was asleep when seen this afternoon but awoke to verbal stimuli. He states he does have a headache. Since he was doing well in [facility] he was transferred to a regular med/surg floor yesterday. 03/03: The patient is asleep but awakens to verbal stimuli. He does endorse a headache when asked. 03/04: The patient is doing well this morning when seen. His states that he complains of pain to the head when being moved which he endorses. When asked to describe it he is unable to and he is not able to say whether it is a headache or to the scalp. He also endorses some shortness of breath. (Joe Maurer) System Review Comments Respiratory: The patient does have some shortness of breath but denies any wheezing or productive cough. Cardiovascular: The patient denies any chest pain, palpitation or irregular heartbeat. Gastrointestinal: The patient denies any abdominal pain, nausea, vomiting or stool incontinence. Musculoskeletal: The patient denies any pain to the back or extremities. Neurologic: The patient states that he has head pain but is unable to differentiate whether it is a headache or to the scalp. The numbness persists to the legs without any change. His arms feel different but not numb. He denies dizziness. Psychiatric: The patient denies any anxiety. (Joe Maurer) Exam Results Vital Signs Date Time Temp Pulse Resp B/P Pulse Ox O2 Delivery O2 Flow Rate FiO2 03/04/17 08:02 99 Nasal Cannula 2.00 03/04/17 08:00 97.4 71 22 151/67 03/03/17 10:55 21 Intake and Output 03/03/17 03/03/17 03/04/17 08:00 16:00 00:00 Intake Total 240 ml 1050 ml Output Total 375 ml 950 ml 750 ml Balance -135 ml 100 ml -750 ml (Joe Maurer) Physical Examination General: Awake & alert, affect essentially normal, readily interacts, NAD. HEENT: Bilateral alber hole incisions well-approximated with musa and bilateral JASON drains insertion sites approximated w/dried sanguinous drainage/ scabbing noted. Integumentary: Surgical incisions & JASON insertion sites w/o any evident drainage , erythema or streaking. Vascular skin changes to bilateral lower legs and feet. Respiratory: CTAB w/o W/R/R, equal excursion, nonlaboured, on NC. Cardiovascular: S1S2 w/RRR w/o M/G/R, radial & pedal pulses 2+ bilaterally, cap refill < 2 sec. Gastrointestinal: Obese, distended, non-tender, positive high pitched bowel sounds. Musculoskeletal: Multiple ecchymotic areas noted to all extremities. Left foot with healed toe amputations. Neurologic: AAOx3 Speech clear & appropriate Though process slightly slow Decreased sensation to all extremities, more so to BLE Motor strength 5/5 BUE & LLE and 4+/5 RLE to all major flexion & extension muscle groups except for right great toe 3+/5 (Joe Maurer) Lab, Micro, Other Results Allergies Coded Allergies Type Severity Reaction Last Updated Verified Sulfa Allergy Intermediate Nausea/Vomiting 02/09/17 Yes *MDRO Multi-Drug Resistant Organism Adverse Reaction Unknown 02/09/17 Yes Recent Impressions Head CT 03/03/17 0000 Signed Impressions: Service Date/Time: Friday, March 03, 2017 13:21 - CONCLUSION: 1. Interval removal of bilateral subdural drainage catheters with continued improving bilateral subdural collections. Trace amount of blood products in the left subdural collection corresponds to the previous subdural catheter course. Otherwise, no intercurrent hemorrhage or significant interval change. Dagoberto Bond MD //// 06:00 18:00 06:00 18:00 06:00 18:00 Intake Total 960 ml 1500 ml 240 ml 1050 ml Output Total 2475 ml 1100 ml 1550 ml 950 ml 1300 ml Balance -1515 ml 400 ml -1310 ml 100 ml -1300 ml Intake Oral 960 ml 1500 ml 240 ml 1050 ml Output Urine Total 2475 ml 1100 ml 1550 ml 950 ml 1300 ml # Bowel Movements 0 1 0 1 Laboratory Tests Test 03/02/17 03/03/17 03/04/17 11:42 06:15 06:22 White Blood Count 2.1 TH/MM3 2.2 TH/MM3 2.4 TH/MM3 Red Blood Count 2.25 MIL/MM3 2.34 MIL/MM3 2.27 MIL/MM3 Hemoglobin 7.1 GM/DL 7.6 GM/DL 7.1 GM/DL Hematocrit 21.9 % 22.5 % 21.9 % Mean Corpuscular Volume 97.2 FL 96.3 FL 96.5 FL Mean Corpuscular Hemoglobin 31.7 PG 32.3 PG 31.4 PG Mean Corpuscular Hemoglobin 32.6 % 33.5 % 32.6 % Concent Red Cell Distribution Width 15.9 % 16.0 % 15.9 % Platelet Count 40 TH/MM3 45 TH/MM3 40 TH/MM3 Mean Platelet Volume 8.9 FL 9.5 FL 8.8 FL Neutrophils (%) (Auto) 66.6 % Lymphocytes (%) (Auto) 15.1 % Monocytes (%) (Auto) 13.3 % Eosinophils (%) (Auto) 4.2 % Basophils (%) (Auto) 0.8 % Neutrophils # (Auto) 1.4 TH/MM3 Lymphocytes # (Auto) 0.3 TH/MM3 Monocytes # (Auto) 0.3 TH/MM3 Eosinophils # (Auto) 0.1 TH/MM3 Basophils # (Auto) 0.0 TH/MM3 CBC Comment AUTO DIFF Differential Comment AUTO DIFF CONFIRMED Platelet Estimate LOW Platelet Morphology Comment NORMAL Ovalocytes 1+ Sodium Level 141 MEQ/L 141 MEQ/L 142 MEQ/L Potassium Level 4.1 MEQ/L 4.2 MEQ/L 3.8 MEQ/L Chloride Level 108 MEQ/L 109 MEQ/L 109 MEQ/L Carbon Dioxide Level 23.1 MEQ/L 24.9 MEQ/L 25.2 MEQ/L Anion Gap 10 MEQ/L 7 MEQ/L 8 MEQ/L Blood Urea Nitrogen 36 MG/DL 37 MG/DL 36 MG/DL Creatinine 1.55 MG/DL 1.56 MG/DL 1.52 MG/DL Estimat Glomerular Filtration 47 ML/MIN 46 ML/MIN 48 ML/MIN Rate Random Glucose 172 MG/DL 258 MG/DL 232 MG/DL Calcium Level 8.4 MG/DL 8.6 MG/DL 8.1 MG/DL Total Bilirubin 3.1 MG/DL 2.4 MG/DL Aspartate Amino Transf 40 U/L 50 U/L (AST/SGOT) Alanine Aminotransferase 36 U/L 37 U/L (ALT/SGPT) Alkaline Phosphatase 177 U/L 189 U/L Total Protein 6.1 GM/DL 6.1 GM/DL Albumin 2.9 GM/DL 2.8 GM/DL Direct Bilirubin 1.4 MG/DL Indirect Bilirubin 1.0 MG/DL Vital Signs Date Time Temp Pulse Resp B/P Pulse Ox O2 Delivery O2 Flow Rate FiO2 03/04/17 08:02 99 Nasal Cannula 2.00 03/04/17 08:00 97.4 71 22 151/67 99 03/04/17 07:15 Nasal Cannula 2.00 03/04/17 04:00 97.6 74 14 150/67 99 03/04/17 00:00 98.3 75 14 158/71 99 03/03/17 21:45 Nasal Cannula 2.00 03/03/17 20:19 98 Nasal Cannula 2.00 03/03/17 20:00 97.5 81 16 143/61 97 03/03/17 16:00 97.6 71 20 129/58 99 03/03/17 12:00 97.7 77 20 166/71 97 03/03/17 10:55 Nasal Cannula 3.00 21 03/03/17 08:00 97.6 86 20 145/63 97 03/03/17 07:47 97 Nasal Cannula 2.00 03/03/17 04:00 97.1 82 16 66/ 98 03/03/17 00:00 97.7 92 18 167/78 98 03/02/17 21:11 95 Nasal Cannula 2.00 03/02/17 20:45 Nasal Cannula 3.00 03/02/17 20:00 98.0 90 16 150/63 95 03/02/17 16:00 97.8 81 20 159/70 97 03/02/17 12:30 97.4 68 20 159/69 98 03/02/17 09:59 Nasal Cannula 3.00 21 03/02/17 09:23 97 Nasal Cannula 3.00 03/02/17 08:30 97.2 80 20 134/63 98 03/02/17 04:25 97.6 76 16 154/63 97 Automatic Cuff 03/01/17 23:12 97.9 69 16 136/75 98 03/01/17 22:45 Nasal Cannula 3.00 03/01/17 19:50 97.6 76 16 146/65 96 03/01/17 18:12 82 03/01/17 16:00 97.8 75 20 97 03/01/17 15:00 18 03/01/17 13:51 72 03/01/17 12:00 98.7 72 16 135/64 98 (Joe Maurer) Medical Decision Making Impression and Plan Impression: 1. Left greater than right subdural hygroma versus chronic hematoma. Patient has associated right hemiparesis. 2. Cirrhosis 3. Thrombocytopenia 4. Anaemia 5. History of chronic encephalopathy 6. History of chronic kidney disease CT brain demonstrated improvement in the bilateral subdural collections with a trace of blood products along the left subdural catheter course, no recurrent haemorrhage Stable neurological status POD #10 () s/p: Bilateral parietal alber hole evacuation of chronic subdural hematoma Plan: Primary mgmt per Hospitalist Blood products per Hematology/Oncology Continue neuro checks Stat CT brain for any neuro worsening Mobilise patient w/assistance PT eval & tx (Joe Maurer) Attending Statement I have personally seen and examined the patient on the date of this note. Pertinent documentation and study results have been reviewed by the undersigned. I have personally developed the treatment plan and performed medical decision making. Agree with findings, exam, and treatment plan as noted above. 03/03/17 CT scan head images improving, lessening pneumocephalus and some decrease in the subdural space. Neurologic exam stable (Jan Traore MD) Joe Maurer Mar 04, 2017 11:22 Jan Traore MD Mar 04, 2017 20:09
[2017-03-04] MEDS: INSULIN DETEMIR 100 UNITS/ML VIAL SQ SCH (21:45)
[2017-03-05] VITALS (8 sets, daily range): BP systolic 104–160; BP diastolic 49–70; PULSE 70–89; RESP 18–24; TEMP 97.6–98.2; O2SAT 95–99
[2017-03-05] MEDS: INSULIN ASPART SUPPLEMENTAL SCALE SQ SCH ×4 (05:47→22:58)
[2017-03-05 08:15] LABS: HEMATOCRIT 22.1 % (39.0-51.0); MEAN CELL VOLUME 95.3 FL (80.0-100.0); MEAN CORPUSCULAR HEMOGLOBIN 32.4 PG (27.0-34.0); PLATELET COUNT 45 TH/MM3 (150-450); RED BLOOD COUNT 2.31 MIL/MM3 (4.50-5.90); RED CELL DISTRIBUTION WIDTH 15.7 % (11.6-17.2); WHITE BLOOD COUNT 2.8 TH/MM3 (4.0-11.0)
[2017-03-05 08:23] LABS: REVIEW FLAG FINAL
[2017-03-05 08:27] LABS: INTERNATIONAL NORMALIZED RATIO 1.4 RATIO; PROTHROMBIN TIME - PATIENT 15.8 SEC (9.8-11.6)
[2017-03-05] MEDS: RIFAXIMIN 550 MG TAB PO SCH ×2 (08:47→22:58)
[2017-03-05] MEDS: PARoxetine HCL 20 MG TAB PO SCH (08:47)
[2017-03-05] MEDS: ASCORBIC ACID 500 MG TAB PO SCH ×2 (08:47→22:58)
[2017-03-05] MEDS: FERROUS SULFATE 325 MG (65 MG ELEMENTAL IRON) TAB PO SCH ×2 (08:47→22:58)
[2017-03-05] MEDS: CIPROFLOXACIN 250 MG TAB PO SCH (08:48)
[2017-03-05] MEDS: DOCUSATE SODIUM 50 MG/SENNA 8.6 MG TAB PO SCH ×2 (08:48→21:00)
[2017-03-05] MEDS: PANTOPRAZOLE SOD 40 MG DELAYED RELEASE TAB PO SCH (08:48)
[2017-03-05] MEDS: LACTULOSE SYRUP 20 GM/30 ML CUP PO SCH ×4 (08:48→22:59)
[2017-03-05] MEDS: SPIRONOLACTONE 50 MG TAB PO SCH (08:48)
[2017-03-05 08:51] LABS: BICARBONATE 22.2 MEQ/L (21.0-32.0); INDIRECT BILIRUBIN 1.5 MG/DL (0.0-0.8); POTASSIUM 3.7 MEQ/L (3.5-5.1)
[2017-03-05] MEDS: SODIUM CHLORIDE 0.9% FLUSH 5 ML FLUSH IVF SCH ×2 (09:00→21:00)
[2017-03-05] MEDS: GENTAMICIN SULFATE 0.1% CREAM 15 GM TOPICAL SCH (09:00)
[2017-03-05] MEDS: FUROSEMIDE 40 MG TAB PO SCH (09:00)
[2017-03-05] MEDS: ACETAMINOPHEN 325 MG TAB PO PRN ×2 (13:13→17:43)
[2017-03-05] MEDS: cloNIDine HCL 0.1 MG TAB PO PRN (13:54)
--- NOTE | 2017-03-05 14:23 | HHI.PR ---
Subjective Remarks Family requesting paracentesis. Patient is more lethargic this afternoon but was more awake this morning per the family. He had only one bowel movement today. He states he is feeling okay. Objective Vitals Vital Signs Date Time Temp Pulse Resp B/P Pulse Ox O2 Delivery O2 Flow Rate FiO2 03/05/17 12:00 97.8 78 20 160/70 98 03/05/17 09:30 99 Nasal Cannula 3.00 03/05/17 08:00 97.7 85 20 158/67 99 03/05/17 04:00 97.9 83 18 144/63 98 03/05/17 04:00 98.2 85 20 149/67 98 03/05/17 04:00 Nasal Cannula 2.00 03/04/17 21:35 98 Nasal Cannula 03/04/17 20:00 97.7 85 20 148/66 96 03/04/17 16:00 98.1 82 22 149/66 98 I/O 03/04/17 03/04/17 03/04/17 03/05/17 03/05/17 03/05/17 07:00 15:00 23:00 07:00 15:00 23:00 Intake Total 420 ml 240 ml 240 ml Output Total 550 ml 2900 ml 550 ml 1300 ml Balance -550 ml -2480 ml -310 ml -1060 ml Intake Oral 420 ml 240 ml 240 ml IV Total 0 ml Output Urine Total 550 ml 2900 ml 550 ml 1300 ml # Bowel Movements 1 2 1 0 Result Diagram: 03/05/17 0723 03/05/17 0723 Imaging Last Impressions Head CT 03/03/17 0000 Signed Impressions: Service Date/Time: Friday, March 03, 2017 13:21 - CONCLUSION: 1. Interval removal of bilateral subdural drainage catheters with continued improving bilateral subdural collections. Trace amount of blood products in the left subdural collection corresponds to the previous subdural catheter course. Otherwise, no intercurrent hemorrhage or significant interval change. Dagoberto Bond MD Chest X-Ray 02/25/17 0000 Signed Impressions: Service Date/Time: Saturday, February 25, 2017 20:10 - CONCLUSION: Interval development of bilateral mid and lower lung consolidative infiltrates. Jorge Renteria MD Objective Remarks GENERAL: Obese male in no acute distress. Sleepy CARDIOVASCULAR: Normal rate and regular rhythm without murmurs, gallops, or rubs. RESPIRATORY: Respiratory effort is fair. Clear to auscultation bilaterally anteriorly. GASTROINTESTINAL: Abdomen is markedly distended. There is evidence of anasarca and ascites. Normal active bowel sounds. Nontender to palpation. MUSCULOSKELETAL: 1+ bilateral lower extremity edema. NEURO: Alert & Oriented. Normal speech. Sleepy PSYCH: Calm Procedures 02/22/2017 Bilateral parietal bur hole evacuation of chronic subdural hematoma A/P Problem List: (1) SDH (subdural hematoma) ICD Code: I62.00 Status: Acute (2) HO (nonalcoholic steatohepatitis) ICD Code: K75.81 Status: Acute (3) Cirrhosis ICD Code: K74.60 Status: Chronic (4) DM type 2 (diabetes mellitus, type 2) ICD Code: E11.9 Status: Chronic (5) CKD (chronic kidney disease) stage 3, GFR 30-59 ml/min ICD Code: N18.3 Status: Chronic Assessment and Plan 56-year-old male with a history of diabetes mellitus, HO, bacterial peritonitis who was transferred from [facility] to the Med-Surg floor due to large hematoma versus hygroma with mass effect in the brain and possible need for surgical intervention. Patient is status post bilateral bur hole and subdural hematoma evacuation. Bilateral hygroma/subdural hematoma L > R. 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 Traore is following. Surgically subdural hematoma was evacuated on 2016. Bilateral drains removed. - Platelets stable at 45K today. Hematology is following. Status post FFP transfusions per hematology. - CT head on 02/25/2017 shows no hemorrhage. Shows hematoma decrease. - Anemia is stable today. HO, nonalcoholic steatohepatitis Liver cirrhosis with ascites Hepatic encephalopathy: Still encephalopathic. Not as baseline yet per his . - Continue Lasix 40 mg daily as well as spirolactone 50mg Qday. - Fentanyl patch, oxycodone for pain - Schedule Lactulose TID for 1-2 soft BM daily - Resume Rifaximin - Appreciate nephrology consult. Previously discussed with Dr. Park. Urine output is good on current dose of Lasix and Aldactone. Continue the same and monitor. Fluctuation of renal functions expected. -Hemoglobin and platelets has been stable for the past couple of days. He would benefit from paracentesis if IR is able to do it. I do note his platelets are less than 50. Platelets has been in the 40's. - Continue fentanyl patches 75 g and continue oxycodone to 5 mg PRN. -Chronic kidney disease: -Improved. Monitor with diuretics. Good urine output. Patient was seen by nephrology, Dr. Park. Recommendation is to continue Lasix and Aldactone. History of SBP with E. Coli. - s/p paracentesis 02/02/17 - Continue Cipro for prophylaxis. DM type 2: Oral intake still not great - Continue Levemir 20 units QHS, sliding scale insulin. - Discontinue scheduled NovoLog Esophageal varices - Continue pantoprazole. states he was not taking Nadolol. - Patient would benefit from beta ary to reduce risk of variceal bleed when he is more stable. Right toe eschar: Podiatry following. Status post bedside debridement. Full code. Pharmacological DVT prophylaxis contraindicated Discharge Planning Continue inpatient care. Will need inpatient rehab soon. Kameron Roberson MD Mar 05, 2017 14:22
--- NOTE | 2017-03-05 19:18 | HHI.NSPN ---
History Chief Complaint: Head pain Exam Results Vital Signs Date Time Temp Pulse Resp B/P Pulse Ox O2 Delivery O2 Flow Rate FiO2 03/05/17 16:00 97.7 70 18 152/65 99 03/05/17 09:30 Nasal Cannula 3.00 03/03/17 10:55 21 Intake and Output 03/04/17 03/04/17 03/05/17 08:00 16:00 00:00 Intake Total 420 ml 240 ml Output Total 550 ml 2900 ml 550 ml Balance -550 ml -2480 ml -310 ml Physical Examination General: Awake & alert, affect essentially normal, readily interacts, NAD. HEENT: Bilateral alber hole incisions well-approximated with musa and bilateral JASON drains insertion sites approximated w/dried sanguinous drainage/ scabbing noted. Integumentary: Surgical incisions & JASON insertion sites w/o any evident drainage , erythema or streaking. Vascular skin changes to bilateral lower legs and feet. Respiratory: CTAB w/o W/R/R, equal excursion, nonlaboured, on NC. Cardiovascular: S1S2 w/RRR w/o M/G/R, radial & pedal pulses 2+ bilaterally, cap refill < 2 sec. Gastrointestinal: Obese, distended, non-tender, positive high pitched bowel sounds. Musculoskeletal: Multiple ecchymotic areas noted to all extremities. Left foot with healed toe amputations. Neurologic: AAOx3 Speech clear & appropriate Though process slightly slow Decreased sensation to all extremities, more so to BLE Motor strength 5/5 BUE & LLE and 4+/5 RLE to all major flexion & extension muscle groups except for right great toe 3+/5 Lab, Micro, Other Results Last Impressions Head CT 03/03/17 0000 Signed Impressions: Service Date/Time: Friday, March 03, 2017 13:21 - CONCLUSION: 1. Interval removal of bilateral subdural drainage catheters with continued improving bilateral subdural collections. Trace amount of blood products in the left subdural collection corresponds to the previous subdural catheter course. Otherwise, no intercurrent hemorrhage or significant interval change. Dagoberto Bond MD Chest X-Ray 02/25/17 0000 Signed Impressions: Service Date/Time: Saturday, February 25, 2017 20:10 - CONCLUSION: Interval development of bilateral mid and lower lung consolidative infiltrates. Jorge Renteria MD Medical Decision Making Impression and Plan Impression: 1. Stable neurologic exam over the past week, status post bilateral bur holes for evacuation of subdural hematoma. Most recent CT scan 03/03/17 with improving pneumocephalus and subdural space, mild to moderate residual hematoma Plan: Findings were discussed with the patient as well as with his sister in the room today. He is stable for discharge to inpatient rehabilitation from a neurosurgery standpoint. Plan follow-up CT scan head in 10-14 days. Patient remains at risk for recurrent subdural hematoma, discussed at length with the patient and his family today Jan Traore MD Mar 05, 2017 19:18
[2017-03-05] MEDS: INSULIN DETEMIR 100 UNITS/ML VIAL SQ SCH (22:58)
[2017-03-06] VITALS (10 sets, daily range): BP systolic 146–162; BP diastolic 63–72; PULSE 71–81; RESP 16–22; TEMP 97.1–99; O2SAT 73–100
[2017-03-06] MEDS: INSULIN ASPART SUPPLEMENTAL SCALE SQ SCH ×4 (06:06→21:00)
[2017-03-06 06:25] LABS: HEMATOCRIT 22.3 % (39.0-51.0); MEAN CELL VOLUME 95.7 FL (80.0-100.0); MEAN CORPUSCULAR HEMOGLOBIN 32.6 PG (27.0-34.0); PLATELET COUNT 41 TH/MM3 (150-450); RED BLOOD COUNT 2.33 MIL/MM3 (4.50-5.90); RED CELL DISTRIBUTION WIDTH 15.7 % (11.6-17.2); WHITE BLOOD COUNT 2.5 TH/MM3 (4.0-11.0)
[2017-03-06 06:29] LABS: REVIEW FLAG FINAL
[2017-03-06 06:30] LABS: INTERNATIONAL NORMALIZED RATIO 1.4 RATIO
[2017-03-06 06:53] LABS: BICARBONATE 24.9 MEQ/L (21.0-32.0); POTASSIUM 3.9 MEQ/L (3.5-5.1)
[2017-03-06 06:56] LABS: INDIRECT BILIRUBIN 1.1 MG/DL (0.0-0.8); TOTAL BILIRUBIN ADULT 2.4 MG/DL (0.2-1.0)
[2017-03-06] MEDS: FUROSEMIDE 40 MG TAB PO SCH (08:23)
[2017-03-06] MEDS: SPIRONOLACTONE 50 MG TAB PO SCH (08:23)
[2017-03-06] MEDS: GENTAMICIN SULFATE 0.1% CREAM 15 GM TOPICAL SCH (09:00)
[2017-03-06] MEDS: SODIUM CHLORIDE 0.9% FLUSH 5 ML FLUSH IVF SCH ×2 (09:00→21:00)
[2017-03-06] MEDS ORDERED: ALBUMIN HUMAN 25% 75 GM IV ONE (10:15)
[2017-03-06] MEDS: ASCORBIC ACID 500 MG TAB PO SCH ×2 (12:32→22:17)
[2017-03-06] MEDS: FERROUS SULFATE 325 MG (65 MG ELEMENTAL IRON) TAB PO SCH ×2 (12:33→22:17)
[2017-03-06] MEDS: CIPROFLOXACIN 250 MG TAB PO SCH (12:33)
[2017-03-06] MEDS: DOCUSATE SODIUM 50 MG/SENNA 8.6 MG TAB PO SCH ×2 (12:33→22:17)
[2017-03-06] MEDS: PARoxetine HCL 20 MG TAB PO SCH (12:33)
[2017-03-06] MEDS: PANTOPRAZOLE SOD 40 MG DELAYED RELEASE TAB PO SCH (12:33)
[2017-03-06] MEDS: RIFAXIMIN 550 MG TAB PO SCH ×2 (12:33→22:17)
[2017-03-06] MEDS: LACTULOSE SYRUP 20 GM/30 ML CUP PO SCH ×4 (12:34→21:00)
--- NOTE | 2017-03-06 14:24 | RADRPT ---
EXAM DATE/TIME: 03/06/2017 08:07 [place] COMPARISON: No previous studies available for comparison. INDICATIONS : Ascites. MEDICAL HISTORY : Hypertension. Gastroesophageal reflux disease. Hernia, umbilical. Sleep apnea. Renal failure. Seizure s. Hepatic encephalopathy. Diabetes. MRSA. Cirrhosis. SURGICAL HISTORY : Rotator cuff, left. Left elbow surgery. ENCOUNTER: Initial ACUITY: chronic PAIN SCORE: 0 LOCATION: Right lower quadrant FLUID: Total volume of cc of fluid was removed. Fluid was discarded. Paracentesis was therapeutic only. Post procedure scanning reveals no hematoma or other complication. TECHNIQUE: 1. Ultrasound guidance for abdominal paracentesis. 2. Paracentesis. The risks, benefits, and alternatives to ultrasound guided paracentesis were explained to the patient in detail including the risk of bleeding and infection. Written and verbal informed consent was obt ained. With the patient on the ultrasound table, ultrasound imaging was used to select the most appropriate approach for paracentesis. Overlying skin was prepped and draped in the usual sterile fashion and wi th a local anesthetic, a dermatotomy was made with an 11 blade scalpel. A 6 [place] [id number] ca theter was introduced into the peritoneal cavity and fluid was collected. The patient tolerated the procedure well and left the ultrasound suite in stable condition. CONCLUSION: Uncomplicated ultrasound guided paracentesis. Deny Johnson MD on March 06, 2017 at 14:21 Board Certified Radiologist. This report was verified electronically.
--- NOTE | 2017-03-06 14:34 | HHI.PR ---
Subjective Remarks Patient had paracentesis today. Per family, 12 L removed. He reports he is feeling better. Objective Vitals Vital Signs Date Time Temp Pulse Resp B/P Pulse Ox O2 Delivery O2 Flow Rate FiO2 03/06/17 12:00 97.7 78 18 155/68 100 03/06/17 10:22 97.6 71 20 148/70 99 03/06/17 10:14 97.3 73 22 153/72 73 03/06/17 09:39 95 Nasal Cannula 3.00 03/06/17 08:52 97.1 74 20 151/70 100 03/06/17 08:00 97.5 74 18 154/63 99 03/06/17 08:00 96 Nasal Cannula 2.00 03/06/17 04:00 Nasal Cannula 2.00 03/06/17 03:56 99.0 77 16 146/63 97 03/06/17 02:55 18 03/05/17 23:35 97.6 89 18 104/49 96 03/05/17 23:00 95 Nasal Cannula 2.00 03/05/17 20:42 95 Nasal Cannula 3.00 03/05/17 20:15 97.6 81 24 156/65 96 03/05/17 16:00 97.7 70 18 152/65 99 I/O 03/05/17 03/05/17 03/05/17 03/06/17 03/06/17 03/06/17 07:00 15:00 23:00 07:00 15:00 23:00 Intake Total 240 ml 480 ml 720 ml 724 ml Output Total 1300 ml 1175 ml 550 ml 675 ml Balance -1060 ml -695 ml 170 ml 49 ml Intake Oral 240 ml 480 ml 720 ml 720 ml IV Total 4 ml Output Urine Total 1300 ml 1175 ml 550 ml 675 ml # Bowel Movements 0 1 0 0 Result Diagram: 03/06/17 0553 03/06/17 0533 Objective Remarks GENERAL: Obese male in no acute distress. Sleepy CARDIOVASCULAR: Normal rate and regular rhythm without murmurs, gallops, or rubs. RESPIRATORY: Respiratory effort is fair. Clear to auscultation bilaterally anteriorly. GASTROINTESTINAL: Abdomen is softer today but still distended. There is some evidence of soft tissue edema. Normal active bowel sounds. Nontender to palpation. MUSCULOSKELETAL: 1+ bilateral lower extremity edema. NEURO: Alert & Oriented. Normal speech. Sleepy PSYCH: Calm Procedures 02/22/2017 Bilateral parietal bur hole evacuation of chronic subdural hematoma A/P Problem List: (1) SDH (subdural hematoma) ICD Code: I62.00 Status: Acute (2) HO (nonalcoholic steatohepatitis) ICD Code: K75.81 Status: Acute (3) Cirrhosis ICD Code: K74.60 Status: Chronic (4) DM type 2 (diabetes mellitus, type 2) ICD Code: E11.9 Status: Chronic (5) CKD (chronic kidney disease) stage 3, GFR 30-59 ml/min ICD Code: N18.3 Status: Chronic Assessment and Plan 56-year-old male with a history of diabetes mellitus, HO, bacterial peritonitis who was transferred from [facility] to the Med-Surg floor due to large hematoma versus hygroma with mass effect in the brain and possible need for surgical intervention. Patient is status post bilateral bur hole and subdural hematoma evacuation. Bilateral hygroma/subdural hematoma L > R. 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 Traore is following. Surgically subdural hematoma was evacuated on 2016. Bilateral drains removed. - Platelets stable at 45K today. Hematology is following. Status post FFP transfusions per hematology. - CT head on 02/25/2017 shows no hemorrhage. Shows hematoma decrease. - Anemia is stable today. HO, nonalcoholic steatohepatitis Liver cirrhosis with ascites Hepatic encephalopathy: Still encephalopathic. Not as baseline yet per his . - Continue Lasix 40 mg daily as well as spirolactone 50mg Qday. - Fentanyl patch, oxycodone for pain -Increase lactulose to 4 times a day for 1-2 soft BM daily - Resume Rifaximin - Appreciate nephrology consult. Previously discussed with Dr. Park. Urine output is good on current dose of Lasix and Aldactone. Continue the same and monitor. Fluctuation of renal functions expected. -Patient is status post paracentesis. 12 L removed. Continue to monitor fluid status. - Continue fentanyl patches 75 g and continue oxycodone to 5 mg PRN. -Chronic kidney disease: -Improved. Monitor with diuretics. Good urine output. Patient was seen by nephrology, Dr. Park. Recommendation is to continue Lasix and Aldactone. History of SBP with E. Coli. - s/p paracentesis 02/02/17 - Continue Cipro for prophylaxis. DM type 2: Oral intake still not great - Continue Levemir 20 units QHS, sliding scale insulin. - Discontinue scheduled NovoLog Esophageal varices - Continue pantoprazole. states he was not taking Nadolol. - Patient would benefit from beta ary to reduce risk of variceal bleed when he is more stable. Right toe eschar: Podiatry following. Status post bedside debridement. Full code. Pharmacological DVT prophylaxis contraindicated Discharge Planning Continue inpatient care. Case management for DC planning to SNF. Kameron Roberson MD Mar 06, 2017 14:34
[2017-03-06] MEDS ORDERED: fentaNYL 50 MCG/HR PATCH T-DERMAL SCH (15:00)
--- NOTE | 2017-03-06 15:15 | PD.WCN.NOT ---
Wound Consult Description: Juliane tatum called music writer in to patient's room. Patient does have wound care consult and was seen previously by wound care in [facility] and inpatient for left anterior lower galvan skin tear with partial thickness skinloss. Juliane MELO removed dressing in place to reveal wound that is noted with 80% pale red non granulation tissue 20% dry yellow tissue noted scattered though out wound bed . Wound bed is dry without active drainage Wound measurements are as follows 5.5 cm x 6cm x ~<0.1 cm.Entire bilateral lower legs noted with edema and hemosiderin staining.Wound was cleansed with NS and gauze with Juliane tatum at bedside . Applied single layer of Xeroform gauze over open wound bed.Covered with dry 4x4 gauze and secured with rolled gauze and tape. Recommend to change dressing every other day and PRN for saturation or dislodgement. Family at bedside and aware of wound condition. Communicated with: KAMERON Purdy and Doctor Roberson Recommendation: Please wound to L anterior galvan with normal saline or wound cleanser and apply single layer of Xeroform over wound bed and cover with dry 4x4 gauze. Secure dressing with rolled gauze and tape and change every other day or PRN if saturated or dislodged Please follow orders and recommendations written by Doctor Jaramillo for R jenn to wound. Ostomy Date of Surgery: Feb 22, 2017 [facility] Mar 06, 2017 15:14
--- NOTE | 2017-03-06 15:18 | HHI.HCPN ---
Reason for visit a. To assist with evaluation and management of symptoms including: encephalopathy b. To assist medical decision maker(s) with: better understanding of current medical conditions; weighing benefits/burdens of medical treatment options; making medical treatment decisions. Subjective/Interval History Patient seen today to follow-up on comfort, goals. Received VM from prior to arrival to unit w questions RE medications, discharge planning. Status post alber holes 02/22. Has been out of ICU,neuro status stable. Neuro following, cleared for discharge from neuro standpoint. Neurosurgery notes most recent CT scan 03/03/17 with improving pneumocephalus and subdural space, mild to moderate residual hematoma, however patient remains at risk for recurrent subdural hematoma which she discussed with patient and family. Recommends follow-up CT head 1014 days. CBC stable, platelets 41. LFTs trending up slightly. Vital signs stable, afebrile.+ Having bowel movements, appetite fluctuates eating 41524 percent of meals. Patient seen in room no visitors present. Nurses at bedside and obtaining vital signs. He is alert mostly oriented. Makes jokes. Some limited insight to hospital course. Continues to endorse a headache "that is there, I don't know why its there" review with him that he recently had neurosurgical intervention for SDH. He tells me his fentanyl patch was discontinued and he has been using prn oxycodone 5 mg (has used 4 doses today), but he feels pain might be better controlled if he was back on his fentanyl patch which he has been on for some time. No GI complaints. Denies dyspnea or cough. Follows commands, moves all 4 extremities strength seems equal bilaterally. Callbacks patient review with her current conditions, assessment, discharge planning. She indicates she has spoken with the patient's insurance and that [facility] in August is covered by their insurance and that would be her placement of preference. She tells me that she had been trying to reach case management regarding this, I advised I would follow-up with case management regarding. She also has questions about resumption of fentanyl patch as patient has been on for some time, appears may have been accidentally discontinued? She feels patient may be having increasing pain secondary to this though she does not want him to liberally use prn due to risk for altered mental status. Advise I will would follow-up and discuss with medical attending. By time of my arrival to unit in evaluating patient it appears fentanyl patch has been resumed by medical attending. I did speak with case management regarding discharge preferences, additionally spoke with primary RN. . Advance Directives Living Will: Copy in medical record Health Care Surrogate: Copy in medical record Advance Directive Specifics Date completed: 01/20/14 Health Care Surrogate(s): Rosa Mancilla . Documented care wishes: Living will is standard verbiage document noting that in the presence of a terminal condition, end-stage condition or vegetative state directs life prolonging procedures be withheld or withdrawn with administration of comfort care only. Designates healthcare surrogate as . Objective Vital Signs Date Time Temp Pulse Resp B/P Pulse Ox O2 Delivery O2 Flow Rate FiO2 03/06/17 12:00 97.7 78 18 155/68 100 03/06/17 10:22 97.6 71 20 148/70 99 03/06/17 10:14 97.3 73 22 153/72 73 03/06/17 09:39 95 Nasal Cannula 3.00 03/06/17 08:52 97.1 74 20 151/70 100 03/06/17 08:00 97.5 74 18 154/63 99 03/06/17 08:00 96 Nasal Cannula 2.00 03/06/17 04:00 Nasal Cannula 2.00 03/06/17 03:56 99.0 77 16 146/63 97 03/06/17 02:55 18 03/05/17 23:35 97.6 89 18 104/49 96 03/05/17 23:00 95 Nasal Cannula 2.00 03/05/17 20:42 95 Nasal Cannula 3.00 03/05/17 20:15 97.6 81 24 156/65 96 03/05/17 16:00 97.7 70 18 152/65 99 Intake & Output 03/06/17 03/06/17 07:00 19:00 Intake Total 1444 ml 480 ml Output Total 1225 ml 2000 ml Balance 219 ml -1520 ml Intake Oral 1440 ml 480 ml IV Total 4 ml Output Urine Total 1225 ml 2000 ml # Bowel Movements 0 2 Physical Exam CONSTITUTIONAL/GENERAL: This is an obese male, in no apparent distress. TUBES/LINES/DRAINS:left radial art line, rt IJ central line, SCDs, park catheter SKIN: No jaundice, rashes, or lesions. Several Ecchymoses on upper extremities. 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 Chronic vascular changes bilateral lower legs. Skin warm. HEAD: Atraumatic. + healing JASON exit wounds- Jps d/cd EYES: Pupils equal and round and reactive. Amblyopia -left eye outward. Extraocular motions intact. CARDIOVASCULAR: Regular rate and rhythm no murmur. Peripheral pulses symmetric. RESPIRATORY/CHEST: Symmetric, unlabored respirations on room air. Clear to auscultation. Breath sounds equal bilaterally. GASTROINTESTINAL: Abdomen obese, soft, non-tender, nondistended. No palpable masses. No guarding. Bowel sounds present. MUSCULOSKELETAL: Extremities without clubbing, cyanosis, or edema. No joint tenderness or effusion noted. No mottling or clubbing. NEUROLOGICAL: Awake and alert. No facial droop. mostly oriented x2-3, forgetful at times. Searches for words at times. speech is clear. moves all 4 extremities- - sample grinder strong/equal bilaterally. LE strength equal. PSYCHIATRIC: No obvious anxiety/depression. . Diagnostic Tests Laboratory Laboratory Tests Test 03/04/17 03/05/17 03/06/17 03/06/17 06:22 07:23 05:33 05:53 White Blood Count 2.4 TH/MM3 2.8 TH/MM3 2.5 TH/MM3 (4.0-11.0) (4.0-11.0) (4.0-11.0) Red Blood Count 2.27 MIL/MM3 2.31 MIL/MM3 2.33 MIL/MM3 (4.50-5.90) (4.50-5.90) (4.50-5.90) Hemoglobin 7.1 GM/DL 7.5 GM/DL 7.6 GM/DL (13.0-17.0) (13.0-17.0) (13.0-17.0) Hematocrit 21.9 % 22.1 % 22.3 % (39.0-51.0) (39.0-51.0) (39.0-51.0) Mean Corpuscular Volume 96.5 FL 95.3 FL 95.7 FL (80.0-100.0) (80.0-100.0) (80.0-100.0) Mean Corpuscular Hemoglobin 31.4 PG 32.4 PG 32.6 PG (27.0-34.0) (27.0-34.0) (27.0-34.0) Mean Corpuscular Hemoglobin 32.6 % 34.0 % 34.0 % Concent (32.0-36.0) (32.0-36.0) (32.0-36.0) Red Cell Distribution Width 15.9 % 15.7 % 15.7 % (11.6-17.2) (11.6-17.2) (11.6-17.2) Platelet Count 40 TH/MM3 45 TH/MM3 41 TH/MM3 (150-450) (150-450) (150-450) Mean Platelet Volume 8.8 FL 9.0 FL 9.1 FL (7.0-11.0) (7.0-11.0) (7.0-11.0) Sodium Level 142 MEQ/L 144 MEQ/L 145 MEQ/L (136-145) (136-145) (136-145) Potassium Level 3.8 MEQ/L 3.7 MEQ/L 3.9 MEQ/L (3.5-5.1) (3.5-5.1) (3.5-5.1) Chloride Level 109 MEQ/L 111 MEQ/L 111 MEQ/L (98-107) (98-107) (98-107) Carbon Dioxide Level 25.2 MEQ/L 22.2 MEQ/L 24.9 MEQ/L (21.0-32.0) (21.0-32.0) (21.0-32.0) Anion Gap 8 MEQ/L (5-15) 11 MEQ/L (5-15) 9 MEQ/L (5-15) Blood Urea Nitrogen 36 MG/DL (7-18) 24 MG/DL (7-18) 23 MG/DL (7-18) Creatinine 1.52 MG/DL 1.20 MG/DL 1.17 MG/DL (0.60-1.30) (0.60-1.30) (0.60-1.30) Estimat Glomerular Filtration 48 ML/MIN (>89) 63 ML/MIN (>89) 65 ML/MIN (>89) Rate Random Glucose 232 MG/DL 180 MG/DL 191 MG/DL (74-106) (74-106) (74-106) Calcium Level 8.1 MG/DL 8.4 MG/DL 8.3 MG/DL (8.5-10.1) (8.5-10.1) (8.5-10.1) Prothrombin Time 15.8 SEC 16.0 SEC (9.8-11.6) (9.8-11.6) Prothromb Time International 1.4 RATIO 1.4 RATIO Ratio Total Bilirubin 3.0 MG/DL 2.4 MG/DL (0.2-1.0) (0.2-1.0) Direct Bilirubin 1.5 MG/DL 1.3 MG/DL (0.0-0.2) (0.0-0.2) Indirect Bilirubin 1.5 MG/DL 1.1 MG/DL (0.0-0.8) (0.0-0.8) Aspartate Amino Transf 76 U/L (15-37) 77 U/L (15-37) (AST/SGOT) Alanine Aminotransferase 49 U/L (12-78) 56 U/L (12-78) (ALT/SGPT) Alkaline Phosphatase 205 U/L 216 U/L (45-117) (45-117) Total Protein 6.3 GM/DL 6.2 GM/DL (6.4-8.2) (6.4-8.2) Albumin 2.8 GM/DL 2.7 GM/DL (3.4-5.0) (3.4-5.0) Result Diagram: 03/06/17 0553 03/06/17 0533 Assessment and Plan Disease Oriented Problem List: (1) HO (nonalcoholic steatohepatitis) (2) SDH (subdural hematoma) Comment: Bilateral hygromas/subdural hematoma L > R (3) Thrombocytopenia (4) Diabetic foot ulcers (5) Escherichia coli infection Comment: Per paracentesis 02/02/17 (6) CKD (chronic kidney disease) stage 3, GFR 30-59 ml/min (7) Depression (8) HTN (hypertension) (9) DM type 2 (diabetes mellitus, type 2) (10) Esophageal varices (11) Moderate protein malnutrition Symptom Scale: (1) Encephalopathy 0-10 Scale: Unable to quantify (2) Pain 0-10 Scale: Unable to quantify Pertinent Non-Medical Issues Psychosocial: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 . Originally from [place], has lived in [place] for approximately 43 years. Also has 2 daughters. Spiritual: [employer] ayush Legal:Patient mental status fluctuates secondary to hepatic encephalopathy. He is able to participate in decision-making at times. If he becomes incapacitated his is designated HCS, would be appropriate legal decision maker. Ethical issues impacting care: . Important Contacts Rosa Mancilla [phone] Prognosis This patient was admitted to the hospital for acute mental status changes and weakness from rehabilitation. CT Head with findings of large hygroma with mass effect. Patient also with chronic thrombocytopenia, hematology is following. Plan for neurosurgical intervention 02/22. Patient with multiple chronic medical conditions, most significantlyNASH, he has had ongoing hepatic encephalopathy , paracentesis, and associated conditions/complications/hospitalizations from underlying liver disease. He is apparently on the waiting list for liver transplant. Per neurosurgery remains at risk for ongoing/recurrent hemorrhage post surgical intervention however without surgical intervention subdural fluid collection could become life threatening. Remains at ongoing risk for further complications and setbacks related to underlying liver disease and new or surgical issues. . Code Status: Full Code Plan * Legal decision maker: Patient mental status fluctuates secondary to hepatic encephalopathy. He is able to participate in decision-making at times. If he becomes incapacitated his is designated HCS, would be appropriate legal decision maker. * Goals: met w pt, upon initial consultation 02/23 goals currently aggressive , wish to cont to maximize available treatments for liver condition, SDH. They are hopeful pt medical conditions can improve enough that he can be put on liver transplant list. They understand he is high risk for ongoing complications /setbacks, and further decline. They are open to ongoing conversations as condition evolves. would like for treatments here to follow as closely as possible to what [facility] recommended in order to improve his chances to get on transplantation list. She would like the providers here to review his treatment records/recommendations from [place]. ( *I d/w medical attending, it will provide some comfort knowing that his records from there have been reviewed, even if all of the treatments are not able to be implemented , recommend request records from [place] 01/2017) 03/06/17-. Goals remain aggressive. Pt + hoping were initially hoping he would NOT require acute rehab placement after acute hospitalization, and could return home with her assistance; however they have agreed to placement at long term facility. voiced preference for [facility] in [place] which I have discussed with case management. * CODE STATUS: full * SYMPTOMS: --Encephalopathy- 2/2 hepatic dysfunction,+ new SDH, fluctuates. On lactulose PRN. Has been on rifaximin in the past. Last ammonia level 60 on 02/18 per [facility] labs. +alber hole evacuation SDH 02/22; probable chronic component, which could provide some ongoing residual deficit per neuro. scheduled lactulose, rifaximin added per med attending ; mental status stable/ near baseline --Pain-reported with chronic neuropathic pain; chronic long-standing back pain for many years, + new headache 2/2 SDH. On fentanyl patch 50 mics every 72 hour, as well as prn oxycodone. Req. oxycodone 10mg x3 -4x per day; effective. Fentanyl patch was discontinued, has been resumed today by medical attending. We'll continue to evaluate. Cautious adjustments given risk for altered mental status * Palliative care will continue to follow during hospital course as condition evolves, to assist patient/decision-maker with understanding of medical conditions, weighing benefits/burdens of treatment options, for clarification of goals of treatment. Additionally will assist with any symptoms of palliative concern Attestation To help prompt me to consider important information that might be impacting today's encounter and assessment, information from prior notes written by myself or my colleagues may have been "brought forward" into today's note. My signature on this note, however, is an attestation that I personally performed the exam, history, and/or decision-making noted today, and, unless otherwise indicated, the interactions with patient, family, and staff as well as the review of records all occurred today. I also attest that the listed assessment and stated plan reflect my best clinical judgment today based on the combination of historical information, prior notes, and today's exam/ interactions. When time spent is documented, it refers only to time spent today by the signer, or if indicated, combined time spent today by collaborating physician/nurse practitioner. Melissa Damon Mar 06, 2017 15:18
[2017-03-06] MEDS: INSULIN DETEMIR 100 UNITS/ML VIAL SQ SCH (21:00)
[2017-03-07] VITALS: BP 157/67; PULSE 80; RESP 18; TEMP 98.5; O2SAT 97
[2017-03-07 04:00] VITALS: BP 148/65; PULSE 75; RESP 18; TEMP 98.1; O2SAT 98
[2017-03-07] MEDS: INSULIN ASPART SUPPLEMENTAL SCALE SQ SCH ×2 (07:00→13:03)
[2017-03-07 08:00] VITALS: BP 163/71; PULSE 74; RESP 18; TEMP 97.4; O2SAT 98
[2017-03-07] MEDS: FERROUS SULFATE 325 MG (65 MG ELEMENTAL IRON) TAB PO SCH (08:37)
[2017-03-07] MEDS: RIFAXIMIN 550 MG TAB PO SCH (08:37)
[2017-03-07] MEDS: PANTOPRAZOLE SOD 40 MG DELAYED RELEASE TAB PO SCH (08:37)
[2017-03-07] MEDS: LACTULOSE SYRUP 20 GM/30 ML CUP PO SCH ×2 (08:37→12:59)
[2017-03-07] MEDS: PARoxetine HCL 20 MG TAB PO SCH (08:38)
[2017-03-07] MEDS: SPIRONOLACTONE 50 MG TAB PO SCH (08:38)
[2017-03-07] MEDS: CIPROFLOXACIN 250 MG TAB PO SCH (08:38)
[2017-03-07] MEDS: FUROSEMIDE 40 MG TAB PO SCH (08:38)
[2017-03-07] MEDS: ASCORBIC ACID 500 MG TAB PO SCH (08:38)
[2017-03-07] MEDS: DOCUSATE SODIUM 50 MG/SENNA 8.6 MG TAB PO SCH (08:41)
[2017-03-07] MEDS: SODIUM CHLORIDE 0.9% FLUSH 5 ML FLUSH IVF SCH (08:41)
[2017-03-07] MEDS: GENTAMICIN SULFATE 0.1% CREAM 15 GM TOPICAL SCH (08:48)
[2017-03-07] MEDS ORDERED: OXYC-392 PO (10:06)
[2017-03-07] MEDS ORDERED: OMEP20CA2 PO (10:06)
[2017-03-07] MEDS ORDERED: ALDA50TA2 PO (10:06)
[2017-03-07] MEDS ORDERED: Lactulose Liq PO (10:06)
[2017-03-07] MEDS ORDERED: FENT50DI T-DERMAL (10:06)
[2017-03-07] MEDS ORDERED: FURO40TA PO (10:06)
[2017-03-07] MEDS ORDERED: NADO1TAB16 PO (10:06)
[2017-03-07] MEDS ORDERED: XIFA550T4 PO (10:06)
[2017-03-07] MEDS ORDERED: CIPR250T2 PO (10:06)
[2017-03-07] MEDS ORDERED: FERR325T20 PO (10:06)
--- NOTE | 2017-03-07 10:07 | HHI.DS ---
Discharge Summary Admission Date Feb 20, 2017 at 16:15 Discharge Date: Mar 07, 2017 Admitting Diagnosis (1) SDH (subdural hematoma) ICD Code: I62.00 (2) HO (nonalcoholic steatohepatitis) ICD Code: K75.81 (3) Cirrhosis ICD Code: K74.60 (4) DM type 2 (diabetes mellitus, type 2) ICD Code: E11.9 (5) CKD (chronic kidney disease) stage 3, GFR 30-59 ml/min ICD Code: N18.3 Procedures 02/22/2017 Bilateral parietal bur hole evacuation of chronic subdural hematoma Paracentesis on 03/06/17. 12 L removed Brief History - From Admission Mr. Mancilla is a 56-year-old male with a history of diabetes mellitus, CAD, morbid obesity, nonalcoholic steatohepatitis (HO), SBP with E. Coli who was transferred from [facility] to the medical surgical floor on 2016 due to subdural hematoma/hygroma with mass effect and significant clinical symptoms. On 02/19/2017, patient complained of right sided weakness. Subsequently a CT head showed large hygroma with mass effect. Patient was started on dexamethasone and neurosurgery was consulted. Neurosurgery recommended surgical intervention as well as hematology consult due to patient's thrombocytopenia. At the time of this interview, patient is doing well. His right sided weakness is improved. Denies any chest pain, shortness of breath, fever, chills. CBC/BMP: 03/06/17 0553 03/06/17 0533 Significant Findings Laboratory Tests Test 03/05/17 03/06/17 03/06/17 07:23 05:33 05:53 White Blood Count 2.8 TH/MM3 2.5 TH/MM3 (4.0-11.0) (4.0-11.0) Red Blood Count 2.31 MIL/MM3 2.33 MIL/MM3 (4.50-5.90) (4.50-5.90) Hemoglobin 7.5 GM/DL 7.6 GM/DL (13.0-17.0) (13.0-17.0) Hematocrit 22.1 % 22.3 % (39.0-51.0) (39.0-51.0) Platelet Count 45 TH/MM3 41 TH/MM3 (150-450) (150-450) Prothrombin Time 15.8 SEC 16.0 SEC (9.8-11.6) (9.8-11.6) Chloride Level 111 MEQ/L 111 MEQ/L (98-107) (98-107) Blood Urea Nitrogen 24 MG/DL (7-18) 23 MG/DL (7-18) Estimat Glomerular Filtration 63 ML/MIN (>89) 65 ML/MIN (>89) Rate Random Glucose 180 MG/DL 191 MG/DL (74-106) (74-106) Calcium Level 8.4 MG/DL 8.3 MG/DL (8.5-10.1) (8.5-10.1) Total Bilirubin 3.0 MG/DL 2.4 MG/DL (0.2-1.0) (0.2-1.0) Direct Bilirubin 1.5 MG/DL 1.3 MG/DL (0.0-0.2) (0.0-0.2) Indirect Bilirubin 1.5 MG/DL 1.1 MG/DL (0.0-0.8) (0.0-0.8) Aspartate Amino Transf 76 U/L (15-37) 77 U/L (15-37) (AST/SGOT) Alkaline Phosphatase 205 U/L 216 U/L (45-117) (45-117) Total Protein 6.3 GM/DL 6.2 GM/DL (6.4-8.2) (6.4-8.2) Albumin 2.8 GM/DL 2.7 GM/DL (3.4-5.0) (3.4-5.0) Imaging Last Impressions Cyst Biopsy Asp-Paracentesis US 03/06/17 0000 Signed Impressions: Service Date/Time: Monday, March 06, 2017 08:07 - CONCLUSION: Uncomplicated ultrasound guided paracentesis. Deny Johnson MD Head CT 03/03/17 0000 Signed Impressions: Service Date/Time: Friday, March 03, 2017 13:21 - CONCLUSION: 1. Interval removal of bilateral subdural drainage catheters with continued improving bilateral subdural collections. Trace amount of blood products in the left subdural collection corresponds to the previous subdural catheter course. Otherwise, no intercurrent hemorrhage or significant interval change. Dagoberto Bond MD Chest X-Ray 02/25/17 0000 Signed Impressions: Service Date/Time: Sunday, February 25, 2017 20:10 - CONCLUSION: Interval development of bilateral mid and lower lung consolidative infiltrates. Jorge Renteria MD PE at Discharge GENERAL: Obese male in no acute distress. Sleepy CARDIOVASCULAR: Normal rate and regular rhythm without murmurs, gallops, or rubs. RESPIRATORY: Respiratory effort is fair. Clear to auscultation bilaterally anteriorly. GASTROINTESTINAL: Abdomen is softer today but still distended. There is some evidence of soft tissue edema. Normal active bowel sounds. Nontender to palpation. MUSCULOSKELETAL: 1+ bilateral lower extremity edema. NEURO: Alert & Oriented. Normal speech. Sleepy PSYCH: Calm Pt update on day of discharge Patient reports is feeling okay. Pain is controlled. He is seen eating a popsicle. Discussed discharge planning at length with the patient and his sister at bedside. We discussed his persistent/stable pancytopenia in the risk associated with this. Hospital Course 56-year-old male with a history of diabetes mellitus, HO, bacterial peritonitis who was transferred from [facility] to the Med-Surg floor due to large hematoma versus hygroma with mass effect in the brain and possible need for surgical intervention. Patient is status post bilateral bur hole and subdural hematoma evacuation. Evaluation and treatment course detailed below: Bilateral hygroma/subdural hematoma L > R. 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 Traore followed the patient. Surgically subdural hematoma was evacuated on 02/22/2017. Bilateral drains removed. -Patient required extensive FFP transfusion perioperatively. Postoperatively his platelet and H&H remained stable. - CT head on 02/25/2017 shows no hemorrhage. Shows hematoma decrease. HO, nonalcoholic steatohepatitis Liver cirrhosis with ascites Hepatic encephalopathy: Still encephalopathic. Not as baseline yet per his . - Continue Lasix 40 mg daily as well as spirolactone 50mg Qday. - Fentanyl patch, oxycodone for pain - Increase lactulose to 4 times a day for 1-2 soft BM daily - Resume Rifaximin - Appreciate nephrology consult. Previously discussed with Dr. Park. Urine output is good on current dose of Lasix and Aldactone. Continue the same and monitor. Fluctuation of renal functions expected. - Patient is status post paracentesis. 12 L removed. Continue to monitor fluid status. Discussed fluid restriction with the patient. - Continue fentanyl patches 50 g and continue oxycodone to 5 mg PRN. -Chronic kidney disease: -Improved. Good urine output. Patient was seen by nephrology, Dr. Park. Recommendation is to continue Lasix and Aldactone. History of SBP with E. Coli. - s/p paracentesis 02/02/17 - Continue Cipro for prophylaxis. DM type 2: Discussed diabetic diet with the patient. - Continue Levemir 20 units QHS, sliding scale insulin. Resume home NovoLog. Esophageal varices - Continue pantoprazole. Beta ary resumed. Right toe eschar: Podiatry followed the patient. Status post bedside debridement. Continue wound care per podiatry. Pt Condition on Discharge: Stable Discharge Disposition: Discharge to SNF Discharge Time: > 30 minutes Discharge Instructions DIET: Follow Instructions for: Diabetic Diet Additional Diet Instructions: Fluid restriction of less than 1500ml per 24hrs. Activities you can perform: Regular-No Restrictions, See Additionl Instruction Other Activity Instructions: Per PT instructions. Follow up Referrals: Neurosurgery - 1 Week PCP Follow-up - 1 Week New Medications: Oxycodone (Oxycodone) 5 Mg Tab 5 MG PO Q4H PRN PAIN SCALE 5 TO 10 #20 TAB Changed Medications: ([Lactulose Liq]) 30 ML SYRP 30 ML PO QID Days 30 ML (Changed from: [Lactulose] (Lactulose Liq) 30 ML SYRP 30 Ml PO QID PRN (encephalopathy ) 1 Day) Continued Medications: Ascorbic Acid (C 500/Keyla Hips) 500 Mg Tab 500 MG PO BID Days 1 TAB Cholecalciferol (Vitamin D3) 50,000 Unit Cap 61586 UNITS PO 2XWEEK Nutritional Supplement #1 Ref 0 BOTTLE Ciprofloxacin (Ciprofloxacin) 250 Mg Tab 250 MG PO DAILY Infection #30 Ref 0 TAB (This prescription has been renewed) Fentanyl Patch 72 HR (Fentanyl Patch 72 HR) 50 Mcg/Hr Patch 50 MCG T-DERMAL Q72H Remove old patch when new one placed. Pain Management Days 30 Ref 0 PATCH (This prescription has been renewed) Ferrous Sulfate (Ferosul) 325 Mg Tablet 325 MG PO BID #60 (This prescription has been renewed) Fluticasone Nasal [place] (Fluticasone Nasal [place]) 50 Mcg/Act Naspr 1 SPRAY EACH NARE BID 50 mcg/spray Allergy Management #1 Ref 0 BOTTLE Furosemide (Furosemide) 40 Mg Tab 40 MG PO DAILY #30 Ref 0 TAB (This prescription has been renewed) Insulin Aspart Inj (Novolog Inj) 1,000 Unit/10 Ml Vial 0 SQ DIRECTED Sliding Scale as directed. Blood Sugar Management #10 Ref 0 ML Insulin Aspart Inj (Novolog Inj) 1,000 Unit/10 Ml Vial 5 UNITS SQ TIDPC Days 1 INJECTION Insulin Glargine Inj (Lantus Inj) 1,000 Unit/10 Ml Vial 15 UNITS SQ HS Blood Sugar Management Days 1 Ref 0 VIAL Nadolol (Corgard) 20 Mg Tab 10 MG PO DAILY #30 TAB (This prescription has been renewed) Nystatin Topical (Nystatin Topical) 1 Powd 1 APPL TOPICAL BID CONTAINER Omeprazole (Omeprazole) 20 Mg Cap 20 MG PO DAILY #30 (This prescription has been renewed) Ondansetron (Ondansetron) 4 Mg Tab 4 MG PO Q6HR PRN NAUSEA Days 1 Paroxetine (Paxil) 30 Mg Tab 30 MG PO DAILY Days 1 Ref 0 TAB Rifaximin (Xifaxan) 550 Mg Tab 550 MG PO Q12HR Hepatic encephalopathy #60 Ref 0 TAB (This prescription has been renewed) Spironolactone (Aldactone) 50 Mg Tab 50 MG PO DAILY #30 TAB (This prescription has been renewed) Vitamin A Palmitate (Vitamin A) 10,000 Unit Capsule 1 CAP PO DAILY Days 1 Zinc Sulfate (Zinc Sulfate) 220 Mg Cap 220 MG PO DAILY Nutritional Supplement Days 1 Ref 0 CAP Discontinued Medications: Acetaminophen (Tylenol) 325 Mg Tab 650 MG PO Q4H PRN pain/fever Days 1 Ref 0 TAB Balsalazide (Balsalazide) 750 Mg Cap 750 MG PO DAILY Ulcerative colitis Days 1 Ref 0 CAP ([Dexamethasone Inj]) 4 MG/ML INJ 4 MG IV PUSH Q6HR Days 1 VIAL Kameron Roberson MD Mar 07, 2017 10:07
[2017-03-07 10:30] VITALS: O2SAT 98
[2017-03-07 12:00] VITALS: BP 150/68; PULSE 89; RESP 18; TEMP 97.6; O2SAT 99
== END 2017-03-07 15:14 | DRG 26 ==
LOC: N05A 16:15 → N03B 02-22 16:53 → N03A 02-22 19:09 → N04B 03-01 20:06
PROVIDERS: ADMIT Family Medicine; ATTEND Family Medicine
PROC: 30233K1 Transfusion of Nonautologous Frozen Plasma into Peripheral Vein, Percutaneous Approach (ICD-10-PCS; 2017-02-22)
PROC: 30233R1 Transfusion of Nonautologous Platelets into Peripheral Vein, Percutaneous Approach (ICD-10-PCS; 2017-02-22)
PROC: 00C43ZZ Extirpation of Matter from Intracranial Subdural Space, Percutaneous Approach (ICD-10-PCS; principal; 2017-02-22 13:08)
PROC: 30233N1 Transfusion of Nonautologous Red Blood Cells into Peripheral Vein, Percutaneous Approach (ICD-10-PCS; 2017-02-23)
PROC: 0JBQ0ZZ Excision of Right Foot Subcutaneous Tissue and Fascia, Open Approach (ICD-10-PCS; 2017-03-03)
PROC: 0W9G3ZZ Drainage of Peritoneal Cavity, Percutaneous Approach (ICD-10-PCS; 2017-03-06)
DX: I62.03 Nontraumatic chronic subdural hemorrhage (principal); D61.818 Other pancytopenia; D68.9 Coagulation defect, unspecified; N17.9 Acute kidney failure, unspecified; Z76.82 Awaiting organ transplant status; I85.00 Esophageal varices without bleeding; N18.3 Chronic kidney disease, stage 3 (moderate); E44.0 Moderate protein-calorie malnutrition; R18.8 Other ascites; G81.91 Hemiplegia, unspecified affecting right dominant side; K76.6 Portal hypertension; E66.2 Morbid (severe) obesity with alveolar hypoventilation; Z68.42 Body mass index [BMI] 45.0-49.9, adult; I62.01 Nontraumatic acute subdural hemorrhage; D69.59 Other secondary thrombocytopenia; L97.509 Non-pressure chronic ulcer of other part of unspecified foot with unspecified severity; E11.22 Type 2 diabetes mellitus with diabetic chronic kidney disease; E11.40 Type 2 diabetes mellitus with diabetic neuropathy, unspecified; K72.90 Hepatic failure, unspecified without coma; K74.60 Unspecified cirrhosis of liver; K75.81 Nonalcoholic steatohepatitis (NASH); E11.21 Type 2 diabetes mellitus with diabetic nephropathy; E11.621 Type 2 diabetes mellitus with foot ulcer; D18.1 Lymphangioma, any site; I25.10 Atherosclerotic heart disease of native coronary artery without angina pectoris; E78.5 Hyperlipidemia, unspecified; I12.9 Hypertensive chronic kidney disease with stage 1 through stage 4 chronic kidney disease, or unspecified chronic kidney disease; D73.1 Hypersplenism; F32.9 Major depressive disorder, single episode, unspecified; G31.84 Mild cognitive impairment of uncertain or unknown etiology; T38.0X5A Adverse effect of glucocorticoids and synthetic analogues, initial encounter; G93.89 Other specified disorders of brain; M54.9 Dorsalgia, unspecified; G89.29 Other chronic pain; R06.2 Wheezing; R06.02 Shortness of breath; F41.9 Anxiety disorder, unspecified; Z79.4 Long term (current) use of insulin; Z86.14 Personal history of Methicillin resistant Staphylococcus aureus infection; Z88.2 Allergy status to sulfonamides; Z89.422 Acquired absence of other left toe(s); Z98.84 Bariatric surgery status
CPT/HCPCS: 36430; 49083; 70450; 71010; 80048; 80053; 80076; 82550; 82948; 83010; 83615; 83880; 84484; 85025; 85027; 85044; 85384; 85610; 85730; 86850; 86880; 86900; 86901; 86920; 86927; 86965; 87641; 93005; 94150; 94640; 94664; C1729; J0360; J0690; J1100; J1580; J1815; J1940; J2250; J2270; J2405; J3010; J7040; J7050; J7120; P9016; P9017; P9035; P9047